=== PATIENT | female | born 1955 | race Caucasian/White ===

== ENCOUNTER → 2016-06-09 | Outpatient (CLI) | payer OTHER ==
[~2016-06-09] MED LIST: /ADVA50050 IN; /ADVA50050 INH; /ESCI10TA OR; /LOR25TA PO; ASACOL; ASPI1TAB PO; ASPI325T OR; ASPI325T PO; CALC600T10; CALCIUM WITH VIT D OR; CALCTAB22 PO; CEFD300C OR; CELE40TA OR; CIPR250T2 PO; CLAR5CHW PO; COMBVENT INH; DICL0.1S7 EXT; DIOV160T5 OR; DULC100C PO; DUONSOL INH; E-Z-GAS II EFFERVESCENT PACKET (SODIUM BICARB./CITRIC ACID/SIMETHICONE) As Ordered ONE; E-Z-HD 98% w/w 340GM SUSP BTL As Ordered ONE; E-Z-PAQUE 96% w/w SUSP 176GM BTL As Ordered ONE; ESTR1TAB OR; ESTRACE PV; GABA-279 PO; GABA300C3 PO; HYDR-3719 PO; HYDR25TA6 OR; KLOR10TA OR; KLS75TAB; LASI40TA OR; LIAL1.2T PO; MESAPOW OR; MULTIVIT PO; NAPR500T OR; NASONEX; NASONEX INH; NEXI20CA; NEXI20GR; OXYC1TAB15 PO; OXYC1TAB23 PO; PREG25CA OR; PREG50CA; PREV15CA PO; PREVACID OR; RANI75EL; TOLT2TA OR; VENTAER IN; VICO5TAB16 PO; VITA250C OR; VOLT1GEL EX; ZANAX; ZANT300T OR; [UNRECOGNIZED DRUG - OTHER]; astelin; estrace PV; klor con PO; mesalamine PO
--- NOTE | 2016-06-09 17:32 | REP ---
UPPER GI, AIR CONTRAST: The procedure was performed under the direct supervision of Dr. Rocha. The images were reviewed with Dr. Rocha. The extruder operator helper film shows no organomegaly or pathological masses. The intestinal gas pattern is nonspecific. There are surgical clips noted in the right upper quadrant. There is levoscoliosis. There is a lumbar spinous process stabilizer device at the L4 level. Liquid barium and gas-producing granules were given in the erect position as well as liquid barium in the prone oblique position in order to perform a double-contrast upper GI examination. The oral and pharyngeal stage of deglutition are unremarkable. Esophageal transport is prompt and efficient and there is no esophagitis, stricture, mucosal ring, or hiatal hernia. There is mild gastroesophageal reflux demonstrated to below the level of the william. The stomach schulz are normally outlined. The rugal folds are smooth and regular. There is no gastritis, neoplasm, or ulcer disease. The duodenal schulz are normally outlined. The mucosal folds are smooth and regular. There is no duodenitis, pancreatitis, peptic ulcer disease, or neoplasm. The visualized portion of the proximal small bowel appears normal in course and caliber. IMPRESSION: There is mild gastroesophageal reflux demonstrated to below the level of the william, otherwise unremarkable double contrast upper GI examination. 2 minutes and 7 seconds of fluoroscopic time was utilized for this procedure. Reviewed by GUZMAN Coleman 06/12/2016 05:08 PEdited and Signed by Edwin Rocha MD 06/12/2016 05:12 P
== END ==
LOC: M RAD 08:49
PROVIDERS: ATTEND Family Medicine
DX: K21.9 Gastro-esophageal reflux disease without esophagitis (principal)

== ENCOUNTER → 2016-07-14 | Outpatient (CLI) | payer OTHER ==
[~2016-07-14] MED LIST changes: +ASCO25TA PO; +CALC600T57 PO; +CELE40TA PO; +CETI10TA PO; +DETR1TAB4 PO; +DIOV160T6 PO; +DRIS50002 PO; -E-Z-GAS II EFFERVESCENT PACKET (SODIUM BICARB./CITRIC ACID/SIMETHICONE) As Ordered ONE; -E-Z-HD 98% w/w 340GM SUSP BTL As Ordered ONE; -E-Z-PAQUE 96% w/w SUSP 176GM BTL As Ordered ONE; +ESTR0.5T3 PO; +FLON1SPR; +MULT1TAB10 PO; +PREV30CA11 PO; +RANI15TA PO
--- NOTE | 2016-07-14 23:25 | ECWPNPC ---
PATIENT NAME: MARICARMEN WHEATLEY : 1955 GENDER: FEMALE VISIT DATE: 07/14/2016 DISCHARGE DATE: 07/14/16 1541 VISIT LOCKED DATE TIME: PHYSICIAN: MEGAN WU PHYSICIAN PAGER NO: [phone] RESOURCE: MEGAN WU REASON FOR APPOINTMENT 1. HIP HISTORY OF PRESENT ILLNESS HISTORY OF PRESENT ILLNESS: PAIN THE PATIENT DESCRIBES THE PAIN... FALL RISK SCREENING: SCREENING :NO FALLS IN THE PAST YEAR TODAY'S VISIT: NOTES: RATES PAIN LEVEL TODAY 8/10. HAD FALL ON ICE 3 WEEKS AGO. HAS BEEN HAVING NEW SHARP PAIN JUST DISTAL TO RIGHT KNEE. THIS CAN LOCK UP AND PREVENT HER FROM WALKING BRIEFLY. HIP MORE SORE AFTER FALL. NO BRUISES THERE. . CURRENT MEDICATIONS TAKING DIOVAN 160 MG TABLET TAKE 1 TABLET BY MOUTH ONCE DAILY ORALLY ONCE A DAY TAKING PREVACID 30 MG CAPSULE DELAYED RELEASE 1 CAPSULE ORALLY TWICE A DAY TAKING VENTOLIN HFA 108 (90 BASE) MCG/ACT AEROSOL SOLUTION 2 PUFFS INHALATION EVERY 4 HOURS NEEDED FOR WHEEZING TAKING CELEXA 40 MG TABLET 1 TABLET ORALLY ONCE A DAY TAKING DRISDOL 50,000 UNITS TABLET 1 TAB(S) ORAL ONCE A WEEK TAKING FLONASE 50 MCG/DOSE INHALER 2 SPRAYS IN EACH NOSTRIL NASALLY ONCE A DAY, NOTES: 04/18/16 TAKING ASTELIN 137 MCG/SPRAY SOLUTION INSTILL 1 SPRAY INTO EACH NOSTRIL 2 TIMES A DAY _ BID TAKING LIALDA 1.2 GM UNSPECIFIED 2 TABLETS WITH A MEAL ORALLY ONCE A DAY, NOTES: 04/18/16 TAKING CALCIUM 600 + D 600-400 MG-UNIT TABLET 1 TABLET ORALLY TWICE A DAY, NOTES: 04/18/16 TAKING VITAMIN C OTC TABLET 1 TABLET ORALLY ONCE A DAY, NOTES: 04/18/16@0800 TAKING MULTIVITAMINS OTC TABLET 1 TAB(S) ORALLY ONCE A DAY, NOTES: 04/18/16@0800 TAKING ESTRACE 0.1 MG/GM CREAM 0.5 GM VAGINAL TWICE A WEEK, NOTES: 1 WEEK AGO TAKING CETIRIZINE HCL 10 MG TABLET TAKE ONE TABLET BY MOUTH ONCE DAILY NEEDED , NOTES: 04/18/16 TAKING ZANTAC 150 MG TABLET 1 TABLET ORALLY TWICE A DAY TAKING GABAPENTIN 300 MG CAPSULE 1 CAPSULE ORALLY TWO TIMES A DAY TAKING DETROL 2 MG TABLET TAKE ONE TABLET BY MOUTH ONCE DAILY TAKING APRISO 0.375 GM CAPSULE EXTENDED RELEASE 24 HOUR 4 CAPSULES IN THE MORNING ORALLY ONCE A DAY MEDICATION LIST REVIEWED AND RECONCILED WITH THE PATIENT PAST MEDICAL HISTORY HYPERLIPIDEMIA 2B IMPAIRED FASTING GLUCOSE GERD/HIATAL HERNIA BY EGD DECEMBER 2006/SMALL HH BY 10/2014 UGISBFT COPD/ASTHMA, MILD PERSISTENT MULTIPLE BILATERAL COMPLEX THYROID CYSTS ULCERATIVE COLITIS BY COLONOSCOPY DECEMBER 2006 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 STOLL IMPAIRED FASTING GLUCOSE OBSTRUCTIVE SLEEP APNEA (ADULT) (PEDIATRIC) DIASTOLIC CHF-09/2014 TTE LVEF65%, DIASTOLIC DYSFUNCTION, ELEVATED CVP, MILD LAE 35 MM-ARRIETA B HIP OA, MILD R>L, PARTIAL L SUPERIOR LABRUM TEAR BY 10/2015 MRI ALLERGIES LYRICA: EDEMA, SWELLING, ITCHING: ALLERGY ULTRACET: RASH: ALLERGY OMEPRAZOLE: RASH: ALLERGY ENVIRONMENTAL GABAPENTIN: RASH: SIDE EFFECTS NORCO: CONFUSION: ALLERGY SOCIAL HISTORY GENERAL: TOBACCO USE ARE YOU A:NONSMOKER LEARNING BARRIERS / SPECIAL NEEDS ORIENTED TO PLAN OF CARE: PATIENT, PAIN MANAGEMENT PATIENT, ORIENTED TO PLAN OF CARE: PATIENT, PAIN MANAGEMENT PATIENT. NEW PATIENT PAIN DIARY TODAY'S VISITNOTES FROM 0-10, WHAT LEVEL IS YOUR PAIN TODAY?0 PAIN CLINIC PFS, CLERGY, PUBLIC HEALTH REFERRALS PFS REFERRAL NEEDED?NO CLERGY REFERRAL NEEDED?NO PUBLIC HEALTH REFERRAL NEEDED?NO WAS THE PROVIDER NOTIFIED OF ANY PERTINENT INFO?NO PFS REFERRAL NEEDED?NO CLERGY REFERRAL NEEDED?NO PUBLIC HEALTH REFERRAL NEEDED?NO WAS THE PROVIDER NOTIFIED OF ANY PERTINENT INFO?NO REVIEW OF SYSTEMS CONSTITUTIONAL: ANY CHANGE IN YOUR MEDICAL CONDITION? July ENDOSCOPY FOR INCREASED EPI GSTRIC PAIN . CHILLS NO . FEVER NO . INFECTION: DO YOU HAVE NEW INFECTIONS? NO . DO YOU HAVE HISTORY OF MRSA? NO . MUSCULOSKELETAL: ANY NEW PATTERNS OF PAIN OR NUMBNESS? NO . GASTROENTEROLOGY: ANY NEW CHANGE IN BOWEL CONTROL? NO . GENITOURINARY: ANY NEW CHANGE IN BLADDER CONTROL? NO . IS THERE A CHANCE YOU COULD BE ? NO . HEMATOLOGY/LYMPH: DO YOU TAKE ANY BLOOD THINNERS? (FOR EXAMPLE- COUMADIN, PLAVIX, AGGRENOX, PLATEL, PRADAXA, OR XARELTO) NO . WHEN WAS YOUR LAST DOSE? DATE: TIME: . NEUROLOGY: HAVE YOU FALLEN IN THE PAST 6 MONTHS? NO . ANY NEW EXTREMITY NUMBNESS OR WEAKNESS? NO . CARDIOLOGY: DO YOU HAVE A PACEMAKER OR DEFIBRILLATOR? NO . RESPIRATORY: HAVE YOU BEEN SICK IN THE PAST WEEK? NO . FEVER NO . FLU LIKE SYMPTOMS? NO . COUGH NO . INTEGUMENTARY: DO YOU HAVE ANY RASHES OR OPEN SORES? NO . ALLERGIC/IMMUNO: ARE YOU ALLERGIC TO SHELLFISH OR IV DYE? NO . ANY NEW ALLERGIES? NO . PSYCHIATRIC: DO YOU HAVE THOUGHTS OF HURTING YOURSELF OR SOMEONE ELSE? NO . ARE YOU ABUSED, NEGLECTED, OR IN AN UNSAFE ENVIRONMENT? NO . ENDOCRINOLOGY: ARE YOU DIABETIC? NO . OTHER: DO YOU NEED ANY PRESCRIPTIONS? NO . IF YES, PLEASE LIST: ____ . ANY NEW PROBLEMS WITH YOUR MEDICATIONS? NO . WHEN DID YOU LAST EAT? ____ . WHEN DID YOU LAST DRINK? ____ . WHAT DID YOU LAST DRINK? ____ . NAME OF PERSON DRIVING YOU HOME? ____ . DO YOU HAVE ANY OTHER QUESTIONS OR CONCERNS NO . REVIEWED BY: PROVIDER: MEGAN NEWMAN . VITAL SIGNS WT 240.4 LBS, HT 70 IN, BMI 34.49 INDEX, BP 133/81 MM HG, HR 82 /MIN, RR 16 /MIN, TEMP 98.7 F, OXYGEN SAT % 95%, NA INITIALS KG. EXAMINATION GENERAL EXAMINATION: PSYCHALERT , ORIENTED X 3 , APPROPRIATE MOOD AND AFFECT . LUNGS:CLEAR TO AUSCULTATION BILATERALLY. HEART:HEART RATE REGULAR. MUSCULOSKELETAL:POINT TENDERNESS OVER BILATERAL HIP /TROCANTERIC AREAS. SLOW TO RISE TO STANDING POSITION. POSTURE UPRIGHT, GAIT NON ANTALGIC. ASSESSMENTS HIP PAIN, BILATERAL - M25.551 (PRIMARY) CHRONIC PAIN SYNDROME - G89.4 SPONDYLOSIS OF LUMBAR REGION WITHOUT MYELOPATHY OR RADICULOPATHY - M47.816 CHRONIC PRESCRIPTION OPIATE USE - Z79.891 TREATMENT HIP PAIN, BILATERAL ARTHROCENTESIS INJECTION LARGE JOINT ([id number])MEGAN WU 07/14/2016 3:30:26 PM > LEFT HIP TROCANTER BURSA INJECTION NOTES: CONTINUE CURRENT MEDS. PREVENTIVE MEDICINE PAIN CLINIC TEACHING: PROCEDURE TEACHING WENT OVER HIP INJECTION EDUCATION INCLUDING PRE PROCEDURE EDUCATION. PROCEDURE CODES FA211 ESTABILISHED PATIENT [facility] CHARGE DISPOSITION & COMMUNICATION FOLLOW UP AFTER INJECTION (REASON: CHECK AUTH FOR BILATERAL HIP BURSA INJECTION) ELECTRONICALLY SIGNED BY HIREN PIERCE ON 07/14/2016 AT 05:32 PM EST DISCLAIMER : THIS IS A VISIT SUMMARY EXTRACTED FROM THE [employer] CHART. IT IS NOT A COPY OF THE [employer] PROGRESS NOTE. FRANK
== END ==
LOC: M PAIN 15:00
PROVIDERS: ATTEND Nurse Practitioner Family
DX: Z09 Encounter for follow-up examination after completed treatment for conditions other than malignant neoplasm (principal); G89.4 Chronic pain syndrome; M25.551 Pain in right hip; M47.816 Spondylosis without myelopathy or radiculopathy, lumbar region; E78.5 Hyperlipidemia, unspecified; R73.01 Impaired fasting glucose; K21.9 Gastro-esophageal reflux disease without esophagitis; J44.9 Chronic obstructive pulmonary disease, unspecified; K51.80 Other ulcerative colitis without complications; I10 Essential (primary) hypertension; M79.7 Fibromyalgia; F32.9 Major depressive disorder, single episode, unspecified; G47.33 Obstructive sleep apnea (adult) (pediatric); M50.30 Other cervical disc degeneration, unspecified cervical region; M16.0 Bilateral primary osteoarthritis of hip; I50.30 Unspecified diastolic (congestive) heart failure; E66.9 Obesity, unspecified; Z68.34 Body mass index [BMI] 34.0-34.9, adult; Z88.8 Allergy status to other drugs, medicaments and biological substances; J30.89 Other allergic rhinitis; Z88.5 Allergy status to narcotic agent; Z79.899 Other long term (current) drug therapy

== ENCOUNTER → 2016-07-27 | Outpatient (CLI) | payer OTHER ==
[~2016-07-27] VITALS: Ht 175.3 cm; Wt 108.9 kg
[~2016-07-27] MED LIST changes: +LIDOCAINE 2% INJ 100 MG/5 ML SDV (FOR ANES.) As Ordered ONE; +NS 1,000 ML IV SCH; +PROPOFOL 200 MG/20 ML VIAL As Ordered ONE
--- NOTE | 2016-07-27 12:11 | ROOR ---
Patient Name: Kandice Alejo Procedure Date: 07/27/2016 11:34 AM Date of : 1955 Age: 61 Room: [facility] Gender: Female Note Status: Finalized Procedure: Upper GI endoscopy Indications: Epigastric abdominal pain Providers: Ze Monique Jr, MD Referring MD: Gregg Salmeron MD Requesting Provider: Medicines: Propofol per Anesthesia Complications: No immediate complications. Procedure: Pre-Anesthesia Assessment: - Prior to the procedure, a History and Physical was performed, and patient medications and allergies were reviewed. The patient is competent. The risks and benefits of the procedure and the sedation options and risks were discussed with the patient. All questions were answered and informed consent was obtained. Patient identification and proposed procedure were verified by the physician and the nurse in the pre-procedure area and in the procedure room. Mental Status Examination: alert and oriented. Airway Examination: normal oropharyngeal airway and neck mobility. Respiratory Examination: clear to auscultation. CV Examination: normal. ASA Grade Assessment: II - A patient with mild systemic disease. After reviewing the risks and benefits, the patient was deemed in satisfactory condition to undergo the procedure. The anesthesia plan was to use moderate sedation / analgesia (conscious sedation). Immediately prior to administration of medications, the patient was re-assessed for adequacy to receive sedatives. The heart rate, respiratory rate, oxygen saturations, blood pressure, adequacy of pulmonary ventilation, and response to care were monitored throughout the procedure. The physical status of the patient was re-assessed after the procedure. The Endoscope was introduced through the mouth, and advanced to the second part of duodenum. The upper GI endoscopy was accomplished without difficulty. The patient tolerated the procedure well. Findings: The upper third of the esophagus, middle third of the esophagus and lower third of the esophagus were normal. A small hiatal hernia was present. Patchy moderate inflammation characterized by congestion (edema), erythema, friability, granularity and linear erosions was found in the gastric antrum. Biopsies were taken with a cold forceps for histology. The cardia and gastric fundus were normal. Patchy moderate inflammation characterized by congestion (edema), erythema and friability was found in the duodenal bulb. The first portion of the duodenum and second portion of the duodenum were normal. Impression: - Normal upper third of esophagus, middle third of esophagus and lower third of esophagus. - Small hiatal hernia. - Bile gastritis. Biopsied. - Normal cardia and gastric fundus. - Duodenitis. - Normal first portion of the duodenum and second portion of the duodenum. Recommendation: - Use sucralfate tablets 1 gram PO QID indefinitely. Ze Monique MD Ze Monique Jr, MD 07/27/2016 12:10:44 PM This report has been signed electronically. Number of Addenda: 0 Note Initiated On: 07/27/2016 11:34 AM Estimated Blood Loss: Estimated blood loss: none.
[2016-07-27 12:17] VITALS: BP 129/75
== END | disposition home or self-care (01) ==
LOC: M OPP 10:40
PROVIDERS: ATTEND Surgery
DX: K29.80 Duodenitis without bleeding (principal); K29.60 Other gastritis without bleeding; K44.9 Diaphragmatic hernia without obstruction or gangrene; R07.89 Other chest pain; K21.9 Gastro-esophageal reflux disease without esophagitis; I12.9 Hypertensive chronic kidney disease with stage 1 through stage 4 chronic kidney disease, or unspecified chronic kidney disease; E04.1 Nontoxic single thyroid nodule; K51.90 Ulcerative colitis, unspecified, without complications; R12 Heartburn; M19.90 Unspecified osteoarthritis, unspecified site; M79.7 Fibromyalgia; F41.9 Anxiety disorder, unspecified; F32.9 Major depressive disorder, single episode, unspecified; E66.9 Obesity, unspecified; N18.9 Chronic kidney disease, unspecified; Z78.0 Asymptomatic menopausal state; J45.909 Unspecified asthma, uncomplicated; G47.30 Sleep apnea, unspecified; Z88.5 Allergy status to narcotic agent; Z88.8 Allergy status to other drugs, medicaments and biological substances; Z79.899 Other long term (current) drug therapy; Z80.8 Family history of malignant neoplasm of other organs or systems

== ENCOUNTER → 2016-08-09 | Outpatient (CLI) | payer OTHER ==
[~2016-08-09] MED LIST changes: -LIDOCAINE 2% INJ 100 MG/5 ML SDV (FOR ANES.) As Ordered ONE; -NS 1,000 ML IV SCH; -PROPOFOL 200 MG/20 ML VIAL As Ordered ONE
[2016-08-09 12:59] LABS: BASO % 0.2 % (0.0-1.0); EOS # 0.1 K/mm3 (0.0-0.50); EOS % 1.8 % (0.0-3.0); LARGE UNSTAINED CELL # 0.1 K/mm3 (0.0-0.4); LARGE UNSTAINED CELL % 1.7 % (0.0-4.0); LYMPH # 2.8 K/mm3 (1.5-4.5); LYMPH % 40.1 % (24.0-44.0); MEAN CORPUSCULAR HEMOGLOBIN 30.6 pg (27.0-33.0); MEAN CORPUSCULAR HGB CONC 34.2 g/dl (32.0-36.5); MEAN CORPUSCULAR VOLUME 89.4 fl (80.0-96.0); MONO # 0.3 K/mm3 (0.0-0.8); MONO % 4.6 % (0.0-5.0); NEUTROPHILS # 3.5 K/mm3 (1.8-7.7); NEUTROPHILS % 51.5 % (36.0-66.0); PLATELET COUNT, AUTOMATED 221 k/mm3 (150-450); RED CELL DISTRIBUTION WIDTH 12.3 % (11.5-14.5); WHITE BLOOD COUNT 6.7 K/mm3 (4.0-10.0)
[2016-08-09 13:14] LABS: ALBUMIN/GLOBULIN RATIO 1.11 (1.00-1.93); ALKALINE PHOSPHATASE 83 U/L (45-117); ALT/SGPT 28 U/L (12-78); ANION GAP 6 MEQ/L (8-16); AST/SGOT 23 U/L (15-37); BILIRUBIN,TOTAL 0.4 MG/DL (0.2-1.0); BLOOD UREA NITROGEN 17 MG/DL (7-18); CALCIUM LEVEL 9.3 MG/DL (8.8-10.2); CARBON DIOXIDE LEVEL 27 MEQ/L (21-32); CHLORIDE LEVEL 107 MEQ/L (98-107); CREATININE FOR GFR 0.87 MG/DL (0.55-1.02); FERRITIN 46 NG/ML (8-252); GLOMERULAR FILTRATION RATE > 60.0 (>45); GLUCOSE, FASTING 88 MG/DL (80-110); MAGNESIUM LEVEL 2.4 MG/DL (1.8-2.4); POTASSIUM SERUM 4.1 MEQ/L (3.5-5.1); SODIUM LEVEL 140 MEQ/L (136-145); TOTAL IRON BINDING CAPACITY 387 UG/DL (250-450); TOTAL PROTEIN 7.6 GM/DL (6.4-8.2)
== END ==
LOC: M LAB 12:14
PROVIDERS: ATTEND Family Medicine
DX: I50.30 Unspecified diastolic (congestive) heart failure (principal); R73.01 Impaired fasting glucose

== ENCOUNTER → 2016-08-11 | Outpatient (CLI) | payer OTHER ==
[~2016-08-11] MED LIST changes: +BUPIVACAINE HCL 0.25% 30 ML VIAL As Ordered ONE; +ISOVUE-M 300 61% 15ML VIAL (Q9967) As Ordered ONE; +LIDOCAINE 1% SDV INJ 30 ML VIAL As Ordered ONE; +TRIAMCINOLONE ACETONIDE SUSP 40 MG/ML VIAL (J3301) As Ordered ONE; +diazePAM 5 MG TAB As Ordered ONE; +oxyCODONE 5MG TAB As Ordered ONE
--- NOTE | 2016-08-11 15:05 | REP ---
Partial femur series: Five views. History: Injection procedure for pain. 39 seconds of fluoroscopy time is reported. Findings: A sequence of five fluoroscopically obtained intraprocedural spot radiographs of the proximal femurs document various needle positions for injection procedure. Signed by Edwin Rocha MD 08/11/2016 03:51 P
--- NOTE | 2016-08-16 02:28 | ECWPNPC ---
PATIENT NAME: MARICARMEN WHEATLEY : 1955 GENDER: FEMALE VISIT DATE: 08/11/2016 DISCHARGE DATE: 08/11/16 1151 VISIT LOCKED DATE TIME: PHYSICIAN: ARCADIO GLASS PHYSICIAN PAGER NO: [phone] RESOURCE: ARCADIO GLASS REASON FOR APPOINTMENT 1. LEFT HIP TROCANTER BURSA INJECTION HISTORY OF PRESENT ILLNESS HISTORY OF PRESENT ILLNESS: PAIN THE PATIENT DESCRIBES THE PAIN... FALL RISK SCREENING: SCREENING :NO FALLS IN THE PAST YEAR CURRENT MEDICATIONS TAKING VENTOLIN HFA 108 (90 BASE) MCG/ACT AEROSOL SOLUTION 2 PUFFS INHALATION EVERY 4 HOURS NEEDED FOR WHEEZING, NOTES: NONE LATELY TAKING CELEXA 40 MG TABLET 1 TABLET ORALLY ONCE A DAY, NOTES: 08/10/16 0800 TAKING DRISDOL 50,000 UNITS TABLET 1 TAB(S) ORAL ONCE A WEEK, NOTES: 08/06/16 TAKING FLONASE 50 MCG/DOSE INHALER 2 SPRAYS IN EACH NOSTRIL NASALLY ONCE A DAY, NOTES: 08/10/161999 TAKING ASTELIN 137 MCG/SPRAY SOLUTION INSTILL 1 SPRAY INTO EACH NOSTRIL 2 TIMES A DAY _ BID, NOTES: 08/10/16 1300 TAKING LIALDA 1.2 GM UNSPECIFIED 4 TABLETS WITH A MEAL ORALLY ONCE A DAY, NOTES: 08/10/16 0800 TAKING CALCIUM 600 + D 600-400 MG-UNIT TABLET 1 TABLET ORALLY TWICE A DAY, NOTES: 08/10/161999 TAKING VITAMIN C OTC TABLET 1 TABLET ORALLY ONCE A DAY, NOTES: 08/10/16@0800 TAKING MULTIVITAMINS OTC TABLET 1 TAB(S) ORALLY ONCE A DAY, NOTES: 08/10/16 08 TAKING ESTRACE 0.1 MG/GM CREAM 0.5 GM VAGINAL WEEKLY, NOTES: 1 WEEK AGO TAKING ZANTAC 300 MG TABLET 1 TABLET ORALLY TWICE A DAY, NOTES: 08/10/161999 TAKING GABAPENTIN 300 MG CAPSULE 1 CAPSULE ORALLY TWO TIMES A DAY, NOTES: NONE LATELY TAKING LASIX 40 MG TABLET 1 TABLET ONCE A DAY BY MOUTH 90 DAY(S) , NOTES: 08/10/16 08 TAKING CETIRIZINE HCL 10 MG TABLET TAKE ONE TABLET BY MOUTH ONCE DAILY NEEDED , NOTES: 08/10/16 08 TAKING DETROL 2 MG TABLET TAKE ONE TABLET BY MOUTH ONCE DAILY , NOTES: 08/10/16 0800 TAKING DIOVAN 160 MG TABLET TAKE 1 TABLET BY MOUTH ONCE DAILY ONCE A DAY ORALLY 90 DAY(S) , NOTES: 08/10/16 0800 NOT-TAKING APRISO 0.375 GM CAPSULE EXTENDED RELEASE 24 HOUR 4 CAPSULES IN THE MORNING ORALLY ONCE A DAY DISCONTINUED PREVACID 30 MG CAPSULE DELAYED RELEASE 1 CAPSULE TWICE A DAY ORALLY 90 DAY(S) DISCONTINUED VITAMIN D (ERGOCALCIFEROL) 97937 UNIT CAPSULE TAKE ONE CAPSULE BY MOUTH ONCE A WEEK MEDICATION LIST REVIEWED AND RECONCILED WITH THE PATIENT PAST MEDICAL HISTORY HYPERLIPIDEMIA 2B IMPAIRED FASTING GLUCOSE GERD/HIATAL HERNIA BY EGD DECEMBER 2006/SMALL HH BY 10/2014 UGISBFT COPD/ASTHMA, MILD PERSISTENT MULTIPLE BILATERAL COMPLEX THYROID CYSTS ULCERATIVE COLITIS BY COLONOSCOPY DECEMBER 2006 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 STOLL IMPAIRED FASTING GLUCOSE OBSTRUCTIVE SLEEP APNEA (ADULT) (PEDIATRIC) DIASTOLIC CHF-09/2014 TTE LVEF65%, DIASTOLIC DYSFUNCTION, ELEVATED CVP, MILD LAE 35 MM-ARRIETA B HIP OA, MILD R>L, PARTIAL L SUPERIOR LABRUM TEAR BY 10/2015 MRI ALLERGIES LYRICA: EDEMA, SWELLING, ITCHING: ALLERGY ULTRACET: RASH: ALLERGY OMEPRAZOLE: RASH: ALLERGY ENVIRONMENTAL GABAPENTIN: RASH: SIDE EFFECTS NORCO: CONFUSION: ALLERGY SURGICAL HISTORY RIGHT KIDNEY SURGERY 1997 BREAST LEFT CYST 1999 HYSTERECTOMY 1979 TUBAL LIGATION 1977 GALL BLADDER B EYELID SURGERY-ROJAS 09/2012 BACK SURGERY 2014 RIGHT FOOT BUNIONECTOMY, REPAIR OF HAMMERTOES 04/04 EGD 07/18/16 HOSPITALIZATION/MAJOR DIAGNOSTIC PROCEDURE NONE REVIEW OF SYSTEMS CONSTITUTIONAL: ANY CHANGE IN YOUR MEDICAL CONDITION? NO . CHILLS NO . FEVER NO . INFECTION: DO YOU HAVE NEW INFECTIONS? NO . DO YOU HAVE HISTORY OF MRSA? NO . MUSCULOSKELETAL: ANY NEW PATTERNS OF PAIN OR NUMBNESS? NO . GASTROENTEROLOGY: ANY NEW CHANGE IN BOWEL CONTROL? NO . GENITOURINARY: ANY NEW CHANGE IN BLADDER CONTROL? NO . IS THERE A CHANCE YOU COULD BE ? NO . HEMATOLOGY/LYMPH: DO YOU TAKE ANY BLOOD THINNERS? (FOR EXAMPLE- COUMADIN, PLAVIX, AGGRENOX, PLATEL, PRADAXA, OR XARELTO) NO . WHEN WAS YOUR LAST DOSE? DATE: TIME: . NEUROLOGY: HAVE YOU FALLEN IN THE PAST 6 MONTHS? YES ON ICE-NO ED EVAL . ANY NEW EXTREMITY NUMBNESS OR WEAKNESS? NO . CARDIOLOGY: DO YOU HAVE A PACEMAKER OR DEFIBRILLATOR? NO . RESPIRATORY: HAVE YOU BEEN SICK IN THE PAST WEEK? NO . FEVER NO . FLU LIKE SYMPTOMS? NO . COUGH NO . INTEGUMENTARY: DO YOU HAVE ANY RASHES OR OPEN SORES? NO . ALLERGIC/IMMUNO: ARE YOU ALLERGIC TO SHELLFISH OR IV DYE? NO . ANY NEW ALLERGIES? NO . PSYCHIATRIC: DO YOU HAVE THOUGHTS OF HURTING YOURSELF OR SOMEONE ELSE? NO . ARE YOU ABUSED, NEGLECTED, OR IN AN UNSAFE ENVIRONMENT? NO . ENDOCRINOLOGY: ARE YOU DIABETIC? NO . OTHER: DO YOU NEED ANY PRESCRIPTIONS? NO . IF YES, PLEASE LIST: ____ . ANY NEW PROBLEMS WITH YOUR MEDICATIONS? NO . WHEN DID YOU LAST EAT? ____08/10/16 1800 . WHEN DID YOU LAST DRINK? ____08/10/16 2300 . WHAT DID YOU LAST DRINK? ____MILK . NAME OF PERSON DRIVING YOU HOME? ____MED RIDE . DO YOU HAVE ANY OTHER QUESTIONS OR CONCERNS NO . REVIEWED BY: PROVIDER: . VITAL SIGNS WT 240 LBS, HT 70 IN, BMI 34.43 INDEX, BP 141/63 MM HG, HR 80 /MIN, RR 16 /MIN, TEMP 98.4 F, OXYGEN SAT % 95%, NA INITIALS SC 10:43, REVIEWED BY: MLF. ASSESSMENTS TROCHANTERIC BURSITIS, LEFT HIP - M70.62 (PRIMARY) TREATMENT OTHERS NOTES: PREPROCEDURE DIAGNOSIS: BURSITIS AT THE LEFT GREATER TROCHANTER OF THE FEMUR. POSTPROCEDURE DIAGNOSIS: BURSITIS AT THE LEFT GREATER TROCHANTER OF THE FEMUR. PROCEDURE: INJECTION AT THE BURSA OF THE OF THE LEFT GREATER TROCHANTER OF THE FEMUR UNDER FLUOROSCOPIC GUIDANCE. SURGEON: DR. ARCADIO GLASS MANUFACTURING ENGINEERING DIRECTOR: NONEANESTHESIA: LOCAL. PREOPERATIVE NOTE: THE PATIENT HAS A HISTORY OF LEFT HIP PAIN. I EVALUATED THE PATIENT AND REVIEWED THE CHART. WE BOTH AGREE ON INJECTING OVER THE BURSA OF THE LEFT GREATER TROCHANTER OF THE FEMUR. I WENT THROUGH THE RISKS, ALTERNATIVES, AND BENEFITS ASSOCIATED WITH THIS PROCEDURE. THE PATIENT WOULD LIKE TO PROCEED AND GIVE CONSENT TO PERFORMED THE PROCEDURE. THE PATIENT DENIES UNEXPLAINABLE WEIGHT LOSS, FEVERS, CHILLS, OR CHANGES IN HIS URINARY OR BOWEL CONTROL. DESCRIPTION OF PROCEDURE: AFTER CONSENT WAS TAKEN, THE PATIENT WAS BROUGHT TO THE PROCEDURE ROOM AND PLACED IN THE RIGHT LATERAL DECUBITUS POSITION. THE LEFT HIP AREA WAS CLEANED WITH CHLORAPREP SOLUTION AND DRAPED ASEPTICALLY. THE PROCEDURE WAS DONE UNDER STERILE CONDITIONS. I CHECKED LATERALITY WITH THE PATIENT AND THE STAFF IN THE PROCEDURE ROOM AT THE MOMENT OF THE TIME OUT. UNDER FLUOROSCOPIC GUIDANCE, TARGET WAS SELECTED AT THE [DEFAULT VALUE] GREATER TROCHANTER OF THE FEMUR. LIDOCAINE WAS USED TO NUMB THE SKIN AND THE SUBCUTANEOUS TISSUE BELOW IT. SPINAL NEEDLE, 22-GAUGE WAS ADVANCED UNDER FLUOROSCOPIC GUIDANCE AND FOLLOWING PATIENT FEEDBACK UNTIL THE TARGET WAS TOUCHED. POSITION OF THE NEEDLE WAS VERIFIED WITH AP AND LATERAL VIEWS. AFTER PROPER POSITION OF THE NEEDLE WAS ACHIEVED, ISOVUE M DYE, 30%, 0.25 ML WAS INJECTED SHOWING ADEQUATE SPREAD OF THE DYE. THEN A SOLUTION OF 20 ML OF BUPIVACAINE 0.25% AND KENALOG 40 MG WAS INJECTED. THERE WAS NO EVIDENCE OF BLOOD, PARESTHESIA, OR CEREBROSPINAL FLUID. THE PATIENT WAS SENT TO THE RECOVERY ROOM. THE PATIENT WAS MOVING THE EXTREMITIES AND DOING WELL. THERE WERE NO COMPLICATIONS DURING THE PROCEDURE. POSTOPERATIVE NOTE: I DISCUSSED ALTERNATIVES WITH THE PATIENT. WE WILL SEE THE PATIENT BACK IN SEVERAL WEEKS FOR REEVALUATION OF THE CASE. I AM LOOKING FOR LONG-LASTING PAIN RELIEF WITH THIS INTERVENTION. FLUOROSCOPIC TIME WAS 39 SECONDS. FURTHER RECOMMENDATIONS WILL BE DONE DEPENDING ON HOW THE PATIENT DOES. THERE WERE NO COMPLICATIONS.I, KARYN SAUCEDO, DOCUMENTED THE ABOVE INFORMATION ACTING A SCRIBE FOR DR. GLASS. I, DR. GLASS, HAVE REVIEWED THE ABOVE DOCUMENT, SCRIBED BY KARYN SAUCEDO, AND I VERIFY THAT IT IS ACCURATE. DIAGNOSTIC IMAGING [facility] FLUORO GUIDANCE (PAIN)[id number] PROCEDURE CODES 88390 INJ TENDON SHEATH/LIGAMENT 6045F RADXPS IN END [id number] PXD 20625 NEEDLE LOCALIZATION BY XRAY DISPOSITION & COMMUNICATION FOLLOW UP 3 WEEKS ELECTRONICALLY SIGNED BY ARCADIO GLASS MD ON 08/15/2016 AT 01:21 PM EDT DISCLAIMER : THIS IS A VISIT SUMMARY EXTRACTED FROM THE [employer] CHART. IT IS NOT A COPY OF THE [employer] PROGRESS NOTE. FRANK
== END ==
LOC: M PAIN 10:20
PROVIDERS: ATTEND Anesthesiology
DX: M70.62 Trochanteric bursitis, left hip (principal); Z79.899 Other long term (current) drug therapy; I10 Essential (primary) hypertension; J45.30 Mild persistent asthma, uncomplicated; I50.30 Unspecified diastolic (congestive) heart failure; M16.0 Bilateral primary osteoarthritis of hip; K21.9 Gastro-esophageal reflux disease without esophagitis; E55.9 Vitamin D deficiency, unspecified; R73.01 Impaired fasting glucose; Z88.8 Allergy status to other drugs, medicaments and biological substances
CPT/HCPCS: 20610; 77002; J3301; Q9967

== ENCOUNTER → 2016-08-18 | Outpatient (CLI) | payer OTHER ==
[~2016-08-18] MED LIST changes: +GABA-282 PO; -GABA300C3 PO
--- NOTE | 2016-08-18 11:27 | REP ---
FLUOROSCOPIC GUIDANCE FOR OF THE RIGHT HIP INJECTION: 08/18/2016 CLINICAL HISTORY: Right hip pain for injection. Four views from C-arm fluoroscopic guidance provided to Dr. Dr. Higginbotham of the pain clinic. Images show a needle adjacent to the inferior aspect of the greater trochanter and then extending upward. No other finding. Fluoroscopy time: 7 seconds. Signed by Yordan López MD 08/18/2016 08:08 P
--- NOTE | 2016-08-29 01:13 | ECWPNPC ---
PATIENT NAME: MARICARMEN WHEATLEY : 1955 GENDER: FEMALE VISIT DATE: 08/18/2016 DISCHARGE DATE: 08/18/16 1051 VISIT LOCKED DATE TIME: PHYSICIAN: ARCADIO GLASS PHYSICIAN PAGER NO: [phone] RESOURCE: ARCADIO GLASS REASON FOR APPOINTMENT 1. RIGHT HIP INJ HISTORY OF PRESENT ILLNESS HISTORY OF PRESENT ILLNESS: PAIN THE PATIENT DESCRIBES THE PAIN... FALL RISK SCREENING: SCREENING :NO FALLS IN THE PAST YEAR CURRENT MEDICATIONS TAKING VENTOLIN HFA 108 (90 BASE) MCG/ACT AEROSOL SOLUTION 2 PUFFS INHALATION EVERY 4 HOURS NEEDED FOR WHEEZING, NOTES: NONE LATELY TAKING CELEXA 40 MG TABLET 1 TABLET ORALLY ONCE A DAY, NOTES: 08/17/16 0800 TAKING DRISDOL 50,000 UNITS TABLET 1 TAB(S) ORAL ONCE A WEEK, NOTES: 08/13/16 TAKING FLONASE 50 MCG/DOSE INHALER 2 SPRAYS IN EACH NOSTRIL NASALLY ONCE A DAY, NOTES: 3 MONTHS TAKING ASTELIN 137 MCG/SPRAY SOLUTION INSTILL 1 SPRAY INTO EACH NOSTRIL 2 TIMES A DAY _ BID, NOTES: 08/17/16 1300 TAKING CALCIUM 600 + D 600-400 MG-UNIT TABLET 1 TABLET ORALLY TWICE A DAY, NOTES: 08/17/161999 TAKING VITAMIN C OTC TABLET 1 TABLET ORALLY ONCE A DAY, NOTES: 08/17/16@0800 TAKING MULTIVITAMINS OTC TABLET 1 TAB(S) ORALLY ONCE A DAY, NOTES: 08/17/16 08 TAKING ZANTAC 300 MG TABLET 1 TABLET ORALLY TWICE A DAY, NOTES: 08/17/161999 TAKING GABAPENTIN 300 MG CAPSULE 1 CAPSULE ORALLY TWO TIMES A DAY, NOTES: NONE LATELY TAKING LASIX 40 MG TABLET 1 TABLET ONCE A DAY BY MOUTH 90 DAY(S) , NOTES: 08/17/16 08 TAKING CETIRIZINE HCL 10 MG TABLET TAKE ONE TABLET BY MOUTH ONCE DAILY NEEDED , NOTES: 08/17/16 08 TAKING DETROL 2 MG TABLET TAKE ONE TABLET BY MOUTH ONCE DAILY , NOTES: 08/17/16799 TAKING DIOVAN 160 MG TABLET TAKE 1 TABLET BY MOUTH ONCE DAILY ONCE A DAY ORALLY 90 DAY(S) , NOTES: 08/18/16 08 TAKING ESTRACE 0.1 MG/GM CREAM 0.5 GM VAGINAL TWICE WEEKLY, NOTES: 08/13/16 TAKING APRISO 0.375 GM CAPSULE EXTENDED RELEASE 24 HOUR 4 CAPSULES IN THE MORNING ORALLY ONCE A DAY NOT-TAKING LIALDA 1.2 GM UNSPECIFIED 4 TABLETS WITH A MEAL ORALLY ONCE A DAY, NOTES: 08/10/16 0800 MEDICATION LIST REVIEWED AND RECONCILED WITH THE PATIENT PAST MEDICAL HISTORY HYPERLIPIDEMIA 2B IMPAIRED FASTING GLUCOSE GERD/HIATAL HERNIA BY EGD DECEMBER 2006/SMALL HH BY 10/2014 UGISBFT COPD/ASTHMA, MILD PERSISTENT MULTIPLE BILATERAL COMPLEX THYROID CYSTS ULCERATIVE COLITIS BY COLONOSCOPY DECEMBER 2006 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 STOLL IMPAIRED FASTING GLUCOSE OBSTRUCTIVE SLEEP APNEA (ADULT) (PEDIATRIC) DIASTOLIC CHF-09/2014 TTE LVEF65%, DIASTOLIC DYSFUNCTION, ELEVATED CVP, MILD LAE 35 MM-ARRIETA B HIP OA, MILD R>L, PARTIAL L SUPERIOR LABRUM TEAR BY 10/2015 MRI ALLERGIES LYRICA: EDEMA, SWELLING, ITCHING: ALLERGY ULTRACET: RASH: ALLERGY OMEPRAZOLE: RASH: ALLERGY ENVIRONMENTAL GABAPENTIN: RASH: SIDE EFFECTS NORCO: CONFUSION: ALLERGY SOCIAL HISTORY GENERAL: PAIN CLINIC PFS, CLERGY, PUBLIC HEALTH REFERRALS CLERGY REFERRAL NEEDED?NO WAS THE PROVIDER NOTIFIED OF ANY PERTINENT INFO?NO PFS REFERRAL NEEDED?NO PUBLIC HEALTH REFERRAL NEEDED?NO PATIENT: ____. REVIEW OF SYSTEMS CONSTITUTIONAL: ANY CHANGE IN YOUR MEDICAL CONDITION? NO . CHILLS NO . FEVER NO . INFECTION: DO YOU HAVE NEW INFECTIONS? NO . DO YOU HAVE HISTORY OF MRSA? NO . MUSCULOSKELETAL: ANY NEW PATTERNS OF PAIN OR NUMBNESS? NO . GASTROENTEROLOGY: ANY NEW CHANGE IN BOWEL CONTROL? NO . GENITOURINARY: ANY NEW CHANGE IN BLADDER CONTROL? NO . IS THERE A CHANCE YOU COULD BE ? NO . HEMATOLOGY/LYMPH: DO YOU TAKE ANY BLOOD THINNERS? (FOR EXAMPLE- COUMADIN, PLAVIX, AGGRENOX, PLATEL, PRADAXA, OR XARELTO) NO . WHEN WAS YOUR LAST DOSE? DATE: TIME: . NEUROLOGY: HAVE YOU FALLEN IN THE PAST 6 MONTHS? NO . ANY NEW EXTREMITY NUMBNESS OR WEAKNESS? NO . CARDIOLOGY: DO YOU HAVE A PACEMAKER OR DEFIBRILLATOR? NO . RESPIRATORY: HAVE YOU BEEN SICK IN THE PAST WEEK? NO . FEVER NO . FLU LIKE SYMPTOMS? NO . COUGH NO . INTEGUMENTARY: DO YOU HAVE ANY RASHES OR OPEN SORES? NO . ALLERGIC/IMMUNO: ARE YOU ALLERGIC TO SHELLFISH OR IV DYE? NO . ANY NEW ALLERGIES? NO . PSYCHIATRIC: DO YOU HAVE THOUGHTS OF HURTING YOURSELF OR SOMEONE ELSE? NO . ARE YOU ABUSED, NEGLECTED, OR IN AN UNSAFE ENVIRONMENT? NO . ENDOCRINOLOGY: ARE YOU DIABETIC? NO . OTHER: DO YOU NEED ANY PRESCRIPTIONS? NO . IF YES, PLEASE LIST: ____ . ANY NEW PROBLEMS WITH YOUR MEDICATIONS? NO . WHEN DID YOU LAST EAT? ____ . WHEN DID YOU LAST DRINK? ____ . WHAT DID YOU LAST DRINK? ____ . NAME OF PERSON DRIVING YOU HOME? ____ . DO YOU HAVE ANY OTHER QUESTIONS OR CONCERNS NO . REVIEWED BY: PROVIDER: . VITAL SIGNS WT 242 LBS, HT 70 IN, BMI 34.72 INDEX, BP 106/65 MM HG, HR 68 /MIN, RR 16 /MIN, TEMP 98.4 F, OXYGEN SAT % 97%, SAFE IN ENV? (Y/N) YES, NA INITIALS MS 08:59, REVIEWED BY: ASSESSMENTS TROCHANTERIC BURSITIS, RIGHT HIP - M70.61 (PRIMARY) PROCEDURES PREPROCEDURE DIAGNOSIS: BURSITIS AT THE RIGHT GREATER TROCHANTER OF THE FEMUR. POSTPROCEDURE DIAGNOSIS: BURSITIS AT THE RIGHT GREATER TROCHANTER OF THE FEMUR. PROCEDURE: INJECTION AT THE BURSA OF THE OF THE RIGHT GREATER TROCHANTER OF THE FEMUR UNDER FLUOROSCOPIC GUIDANCE. SURGEON: DR. ARCADIO GLASS MEDICAL ORDERLY: NONEANESTHESIA: LOCAL. PREOPERATIVE NOTE: THE PATIENT HAS A HISTORY OF RIGHT HIP PAIN. I EVALUATED THE PATIENT AND REVIEWED THE CHART. WE BOTH AGREE ON INJECTING OVER THE BURSA OF THE RIGHT GREATER TROCHANTER OF THE FEMUR. I WENT THROUGH THE RISKS, ALTERNATIVES, AND BENEFITS ASSOCIATED WITH THIS PROCEDURE. THE PATIENT WOULD LIKE TO PROCEED AND GIVE CONSENT TO PERFORMED THE PROCEDURE. THE PATIENT DENIES UNEXPLAINABLE WEIGHT LOSS, FEVERS, CHILLS, OR CHANGES IN HIS URINARY OR BOWEL CONTROL. DESCRIPTION OF PROCEDURE: AFTER CONSENT WAS TAKEN, THE PATIENT WAS BROUGHT TO THE PROCEDURE ROOM AND PLACED IN THE LEFT LATERAL DECUBITUS POSITION. THE RIGHT HIP AREA WAS CLEANED WITH CHLORAPREP SOLUTION AND DRAPED ASEPTICALLY. THE PROCEDURE WAS DONE UNDER STERILE CONDITIONS. I CHECKED LATERALITY WITH THE PATIENT AND THE STAFF IN THE PROCEDURE ROOM AT THE MOMENT OF THE TIME OUT. UNDER FLUOROSCOPIC GUIDANCE, TARGET WAS SELECTED AT THE RIGHT GREATER TROCHANTER OF THE FEMUR. LIDOCAINE WAS USED TO NUMB THE SKIN AND THE SUBCUTANEOUS TISSUE BELOW IT. SPINAL NEEDLE, 22-GAUGE WAS ADVANCED UNDER FLUOROSCOPIC GUIDANCE AND FOLLOWING PATIENT FEEDBACK UNTIL THE TARGET WAS TOUCHED. POSITION OF THE NEEDLE WAS VERIFIED WITH AP AND LATERAL VIEWS. AFTER PROPER POSITION OF THE NEEDLE WAS ACHIEVED, ISOVUE M DYE, 30%, 0.25 ML WAS INJECTED SHOWING ADEQUATE SPREAD OF THE DYE. THEN A SOLUTION OF 20 ML OF BUPIVACAINE 0.25% AND KENALOG 40 MG WAS INJECTED. THERE WAS NO EVIDENCE OF BLOOD, PARESTHESIA, OR CEREBROSPINAL FLUID. THE PATIENT WAS SENT TO THE RECOVERY ROOM. THE PATIENT WAS MOVING THE EXTREMITIES AND DOING WELL. THERE WERE NO COMPLICATIONS DURING THE PROCEDURE. POSTOPERATIVE NOTE: I DISCUSSED ALTERNATIVES WITH THE PATIENT. WE WILL SEE THE PATIENT BACK IN SEVERAL WEEKS FOR REEVALUATION OF THE CASE. I AM LOOKING FOR LONG-LASTING PAIN RELIEF WITH THIS INTERVENTION. FLUOROSCOPIC TIME WAS 7 SECONDS. FURTHER RECOMMENDATIONS WILL BE DONE DEPENDING ON HOW THE PATIENT DOES. THERE WERE NO COMPLICATIONS. I, CATALINA BLANC, DOCUMENTED THE ABOVE INFORMATION ACTING A SCRIBE FOR DR. GLASS. I HAVE REVIEWED THE ABOVE DOCUMENT, WRITTEN BY CATALINA BLANC SCRIBE AND I VERIFY THAT IT IS ACCURATE. DIAGNOSTIC IM[facility] FLUORO GUIDANCE (PAIN)[id number] PROCEDURE CODES 93789 NEEDLE LOCALIZATION BY XRAY [id number] RADXPS IN END [id number] PXD [id number] DRAIN/INJ JOINT/BURSA W/O US DISPOSITION & COMMUNICATION FOLLOW UP 3 WEEKS ELECTRONICALLY SIGNED BY ARCADIO GLASS MD ON 08/28/2016 AT 12:19 PM EDT DISCLAIMER : THIS IS A VISIT SUMMARY EXTRACTED FROM THE [employer] CHART. IT IS NOT A COPY OF THE [employer] PROGRESS NOTE. MTDD
== END | disposition home or self-care (01) ==
LOC: M PAIN 08:40
PROVIDERS: ATTEND Anesthesiology
DX: G89.29 Other chronic pain (principal); M70.61 Trochanteric bursitis, right hip; I10 Essential (primary) hypertension; J44.9 Chronic obstructive pulmonary disease, unspecified; K21.9 Gastro-esophageal reflux disease without esophagitis; E78.5 Hyperlipidemia, unspecified; M79.7 Fibromyalgia; F33.9 Major depressive disorder, recurrent, unspecified; G47.33 Obstructive sleep apnea (adult) (pediatric); Z79.899 Other long term (current) drug therapy; Z88.5 Allergy status to narcotic agent; Z88.8 Allergy status to other drugs, medicaments and biological substances
CPT/HCPCS: 20610; 77002; J3301; Q9967

== ENCOUNTER → 2016-09-12 | Outpatient (CLI) | payer OTHER ==
[~2016-09-12] MED LIST changes: -BUPIVACAINE HCL 0.25% 30 ML VIAL As Ordered ONE; -ISOVUE-M 300 61% 15ML VIAL (Q9967) As Ordered ONE; -LIDOCAINE 1% SDV INJ 30 ML VIAL As Ordered ONE; -TRIAMCINOLONE ACETONIDE SUSP 40 MG/ML VIAL (J3301) As Ordered ONE; -diazePAM 5 MG TAB As Ordered ONE; -oxyCODONE 5MG TAB As Ordered ONE
--- NOTE | 2016-09-29 23:51 | ECWPNPC ---
PATIENT NAME: MARICARMEN WHEATLEY : 1955 GENDER: FEMALE VISIT DATE: 09/12/2016 DISCHARGE DATE: 09/12/16 1146 VISIT LOCKED DATE TIME: PHYSICIAN: MEGAN WU PHYSICIAN PAGER NO: [phone] RESOURCE: MEGAN WU REASON FOR APPOINTMENT 1. HIP HISTORY OF PRESENT ILLNESS HISTORY OF PRESENT ILLNESS: PAIN THE PATIENT DESCRIBES THE PAIN... FALL RISK SCREENING: SCREENING :NO FALLS IN THE PAST YEAR TODAY'S VISIT: NOTES: IS S/P LEFT TROCCANTERIC BURSA INJECTION ON 08/11/16 AND RIGHT TROCANTERIC BURSA INJECTION ON 08/18/16.NOTES IMPROVEMENT OF 50-60% AT EACH HIP HAD SOME STOMACH AREA PAIN AFTER INJECTION FROM THE PERCOCET TAKEN ON AN EMPTY STOMACH. IS STILL HAVING SOME DISCOMFORT OVER RIGHT SACRUM. SLEEP HAS IMPROVED. . CURRENT MEDICATIONS TAKING PREVACID 30 MG CAPSULE DELAYED RELEASE 1 CAPSULE ORALLY TWICE A DAY TAKING ZANTAC 300 MG TABLET 1 TABLET BY MOUTH DAILY AT BEDTIME TAKING VENTOLIN HFA 108 (90 BASE) MCG/ACT AEROSOL SOLUTION 2 PUFFS INHALATION EVERY 4 HOURS NEEDED FOR WHEEZING TAKING FLONASE 50 MCG/DOSE INHALER 2 SPRAYS IN EACH NOSTRIL NASALLY ONCE A DAY TAKING ASTELIN 137 MCG/SPRAY SOLUTION INSTILL 1 SPRAY INTO EACH NOSTRIL 2 TIMES A DAY _ BID TAKING CALCIUM 600 + D 600-400 MG-UNIT TABLET 1 TABLET ORALLY TWICE A DAY TAKING VITAMIN C OTC TABLET 1 TABLET ORALLY ONCE A DAY TAKING MULTIVITAMINS OTC TABLET 1 TAB(S) ORALLY ONCE A DAY TAKING CETIRIZINE HCL 10 MG TABLET TAKE ONE TABLET BY MOUTH ONCE DAILY NEEDED TAKING ESTRACE 0.1 MG/GM CREAM 0.5 GM VAGINAL TWICE WEEKLY TAKING LIALDA 1.2 GM TABLET DELAYED RELEASE 4 ORALLY DAILY TAKING CELEXA 40 MG TABLET 1 TABLET ONCE A DAY ORALLY 90 DAY(S) TAKING VITAMIN D (ERGOCALCIFEROL) 78933 UNIT CAPSULE TAKE ONE CAPSULE BY MOUTH ONCE A WEEK TAKING LASIX 40 MG TABLET 1 TABLET ONCE A DAY BY MOUTH 90 DAY(S) TAKING DIOVAN 160 MG TABLET TAKE 1 TABLET BY MOUTH ONCE DAILY ONCE A DAY ORALLY 90 DAY(S) TAKING DETROL 2 MG TABLET TAKE ONE TABLET BY MOUTH ONCE DAILY NOT-TAKING DRISDOL 50,000 UNITS TABLET 1 TAB(S) ORAL ONCE A WEEK MEDICATION LIST REVIEWED AND RECONCILED WITH THE PATIENT PAST MEDICAL HISTORY HYPERLIPIDEMIA 2B IMPAIRED FASTING GLUCOSE GERD/HIATAL HERNIA- 07/27/16 EGD SMALL HH, MILD BILE GASTRITIS BY BIOPSY, DUODENITIS-BRYNN ASTHMA, MILD PERSISTENT MULTIPLE BILATERAL COMPLEX THYROID CYSTS ULCERATIVE COLITIS BY COLONOSCOPY DECEMBER 2006 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 STOLL IMPAIRED FASTING GLUCOSE OBSTRUCTIVE SLEEP APNEA (ADULT) (PEDIATRIC) DIASTOLIC CHF-09/2014 TTE LVEF65%, DIASTOLIC DYSFUNCTION, ELEVATED CVP, MILD LAE 35 MM-ARRIETA B HIP OA, MILD R>L, PARTIAL L SUPERIOR LABRUM TEAR BY 10/2015 MRI ALLERGIES LYRICA: EDEMA, SWELLING, ITCHING: ALLERGY ULTRACET: RASH: ALLERGY OMEPRAZOLE: RASH: ALLERGY ENVIRONMENTAL GABAPENTIN: RASH: SIDE EFFECTS NORCO: CONFUSION: ALLERGY SOCIAL HISTORY GENERAL: PAIN CLINIC PFS, CLERGY, PUBLIC HEALTH REFERRALS CLERGY REFERRAL NEEDED?NO WAS THE PROVIDER NOTIFIED OF ANY PERTINENT INFO?NO PFS REFERRAL NEEDED?NO PUBLIC HEALTH REFERRAL NEEDED?NO PATIENT: ____. REVIEW OF SYSTEMS CONSTITUTIONAL: ANY CHANGE IN YOUR MEDICAL CONDITION? NO . CHILLS NO . FEVER NO . INFECTION: DO YOU HAVE NEW INFECTIONS? NO . DO YOU HAVE HISTORY OF MRSA? NO . MUSCULOSKELETAL: ANY NEW PATTERNS OF PAIN OR NUMBNESS? YES, IN BACK OF HIP AND SIDE . GASTROENTEROLOGY: ANY NEW CHANGE IN BOWEL CONTROL? NO . GENITOURINARY: ANY NEW CHANGE IN BLADDER CONTROL? NO . IS THERE A CHANCE YOU COULD BE ? NO . HEMATOLOGY/LYMPH: DO YOU TAKE ANY BLOOD THINNERS? (FOR EXAMPLE- COUMADIN, PLAVIX, AGGRENOX, PLATEL, PRADAXA, OR XARELTO) NO . WHEN WAS YOUR LAST DOSE? DATE: TIME: . NEUROLOGY: HAVE YOU FALLEN IN THE PAST 6 MONTHS? YES . ANY NEW EXTREMITY NUMBNESS OR WEAKNESS? NO . CARDIOLOGY: DO YOU HAVE A PACEMAKER OR DEFIBRILLATOR? NO . RESPIRATORY: HAVE YOU BEEN SICK IN THE PAST WEEK? NO . FEVER NO . FLU LIKE SYMPTOMS? NO . COUGH NO . INTEGUMENTARY: DO YOU HAVE ANY RASHES OR OPEN SORES? NO . ALLERGIC/IMMUNO: ARE YOU ALLERGIC TO SHELLFISH OR IV DYE? NO . ANY NEW ALLERGIES? NO . PSYCHIATRIC: DO YOU HAVE THOUGHTS OF HURTING YOURSELF OR SOMEONE ELSE? NO . ARE YOU ABUSED, NEGLECTED, OR IN AN UNSAFE ENVIRONMENT? NO . ENDOCRINOLOGY: ARE YOU DIABETIC? NO . OTHER: DO YOU NEED ANY PRESCRIPTIONS? YES . IF YES, PLEASE LIST: GABAPENTIN 300 MG . ANY NEW PROBLEMS WITH YOUR MEDICATIONS? NO . WHEN DID YOU LAST EAT? ____ . WHEN DID YOU LAST DRINK? ____ . WHAT DID YOU LAST DRINK? ____ . NAME OF PERSON DRIVING YOU HOME? ____ . DO YOU HAVE ANY OTHER QUESTIONS OR CONCERNS NO . REVIEWED BY: PROVIDER: MEGAN NEWMAN . VITAL SIGNS WT 240.8 LBS, HT 70 IN, BMI 34.55 INDEX, BP 126/94 MM HG, HR 83 /MIN, RR 16 /MIN, TEMP 98.5 F, OXYGEN SAT % 99%, NA INITIALS SC 11:19, REVIEWED BY: CS. EXAMINATION GENERAL EXAMINATION: PSYCHALERT , ORIENTED X 3 , APPROPRIATE MOOD AND AFFECT . LUNGS:CLEAR TO AUSCULTATION BILATERALLY. HEART:HEART RATE REGULAR. MUSCULOSKELETAL:MILD TENDERNESS OVER BILATERAL HIP /TROCANTERIC AREAS. RISES EASILY TO STANDING POSITION. POSTURE UPRIGHT, GAIT NON ANTALGIC. FEW TRIGGER POINTS IDENTIFIED OVER SACRUM AND LOW BACK.. ASSESSMENTS HIP PAIN, BILATERAL - M25.551 (PRIMARY) CHRONIC PAIN SYNDROME - G89.4 SPONDYLOSIS OF LUMBAR REGION WITHOUT MYELOPATHY OR RADICULOPATHY - M47.816 CHRONIC PRESCRIPTION OPIATE USE - Z79.891 TREATMENT HIP PAIN, BILATERAL START GABAPENTIN CAPSULE, 300 MG, 1 CAPSULE, ORALLY, THREE TIMES A DAY, 30 DAY(S), 90, REFILLS 2 NOTES: CONTINUE CURRENT MEDS, EXERCISES AND STRETCHES. PROCEDURE CODES FA211 ESTABILISHED PATIENT FORMERLY [facility] CHARGE DISPOSITION & COMMUNICATION FOLLOW UP 3 MONTHS (REASON: BACK/HIPS) ELECTRONICALLY SIGNED BY HIREN PIERCE ON 09/29/2016 AT 03:09 PM EDT DISCLAIMER : THIS IS A VISIT SUMMARY EXTRACTED FROM THE [employer] CHART. IT IS NOT A COPY OF THE [employer] PROGRESS NOTE. FRANK
== END ==
LOC: M PAIN 11:20
PROVIDERS: ATTEND Nurse Practitioner Family
DX: M25.551 Pain in right hip (principal); G89.29 Other chronic pain; M47.816 Spondylosis without myelopathy or radiculopathy, lumbar region; Z79.899 Other long term (current) drug therapy; Z88.5 Allergy status to narcotic agent; Z88.8 Allergy status to other drugs, medicaments and biological substances; Z91.09 Other allergy status, other than to drugs and biological substances

== ENCOUNTER → 2016-10-19 | Outpatient (CLI) | payer OTHER ==
--- NOTE | 2016-10-19 14:48 | REP ---
BILATERAL MAMMOGRAM: Family history breast cancer in maternal grandmother. COMPARISON: 10/20/2015 as well as other prior exams. Bilateral MLO and CC views demonstrate mild, fairly symmetrical fibroglandular tissue bilaterally. There is a possible new small nodular density medially in the right breast, mid third. This measures 4 mm in diameter. It is not definitely seen on the MLO view. Recommend additional views and ultrasound to further evaluate. No clustered microcalcifications are seen. IMPRESSION: ACR 0 incomplete. Possible new 4 mm nodular density medially in the right breast only seen on the CC view. Recommend spot compression view in the CC projection as well as right ML view. Other views and ultrasound may also be necessary. ACR 0 incomplete. BI-RADS/ACR category 0 mammogram, incomplete. Additional imaging and/or prior images are needed before a final assessment can be assigned. This mammogram was interpreted with the aid of an FDA-approved computer-aided detection system. The patient states she had a clinical breast exam in 10/2016. The patient letter being requested is M0.
== END ==
LOC: M WHC 13:02
PROVIDERS: ATTEND Nurse Practitioner Family
DX: R92.2 Inconclusive mammogram (principal)

== ENCOUNTER → 2016-10-25 | Outpatient (CLI) | payer OTHER ==
--- NOTE | 2016-10-25 16:37 | REP ---
Digital diagnostic unilateral right breast mammography with CAD: Right breast focused ultrasound: History: Screening mammography 10/19/2016 was BIRADS category zero due to a possible 4 mm nodular density medially in the right breast. Diagnostic imaging was recommended. Mammographic findings: Magnified focal spot compression CC, MLO, and true MLO views of the right breast are obtained. These confirm the presence of a low density well circumscribed 4.5 mm nodule in approximately 3 o'clock position in the right breast middle to posterior third. No other mammographic findings. Sonographic findings: The right breast is scanned medially from 12 o'clock to 6 o'clock. Heterogeneous fibroglandular background echotexture is seen. There are several small cystic areas including a 4.5 mm cyst at 3 o'clock. Some appear to be mildly dilated ducts. Impression: BIRADS category II benign right breast imaging. Repeat screening mammography recommended in 1 year. This mammogram was interpreted with the aid of an FDA-approved computer-aided detection system. The patient states she had a clinical breast exam in October 2016. The patient letter being requested is M1. Signed by Edwin Rocha MD 10/25/2016 05:01 P
== END ==
LOC: M RAD 14:56
PROVIDERS: ATTEND Nurse Practitioner Family
DX: R92.2 Inconclusive mammogram (principal)
CPT/HCPCS: 76642; G0206

== ENCOUNTER → 2016-12-18 | Outpatient (CLI) | payer OTHER ==
[~2016-12-18] MED LIST changes: +PREV1CAP PO; -PREV30CA11 PO
--- NOTE | 2017-01-07 01:11 | ECWPNPC ---
PATIENT NAME: MARICARMEN WHEATLEY : 1955 GENDER: FEMALE VISIT DATE: 12/18/2016 DISCHARGE DATE: 12/18/16 1537 VISIT LOCKED DATE TIME: PHYSICIAN: MEGAN WU PHYSICIAN PAGER NO: [phone] RESOURCE: MEGAN WU REASON FOR APPOINTMENT 1. BACK/HIPS HISTORY OF PRESENT ILLNESS HISTORY OF PRESENT ILLNESS: PAIN THE PATIENT DESCRIBES THE PAIN... FALL RISK SCREENING: SCREENING :NO FALLS IN THE PAST YEAR TODAY'S VISIT: NOTES: RATES PAIN TODAY 7/10. DESCRIBES PAIN INTERMITTANT, THROBBING, AND SHOOTING. NOTES PAIN IS IN PELVIS WHEN WALKING AND CLIMBING STAIRS. PAIN IS IN HEIP AND PELVIS AREA AND OVER THE HIP. RIGHT > LEFT. . CURRENT MEDICATIONS TAKING ZANTAC 300 MG TABLET 1 TABLET BY MOUTH DAILY AT BEDTIME TAKING VENTOLIN HFA 108 (90 BASE) MCG/ACT AEROSOL SOLUTION 2 PUFFS INHALATION EVERY 4 HOURS NEEDED FOR WHEEZING TAKING FLONASE 50 MCG/DOSE INHALER 2 SPRAYS IN EACH NOSTRIL NASALLY ONCE A DAY TAKING CALCIUM 600 + D 600-400 MG-UNIT TABLET 1 TABLET ORALLY TWICE A DAY TAKING VITAMIN C OTC TABLET 1 TABLET ORALLY ONCE A DAY TAKING MULTIVITAMINS OTC TABLET 1 TAB(S) ORALLY ONCE A DAY TAKING LIALDA 1.2 GM TABLET DELAYED RELEASE 4 ORALLY DAILY TAKING GABAPENTIN 300 MG CAPSULE 1 CAPSULE ORALLY THREE TIMES A DAY TAKING ASTELIN 137 MCG/SPRAY SOLUTION INSTILL 1 SPRAY INTO EACH NOSTRIL 2 TIMES A DAY _ BID TAKING SALINE 0.65 % SOLUTION DIRECTED NASALLY PRN TAKING NEBULIZER/TUBING/MOUTHPIECE - KIT PT ONLY NEEDS TUBING AND MASK INH FOUR TIMES A DAY NEEDED DX:J45.22 TAKING ESTRACE 0.1 MG/GM CREAM 0.5 GM VAGINAL TWICE A WEEK TAKING CELEXA 40 MG TABLET 1 TABLET ONCE A DAY ORALLY 90 DAY(S) TAKING DETROL 2 MG TABLET TAKE ONE TABLET BY MOUTH ONCE DAILY TAKING CETIRIZINE HCL 10 MG TABLET TAKE ONE TABLET BY MOUTH ONCE DAILY NEEDED TAKING DIPHENHYDRAMINE HCL 25 MG CAPSULE 2 CAPSULE NEEDED ORALLY EVERY 4 HOURS TAKING ALBUTEROL SULFATE (2.5 MG/3ML) 0.083% NEBULIZATION SOLUTION 3 ML INHALATION THREE TIMES A DAY TAKING VITAMIN D (ERGOCALCIFEROL) 13001 UNIT CAPSULE TAKE ONE CAPSULE BY MOUTH ONCE A WEEK TAKING LASIX 40 MG TABLET 1 TABLET ONCE A DAY BY MOUTH 90 DAY(S) TAKING DIOVAN 160 MG TABLET TAKE 1 TABLET BY MOUTH ONCE DAILY ONCE A DAY ORALLY 90 DAY(S) TAKING PREVACID 30 MG CAPSULE DELAYED RELEASE 1 CAPSULE TWICE A DAY ORALLY 90 DAY(S) NOT-TAKING DRISDOL 50,000 UNITS TABLET 1 TAB(S) ORAL ONCE A WEEK MEDICATION LIST REVIEWED AND RECONCILED WITH THE PATIENT PAST MEDICAL HISTORY HYPERLIPIDEMIA 2B IMPAIRED FASTING GLUCOSE GERD/HIATAL HERNIA- 07/27/16 EGD SMALL HH, MILD BILE GASTRITIS BY BIOPSY, DUODENITIS-BRYNN ASTHMA, MILD PERSISTENT MULTIPLE BILATERAL COMPLEX THYROID CYSTS ULCERATIVE COLITIS BY COLONOSCOPY DECEMBER 2006 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 STOLL IMPAIRED FASTING GLUCOSE OBSTRUCTIVE SLEEP APNEA (ADULT) (PEDIATRIC) DIASTOLIC CHF-09/2014 TTE LVEF65%, DIASTOLIC DYSFUNCTION, ELEVATED CVP, MILD LAE 35 MM-ARRIETA B HIP OA, MILD R>L, PARTIAL L SUPERIOR LABRUM TEAR BY 10/2015 MRI ALLERGIES LYRICA: EDEMA, SWELLING, ITCHING: ALLERGY ULTRACET: RASH: ALLERGY OMEPRAZOLE: RASH: ALLERGY ENVIRONMENTAL NORCO: CONFUSION: ALLERGY REVIEW OF SYSTEMS REVIEWED BY: PROVIDER: MEGAN NEWMAN . CONSTITUTIONAL: ANY CHANGE IN YOUR MEDICAL CONDITION? NO . CHILLS NO . FEVER NO . INFECTION: DO YOU HAVE NEW INFECTIONS? NO . DO YOU HAVE HISTORY OF MRSA? NO . MUSCULOSKELETAL: ANY NEW PATTERNS OF PAIN OR NUMBNESS? PELVIC AREA . GASTROENTEROLOGY: ANY NEW CHANGE IN BOWEL CONTROL? NO . GENITOURINARY: ANY NEW CHANGE IN BLADDER CONTROL? NO . IS THERE A CHANCE YOU COULD BE ? NO . HEMATOLOGY/LYMPH: DO YOU TAKE ANY BLOOD THINNERS? (FOR EXAMPLE- COUMADIN, PLAVIX, AGGRENOX, PLATEL, PRADAXA, OR XARELTO) NO . WHEN WAS YOUR LAST DOSE? DATE: TIME: . NEUROLOGY: HAVE YOU FALLEN IN THE PAST 6 MONTHS? NO . ANY NEW EXTREMITY NUMBNESS OR WEAKNESS? NO . CARDIOLOGY: DO YOU HAVE A PACEMAKER OR DEFIBRILLATOR? NO . RESPIRATORY: HAVE YOU BEEN SICK IN THE PAST WEEK? NO . FEVER NO . FLU LIKE SYMPTOMS? NO . COUGH NO . INTEGUMENTARY: DO YOU HAVE ANY RASHES OR OPEN SORES? NO . ALLERGIC/IMMUNO: ARE YOU ALLERGIC TO SHELLFISH OR IV DYE? NO . ANY NEW ALLERGIES? NO . PSYCHIATRIC: DO YOU HAVE THOUGHTS OF HURTING YOURSELF OR SOMEONE ELSE? NO . ARE YOU ABUSED, NEGLECTED, OR IN AN UNSAFE ENVIRONMENT? NO . ENDOCRINOLOGY: ARE YOU DIABETIC? NO . OTHER: DO YOU NEED ANY PRESCRIPTIONS? NO . IF YES, PLEASE LIST: ____ . ANY NEW PROBLEMS WITH YOUR MEDICATIONS? NO . WHEN DID YOU LAST EAT? ____ . WHEN DID YOU LAST DRINK? ____ . WHAT DID YOU LAST DRINK? ____ . NAME OF PERSON DRIVING YOU HOME? ____ . DO YOU HAVE ANY OTHER QUESTIONS OR CONCERNS NO . VITAL SIGNS WT 245.0 LBS, HT 70 IN, BMI 35.15 INDEX, BP 115/86 MM HG, HR 96 /MIN, RR 18 /MIN, TEMP 98.1 F, OXYGEN SAT % 95%, NA INITIALS TL 1519. EXAMINATION GENERAL EXAMINATION: PSYCHALERT , ORIENTED X 3 , APPROPRIATE MOOD AND AFFECT . LUNGS:CLEAR TO AUSCULTATION BILATERALLY. HEART:HEART RATE REGULAR. MUSCULOSKELETAL:MILD TENDERNESS OVER BILATERAL HIP /TROCANTERIC AREAS. PAIN WITH PLVIC COMPRESSION . POSITIVE SINDY SIGN RISES SLOWLY TO STANDING POSITION. POSTURE UPRIGHT, GAIT NON ANTALGIC. FEW TRIGGER POINTS IDENTIFIED OVER SACRUM AND LOW BACK.. ASSESSMENTS HIP PAIN, BILATERAL - M25.551 (PRIMARY) CHRONIC PAIN SYNDROME - G89.4 SPONDYLOSIS OF LUMBAR REGION WITHOUT MYELOPATHY OR RADICULOPATHY - M47.816 CHRONIC PRESCRIPTION OPIATE USE - Z79.891 TREATMENT HIP PAIN, BILATERAL REFILL GABAPENTIN CAPSULE, 300 MG, 1 CAPSULE, ORALLY, FOUR TIMES DAILY, 30 DAY(S), 120, REFILLS 2 ARTHROCENTESIS INJECTION LARGE JOINT ([id number])MEGAN WU 12/18/2016 3:25:14 PM > RIGHT TROCANTERIC BURSA INJECTION NOTES: INCREASE GABAPENTIN TO 2 CAPS AT NITE. CONTINUE USUAL MEDS. PREVENTIVE MEDICINE DISCUSSED PREPROCEDURE CARE AND PT VOICED UNDERSTANDING OF CARE AND PROCEDURE. PROCEDURE CODES FA211 ESTABILISHED PATIENT [facility] CHARGE DISPOSITION & COMMUNICATION FOLLOW UP AFTER INJECTION (REASON: CHECK AUTH RIGHT TROCANTERIC BURSA INJECTION) ELECTRONICALLY SIGNED BY HIREN PIERCE ON 01/05/2017 AT 06:17 PM EDT DISCLAIMER : THIS IS A VISIT SUMMARY EXTRACTED FROM THE [employer] CHART. IT IS NOT A COPY OF THE [employer] PROGRESS NOTE. FRANK
== END ==
LOC: M PAIN 14:40
PROVIDERS: ATTEND Nurse Practitioner Family
DX: M25.551 Pain in right hip (principal); G89.4 Chronic pain syndrome; M47.816 Spondylosis without myelopathy or radiculopathy, lumbar region; J45.30 Mild persistent asthma, uncomplicated; I50.30 Unspecified diastolic (congestive) heart failure; F32.9 Major depressive disorder, single episode, unspecified; E78.2 Mixed hyperlipidemia; K21.9 Gastro-esophageal reflux disease without esophagitis; E55.9 Vitamin D deficiency, unspecified; K51.90 Ulcerative colitis, unspecified, without complications; Z79.899 Other long term (current) drug therapy; Z88.8 Allergy status to other drugs, medicaments and biological substances; Z88.5 Allergy status to narcotic agent; J30.9 Allergic rhinitis, unspecified

== ENCOUNTER → 2017-01-04 | Outpatient (CLI) | payer OTHER ==
[2017-01-04 15:43] LABS: ALBUMIN 4.1 GM/DL (3.2-5.2); ALBUMIN/GLOBULIN RATIO 1.21 (1.00-1.93); BILIRUBIN,TOTAL 0.4 MG/DL (0.2-1.0); CALCIUM LEVEL 8.6 MG/DL (8.8-10.2); CREATININE FOR GFR 1.05 MG/DL (0.55-1.02); GLOMERULAR FILTRATION RATE 56.9 (>45); POTASSIUM SERUM 3.6 MEQ/L (3.5-5.1); TOTAL PROTEIN 7.5 GM/DL (6.4-8.2)
== END ==
LOC: M LAB 14:27
PROVIDERS: ATTEND Family Medicine
DX: E55.9 Vitamin D deficiency, unspecified (principal); K51.90 Ulcerative colitis, unspecified, without complications; R73.01 Impaired fasting glucose

== ENCOUNTER → 2017-01-05 | Outpatient (REF) | payer OTHER | LOC: M LAB REF 10:39 | PROVIDERS: ATTEND Family Medicine | DX: K51.90 Ulcerative colitis, unspecified, without complications (principal) ==

== ENCOUNTER → 2017-01-23 | Outpatient (CLI) | payer OTHER ==
[~2017-01-23] MED LIST changes: +FURO40TA2 PO; +GASTROGRAFIN SOLUTION 30ML (Q9963) As Ordered ONE; +ISOVUE-370 76% 100ML VIAL (Q9967) As Ordered ONE
--- NOTE | 2017-01-23 14:31 | REP ---
Clinical: History of ulcerative colitis. Technique: Axial contrast enhanced images from the lung bases to the pubic symphysis using oral and 100 ml Isovue 370 intravenous contrast material with precontrast and delayed images of the abdomen as well as coronal and sagittal re-formations. Comparison: 03/17/2008. Findings: Lung bases are clear. Visualized heart and pericardium are normal. Liver, spleen, pancreas, bilateral adrenal glands and left kidney are normal. Right kidney demonstrates cortical scarring and atrophic changes along with 2 cm cyst. The enteric system is without obstruction or acute inflammatory process. The colon is relatively normal in appearance. There is no evidence for bowel obstruction or acute inflammatory process involving the enteric system. Pelvis demonstrates normal bladder and evidence for prior partial hysterectomy. No free air. No free fluid. No adenopathy. Abdominal aorta and vasculature is within normal limits. Surrounding musculoskeletal structures demonstrate age-related changes without focal osseous abnormality; evidence for prior fixation at the L3-L4 spinous process level. Impression: 1. Relatively normal appearance to the enteric system without obstruction, acute inflammatory process, ascites or collection/abscess. 2. Chronic scarring and mild atrophic changes to the right kidney with 2 cm simple cyst. 3. No acute abdominopelvic pathology appreciated. Signed by Matthew Caceres MD 01/23/2017 02:23 P
== END ==
LOC: M RAD 12:19
PROVIDERS: ATTEND Family Medicine
DX: K51.90 Ulcerative colitis, unspecified, without complications (principal); N28.1 Cyst of kidney, acquired
CPT/HCPCS: 74178; Q9963; Q9967

== ENCOUNTER → 2017-01-24 | Outpatient (CLI) | payer OTHER ==
[~2017-01-24] MED LIST changes: +BUPIVACAINE HCL 0.25% 30 ML VIAL As Ordered ONE; -GASTROGRAFIN SOLUTION 30ML (Q9963) As Ordered ONE; -ISOVUE-370 76% 100ML VIAL (Q9967) As Ordered ONE; +ISOVUE-M 300 61% 15ML VIAL (Q9967) As Ordered ONE; +LIDOCAINE 1% SDV INJ 30 ML VIAL As Ordered ONE; +TRIAMCINOLONE ACETONIDE SUSP 40 MG/ML VIAL (J3301) As Ordered ONE
--- NOTE | 2017-01-24 12:17 | REP ---
Partial hip series: Three views. History: Right hip injection for pain. 10 seconds of fluoroscopy time is reported. Findings: A sequence of three lateral images of the hips obtained last image hold fluoroscopic spot technique document needle position for injection procedure. Signed by Edwin Rocha MD 01/24/2017 06:32 P
--- NOTE | 2017-01-25 00:32 | ECWPNPC ---
PATIENT NAME: MARICARMEN WHEATLEY : 1955 GENDER: FEMALE VISIT DATE: 01/24/2017 DISCHARGE DATE: 01/24/17 1125 VISIT LOCKED DATE TIME: PHYSICIAN: ARCADIO GLASS PHYSICIAN PAGER NO: [phone] RESOURCE: ARCADIO GLASS REASON FOR APPOINTMENT 1. TROCHAN BURSA, HIP HISTORY OF PRESENT ILLNESS HISTORY OF PRESENT ILLNESS: PAIN THE PATIENT DESCRIBES THE PAIN... FALL RISK SCREENING: SCREENING :NO FALLS IN THE PAST YEAR CURRENT MEDICATIONS TAKING DIOVAN 160 MG TABLET TAKE 1 TABLET BY MOUTH ONCE DAILY ORALLY ONCE A DAY, NOTES: 0700 TAKING PREVACID 30 MG CAPSULE DELAYED RELEASE 1 CAPSULE ORALLY TWICE A DAY, NOTES: 01/23/17@1900 TAKING ZANTAC 300 MG TABLET 1 TABLET BY MOUTH DAILY AT BEDTIME, NOTES: 01/22/17@2100 TAKING VENTOLIN HFA 108 (90 BASE) MCG/ACT AEROSOL SOLUTION 2 PUFFS INHALATION EVERY 4 HOURS NEEDED FOR WHEEZING, NOTES: 1 MONTH AGO TAKING CELEXA 40 MG TABLET 1 TABLET ORALLY ONCE A DAY, NOTES: 07 TAKING DRISDOL 50,000 UNITS TABLET 1 TAB(S) ORAL ONCE A WEEK, NOTES: 01/21/17 TAKING FLONASE 50 MCG/DOSE INHALER 2 SPRAYS IN EACH NOSTRIL NASALLY ONCE A DAY, NOTES: 01/23/17@0700 TAKING ASTELIN 137 MCG/SPRAY SOLUTION INSTILL 1 SPRAY INTO EACH NOSTRIL 2 TIMES A DAY _ BID, NOTES: 01/23/17 1900 TAKING CALCIUM 600 + D 600-400 MG-UNIT TABLET 1 TABLET ORALLY TWICE A DAY, NOTES: 01/23/17@0700 TAKING VITAMIN C OTC TABLET 1 TABLET ORALLY ONCE A DAY, NOTES: 01/23/17@0700 TAKING MULTIVITAMINS OTC TABLET 1 TAB(S) ORALLY ONCE A DAY, NOTES: 01/23/17@0700 TAKING SALINE 0.65 % SOLUTION DIRECTED NASALLY PRN, NOTES: 1 WEEK AGO TAKING NEBULIZER/TUBING/MOUTHPIECE - KIT PT ONLY NEEDS TUBING AND MASK INH FOUR TIMES A DAY NEEDED DX:J45.22 TAKING ESTRACE 0.1 MG/GM CREAM 0.5 GM VAGINAL TWICE A WEEK, NOTES: 01/21/17 TAKING DETROL 2 MG TABLET TAKE ONE TABLET BY MOUTH ONCE DAILY , NOTES: 01/23/17@0700 TAKING CETIRIZINE HCL 10 MG TABLET TAKE ONE TABLET BY MOUTH ONCE DAILY NEEDED , NOTES: 01/23/17@07 TAKING LASIX 40 MG TABLET 1 TABLET ONCE A DAY BY MOUTH 90 DAY(S) , NOTES: 01/23/17@07 TAKING GABAPENTIN 300 MG CAPSULE 1 CAPSULE ORALLY FOUR TIMES DAILY, NOTES: 07 TAKING ALBUTEROL SULFATE (2.5 MG/3ML) 0.083% NEBULIZATION SOLUTION 3 ML INHALATION THREE TIMES A DAY, NOTES: 1 WEEK AGO TAKING DIPHENHYDRAMINE HCL 25 MG CAPSULE 2 CAPSULE NEEDED ORALLY EVERY 4 HOURS, NOTES: 07 TAKING APRISO 0.375 GM CAPSULE EXTENDED RELEASE 24 HOUR 4 CAPSULES IN THE MORNING ORALLY ONCE A DAY, NOTES: 0700 DISCONTINUED VITAMIN D (ERGOCALCIFEROL) 83031 UNIT CAPSULE TAKE ONE CAPSULE BY MOUTH ONCE A WEEK DISCONTINUED LIALDA 1.2 GM TABLET DELAYED RELEASE 4 ORALLY DAILY DISCONTINUED ENTOCORT EC 3 MG CAPSULE DELAYED RELEASE PARTICLES 3 TABS ORALLY DAILY MEDICATION LIST REVIEWED AND RECONCILED WITH THE PATIENT PAST MEDICAL HISTORY HYPERLIPIDEMIA 2B IMPAIRED FASTING GLUCOSE GERD/HIATAL HERNIA- 07/27/16 EGD SMALL HH, MILD BILE GASTRITIS BY BIOPSY, DUODENITIS-BRYNN ASTHMA, MILD PERSISTENT MULTIPLE BILATERAL COMPLEX THYROID CYSTS ACUTE CRYPTITIS OF ALL RANDOM BIOPSIES, SUGGESTIVE OF IDIOPATHIC IBD BY COLONOSCOPY DECEMBER 2006-SELAM 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 STOLL IMPAIRED FASTING GLUCOSE OBSTRUCTIVE SLEEP APNEA (ADULT) (PEDIATRIC) DIASTOLIC CHF-09/2014 TTE LVEF65%, DIASTOLIC DYSFUNCTION, ELEVATED CVP, MILD LAE 35 MM-ARRIETA B HIP OA, MILD R>L, PARTIAL L SUPERIOR LABRUM TEAR BY 10/2015 MRI ALLERGIES LYRICA: EDEMA, SWELLING, ITCHING: ALLERGY ULTRACET: RASH: ALLERGY OMEPRAZOLE: RASH: ALLERGY ENVIRONMENTAL NORCO: CONFUSION: ALLERGY REVIEW OF SYSTEMS REVIEWED BY: PROVIDER: . CONSTITUTIONAL: ANY CHANGE IN YOUR MEDICAL CONDITION? NO . CHILLS NO . FEVER NO . INFECTION: DO YOU HAVE NEW INFECTIONS? NO . DO YOU HAVE HISTORY OF MRSA? NO . MUSCULOSKELETAL: ANY NEW PATTERNS OF PAIN OR NUMBNESS? YES, DOWN THE RIGHT LEG . GASTROENTEROLOGY: ANY NEW CHANGE IN BOWEL CONTROL? YES . GENITOURINARY: ANY NEW CHANGE IN BLADDER CONTROL? NO . IS THERE A CHANCE YOU COULD BE ? NO . HEMATOLOGY/LYMPH: DO YOU TAKE ANY BLOOD THINNERS? (FOR EXAMPLE- COUMADIN, PLAVIX, AGGRENOX, PLATEL, PRADAXA, OR XARELTO) NO . WHEN WAS YOUR LAST DOSE? DATE: TIME: . NEUROLOGY: HAVE YOU FALLEN IN THE PAST 6 MONTHS? NO . ANY NEW EXTREMITY NUMBNESS OR WEAKNESS? NO . CARDIOLOGY: DO YOU HAVE A PACEMAKER OR DEFIBRILLATOR? NO . RESPIRATORY: HAVE YOU BEEN SICK IN THE PAST WEEK? NO . FEVER NO . FLU LIKE SYMPTOMS? NO . COUGH NO . INTEGUMENTARY: DO YOU HAVE ANY RASHES OR OPEN SORES? NO . ALLERGIC/IMMUNO: ARE YOU ALLERGIC TO SHELLFISH OR IV DYE? NO . ANY NEW ALLERGIES? NO . PSYCHIATRIC: DO YOU HAVE THOUGHTS OF HURTING YOURSELF OR SOMEONE ELSE? NO . ARE YOU ABUSED, NEGLECTED, OR IN AN UNSAFE ENVIRONMENT? NO . ENDOCRINOLOGY: ARE YOU DIABETIC? NO . OTHER: DO YOU NEED ANY PRESCRIPTIONS? NO . IF YES, PLEASE LIST: ____ . ANY NEW PROBLEMS WITH YOUR MEDICATIONS? NO . WHEN DID YOU LAST EAT? ____01/23/17 . WHEN DID YOU LAST DRINK? ____08 . WHAT DID YOU LAST DRINK? ____WATER . NAME OF PERSON DRIVING YOU HOME? 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 DO YOU HAVE ANY OTHER QUESTIONS OR CONCERNS NO . VITAL SIGNS WT 255 LBS, HT 70 IN, BMI 36.58 INDEX, BP 132/64 MM HG, HR 72 /MIN, RR 18 /MIN, TEMP 98.3 F, OXYGEN SAT % 94, REVIEWED BY: VD. ASSESSMENTS TROCHANTERIC BURSITIS OF RIGHT HIP - M70.61 (PRIMARY) TREATMENT TROCHANTERIC BURSITIS OF RIGHT HIP NOTES: PREPROCEDURE DIAGNOSIS: BURSITIS AT THE RIGHT GREATER TROCHANTER OF THE FEMUR. POSTPROCEDURE DIAGNOSIS: BURSITIS AT THE RIGHT GREATER TROCHANTER OF THE FEMUR. PROCEDURE: INJECTION AT THE BURSA OF THE OF THE RIGHT GREATER TROCHANTER OF THE FEMUR UNDER FLUOROSCOPIC GUIDANCE. SURGEON: DR. ARCADIO GLASS CHARGE MASTER SPECIALIST: NONEANESTHESIA: LOCAL. PREOPERATIVE NOTE: THE PATIENT HAS A HISTORY OF RIGHT HIP PAIN. I EVALUATED THE PATIENT AND REVIEWED THE CHART. WE BOTH AGREE ON INJECTING OVER THE BURSA OF THE RIGHT GREATER TROCHANTER OF THE FEMUR. I WENT THROUGH THE RISKS, ALTERNATIVES, AND BENEFITS ASSOCIATED WITH THIS PROCEDURE. THE PATIENT WOULD LIKE TO PROCEED AND GIVE CONSENT TO PERFORMED THE PROCEDURE. THE PATIENT DENIES UNEXPLAINABLE WEIGHT LOSS, FEVERS, CHILLS, OR CHANGES IN HIS URINARY OR BOWEL CONTROL. DESCRIPTION OF PROCEDURE: AFTER CONSENT WAS TAKEN, THE PATIENT WAS BROUGHT TO THE PROCEDURE ROOM AND PLACED IN THE LEFT LATERAL DECUBITUS POSITION. THE RIGHT HIP AREA WAS CLEANED WITH CHLORAPREP SOLUTION AND DRAPED ASEPTICALLY. THE PROCEDURE WAS DONE UNDER STERILE CONDITIONS. I CHECKED LATERALITY WITH THE PATIENT AND THE STAFF IN THE PROCEDURE ROOM AT THE MOMENT OF THE TIME OUT. UNDER FLUOROSCOPIC GUIDANCE, TARGET WAS SELECTED AT THE RIGHT GREATER TROCHANTER OF THE FEMUR. LIDOCAINE WAS USED TO NUMB THE SKIN AND THE SUBCUTANEOUS TISSUE BELOW IT. SPINAL NEEDLE, 22-GAUGE WAS ADVANCED UNDER FLUOROSCOPIC GUIDANCE AND FOLLOWING PATIENT FEEDBACK UNTIL THE TARGET WAS TOUCHED. POSITION OF THE NEEDLE WAS VERIFIED WITH AP AND LATERAL VIEWS. AFTER PROPER POSITION OF THE NEEDLE WAS ACHIEVED, ISOVUE M DYE, 30%, 0.25 ML WAS INJECTED SHOWING ADEQUATE SPREAD OF THE DYE. THEN A SOLUTION OF 20 ML OF BUPIVACAINE 0.25% AND KENALOG 40 MG WAS INJECTED. THERE WAS NO EVIDENCE OF BLOOD, PARESTHESIA, OR CEREBROSPINAL FLUID. THE PATIENT WAS SENT TO THE RECOVERY ROOM. THE PATIENT WAS MOVING THE EXTREMITIES AND DOING WELL. THERE WERE NO COMPLICATIONS DURING THE PROCEDURE. POSTOPERATIVE NOTE: I DISCUSSED ALTERNATIVES WITH THE PATIENT. WE WILL SEE THE PATIENT BACK IN SEVERAL WEEKS FOR REEVALUATION OF THE CASE. I AM LOOKING FOR LONG-LASTING PAIN RELIEF WITH THIS INTERVENTION. FLUOROSCOPIC TIME WAS 10 SECONDS. FURTHER RECOMMENDATIONS WILL BE DONE DEPENDING ON HOW THE PATIENT DOES. THERE WERE NO COMPLICATIONS.I, KARYN SAUCEDO, DOCUMENTED THE ABOVE INFORMATION ACTING A SCRIBE FOR DR. GLASS. I HAVE REVIEWED THE ABOVE DOCUMENT, WRITTEN BY KARYN SIMON AND I VERIFY THAT IT IS ACCURATE. DIAGNOSTIC IMAGING [facility] FLUORO GUIDANCE (PAIN)[id number] PROCEDURE CODES 40247 NEEDLE LOCALIZATION BY XRAY 6045F RADXPS IN END [id number] PXD 14396 DRAIN/INJ JOINT/BURSA W/O US DISPOSITION & COMMUNICATION FOLLOW UP 3 WEEKS ELECTRONICALLY SIGNED BY ARCADIO GLASS MD ON 01/24/2017 AT 05:33 PM EDT DISCLAIMER : THIS IS A VISIT SUMMARY EXTRACTED FROM THE [employer] CHART. IT IS NOT A COPY OF THE [employer] PROGRESS NOTE. MTDD
== END ==
LOC: M PAIN 08:45
PROVIDERS: ATTEND Anesthesiology
DX: M70.61 Trochanteric bursitis, right hip (principal); I11.0 Hypertensive heart disease with heart failure; I50.30 Unspecified diastolic (congestive) heart failure; J45.30 Mild persistent asthma, uncomplicated; F32.9 Major depressive disorder, single episode, unspecified; E78.2 Mixed hyperlipidemia; M16.0 Bilateral primary osteoarthritis of hip; I87.2 Venous insufficiency (chronic) (peripheral); E55.9 Vitamin D deficiency, unspecified; K21.9 Gastro-esophageal reflux disease without esophagitis; K51.90 Ulcerative colitis, unspecified, without complications; E04.2 Nontoxic multinodular goiter; Z79.899 Other long term (current) drug therapy; Z88.8 Allergy status to other drugs, medicaments and biological substances; Z88.5 Allergy status to narcotic agent; J30.9 Allergic rhinitis, unspecified
CPT/HCPCS: 20610; 77002; J3301; Q9967

== ENCOUNTER → 2017-03-12 | Outpatient (CLI) | payer OTHER ==
[~2017-03-12] MED LIST changes: -BUPIVACAINE HCL 0.25% 30 ML VIAL As Ordered ONE; -ISOVUE-M 300 61% 15ML VIAL (Q9967) As Ordered ONE; -LIDOCAINE 1% SDV INJ 30 ML VIAL As Ordered ONE; -TRIAMCINOLONE ACETONIDE SUSP 40 MG/ML VIAL (J3301) As Ordered ONE
--- NOTE | 2017-04-19 02:13 | ECWPNPC ---
PATIENT NAME: MARICARMEN WHEATLEY : 1955 GENDER: FEMALE VISIT DATE: 03/12/2017 DISCHARGE DATE: 03/12/17 1622 VISIT LOCKED DATE TIME: PHYSICIAN: MEGAN WU PHYSICIAN PAGER NO: [phone] RESOURCE: MEGAN WU REASON FOR APPOINTMENT 1. POST PROCEDURE HISTORY OF PRESENT ILLNESS HISTORY OF PRESENT ILLNESS: PAIN THE PATIENT DESCRIBES THE PAIN... FALL RISK SCREENING: SCREENING :NO FALLS IN THE PAST YEAR TODAY'S VISIT: NOTES: RATES PAIN TODAY 8/10. DESCRIBES PAIN CONSTANT, THROBBING SORE AND SHOOTING. THIS IS PARTICULARLY A PROBLEM WHEN TRYING TO LAY ON SIDES. . CURRENT MEDICATIONS TAKING DIOVAN 160 MG TABLET TAKE 1 TABLET BY MOUTH ONCE DAILY ORALLY ONCE A DAY TAKING PREVACID 30 MG CAPSULE DELAYED RELEASE 1 CAPSULE ORALLY TWICE A DAY TAKING VENTOLIN HFA 108 (90 BASE) MCG/ACT AEROSOL SOLUTION 2 PUFFS INHALATION EVERY 4 HOURS NEEDED FOR WHEEZING TAKING CELEXA 40 MG TABLET 1 TABLET ORALLY ONCE A DAY TAKING DRISDOL 50,000 UNITS TABLET 1 TAB(S) ORAL ONCE A WEEK TAKING FLONASE 50 MCG/DOSE INHALER 2 SPRAYS IN EACH NOSTRIL NASALLY ONCE A DAY TAKING ASTELIN 137 MCG/SPRAY SOLUTION INSTILL 1 SPRAY INTO EACH NOSTRIL 2 TIMES A DAY _ BID TAKING CALCIUM 600 + D 600-400 MG-UNIT TABLET 1 TABLET ORALLY TWICE A DAY TAKING VITAMIN C OTC TABLET 1 TABLET ORALLY ONCE A DAY TAKING MULTIVITAMINS OTC TABLET 1 TAB(S) ORALLY ONCE A DAY TAKING SALINE 0.65 % SOLUTION DIRECTED NASALLY PRN TAKING NEBULIZER/TUBING/MOUTHPIECE - KIT PT ONLY NEEDS TUBING AND MASK INH FOUR TIMES A DAY NEEDED DX:J45.22 TAKING ESTRACE 0.1 MG/GM CREAM 0.5 GM VAGINAL TWICE A WEEK TAKING DETROL 2 MG TABLET TAKE ONE TABLET BY MOUTH ONCE DAILY TAKING CETIRIZINE HCL 10 MG TABLET TAKE ONE TABLET BY MOUTH ONCE DAILY NEEDED TAKING LASIX 40 MG TABLET 1 TABLET ONCE A DAY BY MOUTH 90 DAY(S) TAKING GABAPENTIN 300 MG CAPSULE 1 CAPSULE ORALLY FOUR TIMES DAILY TAKING ALBUTEROL SULFATE (2.5 MG/3ML) 0.083% NEBULIZATION SOLUTION 3 ML INHALATION THREE TIMES A DAY TAKING DIPHENHYDRAMINE HCL 25 MG CAPSULE 2 CAPSULE NEEDED ORALLY EVERY 4 HOURS TAKING ZANTAC 150 MG TABLET 1 TABLET ORALLY TWICE A DAHY TAKING APRISO 0.375 GM CAPSULE EXTENDED RELEASE 24 HOUR 4 CAPSULES IN THE MORNING ORALLY ONCE A DAY TAKING FLEET ENEMA 7-19 GM/118ML ENEMA DIRECTED RECTAL MEDICATION LIST REVIEWED AND RECONCILED WITH THE PATIENT PAST MEDICAL HISTORY HYPERLIPIDEMIA 2B IMPAIRED FASTING GLUCOSE GERD/HIATAL HERNIA- 07/27/16 EGD SMALL HH, MILD BILE GASTRITIS BY BIOPSY, DUODENITIS-BRYNN ASTHMA, MILD PERSISTENT MULTIPLE BILATERAL COMPLEX THYROID CYSTS ACUTE CRYPTITIS OF ALL RANDOM BIOPSIES, SUGGESTIVE OF IDIOPATHIC IBD BY COLONOSCOPY DECEMBER 2006-SELAM 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 STOLL IMPAIRED FASTING GLUCOSE OBSTRUCTIVE SLEEP APNEA (ADULT) (PEDIATRIC) DIASTOLIC CHF-09/2014 TTE LVEF65%, DIASTOLIC DYSFUNCTION, ELEVATED CVP, MILD LAE 35 MM-ARRIETA B HIP OA, MILD R>L, PARTIAL L SUPERIOR LABRUM TEAR BY 10/2015 MRI ALLERGIES LYRICA: EDEMA, SWELLING, ITCHING: ALLERGY ULTRACET: RASH: ALLERGY OMEPRAZOLE: RASH: ALLERGY ENVIRONMENTAL NORCO: CONFUSION: ALLERGY SURGICAL HISTORY RIGHT KIDNEY SURGERY 1997 BREAST LEFT CYST 1998 HYSTERECTOMY 1979 TUBAL LIGATION 1977 GALL BLADDER B EYELID SURGERY-ROJAS 09/2012 BACK SURGERY 2013 RIGHT FOOT BUNIONECTOMY, REPAIR OF HAMMERTOES 04/04 EGD 07/18/16 SOCIAL HISTORY GENERAL: TOBACCO USE ARE YOU A:NONSMOKER BMI CARE GOAL FOLLOW-UP ABOVE NORMAL BMI FOLLOW-UPGIVING ENCOURAGEMENT TO EXERCISE ALCOHOL SCREENING DID YOU HAVE A DRINK CONTAINING ALCOHOL IN THE PAST YEAR?NO POINTS0 INTERPRETATIONNEGATIVE RECREATIONAL DRUG USE DRUG USE?NO CAFFEINE CAFFEINE USE?YES 1-2 BEVERAGES DAILY SEXUAL HX HAD SEX IN THE LAST 12 MONTHS (VAGINAL, ORAL, OR ANAL)?NO HAVE YOU EVER HAD AN STD?NO HIV / HEP-C SCREENING HIV TEST OFFERED TO PATIENT:YES DATE OFFERED:08/24/2016 TEST ACCEPTED:NO REASON:PATIENT DECLINED HEP-C TEST OFFERED TO PATIENT:YES DATE OFFERED:08/24/2016 TEST ACCEPTED:NO REASON:PATIENT DECLINED OCCUPATION: UNEMPLOYED. EXERCISE: PHYSICAL THERAPY AT HOME DAILY. MARITAL STATUS: .. OTHERS AT HOME: S/O. PETS: NONE. JEWISH [id number] SIKH LANGUAGE LANGUAGES SPOKEN:MONGOLIAN EDUCATION LEVEL OF EDUCATION:FINISHED COLLEGE LEARNING BARRIERS / SPECIAL NEEDS CHANGE FROM LAST VISIT?NO BARRIERS TO LEARNING?NO HEARING IMPAIRED?NO VISION IMPAIRED?YES :CORRECTIVE LENSES READING ONLY COGNITIVELY IMPAIRED?NO READINESS TO LEARN?YES LEARNING PREFERENCES?NO LEARNING CAPABILITIES PRESENT?YES EMOTIONAL BARRIERS?NO SPECIAL DEVICES?NO BUTCHER HELPER NEEDED?NO PAIN CLINIC PFS, CLERGY, PUBLIC HEALTH REFERRALS HAS THE PATIENT BEEN EDUCATED REGARDING HIS/HER PLAN OF CARE?YES HAS THE PATIENT BEEN EDUCATED REGARDING PAIN, THE RISK FOR PAIN, THE IMPORTANCE OF EFFECTIVE PAIN MANAGEMENT, AND THE PAIN ASSESSMENT PROCESS?YES PATIENT: ____. DOMESTIC VIOLENCE NONE. HOSPITALIZATION/MAJOR DIAGNOSTIC PROCEDURE NONE REVIEW OF SYSTEMS REVIEWED BY: PROVIDER: . CONSTITUTIONAL: ANY CHANGE IN YOUR MEDICAL CONDITION? NO . CHILLS NO . FEVER NO . INFECTION: DO YOU HAVE NEW INFECTIONS? NO . DO YOU HAVE HISTORY OF MRSA? NO . MUSCULOSKELETAL: ANY NEW PATTERNS OF PAIN OR NUMBNESS? YES, MORE FREQUENT PERIODS OF PAIN. PT REPORTS TAKING MORE GABAPENTIN WHICH HELPS . GASTROENTEROLOGY: ANY NEW CHANGE IN BOWEL CONTROL? NO . GENITOURINARY: ANY NEW CHANGE IN BLADDER CONTROL? NO . IS THERE A CHANCE YOU COULD BE ? NO . HEMATOLOGY/LYMPH: DO YOU TAKE ANY BLOOD THINNERS? (FOR EXAMPLE- COUMADIN, PLAVIX, AGGRENOX, PLATEL, PRADAXA, OR XARELTO) NO . WHEN WAS YOUR LAST DOSE? DATE: TIME: . NEUROLOGY: HAVE YOU FALLEN IN THE PAST 6 MONTHS? NO . ANY NEW EXTREMITY NUMBNESS OR WEAKNESS? NO . CARDIOLOGY: DO YOU HAVE A PACEMAKER OR DEFIBRILLATOR? NO . RESPIRATORY: HAVE YOU BEEN SICK IN THE PAST WEEK? NO . FEVER NO . FLU LIKE SYMPTOMS? NO . COUGH NO . INTEGUMENTARY: DO YOU HAVE ANY RASHES OR OPEN SORES? NO . ALLERGIC/IMMUNO: ARE YOU ALLERGIC TO SHELLFISH OR IV DYE? NO . ANY NEW ALLERGIES? NO . PSYCHIATRIC: DO YOU HAVE THOUGHTS OF HURTING YOURSELF OR SOMEONE ELSE? NO . ARE YOU ABUSED, NEGLECTED, OR IN AN UNSAFE ENVIRONMENT? NO . ENDOCRINOLOGY: ARE YOU DIABETIC? NO . OTHER: DO YOU NEED ANY PRESCRIPTIONS? YES, GABAPENTIN 300QID, NEED 5 PILLS/DAY NOT 4/DAY. 150 PILLS/MONTH SCRIPT PLEASE . IF YES, PLEASE LIST: ____ . ANY NEW PROBLEMS WITH YOUR MEDICATIONS? NO . WHEN DID YOU LAST EAT? ____ . WHEN DID YOU LAST DRINK? ____ . WHAT DID YOU LAST DRINK? ____ . NAME OF PERSON DRIVING YOU HOME? ____ . DO YOU HAVE ANY OTHER QUESTIONS OR CONCERNS NO . VITAL SIGNS WT 245 LBS, HT 70 IN, BMI 35.15 INDEX, BP 143/84 MM HG, HR 78 /MIN, RR 18 /MIN, TEMP 98.1 F, OXYGEN SAT % 97%, NA INITIALS AW 1536, REVIEWED BY: EM. ASSESSMENTS HIP PAIN, BILATERAL - M25.551 (PRIMARY) CHRONIC PAIN SYNDROME - G89.4 SPONDYLOSIS OF LUMBAR REGION WITHOUT MYELOPATHY OR RADICULOPATHY - M47.816 CHRONIC PRESCRIPTION OPIATE USE - Z79.891 TREATMENT HIP PAIN, BILATERAL REFILL GABAPENTIN CAPSULE, 300 MG, 1 CAPSULE, ORALLY, TAKE 1 TAB MORNING, NOON AND SUPPER AND 2 AT BEDTIME MDD=5, 30 DAY(S), 150, REFILLS 3 INJECTION FACET JOINT/NERVE SENG/SACRALMEGAN WU 03/12/2017 4:06:16 PM > BILATERAL DIAGNOSTIC LUMBAR FACET BLOCK L4-5, L5-S1 NOTES: CONTINUE GABAPENTIN. PREVENTIVE MEDICINE PAIN CLINIC TEACHING: PROCEDURE TEACHING PRE DIAGNOSTIC FACET BLOCK INSTRUCTIONS REVIEWED WITH PT. VERBALIZED UNDERSTANDING.. PROCEDURE CODES FA211 ESTABILISHED PATIENT [facility] FACILITY CHARGE DISPOSITION & COMMUNICATION FOLLOW UP AFTER INJECTION (REASON: CHECK AUTH FOR BILATERAL DIAGNOSTIC L4-5 AND L5-S1 LUMBAR FACET BLOCK) ELECTRONICALLY SIGNED BY HIREN PIERCE ON 04/17/2017 AT 08:18 AM EST DISCLAIMER : THIS IS A VISIT SUMMARY EXTRACTED FROM THE [employer] CHART. IT IS NOT A COPY OF THE [employer] PROGRESS NOTE. FRANK
== END ==
LOC: M PAIN 14:45
PROVIDERS: ATTEND Nurse Practitioner Family
DX: M25.551 Pain in right hip (principal); G89.4 Chronic pain syndrome; M47.816 Spondylosis without myelopathy or radiculopathy, lumbar region; Z79.891 Long term (current) use of opiate analgesic; Z79.899 Other long term (current) drug therapy; Z88.8 Allergy status to other drugs, medicaments and biological substances; J30.9 Allergic rhinitis, unspecified

== ENCOUNTER → 2017-04-03 | Outpatient (CLI) | payer OTHER ==
[2017-04-03 12:57] LABS: BASO % 0.3 % (0.0-1.0); EOS # 0.1 10^3/uL (0.0-0.50); EOS % 1.8 % (0.0-3.0); IMMATURE GRANULOCYTE % 0.3 % (0-0); LYMPH # 2.9 10^3/uL (1.5-4.5); LYMPH % 44.3 % (24.0-44.0); MEAN CORPUSCULAR HEMOGLOBIN 30.3 pg (27.0-33.0); MEAN CORPUSCULAR HGB CONC 32.8 g/dl (32.0-36.5); MEAN CORPUSCULAR VOLUME 92.2 fl (80.0-96.0); MONO # 0.4 10^3/uL (0.0-0.8); MONO % 6.6 % (0.0-5.0); NEUTROPHILS # 3.1 10^3/uL (1.8-7.7); NEUTROPHILS % 46.7 % (36.0-66.0); PLATELET COUNT, AUTOMATED 228 10^3/uL (150-450); RED CELL DISTRIBUTION WIDTH 12.9 % (11.5-14.5); WHITE BLOOD COUNT 6.6 10^3/uL (4.0-10.0)
[2017-04-03 13:43] LABS: ALBUMIN 4.2 GM/DL (3.2-5.2); ALBUMIN/GLOBULIN RATIO 1.24 (1.00-1.93); ALKALINE PHOSPHATASE 70 U/L (45-117); ALT/SGPT 23 U/L (12-78); ANION GAP 8 MEQ/L (8-16); AST/SGOT 15 U/L (7-37); BILIRUBIN,TOTAL 0.4 MG/DL (0.2-1.0); BLOOD UREA NITROGEN 14 MG/DL (7-18); CALCIUM LEVEL 9.4 MG/DL (8.8-10.2); CARBON DIOXIDE LEVEL 29 MEQ/L (21-32); CHLORIDE LEVEL 105 MEQ/L (98-107); CREATININE FOR GFR 0.89 MG/DL (0.55-1.02); FERRITIN 61 NG/ML (8-252); GLOMERULAR FILTRATION RATE > 60.0 (>45); GLUCOSE, FASTING 80 MG/DL (80-110); PERCENT SATURATION 23.2 % (13.2-45.0); POTASSIUM SERUM 4.1 MEQ/L (3.5-5.1); SODIUM LEVEL 142 MEQ/L (136-145); TOTAL IRON BINDING CAPACITY 371 UG/DL (250-450); TOTAL PROTEIN 7.6 GM/DL (6.4-8.2)
== END ==
LOC: M LAB 12:24
PROVIDERS: ATTEND Family Medicine
DX: K51.90 Ulcerative colitis, unspecified, without complications (principal); R73.01 Impaired fasting glucose; E55.9 Vitamin D deficiency, unspecified

== ENCOUNTER 2017-04-04 09:55 | Day surgery (SDC) | payer OTHER ==
[~2017-04-04] VITALS: Ht 177.8 cm; Wt 108.3 kg
[2017-04-04] MEDS ORDERED: NS 1,000 ML IV ONE (10:00)
--- NOTE | 2017-04-04 11:48 | ROOR ---
Patient Name: Kandice Alejo Procedure Date: 04/04/2017 11:23 AM Date of : 1955 Age: 61 Room: [facility] Gender: Female Note Status: Finalized Procedure: Total Colonoscopy to Cecum + Biopsies Indications: High risk colon cancer surveillance: Ulcerative colitis, Incidental - Abdominal pain in the left lower quadrant, Incidental - Change in bowel habits Providers: Justo Browning MD Referring MD: Gregg Salmeron MD Requesting Provider: Medicines: Monitored Anesthesia Care Complications: No immediate complications. Procedure: Pre-Anesthesia Assessment: - The heart rate, respiratory rate, oxygen saturations, blood pressure, adequacy of pulmonary ventilation, and response to care were monitored throughout the procedure. The Colonoscope was introduced through the anus and advanced to the cecum, identified by appendiceal orifice and ileocecal valve. The colonoscopy was performed without difficulty. The patient tolerated the procedure well. The quality of the bowel preparation was good. Findings: The perianal and digital rectal examinations were normal. Non-bleeding internal hemorrhoids were found during retroflexion. The hemorrhoids were small and Grade I (internal hemorrhoids that do not prolapse). Multiple small and large-mouthed diverticula were found in the recto-sigmoid colon, sigmoid colon and descending colon. Background biopsies were taken for histology with a cold forceps from the rectum and rectosigmoid colon. These biopsy specimens were sent to Pathology. The exam was otherwise without abnormality on direct and retroflexion views. Impression: - Non-bleeding internal hemorrhoids. - Diverticulosis in the recto-sigmoid colon, in the sigmoid colon and in the descending colon. - The examination was otherwise normal on direct and retroflexion views. - Background biopsies were taken from the rectum and rectosigmoid colon. - The exam was otherwise normal to the cecum. Recommendation: - Discharge patient to home. - High fiber diet. - Continue present medications. - Await pathology results. - Telephone GI clinic for pathology results in 1 week. - Repeat colonoscopy in 5 years for surveillance based on pathology results. - Return to referring physician. - The findings and recommendations were discussed with the patient's family. Justo Browning MD Justo Browning MD 04/04/2017 11:48:30 AM This report has been signed electronically. Number of Addenda: 0 Note Initiated On: 04/04/2017 11:23 AM Estimated Blood Loss: Estimated blood loss: none.
[2017-04-04 12:06] VITALS: BP 125/67
[2017-04-04] MEDS ORDERED: PROPOFOL 200 MG/20 ML VIAL As Ordered ONE (12:23)
[2017-04-04] MEDS ORDERED: LIDOCAINE 2% INJ 100 MG/5 ML SDV (FOR ANES.) As Ordered ONE (12:23)
== END 2017-04-04 12:16 | disposition home or self-care (01) ==
LOC: M OPP 09:55
PROVIDERS: ATTEND Internal Medicine Gastroenterology
DX: R10.32 Left lower quadrant pain (principal); R19.4 Change in bowel habit; K51.90 Ulcerative colitis, unspecified, without complications; K57.30 Diverticulosis of large intestine without perforation or abscess without bleeding; K64.0 First degree hemorrhoids; I10 Essential (primary) hypertension; R12 Heartburn; K21.9 Gastro-esophageal reflux disease without esophagitis; M19.90 Unspecified osteoarthritis, unspecified site; M79.7 Fibromyalgia; F41.9 Anxiety disorder, unspecified; J45.909 Unspecified asthma, uncomplicated; R06.83 Snoring; G47.30 Sleep apnea, unspecified; E66.9 Obesity, unspecified; Z98.1 Arthrodesis status; Z88.8 Allergy status to other drugs, medicaments and biological substances; Z79.899 Other long term (current) drug therapy; Z80.3 Family history of malignant neoplasm of breast

== ENCOUNTER → 2017-04-10 | Outpatient (CLI) | payer OTHER ==
--- NOTE | 2017-04-10 14:07 | REP ---
Clinical: Multinodular goiter. Comparison: 02/28/2016. Technique: Real time mackenzie scale and color evaluation using linear high frequency transducer. Findings: Thyroid gland is moderately enlarged and diffusely heterogeneous. The isthmus measures 6.5 mm in width. Right lobe measures 4.7 x 2.4 x 2.4 cm and includes 34 x 17 x 24 mm heterogeneous mid pole nodule (previously measuring 28 x 21 x 19 mm) and smaller posterior mid pole nodule measuring 9.7 x 6.2 x 7.6 mm (previously measuring 7.0 x 6.0 x 5.4 mm). Left lobe measures 4.6 x 1.3 x 1.1 cm and includes 9.5 x 6.6 x 10.3 mm complex hypoechoic nodule/cyst (previously measuring 11.3 x 10.2 x 10.3 mm) and 8.1 x 13.3 x 8.0 mm complex hypoechoic nodule (previously measuring 7.6 x 7.6 x 7.3 mm). Impression: Heterogeneous multinodular goiter. Nodules may be slightly increased in size when compared to prior examination but overall similar in appearance. Signed by Matthew Caceres MD 04/10/2017 01:58 P
--- NOTE | 2017-04-10 14:35 | REP ---
BILATERAL LOWER EXTREMITY DUPLEX DOPPLER VENOUS ULTRASOUND WITH EVALUATION FOR VENOUS REFLUX: Bilateral real-time ultrasound evaluation, compression and duplex Doppler evaluation of deep vein systems is performed of the lower extremities. Bilaterally, superficial femoral, and popliteal veins are fully compressible with transducer pressure and demonstrate normal spontaneous and phasic flow without evidence of deep venous thrombosis. Evaluation for venous reflux on the right shows no reflux in any of the deep veins. There is an anterior accessory greater saphenous vein present without reflux. There is no reflux in any portion of the greater saphenous vein, which measures 7 mm at the saphenofemoral junction, 6 mm in the mid thigh and 4 mm at the knee. There is no reflux in the lesser saphenous vein, which measures 5 mm. Evaluation for venous reflux in the left lower extremity shows no evidence of reflux in any of the deep veins. There is an anterior accessory greater saphenous vein present without reflux. There is no reflux in the greater saphenous vein at the saphenofemoral junction which measures 7 mm. There is reflux in the greater saphenous vein in the mid thigh with a duration of 3.9 cm, AP diameter of that vessel is 6 mm. There is reflux in the greater saphenous vein at the knee 6 seconds in duration with AP diameter of 4 mm. There is no reflux of the lesser saphenous vein which measures 5 mm. Please note the reflux in the left greater saphenous vein is worse when standing. Signed by Ramírez Espino MD 04/10/2017 05:07 P
== END ==
LOC: M RAD 11:41
PROVIDERS: ATTEND Family Medicine
DX: E04.2 Nontoxic multinodular goiter (principal)

== ENCOUNTER → 2017-04-20 | Outpatient (CLI) | payer OTHER ==
--- NOTE | 2017-04-21 00:17 | ECWPNPC ---
PATIENT NAME: MARICARMEN WHEATLEY : 1955 GENDER: FEMALE VISIT DATE: 04/20/2017 DISCHARGE DATE: 04/20/17 1205 VISIT LOCKED DATE TIME: PHYSICIAN: MEGAN WU PHYSICIAN PAGER NO: [phone] RESOURCE: MEGAN WU REASON FOR APPOINTMENT 1. BACK HISTORY OF PRESENT ILLNESS HISTORY OF PRESENT ILLNESS: PAIN THE PATIENT DESCRIBES THE PAIN... FALL RISK SCREENING: SCREENING :NO FALLS IN THE PAST YEAR TODAY'S VISIT: NOTES: IS S/P BILATERAL DIAGNOSTIC L4-5 AND L5-S1PAIN LEVEL 7/10. PAIN LEVEL AT LEAST 50 % IMPROVED. PAIN LEVEL STAYED AT 50 % IMPROVED X ALMOST 3 DAYS AND THEN RETURNED AT A 6/10. NOTES MARKED INCREASE IN LEFT HIP PAIN AT THE 3 DAY AYO. RIGHT SIDE IS STLL WITH AT LEAST 50% IMPROVEMENT. HAS BEEN VERY HARD TO STAND UP. . CURRENT MEDICATIONS TAKING DIOVAN 160 MG TABLET TAKE 1 TABLET BY MOUTH ONCE DAILY ORALLY ONCE A DAY TAKING PREVACID 30 MG CAPSULE DELAYED RELEASE 1 CAPSULE ORALLY TWICE A DAY TAKING VENTOLIN HFA 108 (90 BASE) MCG/ACT AEROSOL SOLUTION 2 PUFFS INHALATION EVERY 4 HOURS NEEDED FOR WHEEZING TAKING CELEXA 40 MG TABLET 1 TABLET ORALLY ONCE A DAY TAKING FLONASE 50 MCG/DOSE INHALER 2 SPRAYS IN EACH NOSTRIL NASALLY ONCE A DAY TAKING APRISO 0.375 GM CAPSULE EXTENDED RELEASE 24 HOUR 4 CAPSULES IN THE MORNING ORALLY ONCE A DAY TAKING CALCIUM 600 + D 600-400 MG-UNIT TABLET 1 TABLET ORALLY TWICE A DAY TAKING VITAMIN C OTC TABLET 1 TABLET ORALLY ONCE A DAY TAKING MULTIVITAMINS OTC TABLET 1 TAB(S) ORALLY ONCE A DAY TAKING SALINE 0.65 % SOLUTION DIRECTED NASALLY PRN, NOTES: NONE TAKING NEBULIZER/TUBING/MOUTHPIECE - KIT PT ONLY NEEDS TUBING AND MASK INH FOUR TIMES A DAY NEEDED DX:J45.22, NOTES: NONE TAKING ESTRACE 0.1 MG/GM CREAM 0.5 GM VAGINAL TWICE A WEEK TAKING CETIRIZINE HCL 10 MG TABLET TAKE ONE TABLET BY MOUTH ONCE DAILY NEEDED TAKING ALBUTEROL SULFATE (2.5 MG/3ML) 0.083% NEBULIZATION SOLUTION 3 ML INHALATION THREE TIMES A DAY, NOTES: NONE TAKING DIPHENHYDRAMINE HCL 25 MG CAPSULE 2 CAPSULE NEEDED ORALLY EVERY 4 HOURS TAKING GABAPENTIN 300 MG CAPSULE 1 CAPSULE ORALLY TAKE 1 TAB MORNING, NOON AND SUPPER AND 2 AT BEDTIME MDD=5 TAKING LASIX 40 MG TABLET 1 TAB ORALLY EVERY MORNING TAKING ZANTAC 150 MG TABLET 2 TABLETS ORALLY DAILY AT BEDTIME TAKING ASTELIN 137 MCG/SPRAY SOLUTION INSTILL 1 SPRAY INTO EACH NOSTRIL 2 TIMES A DAY NASALLY BID TAKING DRISDOL 50,000 UNITS TABLET 1 TAB(S) ORAL ONCE A WEEK TAKING DETROL 2 MG TABLET TAKE ONE TABLET BY MOUTH ONCE DAILY ORALLY DAILY MEDICATION LIST REVIEWED AND RECONCILED WITH THE PATIENT PAST MEDICAL HISTORY HYPERLIPIDEMIA 2B IMPAIRED FASTING GLUCOSE GERD/HIATAL HERNIA- 07/27/16 EGD SMALL HH, MILD BILE GASTRITIS BY BIOPSY, DUODENITIS-BRYNN ASTHMA, MILD PERSISTENT MULTIPLE BILATERAL COMPLEX THYROID CYSTS ACUTE CRYPTITIS OF ALL RANDOM BIOPSIES, SUGGESTIVE OF IDIOPATHIC IBD BY COLONOSCOPY 01/2007-SELAM 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 STOLL IMPAIRED FASTING GLUCOSE OBSTRUCTIVE SLEEP APNEA (ADULT) (PEDIATRIC) DIASTOLIC CHF-09/2014 TTE LVEF65%, DIASTOLIC DYSFUNCTION, ELEVATED CVP, MILD LAE 35 MM-ARRIETA B HIP OA, MILD R>L, PARTIAL L SUPERIOR LABRUM TEAR BY 10/2015 MRI ALLERGIES LYRICA: EDEMA, SWELLING, ITCHING: ALLERGY ULTRACET: RASH: ALLERGY OMEPRAZOLE: RASH: ALLERGY ENVIRONMENTAL NORCO: CONFUSION: ALLERGY SOCIAL HISTORY GENERAL: TOBACCO USE ARE YOU A:NONSMOKER BMI CARE GOAL FOLLOW-UP ABOVE NORMAL BMI FOLLOW-UPGIVING ENCOURAGEMENT TO EXERCISE ALCOHOL SCREENING DID YOU HAVE A DRINK CONTAINING ALCOHOL IN THE PAST YEAR?NO POINTS0 INTERPRETATIONNEGATIVE RECREATIONAL DRUG USE DRUG USE?NO CAFFEINE CAFFEINE USE?YES 1-2 BEVERAGES DAILY SEXUAL HX HAD SEX IN THE LAST 12 MONTHS (VAGINAL, ORAL, OR ANAL)?NO HAVE YOU EVER HAD AN STD?NO HIV / HEP-C SCREENING HIV TEST OFFERED TO PATIENT:YES DATE OFFERED:08/24/2016 TEST ACCEPTED:NO REASON:PATIENT DECLINED HEP-C TEST OFFERED TO PATIENT:YES DATE OFFERED:08/24/2016 TEST ACCEPTED:NO REASON:PATIENT DECLINED OCCUPATION: UNEMPLOYED. EXERCISE: PHYSICAL THERAPY AT HOME DAILY. MARITAL STATUS: .. OTHERS AT HOME: S/O. PETS: NONE. 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 ADVANCE DIRECTIVES HEALTH CARE PROXY?YES NAME OF HCP NASIM ALLEN AND TRUONG SHAW DO YOU HAVE A COPY WITH YOU?NO DOMESTIC VIOLENCE NONE. REVIEW OF SYSTEMS REVIEWED BY: PROVIDER: . CONSTITUTIONAL: ANY CHANGE IN YOUR MEDICAL CONDITION? NO . CHILLS NO . FEVER NO . INFECTION: DO YOU HAVE NEW INFECTIONS? NO . DO YOU HAVE HISTORY OF MRSA? NO . MUSCULOSKELETAL: ANY NEW PATTERNS OF PAIN OR NUMBNESS? YES. LEFT HIP AND LEG PAIN WORSEWENT TO VEIN SPECIALIST / HAS LESS CIRCULATION TO LEFT SIDE THAN RIGHT . GASTROENTEROLOGY: ANY NEW CHANGE IN BOWEL CONTROL? NO . GENITOURINARY: ANY NEW CHANGE IN BLADDER CONTROL? NO . IS THERE A CHANCE YOU COULD BE ? NO . HEMATOLOGY/LYMPH: DO YOU TAKE ANY BLOOD THINNERS? (FOR EXAMPLE- COUMADIN, PLAVIX, AGGRENOX, PLATEL, PRADAXA, OR XARELTO) NO . WHEN WAS YOUR LAST DOSE? DATE: TIME: . NEUROLOGY: HAVE YOU FALLEN IN THE PAST 6 MONTHS? NO . ANY NEW EXTREMITY NUMBNESS OR WEAKNESS? NO . CARDIOLOGY: DO YOU HAVE A PACEMAKER OR DEFIBRILLATOR? NO . RESPIRATORY: HAVE YOU BEEN SICK IN THE PAST WEEK? NO . FEVER NO . FLU LIKE SYMPTOMS? NO . COUGH NO . INTEGUMENTARY: DO YOU HAVE ANY RASHES OR OPEN SORES? NO . ALLERGIC/IMMUNO: ARE YOU ALLERGIC TO SHELLFISH OR IV DYE? NO . ANY NEW ALLERGIES? NO . PSYCHIATRIC: DO YOU HAVE THOUGHTS OF HURTING YOURSELF OR SOMEONE ELSE? NO . ARE YOU ABUSED, NEGLECTED, OR IN AN UNSAFE ENVIRONMENT? NO . ENDOCRINOLOGY: ARE YOU DIABETIC? NO . OTHER: DO YOU NEED ANY PRESCRIPTIONS? YES . IF YES, PLEASE LIST: GABAPENTIN . ANY NEW PROBLEMS WITH YOUR MEDICATIONS? NO . WHEN DID YOU LAST EAT? ____ . WHEN DID YOU LAST DRINK? ____ . WHAT DID YOU LAST DRINK? ____ . NAME OF PERSON DRIVING YOU HOME? ____ . DO YOU HAVE ANY OTHER QUESTIONS OR CONCERNS PAIN IN LEFT HIP SOMETIMES SHARP THAT CANNOT GET UP FROM SITTING OR BENDING . VITAL SIGNS WT 245 LBS, HT 70 IN, BMI 35.15 INDEX, BP 140/78 MM HG, HR 84 /MIN, RR 18 /MIN, TEMP 97.8 F, OXYGEN SAT % 95, REVIEWED BY: NL. EXAMINATION GENERAL EXAMINATION: PSYCHALERT , ORIENTED X 3 , APPROPRIATE MOOD AND AFFECT . LUNGS:CLEAR TO AUSCULTATION BILATERALLY. HEART:HEART RATE REGULAR. MUSCULOSKELETAL:POINT TENDERNESS OVER LEFT LUMBAR FACETS AND LEFT LUMBAR PARAVERTEBRAL MUSCLES. RISES SLOWLY TO STANDING POSITION. POSTURE UPRIGHT, GAIT NON ANTALGIC. FEW TRIGGER POINTS IDENTIFIED OVER SACRUM AND LOW BACK. MILD TENDERNESS WITH PALPATION OVER LEFT TROCANTER. . ASSESSMENTS HIP PAIN, BILATERAL - M25.551 (PRIMARY) CHRONIC PAIN SYNDROME - G89.4 SPONDYLOSIS OF LUMBAR REGION WITHOUT MYELOPATHY OR RADICULOPATHY - M47.816 CHRONIC PRESCRIPTION OPIATE USE - Z79.891 TREATMENT HIP PAIN, BILATERAL REFILL GABAPENTIN CAPSULE, 300 MG, 1 CAPSULE, ORALLY, TAKE 1 TAB MORNING, NOON AND SUPPER AND 2 AT BEDTIME MDD=5, 30 DAY(S), 150, REFILLS 3 SPONDYLOSIS OF LUMBAR REGION WITHOUT MYELOPATHY OR RADICULOPATHY INJECTION FACET JOINT/NERVE LUMBAR/SACRALWALMEGAN KEARNS 04/20/2017 11:54:09 AM > DIAGNOSTIC #2 L$-5 AND L5-S1 LUMBAR FACET BLOCK MEGAN WU 04/20/2017 11:54:09 AM > DIAGNOSTIC #2 L$-5 AND L5-S1 LUMBAR FACET BLOCK MEGAN WU 04/20/2017 2:08:48 PM > LOCATION LEFT L4-5 AND L5-S1 NOTES: WALK TOLERATED. CONTINUE GABAPENTIN. PREVENTIVE MEDICINE REVIEWED PRE PROCEDURE KRISTI WITH UNDERSTANDING EXPRESSED. DISPOSITION & COMMUNICATION FOLLOW UP AFTER INJECTION (REASON: CHECK AUTH FOR LEFT DIAG #2 L4-5 AND L5-S1EBJQS BLOCK ) ELECTRONICALLY SIGNED BY HIREN PIERCE ON 04/20/2017 AT 02:10 PM EST DISCLAIMER : THIS IS A VISIT SUMMARY EXTRACTED FROM THE [employer] CHART. IT IS NOT A COPY OF THE [employer] PROGRESS NOTE. FRANK
== END ==
LOC: M PAIN 11:30
PROVIDERS: ATTEND Nurse Practitioner Family
DX: G89.4 Chronic pain syndrome (principal); M25.551 Pain in right hip; M47.816 Spondylosis without myelopathy or radiculopathy, lumbar region; I87.2 Venous insufficiency (chronic) (peripheral); R73.01 Impaired fasting glucose; K21.9 Gastro-esophageal reflux disease without esophagitis; E55.9 Vitamin D deficiency, unspecified; J45.30 Mild persistent asthma, uncomplicated; E66.9 Obesity, unspecified; E04.2 Nontoxic multinodular goiter; I11.0 Hypertensive heart disease with heart failure; I50.30 Unspecified diastolic (congestive) heart failure; F32.9 Major depressive disorder, single episode, unspecified; J30.2 Other seasonal allergic rhinitis; J30.89 Other allergic rhinitis; Z68.35 Body mass index [BMI] 35.0-35.9, adult; Z88.8 Allergy status to other drugs, medicaments and biological substances; Z88.5 Allergy status to narcotic agent; Z79.899 Other long term (current) drug therapy

== ENCOUNTER → 2017-06-11 | Outpatient (CLI) | payer OTHER ==
[~2017-06-11] MED LIST changes: -/ADVA50050 IN; -/ADVA50050 INH; -/ESCI10TA OR; -/LOR25TA PO; -ASACOL; -ASCO25TA PO; -ASPI1TAB PO; -ASPI325T OR; -ASPI325T PO; +BUPIVACAINE HCL 0.25% 30 ML VIAL As Ordered; -CALC600T10; -CALC600T57 PO; -CALCIUM WITH VIT D OR; -CALCTAB22 PO; -CEFD300C OR; -CELE40TA OR; -CELE40TA PO; -CETI10TA PO; -CIPR250T2 PO; -CLAR5CHW PO; -COMBVENT INH; -DETR1TAB4 PO; -DICL0.1S7 EXT; -DIOV160T5 OR; -DIOV160T6 PO; -DRIS50002 PO; -DULC100C PO; -DUONSOL INH; -ESTR0.5T3 PO; -ESTR1TAB OR; -ESTRACE PV; -FLON1SPR; -FURO40TA2 PO; -GABA-279 PO; -GABA-282 PO; -HYDR-3719 PO; -HYDR25TA6 OR; +ISOVUE-M 300 61% 15ML VIAL (Q9967) As Ordered; -KLOR10TA OR; -KLS75TAB; -LASI40TA OR; -LIAL1.2T PO; +LIDOCAINE 1% SDV INJ 30 ML VIAL As Ordered; -MESAPOW OR; -MULT1TAB10 PO; -MULTIVIT PO; -NAPR500T OR; -NASONEX; -NASONEX INH; -NEXI20CA; -NEXI20GR; -OXYC1TAB15 PO; -OXYC1TAB23 PO; -PREG25CA OR; -PREG50CA; -PREV15CA PO; -PREV1CAP PO; -PREVACID OR; -RANI15TA PO; -RANI75EL; -TOLT2TA OR; -VENTAER IN; -VICO5TAB16 PO; -VITA250C OR; -VOLT1GEL EX; -ZANAX; -ZANT300T OR; -[UNRECOGNIZED DRUG - OTHER]; -astelin; -estrace PV; -klor con PO; -mesalamine PO
== END ==
LOC: M PAIN 10:30
DX: G89.29 Other chronic pain (principal); M47.816 Spondylosis without myelopathy or radiculopathy, lumbar region; M47.817 Spondylosis without myelopathy or radiculopathy, lumbosacral region; E78.5 Hyperlipidemia, unspecified; R73.01 Impaired fasting glucose; J45.909 Unspecified asthma, uncomplicated; I10 Essential (primary) hypertension; M79.7 Fibromyalgia; F32.9 Major depressive disorder, single episode, unspecified; G47.33 Obstructive sleep apnea (adult) (pediatric); M16.0 Bilateral primary osteoarthritis of hip; Z79.899 Other long term (current) drug therapy; Z88.5 Allergy status to narcotic agent; Z88.8 Allergy status to other drugs, medicaments and biological substances
CPT/HCPCS: Q9967

== ENCOUNTER → 2017-06-25 | Outpatient (CLI) | payer OTHER | LOC: M PAIN 09:30 | DX: M47.816 Spondylosis without myelopathy or radiculopathy, lumbar region (principal); M47.817 Spondylosis without myelopathy or radiculopathy, lumbosacral region; I10 Essential (primary) hypertension; E78.5 Hyperlipidemia, unspecified; R73.01 Impaired fasting glucose; K21.9 Gastro-esophageal reflux disease without esophagitis; J45.20 Mild intermittent asthma, uncomplicated; M79.7 Fibromyalgia; G47.33 Obstructive sleep apnea (adult) (pediatric); F32.9 Major depressive disorder, single episode, unspecified; Z79.82 Long term (current) use of aspirin; Z79.899 Other long term (current) drug therapy; Z88.5 Allergy status to narcotic agent; Z88.8 Allergy status to other drugs, medicaments and biological substances; Z79.891 Long term (current) use of opiate analgesic | CPT/HCPCS: G0463 ==

== ENCOUNTER → 2017-08-09 | Outpatient (CLI) | payer OTHER ==
[2017-08-09 14:01] LABS: HEMATOCRIT 37.3 % (36.0-47.0)
[2017-08-09 14:21] LABS: ERYTHROCYTE SEDIMENTATION RATE 31 mm/hr (0-30)
[2017-08-09 14:30] LABS: ALBUMIN 3.9 GM/DL (3.2-5.2); ALBUMIN/GLOBULIN RATIO 1.05 (1.00-1.93); ALKALINE PHOSPHATASE 73 U/L (45-117); ALT/SGPT 25 U/L (12-78); ANION GAP 8 MEQ/L (8-16); AST/SGOT 15 U/L (7-37); BILIRUBIN,TOTAL 0.3 MG/DL (0.2-1.0); BLOOD UREA NITROGEN 21 MG/DL (7-18); CALCIUM LEVEL 8.7 MG/DL (8.8-10.2); CARBON DIOXIDE LEVEL 24 MEQ/L (21-32); CHLORIDE LEVEL 109 MEQ/L (98-107); CREATININE FOR GFR 0.87 MG/DL (0.55-1.30); GLOMERULAR FILTRATION RATE > 60.0 (>45); GLUCOSE, FASTING 88 MG/DL (70-100); MAGNESIUM LEVEL 2.1 MG/DL (1.8-2.4); NT-PRO BNP 348 PG/ML (<125); POTASSIUM SERUM 4.1 MEQ/L (3.5-5.1); SODIUM LEVEL 141 MEQ/L (136-145); TOTAL PROTEIN 7.6 GM/DL (6.4-8.2)
[2017-08-09 14:32] LABS: VITAMIN B12 LEVEL 1058 PG/ML (247-911)
[2017-08-09 14:43] LABS: ESTIMATED AVERAGE GLUCOSE 117 MG/DL (60-110); HEMOGLOBIN A1c 5.7 %
[2017-08-10 11:22] LABS: PRETREATED FOLATE FOR RBCFOL 14.8 NG/ML; RBC FOLATE 833.2 NG/ML (280-791)
[2017-08-10 14:15] LABS: INSULIN LEVEL 38.7 uIU/mL (2.6-24.9)
== END ==
LOC: M LAB 12:53
DX: I50.30 Unspecified diastolic (congestive) heart failure (principal); K51.90 Ulcerative colitis, unspecified, without complications; R73.01 Impaired fasting glucose
CPT/HCPCS: 83525

== ENCOUNTER → 2017-08-10 | Outpatient (REF) | payer OTHER ==
[2017-08-10 16:17] LABS: ALBUMIN/GLOBULIN RATIO 1.08 (1.00-1.93); ALKALINE PHOSPHATASE 78 U/L (45-117); ALT/SGPT 22 U/L (12-78); ANION GAP 7 MEQ/L (8-16); AST/SGOT 17 U/L (7-37); BILIRUBIN,TOTAL 0.4 MG/DL (0.2-1.0); BLOOD UREA NITROGEN 18 MG/DL (7-18); CALCIUM LEVEL 8.7 MG/DL (8.8-10.2); CARBON DIOXIDE LEVEL 27 MEQ/L (21-32); CHLORIDE LEVEL 109 MEQ/L (98-107); CREATININE FOR GFR 0.77 MG/DL (0.55-1.30); FREE T4 0.82 NG/DL (0.76-1.46); GLOMERULAR FILTRATION RATE > 60.0 (>45); GLUCOSE, FASTING 86 MG/DL (70-100); POTASSIUM SERUM 4.3 MEQ/L (3.5-5.1); SODIUM LEVEL 143 MEQ/L (136-145); THYROID STIMULATING HORMONE 0.806 uIU/ML (0.358-3.740); TOTAL 25(OH) VITAMIN D 33.5 NG/ML (30.0-100.0); TOTAL PROTEIN 7.7 GM/DL (6.4-8.2)
[2017-08-10 16:43] LABS: APPEARANCE, URINE CLEAR (CLEAR); BACTERIA, URINE AUTO NEGATIVE (NEGATIVE); BILIRUBIN, URINE AUTO NEGATIVE (NEGATIVE); BLOOD, URINE BLOOD NEGATIVE (NEGATIVE); COLOR, URINE YELLOW (YELLOW); GLUCOSE, URINE (UA) AUTO NEGATIVE (NEGATIVE); KETONE, URINE AUTO NEGATIVE (NEGATIVE); LEUKOCYTE ESTERASE, URINE AUTO NEGATIVE (NEGATIVE); MUCUS, URINE SMALL (NEGATIVE); NITRITE, URINE AUTO NEGATIVE (NEGATIVE); PROTEIN, URINE AUTO NEGATIVE (NEGATIVE); RBC, URINE AUTO 0 /HPF (0-3); SPECIFIC GRAVITY URINE AUTO 1.021 (1.002-1.035); SQUAMOUS EPITHELIAL CELL UR AU 1 /HPF (0-6); UROBILINOGEN, URINE AUTO 0.2 mg/dL (0.0-2.0); WBC, URINE AUTO 1 /HPF (0-3)
== END ==
LOC: M SFHCPLAZ 11:54
DX: E04.2 Nontoxic multinodular goiter (principal); E55.9 Vitamin D deficiency, unspecified

== ENCOUNTER → 2017-08-16 | Outpatient (CLI) | payer OTHER ==
[~2017-08-16] MED LIST changes: +TRIAMCINOLONE ACETONIDE SUSP 40 MG/ML VIAL (J3301) As Ordered
== END ==
LOC: M PAIN 14:00
DX: G89.29 Other chronic pain (principal); M47.816 Spondylosis without myelopathy or radiculopathy, lumbar region; M47.817 Spondylosis without myelopathy or radiculopathy, lumbosacral region; E78.5 Hyperlipidemia, unspecified; I10 Essential (primary) hypertension; R73.01 Impaired fasting glucose; K21.9 Gastro-esophageal reflux disease without esophagitis; J45.909 Unspecified asthma, uncomplicated; M79.7 Fibromyalgia; F32.9 Major depressive disorder, single episode, unspecified; G47.33 Obstructive sleep apnea (adult) (pediatric); M16.0 Bilateral primary osteoarthritis of hip; Z79.899 Other long term (current) drug therapy; Z88.8 Allergy status to other drugs, medicaments and biological substances
CPT/HCPCS: J3301

== ENCOUNTER → 2017-08-24 | Outpatient (CLI) | payer OTHER | LOC: M RAD 07:45 | DX: N18.2 Chronic kidney disease, stage 2 (mild) (principal) ==

== ENCOUNTER → 2017-09-06 | Outpatient (CLI) | payer OTHER | LOC: M PAIN 14:30 | DX: M47.816 Spondylosis without myelopathy or radiculopathy, lumbar region (principal); M47.817 Spondylosis without myelopathy or radiculopathy, lumbosacral region; E78.5 Hyperlipidemia, unspecified; R73.01 Impaired fasting glucose; K21.9 Gastro-esophageal reflux disease without esophagitis; J45.30 Mild persistent asthma, uncomplicated; I10 Essential (primary) hypertension; M79.7 Fibromyalgia; F32.9 Major depressive disorder, single episode, unspecified; G47.33 Obstructive sleep apnea (adult) (pediatric); M16.0 Bilateral primary osteoarthritis of hip; Z79.899 Other long term (current) drug therapy; Z88.8 Allergy status to other drugs, medicaments and biological substances | CPT/HCPCS: G0463 ==

== ENCOUNTER 2017-10-26 06:10 | Day surgery (SDC) | payer OTHER ==
[2017-10-26] MEDS: LIDOCAINE 1% SDV INJ 30 ML VIAL As Ordered ×2 (06:19)
[2017-10-26] MEDS ORDERED: LR 1,000 ML IV ×4 (06:30→09:00)
[2017-10-26] MEDS ORDERED: LIDOCAINE 1% MDV 20ML VIAL SQ ×2 (06:30)
[2017-10-26] MEDS ORDERED: PROPOFOL 200 MG/20 ML VIAL As Ordered ×6 (07:31→07:55)
[2017-10-26] MEDS ORDERED: MIDAZOLAM INJ 2 MG/2 ML VIAL (J2250) As Ordered ×2 (07:31)
[2017-10-26] MEDS ORDERED: fentaNYL 100 MCG/2 ML INJECTION (J3010) As Ordered ×4 (07:31→08:12)
[2017-10-26] MEDS: LIDOCAINE W/EPINEPHRINE 1% 20ML VIAL As Ordered ×2 (08:02)
[2017-10-26] MEDS ORDERED: MORPHINE 10 MG/ML 1ML VIAL (J2270) IV ×2 (09:00)
[2017-10-26] MEDS ORDERED: ONDANSETRON 4MG/2ML VIAL (J2405) IV ×2 (09:00)
[2017-10-26] MEDS ORDERED: KETOROLAC 30 MG/ML VIAL (J1885) IV ×2 (09:00)
[2017-10-26] MEDS ORDERED: PERCOCET 5MG/325MG TAB PO ×2 (09:00)
== END 2017-10-26 09:20 | disposition home or self-care (01) ==
LOC: M SDC 06:10
DX: I83.812 Varicose veins of left lower extremity with pain (principal); R60.0 Localized edema; I87.2 Venous insufficiency (chronic) (peripheral); I73.9 Peripheral vascular disease, unspecified; I10 Essential (primary) hypertension; N28.9 Disorder of kidney and ureter, unspecified; K21.9 Gastro-esophageal reflux disease without esophagitis; E04.1 Nontoxic single thyroid nodule; R13.10 Dysphagia, unspecified; R29.898 Other symptoms and signs involving the musculoskeletal system; J45.909 Unspecified asthma, uncomplicated; R06.83 Snoring; G47.30 Sleep apnea, unspecified; R32 Unspecified urinary incontinence; M12.9 Arthropathy, unspecified; M54.2 Cervicalgia; M79.7 Fibromyalgia; F41.9 Anxiety disorder, unspecified; Z88.5 Allergy status to narcotic agent; Z88.8 Allergy status to other drugs, medicaments and biological substances; Z79.899 Other long term (current) drug therapy; Z90.710 Acquired absence of both cervix and uterus; Z78.0 Asymptomatic menopausal state
CPT/HCPCS: 36475

== ENCOUNTER → 2017-11-02 | Outpatient (CLI) | payer OTHER | LOC: M RAD 09:16 | DX: I83.812 Varicose veins of left lower extremity with pain (principal) | CPT/HCPCS: 93971 ==

== ENCOUNTER → 2017-11-15 | Outpatient (CLI) | payer OTHER | LOC: M WHC 13:34 | DX: Z12.39 Encounter for other screening for malignant neoplasm of breast (principal) | CPT/HCPCS: 77067 ==

== ENCOUNTER 2017-11-19 13:56 | Outpatient (CLI) | payer OTHER ==
[2017-11-20 10:33] LABS: RETIC HEMOGLOBIN EQUIVALENT 35.4 pg (24-36); RETICULOCYTE # 63.3 10^9/L (17-77); RETICULOCYTE % 1.6 % (0.5-1.5)
[2017-11-20 11:08] LABS: ALBUMIN 3.8 GM/DL (3.2-5.2); ALBUMIN/GLOBULIN RATIO 1.12 (1.00-1.93); ALKALINE PHOSPHATASE 78 U/L (45-117); ALT/SGPT 22 U/L (12-78); ANION GAP 10 MEQ/L (8-16); AST/SGOT 13 U/L (7-37); BILIRUBIN,TOTAL 0.3 MG/DL (0.2-1.0); BLOOD UREA NITROGEN 19 MG/DL (7-18); C REACTIVE PROTEIN QUANTITATIV 0.72 MG/DL (0.00-0.30); CALCIUM LEVEL 8.2 MG/DL (8.8-10.2); CARBON DIOXIDE LEVEL 25 MEQ/L (21-32); CHLORIDE LEVEL 109 MEQ/L (98-107); CHOLESTEROL LEVEL 161 MG/DL (<200); CHOLESTEROL RISK RATIO 3.096 (<5); CPK CREATINE PHOSPHOKINASE 77 U/L (26-192); CREATININE FOR GFR 0.83 MG/DL (0.55-1.30); FERRITIN 56 NG/ML (8-252); GLOMERULAR FILTRATION RATE > 60.0 (>45); GLUCOSE, FASTING 94 MG/DL (70-100); HDL CHOLESTEROL 52 MG/DL (>40); NON-HDL-C 109 MG/DL; NT-PRO BNP 474 PG/ML (<125); PTH INTACT 61.1 PG/ML (18.5-88.0); SODIUM LEVEL 144 MEQ/L (136-145); TOTAL PROTEIN 7.2 GM/DL (6.4-8.2); TRIGLYCERIDES LEVEL 110 MG/DL (<150)
[2017-11-20 11:31] LABS: ESTIMATED AVERAGE GLUCOSE 114 MG/DL (60-110); HEMOGLOBIN A1c 5.6 %
[2017-11-22 14:19] LABS: INSULIN LEVEL 21.4 uIU/mL (2.6-24.9)
== END 2017-11-20 ==
LOC: M LAB 13:56
DX: I50.30 Unspecified diastolic (congestive) heart failure (principal)
CPT/HCPCS: 82550

== ENCOUNTER → 2017-12-05 | Outpatient (CLI) | payer OTHER | LOC: M PAIN 13:15 | DX: M47.816 Spondylosis without myelopathy or radiculopathy, lumbar region (principal); M25.551 Pain in right hip; M47.817 Spondylosis without myelopathy or radiculopathy, lumbosacral region; E78.5 Hyperlipidemia, unspecified; R73.03 Prediabetes; K21.9 Gastro-esophageal reflux disease without esophagitis; K44.9 Diaphragmatic hernia without obstruction or gangrene; J45.30 Mild persistent asthma, uncomplicated; E04.2 Nontoxic multinodular goiter; M51.36 Other intervertebral disc degeneration, lumbar region; I13.0 Hypertensive heart and chronic kidney disease with heart failure and stage 1 through stage 4 chronic kidney disease, or unspecified chronic kidney disease; M79.7 Fibromyalgia; F32.9 Major depressive disorder, single episode, unspecified; G47.33 Obstructive sleep apnea (adult) (pediatric); I50.32 Chronic diastolic (congestive) heart failure; M50.20 Other cervical disc displacement, unspecified cervical region; M17.0 Bilateral primary osteoarthritis of knee; N18.4 Chronic kidney disease, stage 4 (severe); Z79.891 Long term (current) use of opiate analgesic; Z79.899 Other long term (current) drug therapy; Z88.8 Allergy status to other drugs, medicaments and biological substances | CPT/HCPCS: G0463 ==

== ENCOUNTER → 2018-01-16 | Outpatient (CLI) | payer OTHER | LOC: M PAIN 10:00 | DX: M47.816 Spondylosis without myelopathy or radiculopathy, lumbar region (principal); M25.551 Pain in right hip; M47.817 Spondylosis without myelopathy or radiculopathy, lumbosacral region; E78.5 Hyperlipidemia, unspecified; R73.01 Impaired fasting glucose; J45.909 Unspecified asthma, uncomplicated; I12.9 Hypertensive chronic kidney disease with stage 1 through stage 4 chronic kidney disease, or unspecified chronic kidney disease; I13.0 Hypertensive heart and chronic kidney disease with heart failure and stage 1 through stage 4 chronic kidney disease, or unspecified chronic kidney disease; N18.3 Chronic kidney disease, stage 3 (moderate); M79.7 Fibromyalgia; F32.9 Major depressive disorder, single episode, unspecified; G47.33 Obstructive sleep apnea (adult) (pediatric); I50.30 Unspecified diastolic (congestive) heart failure; M16.0 Bilateral primary osteoarthritis of hip; Z79.891 Long term (current) use of opiate analgesic; Z79.899 Other long term (current) drug therapy; Z88.8 Allergy status to other drugs, medicaments and biological substances; Z86.69 Personal history of other diseases of the nervous system and sense organs | CPT/HCPCS: G0463 ==

== ENCOUNTER → 2018-02-07 | Outpatient (CLI) | payer OTHER ==
[~2018-02-07] MED LIST changes: -TRIAMCINOLONE ACETONIDE SUSP 40 MG/ML VIAL (J3301) As Ordered
== END ==
LOC: M PAIN 13:45
DX: M47.816 Spondylosis without myelopathy or radiculopathy, lumbar region (principal); M47.817 Spondylosis without myelopathy or radiculopathy, lumbosacral region; E78.5 Hyperlipidemia, unspecified; R73.01 Impaired fasting glucose; K21.9 Gastro-esophageal reflux disease without esophagitis; K44.9 Diaphragmatic hernia without obstruction or gangrene; J45.30 Mild persistent asthma, uncomplicated; M51.36 Other intervertebral disc degeneration, lumbar region; E04.2 Nontoxic multinodular goiter; I13.0 Hypertensive heart and chronic kidney disease with heart failure and stage 1 through stage 4 chronic kidney disease, or unspecified chronic kidney disease; M79.7 Fibromyalgia; F32.9 Major depressive disorder, single episode, unspecified; G47.33 Obstructive sleep apnea (adult) (pediatric); M50.20 Other cervical disc displacement, unspecified cervical region; I50.32 Chronic diastolic (congestive) heart failure; M16.0 Bilateral primary osteoarthritis of hip; N18.3 Chronic kidney disease, stage 3 (moderate); Z79.891 Long term (current) use of opiate analgesic; Z79.899 Other long term (current) drug therapy; Z88.8 Allergy status to other drugs, medicaments and biological substances; N39.41 Urge incontinence
CPT/HCPCS: Q9967

== ENCOUNTER → 2018-02-27 | Outpatient (CLI) | payer OTHER | LOC: M PAIN 10:00 | DX: M47.816 Spondylosis without myelopathy or radiculopathy, lumbar region (principal); M47.817 Spondylosis without myelopathy or radiculopathy, lumbosacral region; E78.5 Hyperlipidemia, unspecified; R73.01 Impaired fasting glucose; K21.9 Gastro-esophageal reflux disease without esophagitis; J45.20 Mild intermittent asthma, uncomplicated; I12.9 Hypertensive chronic kidney disease with stage 1 through stage 4 chronic kidney disease, or unspecified chronic kidney disease; N18.3 Chronic kidney disease, stage 3 (moderate); M79.7 Fibromyalgia; F32.9 Major depressive disorder, single episode, unspecified; G47.33 Obstructive sleep apnea (adult) (pediatric); M16.4 Bilateral post-traumatic osteoarthritis of hip; Z79.82 Long term (current) use of aspirin; Z79.899 Other long term (current) drug therapy; Z88.8 Allergy status to other drugs, medicaments and biological substances; Z86.69 Personal history of other diseases of the nervous system and sense organs | CPT/HCPCS: G0463 ==

== ENCOUNTER → 2018-04-03 | Outpatient (CLI) | payer OTHER | LOC: M LAB 12:17 | DX: M17.0 Bilateral primary osteoarthritis of knee (principal) | CPT/HCPCS: 73564 ==

== ENCOUNTER → 2018-05-02 | Outpatient (CLI) | payer OTHER ==
[~2018-05-02] MED LIST changes: +/ADVA50050 IN; +/ADVA50050 INH; +/ESCI10TA OR; +/LOR25TA PO; +ASACOL; +ASCO25TA PO; +ASPI1TAB PO; +ASPI325T OR; +ASPI325T PO; +AZEL1SPR3; -BUPIVACAINE HCL 0.25% 30 ML VIAL As Ordered; +BUPIVACAINE HCL 0.25% 30 ML VIAL As Ordered ONE; +CALC600T10; +CALC600T57 PO; +CALCIUM WITH VIT D OR; +CALCTAB22 PO; +CEFD300C OR; +CELE40TA OR; +CELE40TA PO; +CETI10TA PO; +CIPR250T2 PO; +CLAR5CHW PO; +COMBVENT INH; +DETR1TAB5 PO; +DICL0.1S7 EXT; +DIOV160T5 OR; +DIOV160T6 PO; +DIPH50CA29; +DRIS50003 PO; +DULC100C PO; +DUONSOL INH; +ESTR0.5T3 PO; +ESTR1TAB OR; +ESTRACE PV; +FLON1SPR; +FURO40TA2 PO; +GABA-1171 PO; +GABA-843 PO; +HYDR-3713; +HYDR-3719 PO; +HYDR25TA6 OR; -ISOVUE-M 300 61% 15ML VIAL (Q9967) As Ordered; +ISOVUE-M 300 61% 15ML VIAL (Q9967) As Ordered ONE; +KLOR10TA OR; +KLS75TAB; +LASI40TA OR; +LIAL1.2T PO; -LIDOCAINE 1% SDV INJ 30 ML VIAL As Ordered; +LIDOCAINE 1% SDV INJ 30 ML VIAL As Ordered ONE; +LORA-243; +MESAPOW OR; +MONT10TA2; +MULT1TAB10 PO; +MULTIVIT PO; +NAPR500T OR; +NASONEX; +NASONEX INH; +NEXI20CA; +NEXI20GR; +OXYC1TAB15 PO; +OXYC1TAB23 PO; +PREG25CA OR; +PREG50CA; +PREV15CA PO; +PREV1CAP PO; +PREVACID OR; +RANI15TA PO; +RANI75EL; +TOLT2TA OR; +TRIAMCINOLONE ACETONIDE SUSP 40 MG/ML VIAL (J3301) As Ordered ONE; +VENTAER; +VENTAER IN; +VICO5TAB16 PO; +VITA250C OR; +VOLT1GEL EX; +ZANAX; +ZANT300T OR; +[UNRECOGNIZED DRUG - OTHER]; +astelin; +estrace PV; +klor con PO; +mesalamine PO
--- NOTE | 2018-05-02 14:23 | REP ---
Partial lumbar spine series: Eight views . History: Injection procedure for pain. 49 seconds of fluoroscopy time is reported. Findings: A sequence of eight fluoroscopically obtained last image hold procedural spot radiographs of the lumbar spine document needle position and contrast injection associated with injection procedure. Electronically Signed by Edwin Rocha MD 05/02/2018 02:14 P
--- NOTE | 2018-05-21 23:57 | ECWPNPC ---
PATIENT NAME: MARICARMEN WHEATLEY : 1955 GENDER: FEMALE VISIT DATE: 05/02/2018 DISCHARGE DATE: 05/02/18 1330 VISIT LOCKED DATE TIME: PHYSICIAN: ARCADIO GLASS MD PHYSICIAN PAGER NO: [phone] RESOURCE: ARCADIO GLASS MD REASON FOR APPOINTMENT 1. LEFT L4-5 AND L5-S1 RADIOFREQUENCY HISTORY OF PRESENT ILLNESS DEPRESSION SCREENING: PHQ-2 IN LAST TWO WEEKS HAVE YOU BEEN BOTHERED BY LITTLE INTEREST OR PLEASURE IN DOING THINGSNO FEELING DOWN, DEPRESSED, OR HOPELESSNO HISTORY OF PRESENT ILLNESS: PAIN THE PATIENT DESCRIBES THE PAIN... FALL RISK SCREENING: SCREENING :NO FALLS IN THE PAST YEAR CURRENT MEDICATIONS TAKING PREVACID 30 MG CAPSULE DELAYED RELEASE 1 CAPSULE ORALLY TWICE A DAY, NOTES: 05/01/18 1700 TAKING ZANTAC 300 MG TABLET 1 TABLET BY MOUTH DAILY AT BEDTIME, NOTES: 05/01/182099 TAKING VENTOLIN HFA 108 (90 BASE) MCG/ACT AEROSOL SOLUTION 2 PUFFS INHALATION EVERY 4 HOURS NEEDED FOR WHEEZING, NOTES: DAYS AGO TAKING LASIX 40 MG TABLET 1 TAB ORALLY EVERY MORNING, NOTES: 05/01/18899 TAKING FLONASE 50 MCG/DOSE INHALER 2 SPRAYS IN EACH NOSTRIL NASALLY ONCE A DAY, NOTES: NOT TAKING TAKING ASTELIN 137 MCG/SPRAY SOLUTION INSTILL 1 SPRAY INTO EACH NOSTRIL 2 TIMES A DAY _ BID, NOTES: 05/02/18899 TAKING DIPHENHYDRAMINE HCL 50 MG TABLET 1 TABLET ORALLY AT BEDTIME, NOTES: 05/01/182099 TAKING LORATADINE 10 MG TABLET 1 TABLET ORALLY ONCE A DAY, NOTES: 05/01/18899 TAKING ERGOCALCIFEROL 43182 UNIT CAPSULE 1 CAPSULE ORALLY EVERY 7 DAYS, NOTES: 04/28/18 TAKING VITAMIN C OTC TABLET 1 TABLET ORALLY ONCE A DAY, NOTES: 05/01/18899 TAKING MULTIVITAMINS OTC TABLET 1 TAB(S) ORALLY ONCE A DAY, NOTES: 05/01/18899 TAKING DETROL 2 MG TABLET TAKE ONE TABLET BY MOUTH ONCE DAILY ORALLY DAILY, NOTES: 3 DAYS AGO TAKING LOSARTAN POTASSIUM 50 MG TABLET 1 TABLET ORALLY TWICE DAILY, NOTES: 05/02/18899 TAKING CALCIUM 600 + D 600-400 MG-UNIT TABLET 1 TABLET ORALLY DAILY, NOTES: 12/12/18 2100 TAKING NEBULIZER/TUBING/MOUTHPIECE - KIT PT ONLY NEEDS TUBING AND MASK INH FOUR TIMES A DAY NEEDED DX:J45.22 TAKING ALBUTEROL SULFATE (2.5 MG/3ML) 0.083% NEBULIZATION SOLUTION 3 ML INHALATION THREE TIMES A DAY, NOTES: NONE LATELY TAKING ACETAMINOPHEN EXTRA STRENGTH 500 MG TABLET 2 TABLETS NEEDED ORALLY EVERY 6 HRS, NOTES: WEEKS AGO TAKING SINGULAIR 10 MG TABLET 1 TABLET IN THE EVENING ORALLY BEFORE BEDTIME, NOTES: 05/01/18899 TAKING ESTRACE 0.1 MG/GM CREAM 0.5 GM VAGINAL TWICE A WEEK, NOTES: 04/28/18 TAKING ERGOCALCIFEROL 60634 UNIT CAPSULE 1 CAPSULE ORALLY EVERY 7 DAYS, NOTES: DUPLICATE TAKING PREVACID 30 MG CAPSULE DELAYED RELEASE TAKE ONE CAPSULE BY MOUTH TWICE A DAY , NOTES: DUPLICATE TAKING GABAPENTIN 300 MG CAPSULE 1 CAPSULE ORALLY 3 DURING DAY/ 2 AT NIGHT, NOTES: 05/01/182099 TAKING CITALOPRAM HYDROBROMIDE 40 MG TABLET 1 TABLET ORALLY DAILY, NOTES: 05/01/182099 TAKING VOLTAREN 1 % GEL 4 GM TRANSDERMAL QID B KNEES, NOTES: 05/01/182099 TAKING APRISO 0.375 GM CAPSULE EXTENDED RELEASE 24 HOUR TAKE FOUR CAPSULES BY MOUTH IN THE MORNING , NOTES: 05/01/18899 TAKING NORCO 5-325 MG TABLET 1 TABLET NEEDED ORALLY EVERY 6 -8 HRS PRN PAIN MDD=3, NOTES: 05/02/18899 NOT-TAKING LASIX 40 MG TABLET 1 TAB ORALLY EVERY MORNING, NOTES: DUPLICATE NOT-TAKING AZELASTINE HCL 0.1 % SOLUTION INSTILL 1 SPRAY INTO EACH NOSTRIL TWO TIMES A DAY , NOTES: DUPLICATE MEDICATION LIST REVIEWED AND RECONCILED WITH THE PATIENT PAST MEDICAL HISTORY HYPERLIPIDEMIA 2B IMPAIRED FASTING GLUCOSE GERD/HIATAL HERNIA- 07/27/16 EGD SMALL HH, MILD BILE GASTRITIS BY BIOPSY, DUODENITIS-BRYNN ASTHMA, MILD PERSISTENT MULTIPLE BILATERAL COMPLEX THYROID CYSTS ACUTE CRYPTITIS OF ALL RANDOM BIOPSIES, SUGGESTIVE OF IDIOPATHIC IBD BY COLONOSCOPY 01/2007-SELAM//RECTAL BIOPSY C MILD DIASSRAY C LP FIBROSIS BY 03/2017 COLON-W 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 STOLL IMPAIRED FASTING GLUCOSE GALA DIASTOLIC CHF-09/2014 TTE LVEF65%, DIASTOLIC DYSFUNCTION, ELEVATED CVP, MILD LAE 35 MM-ARRIETA B HIP OA, MILD R>L, PARTIAL L SUPERIOR LABRUM TEAR BY 10/2015 MRI CKD 3-08/2017 RENAL US: R KIDNEY ATROPHY (PREVIOUS PARTIAL NEPHRECTOMY 2 HYDRONEPHROSIS) S SIGNS OF UNIQUE ALLERGIES LYRICA: EDEMA, SWELLING, ITCHING: ALLERGY ULTRACET: RASH: ALLERGY OMEPRAZOLE: RASH: ALLERGY ENVIRONMENTAL: SNEEZING, RUNNY NOSE, ITCHY EYES: ALLERGY SURGICAL HISTORY R HYPDRONEHOSIS SURGERY-[place] 1997 BREAST LEFT CYST 1998 HYSTERECTOMY 1979 TUBAL LIGATION 1977 GALL BLADDER B EYELID SURGERY-[place] 09/2012 BACK SURGERY 2013 RIGHT FOOT BUNIONECTOMY, REPAIR OF HAMMERTOES 04/04 EGD 07/18/16 L GSV RFA C STAB PHLEBECTOMY-[place] 11/05 FAMILY HISTORY FATHER: DDD,ARTHRITIS , EMPHYSEMA MOTHER: TN,CHF,BLOOD CLOT IN THE LEG,HTN,BASAL CELL CARCINOMA AND VULVAR CARCINOMA PATERNAL GRAND FATHER: TN MATERNAL GRAND FATHER: STROKE MATERNAL GRAND MOTHER: BREAST CANCER AT AGE 70, OF CHF SOCIAL HISTORY GENERAL: TOBACCO USE ARE YOU A:NONSMOKER BMI CARE GOAL FOLLOW-UP ABOVE NORMAL BMI FOLLOW-UPGIVING ENCOURAGEMENT TO EXERCISE ALCOHOL SCREENING DID YOU HAVE A DRINK CONTAINING ALCOHOL IN THE PAST YEAR?NO POINTS0 INTERPRETATIONNEGATIVE RECREATIONAL DRUG USE DRUG USE?NO CAFFEINE CAFFEINE USE?YES 1-2 BEVERAGES DAILY SEXUAL HX HAD SEX IN THE LAST 12 MONTHS (VAGINAL, ORAL, OR ANAL)?NO HAVE YOU EVER HAD AN STD?NO HIV / HEP-C SCREENING HIV TEST OFFERED TO PATIENT:YES DATE OFFERED:08/24/2016 TEST ACCEPTED:NO REASON:PATIENT DECLINED HEP-C TEST OFFERED TO PATIENT:YES DATE OFFERED:08/24/2016 TEST ACCEPTED:NO REASON:PATIENT DECLINED B[employer] [id number] MANDAEN LANGUAGE LANGUAGES SPOKEN:ESTONIAN EDUCATION LEVEL OF EDUCATION:FINISHED COLLEGE LEARNING BARRIERS / SPECIAL NEEDS CHANGE FROM LAST VISIT?YES CONGESTION BARRIERS TO LEARNING?NO HEARING IMPAIRED?NO VISION IMPAIRED?YES :CORRECTIVE LENSES READING ONLY COGNITIVELY IMPAIRED?NO READINESS TO LEARN?YES LEARNING PREFERENCES?NO LEARNING CAPABILITIES PRESENT?YES EMOTIONAL BARRIERS?NO SPECIAL DEVICES?NO OR NURSE MANAGER NEEDED?NO DOMESTIC VIOLENCE NONE. OCCUPATION: UNEMPLOYED. EXERCISE: PHYSICAL THERAPY AT HOME DAILY. MARITAL STATUS: .. OTHERS AT HOME: S/O. PAIN CLINIC PFS, CLERGY, PUBLIC HEALTH REFERRALS PFS REFERRAL NEEDED?NO CLERGY REFERRAL NEEDED?NO PUBLIC HEALTH REFERRAL NEEDED?NO WAS THE PROVIDER NOTIFIED OF ANY PERTINENT INFO?YES HAS THE PATIENT BEEN EDUCATED REGARDING HIS/HER PLAN OF CARE?YES HAS THE PATIENT BEEN EDUCATED REGARDING PAIN, THE RISK FOR PAIN, THE IMPORTANCE OF EFFECTIVE PAIN MANAGEMENT, AND THE PAIN ASSESSMENT PROCESS?YES ADVANCE DIRECTIVE ADVANCE DIRECTIVE DISCUSSED WITH PATIENT:YES HCP: NEPTALI ALLEN [phone] REVIEWED WITH PATIENT 05/02/18 1038 JS. HOSPITALIZATION/MAJOR DIAGNOSTIC PROCEDURE NONE REVIEW OF SYSTEMS REVIEWED BY: PROVIDER: . CONSTITUTIONAL: ANY CHANGE IN YOUR MEDICAL CONDITION? NO . CHILLS NO . FEVER NO . INFECTION: DO YOU HAVE NEW INFECTIONS? NO . DO YOU HAVE HISTORY OF MRSA? NO . MUSCULOSKELETAL: ANY NEW PATTERNS OF PAIN OR NUMBNESS? NO . GASTROENTEROLOGY: ANY NEW CHANGE IN BOWEL CONTROL? NO . GENITOURINARY: ANY NEW CHANGE IN BLADDER CONTROL? NO . IS THERE A CHANCE YOU COULD BE ? NO . HEMATOLOGY/LYMPH: DO YOU TAKE ANY BLOOD THINNERS? (FOR EXAMPLE- COUMADIN, PLAVIX, AGGRENOX, PLATEL, PRADAXA, OR XARELTO) NO . WHEN WAS YOUR LAST DOSE? DATE: TIME: . NEUROLOGY: HAVE YOU FALLEN IN THE PAST 6 MONTHS? NO . ANY NEW EXTREMITY NUMBNESS OR WEAKNESS? NO . CARDIOLOGY: DO YOU HAVE A PACEMAKER OR DEFIBRILLATOR? NO . RESPIRATORY: HAVE YOU BEEN SICK IN THE PAST WEEK? NO . FEVER NO . FLU LIKE SYMPTOMS? NO . COUGH NO . INTEGUMENTARY: DO YOU HAVE ANY RASHES OR OPEN SORES? NO . ALLERGIC/IMMUNO: ARE YOU ALLERGIC TO SHELLFISH OR IV DYE? NO . ANY NEW ALLERGIES? NO . PSYCHIATRIC: DO YOU HAVE THOUGHTS OF HURTING YOURSELF OR SOMEONE ELSE? NO . ARE YOU ABUSED, NEGLECTED, OR IN AN UNSAFE ENVIRONMENT? NO . ENDOCRINOLOGY: ARE YOU DIABETIC? NO . OTHER: DO YOU NEED ANY PRESCRIPTIONS? NO . IF YES, PLEASE LIST: ____ . ANY NEW PROBLEMS WITH YOUR MEDICATIONS? NO . WHEN DID YOU LAST EAT? ____05/01/18 1800 . WHEN DID YOU LAST DRINK? ____05/02/18 0900 . WHAT DID YOU LAST DRINK? ____WATER . NAME OF PERSON DRIVING YOU HOME? ____[facility] . DO YOU HAVE ANY OTHER QUESTIONS OR CONCERNS NO . VITAL SIGNS WT 240.0 LBS, HT 70 IN, BMI 34.43 INDEX, BP 140/70 MM HG, HR 71 /MIN, RR 18 /MIN, TEMP 96.9 F, OXYGEN SAT % 95%, SAFE IN ENV? (Y/N) YES, NA INITIALS AW 1012, REVIEWED BY: JS. ASSESSMENTS SPONDYLOSIS OF LUMBAR REGION WITHOUT MYELOPATHY OR RADICULOPATHY - M47.816 (PRIMARY) SPONDYLOSIS OF LUMBOSACRAL REGION WITHOUT MYELOPATHY OR RADICULOPATHY - M47.817 PROCEDURES PN RADIOFREQUENCY PRE PROCEDURE DIAGNOSES 1. LUMBAR SPONDYLOSIS. 2. LUMBOSACRAL SPONDYLOSIS POST PROCEDURE DIAGNOSES 1. LUMBAR SPONDYLOSIS. 2. LUMBOSACRAL SPONDYLOSIS PROCEDURE LEFT L4-5 AND LEFT L5-S1 LUMBAR FACET RADIOFREQUENCY SURGEON DR. ARCADIO GLASS CONCRETE BUILDING ASSEMBLER NONE ANESTHESIA LOCAL PRE PROCEDURE REPORT THE PATIENT HAS A HISTORY OF CHRONIC LOW BACK PAIN. I EVALUATE THE PATIENT AND REVIEWED THE CHART. I WENT OVER THE RISKS, ALTERNATIVES, AND BENEFITS ASSOCIATED WITH THIS PROCEDURE. THE PATIENT WOULD LIKE TO PROCEED AND GIVE CONSENT TO PERFORMED THE PROCEDURE. THE PATIENT DENIES UNEXPLAINABLE WEIGHT LOSS, FEVER, CHILLS, OR NEW CHANGES IN URINARY OR BOWEL CONTROL DESCRIPTION OF PROCEDURE THE PATIENT WAS BROUGHT TO THE PROCEDURE ROOM AND PLACED IN THE PRONE POSITION. THE LUMBOSACRAL AREA WAS CLEANED WITH CHLORAPREP SOLUTION AND DRAPED ASEPTICALLY. THE PROCEDURE WAS DONE UNDER STERILE CONDITIONS. I CHECKED LATERALITY AND THE LEVEL WHERE THE PROCEDURE WAS GOING TO BE PERFORMED WITH THE PATIENT AND THE SUPPORTING STAFF AT THE MOMENT OF THE TIME OUT IN THE PROCEDURE ROOM. UNDER FLUOROSCOPIC GUIDANCE, TARGETS WERE SELECTED AT THE INTERSECTION OF THE LEFT TRANSVERSE PROCESS OF L4, L5 AND ALA OF S1 WITH ITS RESPECTIVE SUPERIOR ARTICULAR PROCESS. LIDOCAINE WAS USED TO NUMB THE SKIN AND THE SUBCUTANEOUS TISSUE BELOW IT. RADIOFREQUENCY NEEDLES 22-GAUGE 15 CM LONG WITH 10 MM ACTIVE CURVE TIP WERE ADVANCED UNDER FLUOROSCOPIC GUIDANCE AND FOLLOWING PATIENT FEEDBACK UNTIL THE TARGET AREA WAS REACHED. POSITION OF THE NEEDLES WAS VERIFIED WITH AP AND LATERAL VIEWS. AFTER PROPER POSITION OF THE NEEDLE WAS ACHIEVED, WE WORKED WITH THE LEFT SELECTED MEDIAN BRANCHES OF L3, L4 AND THE DORSAL RAMI OF L5. WE MEASURED THE CORRESPONDING IMPEDANCES, SENSORY STIMULATION AND MOTOR RESPONSES INDICATED IN THE RADIOFREQUENCY WORKSHEET. POSITION OF THE NEEDLES WAS VERIFIED AGAIN WITH AP AND LATERAL VIEWS. LIDOCAINE 1%, 2 ML, WAS INJECTED AT EACH LEVEL. RADIOFREQUENCY WAS DONE AT EACH LEVEL AT 80 DEGREES FOR 90 SECONDS. AFTER RADIOFREQUENCY WAS DONE, THE PATIENT RECEIVED BUPIVACAINE 0.125% 1 CC WITH KENALOG 5 MG AT EACH SITE. THERE WAS NO EVIDENCE OF BLOOD, PARESTHESIA OR CEREBROSPINAL FLUID DURING THE PROCEDURE. THE PATIENT WAS SENT TO THE RECOVERY ROOM. THE PATIENT WAS MOVING THE EXTREMITIES AND DOING WELL. THERE WAS NO COMPLICATION DURING THE PROCEDURE. FLUOROSCOPY TIME WAS 49 SECONDS POST PROCEDURE NOTE THE PATIENT WILL BE SEEN IN A FOLLOW UP IN THE NEXT FEW WEEKS. INSTRUCTIONS WERE GIVEN, QUESTIONS WERE ANSWERED, AND THE PATIENT EXPRESSED UNDERSTANDING AND AGREES WITH THE PLAN. I, TRAY HOWARD, DOCUMENTED THE ABOVE INFORMATION ACTING A SCRIBE FOR DR. GLASS. I HAVE REVIEWED THE ABOVE DOCUMENT, WRITTEN BY TRAY HOWARD SCRIBE AND I VERIFY THAT IT IS ACCURATE DIAGNOSTIC IMAGING [facility] FACET BLOCK (PAIN)[id number] PROCEDURE CODES 6045F RADXPS IN END [id number] PXD 19817 DESTROY LUMB/SAC F[place] J[place], [place]: [place] [address] DESTROY L/S FACET JNT ADDL, MODIFIERS: LT DISPOSITION & COMMUNICATION FOLLOW UP 3 WEEKS ELECTRONICALLY SIGNED BY ARCADIO GLASS MD, MD ON 05/21/2018 AT 05:15 PM EST DISCLAIMER : THIS IS A VISIT SUMMARY EXTRACTED FROM THE [employer] CHART. IT IS NOT A COPY OF THE [employer] PROGRESS NOTE. MTDD
== END ==
LOC: M PAIN 10:15
PROVIDERS: ATTEND Anesthesiology
DX: M47.816 Spondylosis without myelopathy or radiculopathy, lumbar region (principal); M47.817 Spondylosis without myelopathy or radiculopathy, lumbosacral region; E78.5 Hyperlipidemia, unspecified; R73.01 Impaired fasting glucose; K21.9 Gastro-esophageal reflux disease without esophagitis; K44.9 Diaphragmatic hernia without obstruction or gangrene; J45.30 Mild persistent asthma, uncomplicated; M51.36 Other intervertebral disc degeneration, lumbar region; I13.0 Hypertensive heart and chronic kidney disease with heart failure and stage 1 through stage 4 chronic kidney disease, or unspecified chronic kidney disease; M79.7 Fibromyalgia; F32.9 Major depressive disorder, single episode, unspecified; G47.33 Obstructive sleep apnea (adult) (pediatric); N18.4 Chronic kidney disease, stage 4 (severe); N39.41 Urge incontinence; M50.30 Other cervical disc degeneration, unspecified cervical region; I50.32 Chronic diastolic (congestive) heart failure; M16.0 Bilateral primary osteoarthritis of hip; Z90.49 Acquired absence of other specified parts of digestive tract; Z79.899 Other long term (current) drug therapy; Z88.8 Allergy status to other drugs, medicaments and biological substances
CPT/HCPCS: 64635; 64636; J3301; Q9967

== ENCOUNTER → 2018-06-24 | Outpatient (CLI) | payer OTHER ==
[~2018-06-24] MED LIST changes: -BUPIVACAINE HCL 0.25% 30 ML VIAL As Ordered ONE; -ISOVUE-M 300 61% 15ML VIAL (Q9967) As Ordered ONE; -LIDOCAINE 1% SDV INJ 30 ML VIAL As Ordered ONE; -TRIAMCINOLONE ACETONIDE SUSP 40 MG/ML VIAL (J3301) As Ordered ONE
--- NOTE | 2018-07-10 23:59 | ECWPNPC ---
PATIENT NAME: MARICARMEN WHEATLEY : 1955 GENDER: FEMALE VISIT DATE: 06/24/2018 DISCHARGE DATE: 06/24/18 1202 VISIT LOCKED DATE TIME: PHYSICIAN: YVONNE HARKINS PHYSICIAN PAGER NO: [phone] RESOURCE: YVONNE HARKINS REASON FOR APPOINTMENT 1. POST RF HISTORY OF PRESENT ILLNESS HISTORY OF PRESENT ILLNESS: HERE FOR POST PROCEDURE F/U.HAD LEFT RF ON L4/5-L5/S1 ON 05/02/18.REPORTS HAS HAD RETURN TO LOW BACK AND LEFT LEG PAIN.HAD VEIN SURGERY 4 MONTHS AGO AND SHE CONTINUES WITH BURNING PAIN.FOLLOWING WITH [facility] FOR LEFT KNEE PAIN.RATING PAIN VAS 4/10. PAIN THE PATIENT DESCRIBES THE PAIN... FALL RISK SCREENING: SCREENING :NO FALLS IN THE PAST YEAR CURRENT MEDICATIONS TAKING PREVACID 30 MG CAPSULE DELAYED RELEASE TAKE ONE CAPSULE BY MOUTH TWICE A DAY TAKING ZANTAC 300 MG TABLET 1 TABLET BY MOUTH DAILY AT BEDTIME TAKING VENTOLIN HFA 108 (90 BASE) MCG/ACT AEROSOL SOLUTION 2 PUFFS INHALATION EVERY 4 HOURS NEEDED FOR WHEEZING TAKING LASIX 40 MG TABLET 1 TAB ORALLY EVERY MORNING TAKING FLONASE 50 MCG/DOSE INHALER 2 SPRAYS IN EACH NOSTRIL NASALLY ONCE A DAY TAKING ASTELIN 137 MCG/SPRAY SOLUTION INSTILL 1 SPRAY INTO EACH NOSTRIL 2 TIMES A DAY _ BID TAKING DIPHENHYDRAMINE HCL 50 MG TABLET 1 TABLET ORALLY AT BEDTIME TAKING LORATADINE 10 MG TABLET 1 TABLET ORALLY ONCE A DAY TAKING ERGOCALCIFEROL 09437 UNIT CAPSULE 1 CAPSULE ORALLY EVERY 7 DAYS TAKING VITAMIN C OTC TABLET 1 TABLET ORALLY ONCE A DAY TAKING MULTIVITAMINS OTC TABLET 1 TAB(S) ORALLY ONCE A DAY TAKING DETROL 2 MG TABLET TAKE ONE TABLET BY MOUTH ONCE DAILY ORALLY DAILY TAKING CALCIUM 600 + D 600-400 MG-UNIT TABLET 1 TABLET ORALLY DAILY TAKING NEBULIZER/TUBING/MOUTHPIECE - KIT PT ONLY NEEDS TUBING AND MASK INH FOUR TIMES A DAY NEEDED DX:J45.22 TAKING ALBUTEROL SULFATE (2.5 MG/3ML) 0.083% NEBULIZATION SOLUTION 3 ML INHALATION THREE TIMES A DAY TAKING ACETAMINOPHEN EXTRA STRENGTH 500 MG TABLET 2 TABLETS NEEDED ORALLY EVERY 6 HRS TAKING SINGULAIR 10 MG TABLET 1 TABLET IN THE EVENING ORALLY BEFORE BEDTIME TAKING ESTRACE 0.1 MG/GM CREAM 0.5 GM VAGINAL WEEKLY, NOTES: 04/28/18 TAKING CITALOPRAM HYDROBROMIDE 40 MG TABLET 1 TABLET ORALLY DAILY TAKING VOLTAREN 1 % GEL 4 GM TRANSDERMAL QID B KNEES TAKING APRISO 0.375 GM CAPSULE EXTENDED RELEASE 24 HOUR TAKE FOUR CAPSULES BY MOUTH IN THE MORNING TAKING CELEXA 40 MG TABLET TAKE ONE TABLET BY MOUTH EVERY DAY TAKING NORCO 5-325 MG TABLET 1 TABLET NEEDED ORALLY EVERY 6 -8 HRS PRN PAIN MDD=3 TAKING GABAPENTIN 300 MG CAPSULE 1 CAPSULE ORALLY THREE TIMES DAY/ 2 AT NIGHT TAKING LOSARTAN POTASSIUM 50 MG TABLET 1 TABLET ORALLY TWICE DAILY DISCONTINUED ERGOCALCIFEROL 44323 UNIT CAPSULE 1 CAPSULE ORALLY EVERY 7 DAYS, NOTES: DUPLICATE DISCONTINUED PREVACID 30 MG CAPSULE DELAYED RELEASE TAKE ONE CAPSULE BY MOUTH TWICE A DAY , NOTES: DUPLICATE DISCONTINUED LASIX 40 MG TABLET 1 TAB ORALLY EVERY MORNING, NOTES: DUPLICATE DISCONTINUED AZELASTINE HCL 0.1 % SOLUTION INSTILL 1 SPRAY INTO EACH NOSTRIL TWO TIMES A DAY , NOTES: DUPLICATE MEDICATION LIST REVIEWED AND RECONCILED WITH THE PATIENT PAST MEDICAL HISTORY HYPERLIPIDEMIA 2B IMPAIRED FASTING GLUCOSE GERD/HIATAL HERNIA- 07/27/16 EGD SMALL HH, MILD BILE GASTRITIS BY BIOPSY, DUODENITIS-BRYNN ASTHMA, MILD PERSISTENT MULTIPLE BILATERAL COMPLEX THYROID CYSTS ACUTE CRYPTITIS OF ALL RANDOM BIOPSIES, SUGGESTIVE OF IDIOPATHIC IBD BY COLONOSCOPY 01/2007-SELAM//RECTAL BIOPSY C MILD DIASSRAY C LP FIBROSIS BY 03/2017 COLON-W 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 STOLL IMPAIRED FASTING GLUCOSE GALA DIASTOLIC CHF-09/2014 TTE LVEF65%, DIASTOLIC DYSFUNCTION, ELEVATED CVP, MILD LAE 35 MM-ARRIETA B HIP OA, MILD R>L, PARTIAL L SUPERIOR LABRUM TEAR BY 10/2015 MRI CKD -08/2017 RENAL US: R KIDNEY ATROPHY (PREVIOUS PARTIAL NEPHRECTOMY 2 HYDRONEPHROSIS) S SIGNS OF UNIQUE ALLERGIES LYRICA: EDEMA, SWELLING, ITCHING: ALLERGY ULTRACET: RASH: ALLERGY OMEPRAZOLE: RASH: ALLERGY ENVIRONMENTAL: SNEEZING, RUNNY NOSE, ITCHY EYES: ALLERGY SURGICAL HISTORY R HYPDRONEHOSIS SURGERY-[place] 1997 BREAST LEFT CYST 1998 HYSTERECTOMY 1979 TUBAL LIGATION 1977 GALL BLADDER B EYELID SURGERY-ROJAS 09/2012 BACK SURGERY 2013 RIGHT FOOT BUNIONECTOMY, REPAIR OF HAMMERTOES 04/04 EGD 07/18/16 L GSV RFA C STAB PHLEBECTOMY-MILLIE 11/05 FAMILY HISTORY FATHER: ALIVE, DDD,ARTHRITIS , EMPHYSEMA MOTHER: , [place],CHF,BLOOD CLOT IN THE LEG,HTN,BASAL CELL CARCINOMA AND VULVAR CARCINOMA, [place] DAUGHTER(S): SCOLIOSIS--HUMP UPPER BACK SEIZURES CHEST PAIN IRREGULAR HEART BEAT PATERNAL GRAND FATHER: [place] MATERNAL GRAND FATHER: STROKE MATERNAL GRAND MOTHER: BREAST CANCER AT AGE 70, OF CHF 3 SON(S) , 1 DAUGHTER(S) . SOCIAL HISTORY GENERAL: TOBACCO USE ARE YOU A:NONSMOKER BMI CARE GOAL FOLLOW-UP ABOVE NORMAL BMI FOLLOW-UPGIVING ENCOURAGEMENT TO EXERCISE ALCOHOL SCREENING DID YOU HAVE A DRINK CONTAINING ALCOHOL IN THE PAST YEAR?NO POINTS0 INTERPRETATIONNEGATIVE RECREATIONAL DRUG USE DRUG USE?NO CAFFEINE CAFFEINE USE?YES 1-2 BEVERAGES DAILY SEXUAL HX HAD SEX IN THE LAST 12 MONTHS (VAGINAL, ORAL, OR ANAL)?NO HAVE YOU EVER HAD AN STD?NO HIV / HEP-C SCREENING HIV TEST OFFERED TO PATIENT:YES DATE OFFERED:08/24/2016 TEST ACCEPTED:NO REASON:PATIENT DECLINED HEP-C TEST OFFERED TO PATIENT:YES DATE OFFERED:08/24/2016 TEST ACCEPTED:NO REASON:PATIENT DECLINED MORMON [id number] RESTORATIONIST LANGUAGE LANGUAGES SPOKEN:MONGOLIAN EDUCATION LEVEL OF EDUCATION:FINISHED COLLEGE LEARNING BARRIERS / SPECIAL NEEDS CHANGE FROM LAST VISIT?YES CONGESTION BARRIERS TO LEARNING?NO HEARING IMPAIRED?NO VISION IMPAIRED?YES :CORRECTIVE LENSES READING ONLY COGNITIVELY IMPAIRED?NO READINESS TO LEARN?YES LEARNING PREFERENCES?NO LEARNING CAPABILITIES PRESENT?YES EMOTIONAL BARRIERS?NO SPECIAL DEVICES?NO MARKER ASSEMBLER NEEDED?NO DOMESTIC VIOLENCE DO YOU FEEL SAFE IN YOUR ENVIRONMENT?YES OCCUPATION: UNEMPLOYED. EXERCISE: PHYSICAL THERAPY AT HOME DAILY. MARITAL STATUS: .. OTHERS AT HOME: S/O. PAIN CLINIC PFS, CLERGY, PUBLIC HEALTH REFERRALS PFS REFERRAL NEEDED?NO CLERGY REFERRAL NEEDED?NO PUBLIC HEALTH REFERRAL NEEDED?NO WAS THE PROVIDER NOTIFIED OF ANY PERTINENT INFO? N/A HAS THE PATIENT BEEN EDUCATED REGARDING HIS/HER PLAN OF CARE?YES HAS THE PATIENT BEEN EDUCATED REGARDING PAIN, THE RISK FOR PAIN, THE IMPORTANCE OF EFFECTIVE PAIN MANAGEMENT, AND THE PAIN ASSESSMENT PROCESS?YES ADVANCE DIRECTIVE ADVANCE DIRECTIVE DISCUSSED WITH PATIENT:YES HCP: BOYFRIEND - NASIM ALLEN [phone] REVIEWED WITH PATIENT 05/02/18 1038 JS06/24/18 REVIEWED WITH PT. AD. HOSPITALIZATION/MAJOR DIAGNOSTIC PROCEDURE SURGERIES REVIEW OF SYSTEMS REVIEWED BY: PROVIDER: YVONNE NEWMAN . CONSTITUTIONAL: ANY CHANGE IN YOUR MEDICAL CONDITION? NO . CHILLS NO . FEVER NO . INFECTION: DO YOU HAVE NEW INFECTIONS? NO . DO YOU HAVE HISTORY OF MRSA? NO . MUSCULOSKELETAL: ANY NEW PATTERNS OF PAIN OR NUMBNESS? YES, PAIN IN MORE INTENSE AND GOES DOWN BACK OF LEFT LEG TO FOOT . GASTROENTEROLOGY: ANY NEW CHANGE IN BOWEL CONTROL? NO . GENITOURINARY: ANY NEW CHANGE IN BLADDER CONTROL? YES, HAS INCONTINENCE ALL THE TIME--IT SEEMS TO BE GETTING WORSE. DETROL HASN'T REALLY HELPED . IS THERE A CHANCE YOU COULD BE ? NO . HEMATOLOGY/LYMPH: DO YOU TAKE ANY BLOOD THINNERS? (FOR EXAMPLE- COUMADIN, PLAVIX, AGGRENOX, PLATEL, PRADAXA, OR XARELTO) NO . WHEN WAS YOUR LAST DOSE? DATE: TIME: . NEUROLOGY: HAVE YOU FALLEN IN THE PAST 12 MONTHS? NO . ANY NEW EXTREMITY NUMBNESS OR WEAKNESS? NO . CARDIOLOGY: DO YOU HAVE A PACEMAKER OR DEFIBRILLATOR? NO . RESPIRATORY: HAVE YOU BEEN SICK IN THE PAST WEEK? NO . FEVER NO . FLU LIKE SYMPTOMS? NO . COUGH NO . INTEGUMENTARY: DO YOU HAVE ANY RASHES OR OPEN SORES? NO . ALLERGIC/IMMUNO: ARE YOU ALLERGIC TO IV DYE? NO . ANY NEW ALLERGIES? NO . PSYCHIATRIC: DO YOU HAVE THOUGHTS OF HURTING YOURSELF OR SOMEONE ELSE? NO . ARE YOU ABUSED, NEGLECTED, OR IN AN UNSAFE ENVIRONMENT? NO . ENDOCRINOLOGY: ARE YOU DIABETIC? BORDERLINE . OTHER: DO YOU NEED ANY PRESCRIPTIONS? YES . IF YES, PLEASE LIST: HYDROCODONE AND GABAPENTIN . ANY NEW PROBLEMS WITH YOUR MEDICATIONS? NO . WHEN DID YOU LAST EAT? ____ . WHEN DID YOU LAST DRINK? ____ . WHAT DID YOU LAST DRINK? ____ . NAME OF PERSON DRIVING YOU HOME? ____ . DO YOU HAVE ANY OTHER QUESTIONS OR CONCERNS NO . VITAL SIGNS WT 237.4 LBS, HT 70 IN, BMI 34.06 INDEX, BP 141/87 MM HG, HR 71 /MIN, RR 18 /MIN, TEMP 96.8 F, OXYGEN SAT % 96%, SAFE IN ENV? (Y/N) Y, NA INITIALS ND 11:28, REVIEWED BY: KRYSTLE. EXAMINATION GENERAL EXAMINATION: GENERAL APPEARANCE:AWAKE,ALERT ,PLEAASANT . PSYCHAFFECT NORMAL . LUNGS:LUNG HAIRSTON ARE CLEAR TO AUSCULTATION BILATERALLY. GOOD MOVEMENT OF AIR . HEART:S1, S2 IN A REGULAR RATE AND RHYTHM. NO SIGNIFICANT MURMURS, RUBS OR GALLOPS NOTED . ASSESSMENTS SPONDYLOSIS OF LUMBAR REGION WITHOUT MYELOPATHY OR RADICULOPATHY - M47.816 (PRIMARY) TREATMENT SPONDYLOSIS OF LUMBAR REGION WITHOUT MYELOPATHY OR RADICULOPATHY REFILL NORCO TABLET, 5-325 MG, 1 TABLET NEEDED, ORALLY, EVERY 6 -8 HRS PRN PAIN MDD=3, 30 DAY(S), 90, REFILLS 0 INCREASE GABAPENTIN TABLET, 600 MG, 1 CAPSULE, ORALLY, TID, 30 DAY(S), 90 CAPSULE, REFILLS 2 NOTES: ISTOP REGISTRY REVIEWED AND DEMONSTRATES COMPLLIANCE. (REF #[id number] ) BRINGS IN MEDICATIONS WHICH IS APPROPRIATE FOR WHAT WAS DISPENSED. RECENT URINE TOXICOLOGY REVIEWED. NO UNAUTHORIZED MEDICATIONS. NO ILLICIT SUBSTANCES AND PRESCRIBED MEDICATIONS WERE PRESENT. URINE TOX TODAY, RISKS AND BENEFITS OF NARCOTIC/OPIOD MEDICATIONS WERE REVIEWED WITH PATIENT - THIS INCLUDES BUT IS NOT LIMITED TO RISK OF DEPENDANCE/DEVELOPMENT OF ADDICTION, MOOD DISTURBANCE AND DEPRESSION, OSTEOPOROSIS, HORMONAL AND LABIDAL CHANGES, RESPIRATORY DEPRESSION AND . PATIENT IS ADVISED NOT TO DRIVE OR DRINK ALCOHOL WHILE ON THESE MEDICATIONS. PROCEDURE CODES FA211 ESTABILISHED PATIENT [facility] CHARGE DISPOSITION & COMMUNICATION FOLLOW UP 10 WKS ELECTRONICALLY SIGNED BY TRENT LANDON ON 07/10/2018 AT 08:48 AM EST DISCLAIMER : THIS IS A VISIT SUMMARY EXTRACTED FROM THE [employer] CHART. IT IS NOT A COPY OF THE [employer] PROGRESS NOTE. FRANK
== END ==
LOC: M PAIN 11:15
PROVIDERS: ATTEND Nurse Practitioner Family
DX: M47.816 Spondylosis without myelopathy or radiculopathy, lumbar region (principal); E78.5 Hyperlipidemia, unspecified; R73.01 Impaired fasting glucose; K21.9 Gastro-esophageal reflux disease without esophagitis; K44.9 Diaphragmatic hernia without obstruction or gangrene; J45.30 Mild persistent asthma, uncomplicated; E04.2 Nontoxic multinodular goiter; M51.26 Other intervertebral disc displacement, lumbar region; I13.0 Hypertensive heart and chronic kidney disease with heart failure and stage 1 through stage 4 chronic kidney disease, or unspecified chronic kidney disease; M79.7 Fibromyalgia; F32.9 Major depressive disorder, single episode, unspecified; G47.33 Obstructive sleep apnea (adult) (pediatric); M50.20 Other cervical disc displacement, unspecified cervical region; R73.03 Prediabetes; I50.30 Unspecified diastolic (congestive) heart failure; N18.4 Chronic kidney disease, stage 4 (severe); Z98.1 Arthrodesis status; Z88.8 Allergy status to other drugs, medicaments and biological substances; Z79.891 Long term (current) use of opiate analgesic; Z79.899 Other long term (current) drug therapy

== ENCOUNTER → 2018-06-24 | Outpatient (CLI) | payer OTHER ==
--- NOTE | 2018-06-24 21:05 | REP ---
MRI LEFT KNEE: TECHNIQUE: Axial proton density fat saturation, sagittal proton density T2 STIR, water excitation, coronal proton density, proton density fat saturation. There appear to be complex tears of the anterior and posterior horns of the lateral meniscus. There appears to be a peripheral tear of the posterior horn of the medial meniscus. The cruciate and collateral ligaments are intact. The extensor mechanism is intact. Medial and lateral patellar retinacula are intact. There is mild to moderate chondromalacia of the patella more so along the medial patellar facet. There is also mild to moderate diffuse chondromalacia medial and lateral joint compartments. There is no significant bone marrow edema. There is no occult fracture. There is a fairly large joint effusion with fluid extending into the medial popliteal fossa. Suprapatellar plica is noted. IMPRESSION: Complex tears of the anterior and posterior horns of the lateral meniscus. There appears to be a peripheral tear of the posterior horn of the medical meniscus. Cruciate and collateral ligaments are intact. 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 Large joint effusion. Suprapatellar plica. Electronically Signed by Ramírez Espino MD 06/26/2018 01:30 P
== END ==
LOC: M RAD 17:04
PROVIDERS: ATTEND Physician Assistant Surgical
DX: M17.12 Unilateral primary osteoarthritis, left knee (principal)

== ENCOUNTER → 2018-06-25 | Outpatient (REF) | payer OTHER ==
[2018-06-25 19:22] LABS: HEMOGLOBIN A1c 5.5 %
[2018-06-25 19:26] LABS: ALBUMIN 4.4 GM/DL (3.2-5.2); ALT/SGPT 27 U/L (12-78); BILIRUBIN,TOTAL 0.5 MG/DL (0.2-1.0); BLOOD UREA NITROGEN 17 MG/DL (7-18); CALCIUM LEVEL 9.1 MG/DL (8.8-10.2); CARBON DIOXIDE LEVEL 26 MEQ/L (21-32); CHLORIDE LEVEL 106 MEQ/L (98-107); CREATININE FOR GFR 0.95 MG/DL (0.55-1.30); FREE T4 1.06 NG/DL (0.76-1.46); GLOMERULAR FILTRATION RATE > 60.0 (>45); GLUCOSE, FASTING 82 MG/DL (70-100); NT-PRO BNP 159 PG/ML (<125); POTASSIUM SERUM 3.8 MEQ/L (3.5-5.1); SODIUM LEVEL 139 MEQ/L (136-145); TOTAL 25(OH) VITAMIN D 58.3 NG/ML (30.0-100.0); TOTAL PROTEIN 8.1 GM/DL (6.4-8.2)
== END ==
LOC: M SFHCPLAZ 13:59
PROVIDERS: ATTEND Physician Assistant Medical
DX: R73.01 Impaired fasting glucose (principal); I50.30 Unspecified diastolic (congestive) heart failure; E04.2 Nontoxic multinodular goiter; E55.9 Vitamin D deficiency, unspecified

== ENCOUNTER → 2018-08-12 | Outpatient (CLI) | payer OTHER ==
--- NOTE | 2018-08-14 13:30 | SLEEPCENT ---
DATE OF PROCEDURE: 08/12/2018 ORDERED BY: Faustina Woods Nocturnal polysomnography was performed for the titration of pressure therapy in this patient with obstructive sleep apnea syndrome and apnea-hypopnea index of 7.8. For testing, the patient was fit with a ResMed Quattro full face mask of small size and 6 cm of water pressure were applied to the circuit and the lights were extinguished. 6 hours and 29 minutes of data were reviewed. There were 312 minutes of sleep identified. Sleep latency was mildly prolonged at 18 minutes. Rapid eye movement (REM) latency was quite prolonged at 330 minutes. Sleep architecture showed poor progression, but there was 1 REM cycle late in the study. Overall sleep efficiency was 81%. The patient's electrocardiogram showed a sinus rhythm with an average heart rate of 56 beats per minute. Electroencephalogram (EEG) showed normal waveforms for awake and sleep. Respiratory events were fully palliated with C-PAP at a pressure of +6 and remaining measures of sleep physiology were normal. IMPRESSION: Obstructive sleep apnea syndrome (G47.33). RECOMMENDATION: Nightly use of pressure therapy at 6 cm of water.
== END ==
LOC: M SLEEP 19:32
PROVIDERS: ATTEND Nurse Practitioner Family
DX: G47.33 Obstructive sleep apnea (adult) (pediatric) (principal)

== ENCOUNTER → 2018-08-22 | Outpatient (CLI) | payer OTHER ==
[~2018-08-22] MED LIST changes: -/ADVA50050 IN; -/ADVA50050 INH; -/ESCI10TA OR; +ADVA1AER2 IN; +ADVA1AER2 INH; -ASCO25TA PO; +ASPI-1 PO; -ASPI1TAB PO; -ASPI325T PO; +ASPI81TA26 PO; +LEXA1TAB OR; +VITA1TAB23 PO
--- NOTE | 2018-08-24 01:00 | ECWPNPC ---
PATIENT NAME: MARICARMEN WHEATLEY : 1955 GENDER: FEMALE VISIT DATE: 08/22/2018 DISCHARGE DATE: 08/22/18 1222 VISIT LOCKED DATE TIME: PHYSICIAN: LIAM ORTIZ PHYSICIAN PAGER NO: [phone] RESOURCE: LIAM ORTIZ REASON FOR APPOINTMENT 1. 10 WEEKS HISTORY OF PRESENT ILLNESS HISTORY OF PRESENT ILLNESS: PAIN THE PATIENT DESCRIBES THE PAINDURING THE LAST MONTH SEVERITY - PAIN SCORE OF4/10 63 YR OLD FEMALE IS HERE FOR F/U FOLLOWING RF TREATMENT IN 06/08.SHE SAYS HER PAIN WAS DECREASED. SHE SAYS HER PAIN HAS NOW GONE BACK TO 7/10. SHE IS HAVING RIGHT KNEE SURGERY NEXT WEEK. FALL RISK SCREENING: SCREENING :NO FALLS REPORTED IN THE LAST YEAR CURRENT MEDICATIONS TAKING VITAMIN C OTC TABLET 1 TABLET ORALLY ONCE A DAY TAKING MULTIVITAMINS OTC TABLET 1 TAB(S) ORALLY ONCE A DAY TAKING DETROL 2 MG TABLET TAKE ONE TABLET BY MOUTH ONCE DAILY ORALLY DAILY TAKING LOSARTAN POTASSIUM 50 MG TABLET 1 TABLET ORALLY TWICE DAILY TAKING PREVACID 30 MG CAPSULE DELAYED RELEASE 1 CAPSULE ORALLY TWICE A DAY TAKING ZANTAC 300 MG TABLET 1 TABLET BY MOUTH DAILY AT BEDTIME TAKING VENTOLIN HFA 108 (90 BASE) MCG/ACT AEROSOL SOLUTION 2 PUFFS INHALATION EVERY 4 HOURS NEEDED FOR WHEEZING TAKING CITALOPRAM HYDROBROMIDE 40 MG TABLET 1 TABLET ORALLY DAILY TAKING PREVACID 30 MG CAPSULE DELAYED RELEASE TAKE ONE CAPSULE BY MOUTH TWICE A DAY TAKING CALCIUM 600 + D 600-400 MG-UNIT TABLET 1 TABLET ORALLY DAILY TAKING NEBULIZER/TUBING/MOUTHPIECE - KIT PT ONLY NEEDS TUBING AND MASK INH FOUR TIMES A DAY NEEDED DX:J45.22 TAKING ALBUTEROL SULFATE (2.5 MG/3ML) 0.083% NEBULIZATION SOLUTION 3 ML INHALATION THREE TIMES A DAY TAKING ACETAMINOPHEN EXTRA STRENGTH 500 MG TABLET 2 TABLETS NEEDED ORALLY EVERY 6 HRS TAKING ESTRACE 0.1 MG/GM CREAM 0.5 GM VAGINAL WEEKLY, NOTES: 04/28/18 TAKING CELEXA 40 MG TABLET TAKE ONE TABLET BY MOUTH EVERY DAY TAKING LOSARTAN POTASSIUM 50 MG TABLET 1 TABLET ORALLY TWICE DAILY TAKING FLONASE 50 MCG/DOSE INHALER 2 SPRAYS IN EACH NOSTRIL NASALLY ONCE A DAY TAKING ASTELIN 137 MCG/SPRAY SOLUTION INSTILL 1 SPRAY INTO EACH NOSTRIL 2 TIMES A DAY _ BID TAKING DIPHENHYDRAMINE HCL 50 MG TABLET 1 TABLET ORALLY AT BEDTIME TAKING LORATADINE 10 MG TABLET 1 TABLET ORALLY ONCE A DAY TAKING ONETOUCH VERIO - STRIP 1 STRIP IN VITRO DAILY TAKING VOLTAREN 1 % GEL 4 GM TRANSDERMAL QID B KNEES TAKING ERGOCALCIFEROL 86112 UNIT CAPSULE 1 CAPSULE ORALLY EVERY 7 DAYS TAKING DIPHENHYDRAMINE HCL 50 MG CAPSULE TAKE ONE CAPSULE BY MOUTH EVERY DAY TAKING APRISO 0.375 GM CAPSULE EXTENDED RELEASE 24 HOUR TAKE FOUR CAPSULES BY MOUTH IN THE MORNING TAKING GABAPENTIN 600 MG TABLET 1 CAPSULE ORALLY TID TAKING NORCO 5-325 MG TABLET 1 TABLET NEEDED ORALLY EVERY 6 HRS PRN PAIN MDD=4 TAKING LASIX 40 MG TABLET 1 TAB ORALLY EVERY MORNING TAKING SINGULAIR 10 MG TABLET 1 TABLET IN THE EVENING ORALLY BEFORE BEDTIME MEDICATION LIST REVIEWED AND RECONCILED WITH THE PATIENT PAST MEDICAL HISTORY HYPERLIPIDEMIA 2B IMPAIRED FASTING GLUCOSE GERD/HIATAL HERNIA- 07/27/16 EGD SMALL HH, MILD BILE GASTRITIS BY BIOPSY, DUODENITIS-BRYNN ASTHMA, MILD PERSISTENT MULTIPLE BILATERAL COMPLEX THYROID CYSTS ACUTE CRYPTITIS OF ALL RANDOM BIOPSIES, SUGGESTIVE OF IDIOPATHIC IBD BY COLONOSCOPY 01/2007-SELAM//RECTAL BIOPSY C MILD DIASSRAY C LP FIBROSIS BY 03/2017 COLON-W 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 STOLL IMPAIRED FASTING GLUCOSE GALA DIASTOLIC CHF-09/2014 TTE LVEF65%, DIASTOLIC DYSFUNCTION, ELEVATED CVP, MILD LAE 35 MM-ARRIETA B HIP OA, MILD R>L, PARTIAL L SUPERIOR LABRUM TEAR BY 10/2015 MRI CKD -08/2017 RENAL US: R KIDNEY ATROPHY (PREVIOUS PARTIAL NEPHRECTOMY 2 HYDRONEPHROSIS) S SIGNS OF UNIQUE ALLERGIES LYRICA: EDEMA, SWELLING, ITCHING - ALLERGY ULTRACET: RASH - ALLERGY OMEPRAZOLE: RASH - ALLERGY ENVIRONMENTAL: SNEEZING, RUNNY NOSE, ITCHY EYES - ALLERGY SURGICAL HISTORY R HYPDRONEHOSIS SURGERY-[place] 1998 BREAST LEFT CYST 1999 HYSTERECTOMY 1979 TUBAL LIGATION 1977 GALL BLADDER B EYELID SURGERY-ROJAS 09/2012 BACK SURGERY 2013 RIGHT FOOT BUNIONECTOMY, REPAIR OF HAMMERTOES 04/04 EGD 07/18/16 L GSV RFA C STAB PHLEBECTOMY-MILLIE 11/05 FAMILY HISTORY FATHER: ALIVE, DDD,ARTHRITIS , EMPHYSEMA MOTHER: , [place],CHF,BLOOD CLOT IN THE LEG,HTN,BASAL CELL CARCINOMA AND VULVAR CARCINOMA, [place], DIAGNOSED WITH DIABETES, OTHER DAUGHTER(S): SCOLIOSIS--HUMP UPPER BACK SEIZURES CHEST PAIN IRREGULAR HEART BEAT PATERNAL GRAND FATHER: [place] MATERNAL GRAND FATHER: STROKE MATERNAL GRAND MOTHER: BREAST CANCER AT AGE 70, OF CHF 3 BROTHER(S) - HEALTHY. 3 SON(S) , 1 DAUGHTER(S) . BROTHER FROM METASTATIC CANCERBROTHER OA,FIBROMYAGIADAUGHTER HAS SEIZURE DISORDER, HEAD ACHES. SOCIAL HISTORY GENERAL: TOBACCO USE ARE YOU A:NONSMOKER BMI CARE GOAL FOLLOW-UP ABOVE NORMAL BMI FOLLOW-UPGIVING ENCOURAGEMENT TO EXERCISE ALCOHOL SCREENING DID YOU HAVE A DRINK CONTAINING ALCOHOL IN THE PAST YEAR?NO POINTS0 INTERPRETATIONNEGATIVE RECREATIONAL DRUG USE DRUG USE?NO CAFFEINE CAFFEINE USE?YES 1-2 BEVERAGES DAILY SEXUAL HX HAD SEX IN THE LAST 12 MONTHS (VAGINAL, ORAL, OR ANAL)?NO HAVE YOU EVER HAD AN STD?NO HIV / HEP-C SCREENING HIV TEST OFFERED TO PATIENT:YES DATE OFFERED:08/24/2016 TEST ACCEPTED:NO REASON:PATIENT DECLINED HEP-C TEST OFFERED TO PATIENT:YES DATE OFFERED:08/24/2016 TEST ACCEPTED:NO REASON:PATIENT DECLINED [employer]IST [id number] RESTORATIONISM LANGUAGE LANGUAGES SPOKEN:[place]OTHO EDUCATION LEVEL OF EDUCATION:FINISHED COLLEGE LEARNING BARRIERS / SPECIAL NEEDS CHANGE FROM LAST VISIT?YES CONGESTION BARRIERS TO LEARNING?NO HEARING IMPAIRED?NO VISION IMPAIRED?YES :CORRECTIVE LENSES READING ONLY COGNITIVELY IMPAIRED?NO READINESS TO LEARN?YES LEARNING PREFERENCES?NO LEARNING CAPABILITIES PRESENT?YES EMOTIONAL BARRIERS?NO SPECIAL DEVICES?NO ORACLE DBA NEEDED?NO DOMESTIC VIOLENCE DO YOU FEEL SAFE IN YOUR ENVIRONMENT?YES OCCUPATION: UNEMPLOYED. DIET: REGULAR. EXERCISE: PHYSICAL THERAPY AT HOME DAILY. MARITAL STATUS: .. OTHERS AT HOME: S/O. PAIN CLINIC PFS, CLERGY, PUBLIC HEALTH REFERRALS PFS REFERRAL NEEDED?NO CLERGY REFERRAL NEEDED?NO PUBLIC HEALTH REFERRAL NEEDED?NO WAS THE PROVIDER NOTIFIED OF ANY PERTINENT INFO? N/A HAS THE PATIENT BEEN EDUCATED REGARDING HIS/HER PLAN OF CARE?YES HAS THE PATIENT BEEN EDUCATED REGARDING PAIN, THE RISK FOR PAIN, THE IMPORTANCE OF EFFECTIVE PAIN MANAGEMENT, AND THE PAIN ASSESSMENT PROCESS?YES ADVANCE DIRECTIVE ADVANCE DIRECTIVE DISCUSSED WITH PATIENT:YES HCP: BOYFRIEND - NASIM ALLEN [phone] REVIEWED WITH PATIENT 05/02/18 1038 JS06/24/18 REVIEWED WITH PT. AD. HOSPITALIZATION/MAJOR DIAGNOSTIC PROCEDURE SURGERIES REVIEW OF SYSTEMS REVIEWED BY: PROVIDER: REMBERTO Penaloza CONSTITUTIONAL: ANY CHANGE IN YOUR MEDICAL CONDITION? NO . CHILLS NO . FEVER NO . INFECTION: DO YOU HAVE NEW INFECTIONS? NO . DO YOU HAVE HISTORY OF MRSA? NO . MUSCULOSKELETAL: ANY NEW PATTERNS OF PAIN OR NUMBNESS? NO . GASTROENTEROLOGY: ANY NEW CHANGE IN BOWEL CONTROL? NO . GENITOURINARY: ANY NEW CHANGE IN BLADDER CONTROL? YES, PCP AWARE . IS THERE A CHANCE YOU COULD BE ? NO . HEMATOLOGY/LYMPH: DO YOU TAKE ANY BLOOD THINNERS? (FOR EXAMPLE- COUMADIN, PLAVIX, AGGRENOX, PLATEL, PRADAXA, OR XARELTO) NO . WHEN WAS YOUR LAST DOSE? DATE: TIME: . NEUROLOGY: HAVE YOU FALLEN IN THE PAST 12 MONTHS? NO . ANY NEW EXTREMITY NUMBNESS OR WEAKNESS? NO . CARDIOLOGY: DO YOU HAVE A PACEMAKER OR DEFIBRILLATOR? NO . RESPIRATORY: HAVE YOU BEEN SICK IN THE PAST WEEK? NO . FEVER NO . FLU LIKE SYMPTOMS? NO . COUGH NO . INTEGUMENTARY: DO YOU HAVE ANY RASHES OR OPEN SORES? NO . ALLERGIC/IMMUNO: ARE YOU ALLERGIC TO IV DYE? NO . ANY NEW ALLERGIES? NO . PSYCHIATRIC: DO YOU HAVE THOUGHTS OF HURTING YOURSELF OR SOMEONE ELSE? NO . ARE YOU ABUSED, NEGLECTED, OR IN AN UNSAFE ENVIRONMENT? NO . ENDOCRINOLOGY: ARE YOU DIABETIC? NO . OTHER: DO YOU NEED ANY PRESCRIPTIONS? YES . IF YES, PLEASE LIST: ____HYDROCODONE . ANY NEW PROBLEMS WITH YOUR MEDICATIONS? NO . WHEN DID YOU LAST EAT? ____ . WHEN DID YOU LAST DRINK? ____ . WHAT DID YOU LAST DRINK? ____ . NAME OF PERSON DRIVING YOU HOME? ____ . DO YOU HAVE ANY OTHER QUESTIONS OR CONCERNS YES, MCIHAELE HURTS TO SIT ON . VITAL SIGNS WT 237 LBS, HT 70 IN, BMI 34.00 INDEX, BP 120/73 MM HG, HR 77 /MIN, RR 18 /MIN, TEMP 97.0 F, OXYGEN SAT % 95%, SAFE IN ENV? (Y/N) YES, NA INITIALS ID 11:15, REVIEWED BY: JOSÉ LUIS. EXAMINATION GENERAL EXAMINATION: GENERAL APPEARANCE:NO ACUTE DISTRESS, WELL NOURISHED AND HYDRATED. PSYCHAPPROPRIATE MOOD AND AFFECT . LUNGS:CLEAR TO AUSCULTATION BILATERALLY, NO WHEEZES, RHONCHI, RALES. HEART:NO MURMURS, REGULAR RATE AND RHYTHM. BACK: BILATERAL SI JOINT TENDERNESS. FROM. 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 (REF #[id number] ) BRINGS IN MEDICATIONS WHICH IS APPROPRIATE FOR WHAT WAS DISPENSED. RECENT URINE TOXICOLOGY REVIEWED. NO UNAUTHORIZED MEDICATIONS. NO ILLICIT SUBSTANCES AND PRESCRIBED MEDICATIONS WERE PRESENT. PROCEDURE CODES FA211 ESTABILISHED PATIENT [facility] CHARGE DISPOSITION & COMMUNICATION FOLLOW UP 3 MONTHS ELECTRONICALLY SIGNED BY TRENT LOPEZ ON 08/23/2018 AT 11:54 AM EDT DISCLAIMER : THIS IS A VISIT SUMMARY EXTRACTED FROM THE [employer] CHART. IT IS NOT A COPY OF THE [employer] PROGRESS NOTE. FRANK
== END ==
LOC: M PAIN 11:00
PROVIDERS: ATTEND Nurse Practitioner Family
DX: M96.1 Postlaminectomy syndrome, not elsewhere classified (principal); E78.5 Hyperlipidemia, unspecified; R73.01 Impaired fasting glucose; K21.9 Gastro-esophageal reflux disease without esophagitis; J45.30 Mild persistent asthma, uncomplicated; I11.0 Hypertensive heart disease with heart failure; M79.7 Fibromyalgia; Z86.59 Personal history of other mental and behavioral disorders; G47.33 Obstructive sleep apnea (adult) (pediatric); I50.30 Unspecified diastolic (congestive) heart failure; M16.0 Bilateral primary osteoarthritis of hip; Z88.8 Allergy status to other drugs, medicaments and biological substances; Z79.899 Other long term (current) drug therapy

== ENCOUNTER → 2018-08-30 | Outpatient (REF) | payer OTHER ==
[2018-08-30 12:33] LABS: BASO % 0.5 % (0.0-1.0); EOS # 0.3 10^3/uL (0.0-0.50); EOS % 3.7 % (0.0-3.0); HEMATOCRIT 40.7 % (36.0-47.0); HEMOGLOBIN 13.5 g/dl (12.0-15.5); LYMPH # 3.3 10^3/uL (1.5-4.5); LYMPH % 45.1 % (24.0-44.0); MEAN CORPUSCULAR HEMOGLOBIN 30.4 pg (27.0-33.0); MEAN CORPUSCULAR HGB CONC 33.2 g/dl (32.0-36.5); MEAN CORPUSCULAR VOLUME 91.7 fl (80.0-96.0); MONO # 0.5 10^3/uL (0.0-0.8); MONO % 7.2 % (0.0-5.0); NEUTROPHILS # 3.2 10^3/uL (1.8-7.7); NEUTROPHILS % 43.4 % (36.0-66.0); PLATELET COUNT, AUTOMATED 213 10^3/uL (150-450); RED BLOOD COUNT 4.44 10^6/uL (4.00-5.40); WHITE BLOOD COUNT 7.4 10^3/uL (4.0-10.0)
[2018-08-30 13:10] LABS: ERYTHROCYTE SEDIMENTATION RATE 26 mm/hr (0-30)
== END ==
LOC: M SFHCPLAZ 10:43
PROVIDERS: ATTEND Nurse Practitioner Family
DX: K51.90 Ulcerative colitis, unspecified, without complications (principal)

== ENCOUNTER → 2018-09-20 | Outpatient (REF) | payer OTHER ==
[2018-09-20 18:18] LABS: BASO % 0.4 % (0.0-1.0); EOS # 0.1 10^3/uL (0.0-0.50); EOS % 1.7 % (0.0-3.0); HEMATOCRIT 37.5 % (36.0-47.0); HEMOGLOBIN 11.9 g/dl (12.0-15.5); LYMPH # 2.7 10^3/uL (1.5-4.5); LYMPH % 35.4 % (24.0-44.0); MEAN CORPUSCULAR HEMOGLOBIN 29.6 pg (27.0-33.0); MEAN CORPUSCULAR HGB CONC 31.7 g/dl (32.0-36.5); MEAN CORPUSCULAR VOLUME 93.3 fl (80.0-96.0); MONO # 0.5 10^3/uL (0.0-0.8); MONO % 6.6 % (0.0-5.0); NEUTROPHILS # 4.2 10^3/uL (1.8-7.7); NEUTROPHILS % 55.5 % (36.0-66.0); PLATELET COUNT, AUTOMATED 229 10^3/uL (150-450); RED BLOOD COUNT 4.02 10^6/uL (4.00-5.40); WHITE BLOOD COUNT 7.6 10^3/uL (4.0-10.0)
[2018-09-20 18:26] LABS: PROTHROMBIN TIME 13.3 SECONDS (12.1-14.4)
[2018-09-20 18:28] LABS: ALBUMIN 4.2 GM/DL (3.2-5.2); ALT/SGPT 30 U/L (12-78); BILIRUBIN,TOTAL 0.4 MG/DL (0.2-1.0); BLOOD UREA NITROGEN 17 MG/DL (7-18); CALCIUM LEVEL 8.8 MG/DL (8.8-10.2); CARBON DIOXIDE LEVEL 28 MEQ/L (21-32); CHLORIDE LEVEL 110 MEQ/L (98-107); CREATININE FOR GFR 0.84 MG/DL (0.55-1.30); GLOMERULAR FILTRATION RATE > 60.0 (>45); GLUCOSE, FASTING 82 MG/DL (70-100); MAGNESIUM LEVEL 2.4 MG/DL (1.8-2.4); POTASSIUM SERUM 3.8 MEQ/L (3.5-5.1); SODIUM LEVEL 142 MEQ/L (136-145); TOTAL PROTEIN 7.6 GM/DL (6.4-8.2)
== END ==
LOC: M SFHCPLAZ 15:22
PROVIDERS: ATTEND Family Medicine
DX: I10 Essential (primary) hypertension (principal)

== ENCOUNTER → 2018-09-25 | Outpatient (CLI) | payer OTHER ==
--- NOTE | 2018-09-25 20:12 | REP ---
Clinical: Multinodular goiter. Technique: Real time mackenzie scale and color evaluation using linear high frequency transducer. Comparison: 04/10/2017 Findings: The thyroid gland is heterogeneous and nodular. Right lobe measures 4.9 x 2.2 x 2.7 cm and includes 3.2 x 1.8 x 2.7 cm solid mid pole nodule and 7 x 4 x 6 mm solid mid/lower pole nodule. Left lobe measures 4.9 x 1.2 x 1.2 cm and includes 5 x 4 x 5 mm solid mid pole nodule, 10 x 5 x 9 mm mid/lower pole nodule, 9 x 9 x 8 mm complex lower pole cyst and 9 x 6 x 8 mm solid nodule at the isthmus. Impression: Bilateral nodular goiter. The largest solid mid pole nodule in the right lobe is essentially unchanged while the remainder of the small nodules represent subtle changes compared to prior examination. Electronically Signed by Matthew Caceres MD 09/25/2018 08:03 P
== END ==
LOC: M RAD 08:52
PROVIDERS: ATTEND Family Medicine
DX: E04.2 Nontoxic multinodular goiter (principal)

== ENCOUNTER → 2018-09-25 | Outpatient (CLI) | payer OTHER ==
[~2018-09-25] MED LIST changes: +E-Z-GAS II EFFERVESCENT PACKET (SODIUM BICARB./CITRIC ACID/SIMETHICONE) As Ordered ONE; +E-Z-HD 98% w/w 340GM SUSP BTL As Ordered ONE; +E-Z-PAQUE 96% w/w SUSP 176GM BTL As Ordered ONE
--- NOTE | 2018-09-25 14:44 | REP ---
Examination Requested: Upper G.I. Series With KUB Reason For Exam: Ulcerative colitis Upper GI Air Contrast The procedure was performed by GUZMAN Diaz, under the direct supervision of Dr. Espino. The images were reviewed with Dr. Espino. The dictaphone operator film shows L4 surgical hardware, degenerative changes of the spine, and surgical clips in the right upper quadrant consistent with the patient's history of cholecystectomy. Liquid barium and gas producing crystals were given in the erect position as well as liquid barium in the prone oblique position in order to perform a double contrast upper GI examination. The oral and pharyngeal stages of deglutition were unremarkable. Esophageal transport is efficient and there is no esophagitis, stricture, or mucosal ring noted. There there is no evidence of a hiatal hernia. No gastroesophageal reflux was appreciated throughout the course of this exam. The stomach schulz are normally outlined. The rugal folds are smooth and regular. There is no gastritis, neoplasm, ulcer disease noted. The duodenal schulz are normally outlined. The mucosal folds are smooth and regular. There is no duodenitis, peptic ulcer disease, or neoplasm noted. The visualized portion of the proximal small bowel appears normal in course and caliber. Impression; 1. Unremarkable upper GI exam 0.9 minutes of fluoroscopy time was utilized for this procedure. Reviewed by GUZMAN Rizvi 09/25/2018 12:18 P Electronically Signed by Ramírez Espino MD 09/25/2018 02:36 P
== END ==
LOC: M RAD 08:55
PROVIDERS: ATTEND Nurse Practitioner Family
DX: K51.90 Ulcerative colitis, unspecified, without complications (principal)

== ENCOUNTER → 2018-11-15 | Outpatient (CLI) | payer OTHER ==
[~2018-11-15] MED LIST changes: -E-Z-GAS II EFFERVESCENT PACKET (SODIUM BICARB./CITRIC ACID/SIMETHICONE) As Ordered ONE; -E-Z-HD 98% w/w 340GM SUSP BTL As Ordered ONE; -E-Z-PAQUE 96% w/w SUSP 176GM BTL As Ordered ONE
--- NOTE | 2018-11-15 15:47 | REP ---
BILATERAL SCREENING DIGITAL MAMMOGRAM WITH 3D TOMOSYNTHESIS: There are no palpable abnormalities or other breast complaints. The the patient states she had a clinical breast examination ? In October 2018. The the patient states she performs self-breast examinations 12 times per year. The Tyrer-Cuzick Score is: 7.6% . Comparison is 10/14/2013. There are scattered areas of fibroglandular density. There is no dominant mass, micro calcific cluster or architectural distortion that would indicate malignancy. There are no additional findings on 3D tomosynthesiss. There is no change from the prior study. Impression: BIRADS/ACR category 1 mammogram. Negative. Recommendation: Routine annual screening mammography. This mammogram was interpreted with the aid of a FDA approved computer-aided detection system. A. Negative mammogram reports should not delay biopsy if a dominant or clinically suspicious mass is present. B. Not all breast cancers are identified by mammography or tomosynthesis. C. Adenosis and dense breasts may obscure an underlying neoplasm. Patient letter M1. Electronically Signed by Ramírez Sharma MD 11/15/2018 03:38 P
== END ==
LOC: M WHC 14:03
PROVIDERS: ATTEND Family Medicine
DX: Z12.31 Encounter for screening mammogram for malignant neoplasm of breast (principal)

== ENCOUNTER → 2018-11-27 | Outpatient (CLI) | payer OTHER ==
--- NOTE | 2018-12-11 02:27 | ECWPNPC ---
PATIENT NAME: MARICARMEN WHEATLEY : 1955 GENDER: FEMALE VISIT DATE: 11/27/2018 DISCHARGE DATE: 11/27/18 1116 VISIT LOCKED DATE TIME: PHYSICIAN: YVONNE HARKINS PHYSICIAN PAGER NO: [phone] RESOURCE: YVONNE HARKINS REASON FOR APPOINTMENT 1. F/U HISTORY OF PRESENT ILLNESS HISTORY OF PRESENT ILLNESS: HERE FOR F/U OF CHRONIC LBP WITH RADIATION INTO LEFT LEG.PAIN HAS ESCALATED OVER THE PAST 2 MONTHS.RATING PAIN VAS 7/10. PAIN THE PATIENT DESCRIBES THE PAIN... FALL RISK SCREENING: SCREENING :NO FALLS REPORTED IN THE LAST YEAR CURRENT MEDICATIONS TAKING ZANTAC 300 MG TABLET 1 TABLET BY MOUTH DAILY AT BEDTIME TAKING VENTOLIN HFA 108 (90 BASE) MCG/ACT AEROSOL SOLUTION 2 PUFFS INHALATION EVERY 4 HOURS NEEDED FOR WHEEZING TAKING APRISO 0.375 GM CAPSULE EXTENDED RELEASE 24 HOUR 4 CAPSULES IN THE MORNING ORALLY ONCE A DAY TAKING LASIX 40 MG TABLET 1 TAB ORALLY EVERY MORNING TAKING ERGOCALCIFEROL 36673 UNIT CAPSULE 1 CAPSULE ORALLY EVERY 7 DAYS TAKING VITAMIN C OTC TABLET 1 TABLET ORALLY ONCE A DAY TAKING MULTIVITAMINS OTC TABLET 1 TAB(S) ORALLY ONCE A DAY TAKING DETROL 2 MG TABLET TAKE ONE TABLET BY MOUTH ONCE DAILY ORALLY DAILY TAKING NORCO 5-325 MG TABLET 1 TABLET NEEDED ORALLY EVERY 6 HRS PRN PAIN MDD=4 TAKING CITALOPRAM HYDROBROMIDE 40 MG TABLET 1 TABLET ORALLY DAILY TAKING ASTELIN 137 MCG/SPRAY SOLUTION INSTILL 1 SPRAY INTO EACH NOSTRIL 2 TIMES A DAY _ BID TAKING DIPHENHYDRAMINE HCL 50 MG TABLET 1 TABLET ORALLY AT BEDTIME TAKING LORATADINE 10 MG TABLET 1 TABLET ORALLY ONCE A DAY TAKING MONTELUKAST SODIUM 10 MG TABLET 1 TABLET ORALLY AT BEDTIME TAKING VOLTAREN 1 % GEL 4 GM TRANSDERMAL QID B KNEES TAKING CALCIUM 600 + D 600-400 MG-UNIT TABLET 1 TABLET ORALLY DAILY TAKING NEBULIZER/TUBING/MOUTHPIECE - KIT PT ONLY NEEDS TUBING AND MASK INH FOUR TIMES A DAY NEEDED DX:J45.22 TAKING ALBUTEROL SULFATE (2.5 MG/3ML) 0.083% NEBULIZATION SOLUTION 3 ML INHALATION THREE TIMES A DAY TAKING ACETAMINOPHEN EXTRA STRENGTH 500 MG TABLET 2 TABLETS NEEDED ORALLY EVERY 6 HRS TAKING FLONASE 50 MCG/DOSE INHALER 2 SPRAYS IN EACH NOSTRIL NASALLY ONCE A DAY TAKING ELECTRODES 2"X2"/REUSABLE - MISCELLANEOUS DIRECTED NEEDED WITH TENS MACHINE TAKING PREVACID 30 MG CAPSULE DELAYED RELEASE TAKE ONE CAPSULE BY MOUTH TWICE A DAY TAKING GABAPENTIN 300 MG CAPSULE 1 CAPSULE ORALLY 2 CAPSULES THREE TIMES ADAY TAKING ESTRACE 0.1 MG/GM CREAM 0.5 GM VAGINAL WEEKLY TAKING ONETOUCH VERIO - STRIP DIRECTED SUBCUTANEOUSLY DAILY TAKING [place] POTASSIUM 50 MG TABLET 1 TABLET ORALLY TWICE DAILY TAKING ONETOUCH DELICA LANCETS 33G - MISCELLANEOUS DIRECTED SUBCUTANEOUSLY DAILY DISCONTINUED ESTRACE 0.1 MG/GM CREAM 0.5 GM VAGINAL TWICE A WEEK MEDICATION LIST REVIEWED AND RECONCILED WITH THE PATIENT PAST MEDICAL HISTORY HYPERLIPIDEMIA 2B IMPAIRED FASTING GLUCOSE GERD/HIATAL HERNIA- 07/27/16 EGD SMALL HH, MILD BILE GASTRITIS BY BIOPSY, DUODENITIS-BRYNN ASTHMA, MILD PERSISTENT MULTIPLE BILATERAL COMPLEX THYROID CYSTS ACUTE CRYPTITIS OF ALL RANDOM BIOPSIES, SUGGESTIVE OF IDIOPATHIC IBD BY COLONOSCOPY 01/2007-SELAM//RECTAL BIOPSY C MILD DIASSRAY C LP FIBROSIS BY 03/2017 COLON-W 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 STOLL IMPAIRED FASTING GLUCOSE GALA, MODERATE ON CHRONIC CPAP DIASTOLIC CHF-09/2014 TTE LVEF65%, DIASTOLIC DYSFUNCTION, ELEVATED CVP, MILD LAE 35 MM-ARRIETA B HIP OA, MILD R>L, PARTIAL L SUPERIOR LABRUM TEAR BY 10/2015 MRI CKD -08/2017 RENAL US: R KIDNEY ATROPHY (PREVIOUS PARTIAL NEPHRECTOMY 2 HYDRONEPHROSIS) S SIGNS OF UNIQUE ALLERGIES LYRICA: EDEMA, SWELLING, ITCHING - ALLERGY ULTRACET: RASH - ALLERGY OMEPRAZOLE: RASH - ALLERGY ENVIRONMENTAL: SNEEZING, RUNNY NOSE, ITCHY EYES - ALLERGY SURGICAL HISTORY R HYPDRONEHOSIS SURGERY-[place] 1997 BREAST LEFT CYST 1998 HYSTERECTOMY 1979 TUBAL LIGATION 1977 GALL BLADDER B EYELID SURGERY-ROJAS 09/2012 BACK SURGERY 2013 RIGHT FOOT BUNIONECTOMY, REPAIR OF HAMMERTOES 04/04 EGD 07/18/16 L GSV RFA C STAB PHLEBECTOMY-MILLIE 11/05 L KNEE ARTHROSCOPIC-FISH 09/2018 FAMILY HISTORY FATHER: ALIVE, DDD,ARTHRITIS , EMPHYSEMA MOTHER: , NE,CHF,BLOOD CLOT IN THE LEG,HTN,BASAL CELL CARCINOMA AND VULVAR CARCINOMA, [place], DIAGNOSED WITH DIABETES, OTHER DAUGHTER(S): SCOLIOSIS--HUMP UPPER BACK SEIZURES CHEST PAIN IRREGULAR HEART BEAT PATERNAL GRAND FATHER: NE MATERNAL GRAND FATHER: STROKE MATERNAL GRAND MOTHER: BREAST CANCER AT AGE 70, OF CHF 3 BROTHER(S) - HEALTHY. 3 SON(S) , 1 DAUGHTER(S) . BROTHER FROM METASTATIC CANCER\\\\NBROTHER OA,FIBROMYAGIA\\\\NDAUGHTER HAS SEIZURE DISORDER, HEAD ACHES\\\\N\\\\N. SOCIAL HISTORY GENERAL: TOBACCO USE ARE YOU A:NONSMOKER HIV / HEP-C SCREENING HIV TEST OFFERED TO PATIENT:YES DATE OFFERED:08/24/2016 TEST ACCEPTED:NO REASON:PATIENT DECLINED HEP-C TEST OFFERED TO PATIENT:YES DATE OFFERED:08/24/2016 TEST ACCEPTED:NO REASON:PATIENT DECLINED OTHERS AT HOME: S/O. EDUCATION LEVEL OF EDUCATION:FINISHED COLLEGE DIET: REGULAR. LANGUAGE LANGUAGES SPOKEN:BURUNDIAN DOMESTIC VIOLENCE DO YOU FEEL SAFE IN YOUR ENVIRONMENT?YES BMI CARE GOAL FOLLOW-UP ABOVE NORMAL BMI FOLLOW-UPGIVING ENCOURAGEMENT TO EXERCISE RECREATIONAL DRUG USE DRUG USE?NO EXERCISE: PHYSICAL THERAPY AT HOME DAILY. LEARNING BARRIERS / SPECIAL NEEDS CHANGE FROM LAST VISIT?YES CONGESTION BARRIERS TO LEARNING?NO HEARING IMPAIRED?NO VISION IMPAIRED?YES :CORRECTIVE LENSES READING ONLY COGNITIVELY IMPAIRED?NO READINESS TO LEARN?YES LEARNING PREFERENCES?NO LEARNING CAPABILITIES PRESENT?YES EMOTIONAL BARRIERS?NO SPECIAL DEVICES?NO CRANE ASSEMBLER NEEDED?NO PAIN CLINIC PFS, CLERGY, PUBLIC HEALTH REFERRALS PFS REFERRAL NEEDED?NO CLERGY REFERRAL NEEDED?NO PUBLIC HEALTH REFERRAL NEEDED?NO WAS THE PROVIDER NOTIFIED OF ANY PERTINENT INFO? N/A HAS THE PATIENT BEEN EDUCATED REGARDING HIS/HER PLAN OF CARE?YES HAS THE PATIENT BEEN EDUCATED REGARDING PAIN, THE RISK FOR PAIN, THE IMPORTANCE OF EFFECTIVE PAIN MANAGEMENT, AND THE PAIN ASSESSMENT PROCESS?YES LATEX QUESTIONNAIRE LATEX ALLERGY : HAVE YOU EVER DEVELOPED ANY TYPE OF REACTION AFTER HANDLING LATEX PRODUCTS SUCH RUBBER GLOVES, CONDOMS, DIAPHRAGMS, BALLOONS, SOCKS, OR UNDERWEAR?NO LATEX ALLERGY : HAVE YOU EVER DEVELOPED ANY TYPE OF REACTION DURING OR AFTER DENTAL APPOINTMENT, VAGINAL/RECTAL EXAMINATION, SURGICAL PROCEDURE, OR ANY OTHER EXPOSURE?NO LATEX RISK : HAVE YOU EVER HAD ANY DIFFICULTY BREATHING OR HIVES AFTER EATING OR HANDLING ANY FRUITS, OR VEGETABLES; SUCH KIWI, BANANAS, STONE FRUITS, OR CHESTNUTSNO LATEX RISK : DO YOU HAVE A PREVIOUS PERSONAL HISTORY OF MORE THAN NINE SURGERIES, SPINA BIFIDA, OR REPEATED CATHERIZATIONS? YES - PLEASE INDICATE : > 9 SURGERIES LATEX RISK : ARE YOU FREQUENTLY EXPOSED TO LATEX PRODUCTS IN YOUR OCCUPATION?NO DATE ASKED : 08/30/2018 CAFFEINE CAFFEINE USE?YES 1-2 BEVERAGES DAILY ADVANCE DIRECTIVE ADVANCE DIRECTIVE DISCUSSED WITH PATIENT:YES HCP: BOYFRIEND - NASIM ALLEN [phone] [employer] [id number] [employer] [facility] STATUS: .. ALCOHOL SCREENING DID YOU HAVE A DRINK CONTAINING ALCOHOL IN THE PAST YEAR?NO POINTS0 INTERPRETATIONNEGATIVE OCCUPATION: UNEMPLOYED. SEXUAL HX HAD SEX IN THE LAST 12 MONTHS (VAGINAL, ORAL, OR ANAL)?NO HAVE YOU EVER HAD AN STD?NO REVIEWED WITH PATIENT 05/02/18 1038 JS06/24/18 REVIEWED WITH PT. AD. HOSPITALIZATION/MAJOR DIAGNOSTIC PROCEDURE SURGERIES REVIEW OF SYSTEMS REVIEWED BY: PROVIDER: YVONNE NEWMAN . CONSTITUTIONAL: ANY CHANGE IN YOUR MEDICAL CONDITION? NO . CHILLS NO . FEVER NO . INFECTION: DO YOU HAVE NEW INFECTIONS? NO . DO YOU HAVE HISTORY OF MRSA? NO . MUSCULOSKELETAL: ANY NEW PATTERNS OF PAIN OR NUMBNESS? YES, LEFT LEG PAIN WORSENING . GASTROENTEROLOGY: ANY NEW CHANGE IN BOWEL CONTROL? NO . GENITOURINARY: ANY NEW CHANGE IN BLADDER CONTROL? YES, INCONTINENCE WORSENING . IS THERE A CHANCE YOU COULD BE ? NO . HEMATOLOGY/LYMPH: DO YOU TAKE ANY BLOOD THINNERS? (FOR EXAMPLE- COUMADIN, PLAVIX, AGGRENOX, PLATEL, PRADAXA, OR XARELTO) NO . WHEN WAS YOUR LAST DOSE? DATE: TIME: . NEUROLOGY: HAVE YOU FALLEN IN THE PAST 12 MONTHS? NO . ANY NEW EXTREMITY NUMBNESS OR WEAKNESS? NO . CARDIOLOGY: DO YOU HAVE A PACEMAKER OR DEFIBRILLATOR? NO . RESPIRATORY: HAVE YOU BEEN SICK IN THE PAST WEEK? NO . FEVER NO . FLU LIKE SYMPTOMS? NO . COUGH NO . INTEGUMENTARY: DO YOU HAVE ANY RASHES OR OPEN SORES? NO . ALLERGIC/IMMUNO: ARE YOU ALLERGIC TO IV DYE? NO . ANY NEW ALLERGIES? NO . PSYCHIATRIC: DO YOU HAVE THOUGHTS OF HURTING YOURSELF OR SOMEONE ELSE? NO . ARE YOU ABUSED, NEGLECTED, OR IN AN UNSAFE ENVIRONMENT? NO . ENDOCRINOLOGY: ARE YOU DIABETIC? NO . OTHER: DO YOU NEED ANY PRESCRIPTIONS? YES, HYDROCODONE . IF YES, PLEASE LIST: ____ . ANY NEW PROBLEMS WITH YOUR MEDICATIONS? NO . WHEN DID YOU LAST EAT? ____ . WHEN DID YOU LAST DRINK? ____ . WHAT DID YOU LAST DRINK? ____ . NAME OF PERSON DRIVING YOU HOME? ____ . DO YOU HAVE ANY OTHER QUESTIONS OR CONCERNS NO . VITAL SIGNS WT 238.0 LBS, HT 70 IN, BMI 34.15 INDEX, BP 123/59 MM HG, HR 89 /MIN, RR 18 /MIN, TEMP 98.0 F, OXYGEN SAT % 96%, NA INITIALS AW 1000, REVIEWED BY: EM. EXAMINATION GENERAL EXAMINATION: GENERAL AWAKE,ALERT ,PLEAASANT . PSYCH AFFECT NORMAL . LUNGS: LUNG HAIRSTON ARE CLEAR TO AUSCULTATION BILATERALLY. GOOD MOVEMENT OF AIR . HEART: S1, S2 IN A REGULAR RATE AND RHYTHM. NO SIGNIFICANT MURMURS, RUBS OR GALLOPS NOTED . MUSCULOSKELETAL: WEAK OVER LEFT LEG. LUMBAR SACRAL SPINE PALPATION: + FOR PAIN OVER L/S SPINE. + FOR PAIN OVER L/S PARASPINALS WELL HEALED SURGICAL SCAR ON L/S AXIS SPECIFIC POINT TENDERNESS OVER LEFT SIJ. NEUROLOGIC EXAM: NORMAL SENSATION LIGHT TOUCH BILAT. LOWER EXTREMITIES. DIAGNOSTIC TESTS REVIEWED MRI L/S SPINE 2012. ASSESSMENTS POST LAMINECTOMY SYNDROME - M96.1 (PRIMARY) LUMBOSACRAL RADICULOPATHY - M54.17 TREATMENT POST LAMINECTOMY SYNDROME REFILL NORCO TABLET, 5-325 MG, 1 TABLET NEEDED, ORALLY, EVERY 6 HRS PRN PAIN MDD=4, 30 DAYS, 120, REFILLS 0 ROD SPINE LS [id number] NOTES: ISTOP REGISTRY REVIEWED AND DEMONSTRATES COMPLLIANCE. (REF # ) BRINGS IN MEDICATIONS WHICH IS APPROPRIATE FOR WHAT WAS DISPENSED. RECENT URINE TOXICOLOGY REVIEWED. NO UNAUTHORIZED MEDICATIONS. NO ILLICIT SUBSTANCES AND PRESCRIBED MEDICATIONS WERE PRESENT. URINE TOX TODAY, RISKS AND BENEFITS OF NARCOTIC/OPIOD MEDICATIONS WERE REVIEWED WITH PATIENT - THIS INCLUDES BUT IS NOT LIMITED TO RISK OF DEPENDANCE/DEVELOPMENT OF ADDICTION, MOOD DISTURBANCE AND DEPRESSION, OSTEOPOROSIS, HORMONAL AND LABIDAL CHANGES, RESPIRATORY DEPRESSION AND . PATIENT IS ADVISED NOT TO DRIVE OR DRINK ALCOHOL WHILE ON THESE MEDICATIONS. PROCEDURE CODES FA211 ESTABILISHED PATIENT [facility] CHARGE DISPOSITION & COMMUNICATION FOLLOW UP 6 WEEKS ELECTRONICALLY SIGNED BY TRENT LANDON ON 12/09/2018 AT 10:54 AM EDT DISCLAIMER : THIS IS A VISIT SUMMARY EXTRACTED FROM THE [employer] CHART. IT IS NOT A COPY OF THE [employer] PROGRESS NOTE. FRANK
== END ==
LOC: M PAIN 10:00
PROVIDERS: ATTEND Nurse Practitioner Family
DX: M96.1 Postlaminectomy syndrome, not elsewhere classified (principal); M54.17 Radiculopathy, lumbosacral region; R73.01 Impaired fasting glucose; K21.9 Gastro-esophageal reflux disease without esophagitis; K44.9 Diaphragmatic hernia without obstruction or gangrene; J45.20 Mild intermittent asthma, uncomplicated; E04.2 Nontoxic multinodular goiter; M51.26 Other intervertebral disc displacement, lumbar region; I12.9 Hypertensive chronic kidney disease with stage 1 through stage 4 chronic kidney disease, or unspecified chronic kidney disease; M79.7 Fibromyalgia; F32.9 Major depressive disorder, single episode, unspecified; G47.33 Obstructive sleep apnea (adult) (pediatric); N39.41 Urge incontinence; M50.223 Other cervical disc displacement at C6-C7 level; I50.32 Chronic diastolic (congestive) heart failure; M16.0 Bilateral primary osteoarthritis of hip; N18.4 Chronic kidney disease, stage 4 (severe); Z79.891 Long term (current) use of opiate analgesic; Z79.899 Other long term (current) drug therapy; Z88.8 Allergy status to other drugs, medicaments and biological substances

== ENCOUNTER → 2018-11-27 | Outpatient (CLI) | payer OTHER ==
--- NOTE | 2018-11-27 21:53 | REP ---
Clinical: post laminectomy syndrome Technique: AP, lateral, bilateral oblique and coned-down views of the lumbosacral spine. Findings: Frontal view demonstrates mild chronic levoconvex scoliosis centered at L1-2. Evidence for prior posterior fixation with X-fix device spanning the L3-4 spinous processes. Mild multilevel degenerative changes include endplate sclerosis with mild spurring and mild hypertrophic facet changes. No acute fracture / compression injury or subluxation. Alignment and lordosis maintained. No spondylolysis appreciated. Impression: Mild multilevel degenerative changes. Electronically Signed by Matthew Caceres MD 11/27/2018 09:45 P
== END ==
LOC: M RAD 12:52 → M LAB 12:52
PROVIDERS: ATTEND Nurse Practitioner Family
DX: M96.1 Postlaminectomy syndrome, not elsewhere classified (principal); M51.36 Other intervertebral disc degeneration, lumbar region

== ENCOUNTER → 2019-01-02 | Outpatient (CLI) | payer OTHER ==
--- NOTE | 2019-01-06 23:57 | ECWPNPC ---
PATIENT NAME: MARICARMEN WHEATLEY : 1955 GENDER: FEMALE VISIT DATE: 01/02/2019 DISCHARGE DATE: 01/02/19 1142 VISIT LOCKED DATE TIME: PHYSICIAN: MALAIKA LARES PHYSICIAN PAGER NO: [phone] RESOURCE: MALAIKA LARES REASON FOR APPOINTMENT 1. 6 WEEKS HISTORY OF PRESENT ILLNESS HISTORY OF PRESENT ILLNESS: PAIN THE PATIENT DESCRIBES THE PAIN... 63 YEAR OLD FEMALE IN FOR CHRONIC PAIN FOLLOW UP. ATTEMPTED TO ORDER MRI AT LAST VISIT AND PATIENT HAD TO COMPLETE PT PRIOR TO GETTING MRI. SHE STATES PT HAS HELPED SOME SYMPTOMS BUT EXACERBATED OTHERS. SHE RATES HER PAIN AT A 7/10 AND DESCRIBES IT SHOOTING. SHE FINDS THE MEDICATIONS ARE HELPFUL AND SHE DENIES MED SIDE EFFECTS. FALL RISK SCREENING: SCREENING :NO FALLS REPORTED IN THE LAST YEAR CURRENT MEDICATIONS TAKING ZANTAC 300 MG TABLET 1 TABLET BY MOUTH DAILY AT BEDTIME TAKING VENTOLIN HFA 108 (90 BASE) MCG/ACT AEROSOL SOLUTION 2 PUFFS INHALATION EVERY 4 HOURS NEEDED FOR WHEEZING TAKING ERGOCALCIFEROL 81331 UNIT CAPSULE 1 CAPSULE ORALLY EVERY 7 DAYS TAKING VITAMIN C OTC TABLET 1 TABLET ORALLY ONCE A DAY TAKING MULTIVITAMINS OTC TABLET 1 TAB(S) ORALLY ONCE A DAY TAKING DETROL 2 MG TABLET TAKE ONE TABLET BY MOUTH ONCE DAILY ORALLY DAILY TAKING CITALOPRAM HYDROBROMIDE 40 MG TABLET 1 TABLET ORALLY DAILY TAKING DIPHENHYDRAMINE HCL 50 MG TABLET 1 TABLET ORALLY AT BEDTIME TAKING LORATADINE 10 MG TABLET 1 TABLET ORALLY ONCE A DAY TAKING MONTELUKAST SODIUM 10 MG TABLET 1 TABLET ORALLY AT BEDTIME TAKING CALCIUM 600 + D 600-400 MG-UNIT TABLET 1 TABLET ORALLY DAILY TAKING NEBULIZER/TUBING/MOUTHPIECE - KIT PT ONLY NEEDS TUBING AND MASK INH FOUR TIMES A DAY NEEDED DX:J45.22 TAKING ACETAMINOPHEN EXTRA STRENGTH 500 MG TABLET 2 TABLETS NEEDED ORALLY EVERY 6 HRS TAKING ELECTRODES 2"X2"/REUSABLE - MISCELLANEOUS DIRECTED NEEDED WITH TENS MACHINE TAKING ONETOUCH VERIO - STRIP DIRECTED SUBCUTANEOUSLY DAILY TAKING [place] POTASSIUM 50 MG TABLET 1 TABLET ORALLY TWICE DAILY TAKING ONETOUCH DELICA LANCETS 33G - MISCELLANEOUS DIRECTED SUBCUTANEOUSLY DAILY TAKING PREVACID 30 MG CAPSULE DELAYED RELEASE 1 CAPSULE ORALLY BID TAKING LASIX 40 MG TABLET 1 TAB ORALLY EVERY MORNING TAKING APRISO 0.375 GM CAPSULE EXTENDED RELEASE 24 HOUR 4 CAPSULES IN THE MORNING ORALLY ONCE A DAY TAKING GABAPENTIN 300 MG CAPSULE 1 CAPSULE ORALLY 2 CAPSULES THREE TIMES ADAY TAKING ESTRACE 0.1 MG/GM CREAM 0.5 GM VAGINAL WEEKLY TAKING VOLTAREN 1 % GEL 4 GM TRANSDERMAL QID B KNEES TAKING ASTELIN 137 MCG/SPRAY SOLUTION INSTILL 1 SPRAY INTO EACH NOSTRIL 2 TIMES A DAY _ BID TAKING NORCO 5-325 MG TABLET 1 TABLET NEEDED ORALLY EVERY 6 HRS PRN PAIN MDD=4 NOT-TAKING ALBUTEROL SULFATE (2.5 MG/3ML) 0.083% NEBULIZATION SOLUTION 3 ML INHALATION THREE TIMES A DAY NOT-TAKING FLONASE 50 MCG/DOSE INHALER 2 SPRAYS IN EACH NOSTRIL NASALLY ONCE A DAY NOT-TAKING SINGULAIR 10 MG TABLET 1 TABLET IN THE EVENING ORALLY BEFORE BEDTIME MEDICATION LIST REVIEWED AND RECONCILED WITH THE PATIENT PAST MEDICAL HISTORY HYPERLIPIDEMIA 2B IMPAIRED FASTING GLUCOSE GERD/HIATAL HERNIA- 07/27/16 EGD SMALL HH, MILD BILE GASTRITIS BY BIOPSY, DUODENITIS-BRYNN ASTHMA, MILD PERSISTENT MULTIPLE BILATERAL COMPLEX THYROID CYSTS ACUTE CRYPTITIS OF ALL RANDOM BIOPSIES, SUGGESTIVE OF IDIOPATHIC IBD BY COLONOSCOPY 01/2007-SELAM//RECTAL BIOPSY C MILD DIASSRAY C LP FIBROSIS BY 03/2017 COLON-W 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 STOLL IMPAIRED FASTING GLUCOSE GALA, MODERATE ON CHRONIC CPAP DIASTOLIC CHF-09/2014 TTE LVEF65%, DIASTOLIC DYSFUNCTION, ELEVATED CVP, MILD LAE 35 MM-ARRIETA B HIP OA, MILD R>L, PARTIAL L SUPERIOR LABRUM TEAR BY 10/2015 MRI CKD -08/2017 RENAL US: R KIDNEY ATROPHY (PREVIOUS PARTIAL NEPHRECTOMY 2 HYDRONEPHROSIS) S SIGNS OF UNIQUE ALLERGIES LYRICA: EDEMA, SWELLING, ITCHING - ALLERGY ULTRACET: RASH - ALLERGY OMEPRAZOLE: RASH - ALLERGY ENVIRONMENTAL: SNEEZING, RUNNY NOSE, ITCHY EYES - ALLERGY SURGICAL HISTORY R HYPDRONEHOSIS SURGERY-[place] 1998 BREAST LEFT CYST 1999 HYSTERECTOMY 1979 TUBAL LIGATION 1977 GALL BLADDER B EYELID SURGERY-ROJAS 09/2012 BACK SURGERY 2013 RIGHT FOOT BUNIONECTOMY, REPAIR OF HAMMERTOES 04/04 EGD 07/18/16 L GSV RFA C STAB PHLEBECTOMY-MILLIE 11/05 L KNEE ARTHROSCOPIC-FISH 09/2018 FAMILY HISTORY FATHER: ALIVE, DDD,ARTHRITIS , EMPHYSEMA MOTHER: , [place],CHF,BLOOD CLOT IN THE LEG,HTN,BASAL CELL CARCINOMA AND VULVAR CARCINOMA, [place], DIAGNOSED WITH DIABETES, OTHER DAUGHTER(S): SCOLIOSIS--HUMP UPPER BACK SEIZURES CHEST PAIN IRREGULAR HEART BEAT PATERNAL GRAND FATHER: [place] MATERNAL GRAND FATHER: STROKE MATERNAL GRAND MOTHER: BREAST CANCER AT AGE 70, OF CHF 3 BROTHER(S) - HEALTHY. 3 SON(S) , 1 DAUGHTER(S) . BROTHER FROM METASTATIC CANCER\\\\NBROTHER OA,FIBROMYAGIA\\\\NDAUGHTER HAS SEIZURE DISORDER, HEAD ACHES\\\\N\\\\N. SOCIAL HISTORY GENERAL: TOBACCO USE ARE YOU A:NONSMOKER HIV / HEP-C SCREENING HIV TEST OFFERED TO PATIENT:YES DATE OFFERED:08/24/2016 TEST ACCEPTED:NO REASON:PATIENT DECLINED HEP-C TEST OFFERED TO PATIENT:YES DATE OFFERED:08/24/2016 TEST ACCEPTED:NO REASON:PATIENT DECLINED OTHERS AT HOME: S/O. EDUCATION LEVEL OF EDUCATION:FINISHED COLLEGE DIET: REGULAR. LANGUAGE LANGUAGES SPOKEN:TURKISH DOMESTIC VIOLENCE DO YOU FEEL SAFE IN YOUR ENVIRONMENT?YES BMI CARE GOAL FOLLOW-UP ABOVE NORMAL BMI FOLLOW-UPGIVING ENCOURAGEMENT TO EXERCISE RECREATIONAL DRUG USE DRUG USE?NO EXERCISE: PHYSICAL THERAPY AT HOME DAILY. LEARNING BARRIERS / SPECIAL NEEDS CHANGE FROM LAST VISIT?YES CONGESTION BARRIERS TO LEARNING?NO HEARING IMPAIRED?NO VISION IMPAIRED?YES :CORRECTIVE LENSES READING ONLY COGNITIVELY IMPAIRED?NO READINESS TO LEARN?YES LEARNING PREFERENCES?NO LEARNING CAPABILITIES PRESENT?YES EMOTIONAL BARRIERS?NO SPECIAL DEVICES?NO MUSEUM GUIDE NEEDED?NO PAIN CLINIC PFS, CLERGY, PUBLIC HEALTH REFERRALS PFS REFERRAL NEEDED?NO CLERGY REFERRAL NEEDED?NO PUBLIC HEALTH REFERRAL NEEDED?NO WAS THE PROVIDER NOTIFIED OF ANY PERTINENT INFO? N/A HAS THE PATIENT BEEN EDUCATED REGARDING HIS/HER PLAN OF CARE?YES HAS THE PATIENT BEEN EDUCATED REGARDING PAIN, THE RISK FOR PAIN, THE IMPORTANCE OF EFFECTIVE PAIN MANAGEMENT, AND THE PAIN ASSESSMENT PROCESS?YES LATEX QUESTIONNAIRE LATEX ALLERGY : HAVE YOU EVER DEVELOPED ANY TYPE OF REACTION AFTER HANDLING LATEX PRODUCTS SUCH RUBBER GLOVES, CONDOMS, DIAPHRAGMS, BALLOONS, SOCKS, OR UNDERWEAR?NO LATEX ALLERGY : HAVE YOU EVER DEVELOPED ANY TYPE OF REACTION DURING OR AFTER DENTAL APPOINTMENT, VAGINAL/RECTAL EXAMINATION, SURGICAL PROCEDURE, OR ANY OTHER EXPOSURE?NO LATEX RISK : HAVE YOU EVER HAD ANY DIFFICULTY BREATHING OR HIVES AFTER EATING OR HANDLING ANY FRUITS, OR VEGETABLES; SUCH KIWI, BANANAS, STONE FRUITS, OR CHESTNUTSNO LATEX RISK : DO YOU HAVE A PREVIOUS PERSONAL HISTORY OF MORE THAN NINE SURGERIES, SPINA BIFIDA, OR REPEATED CATHERIZATIONS? YES - PLEASE INDICATE : > 9 SURGERIES LATEX RISK : ARE YOU FREQUENTLY EXPOSED TO LATEX PRODUCTS IN YOUR OCCUPATION?NO DATE ASKED : 08/30/2018 CAFFEINE CAFFEINE USE?YES 1-2 BEVERAGES DAILY ADVANCE DIRECTIVE ADVANCE DIRECTIVE DISCUSSED WITH PATIENT:YES HCP: BOYFRIEND - NASIM ALLEN [phone] FAITH [id number] CHRISTIAN MARITAL STATUS: .. ALCOHOL SCREENING DID YOU HAVE A DRINK CONTAINING ALCOHOL IN THE PAST YEAR?NO POINTS0 INTERPRETATIONNEGATIVE OCCUPATION: UNEMPLOYED. SEXUAL HX HAD SEX IN THE LAST 12 MONTHS (VAGINAL, ORAL, OR ANAL)?NO HAVE YOU EVER HAD AN STD?NO REVIEWED WITH PATIENT 05/02/18 1038 JS06/24/18 REVIEWED WITH PTTremaine WATERS WITH PATIENT 01/02/19 1114 NLJ. HOSPITALIZATION/MAJOR DIAGNOSTIC PROCEDURE SURGERIES REVIEW OF SYSTEMS REVIEWED BY: PROVIDER: SEBASTIAN MARADIAGA . CONSTITUTIONAL: ANY CHANGE IN YOUR MEDICAL CONDITION? NO . CHILLS NO . FEVER NO . INFECTION: DO YOU HAVE NEW INFECTIONS? NO . DO YOU HAVE HISTORY OF MRSA? NO . MUSCULOSKELETAL: ANY NEW PATTERNS OF PAIN OR NUMBNESS? NO- NO INCREASE IN PAIN, PAIN IS JUST THERE ANDRADIATES DOWN THE LEFT LEG, SOME PAIN DOWN RIGHT LEG BUT IT IS NOT BAD . GASTROENTEROLOGY: ANY NEW CHANGE IN BOWEL CONTROL? NO . GENITOURINARY: ANY NEW CHANGE IN BLADDER CONTROL? NO . IS THERE A CHANCE YOU COULD BE ? NO . HEMATOLOGY/LYMPH: DO YOU TAKE ANY BLOOD THINNERS? (FOR EXAMPLE- COUMADIN, PLAVIX, AGGRENOX, PLATEL, PRADAXA, OR XARELTO) NO . WHEN WAS YOUR LAST DOSE? DATE: TIME: . NEUROLOGY: HAVE YOU FALLEN IN THE PAST 12 MONTHS? NO . ANY NEW EXTREMITY NUMBNESS OR WEAKNESS? NO . CARDIOLOGY: DO YOU HAVE A PACEMAKER OR DEFIBRILLATOR? NO . RESPIRATORY: HAVE YOU BEEN SICK IN THE PAST WEEK? NO . FEVER NO . FLU LIKE SYMPTOMS? NO . COUGH NO . INTEGUMENTARY: DO YOU HAVE ANY RASHES OR OPEN SORES? NO . ALLERGIC/IMMUNO: ARE YOU ALLERGIC TO IV DYE? NO . ANY NEW ALLERGIES? NO . PSYCHIATRIC: DO YOU HAVE THOUGHTS OF HURTING YOURSELF OR SOMEONE ELSE? NO . ARE YOU ABUSED, NEGLECTED, OR IN AN UNSAFE ENVIRONMENT? NO . ENDOCRINOLOGY: ARE YOU DIABETIC? NO . OTHER: DO YOU NEED ANY PRESCRIPTIONS? NO . IF YES, PLEASE LIST: ____ . ANY NEW PROBLEMS WITH YOUR MEDICATIONS? NO . WHEN DID YOU LAST EAT? ____ . WHEN DID YOU LAST DRINK? ____ . WHAT DID YOU LAST DRINK? ____ . NAME OF PERSON DRIVING YOU HOME? ____ . DO YOU HAVE ANY OTHER QUESTIONS OR CONCERNS NO . VITAL SIGNS WT 239.6 LBS, HT 70 IN, BMI 34.38 INDEX, BP 119/63 MM HG, HR 74 /MIN, RR 18 /MIN, TEMP 97.9 F, OXYGEN SAT % 94%, SAFE IN ENV? (Y/N) YES, NA INITIALS AW 1105, REVIEWED BY: JUSTINA. EXAMINATION GENERAL EXAMINATION: GENERALNO ACUTE DISTRESS, WELL NOURISHED AND HYDRATED. PSYCHAPPROPRIATE MOOD AND AFFECT . LUNGS:CLEAR TO AUSCULTATION BILATERALLY, NO WHEEZES, RHONCHI, RALES. HEART:NO MURMURS, REGULAR RATE AND RHYTHM. ASSESSMENTS SPONDYLOSIS OF LUMBOSACRAL REGION WITHOUT MYELOPATHY OR RADICULOPATHY - M47.817 (PRIMARY) POST LAMINECTOMY SYNDROME - M96.1 TREATMENT SPONDYLOSIS OF LUMBOSACRAL REGION [facility] AND WITH [id number] CLINICAL NOTES: 63 YEAR OLD FEMALE IN FOR CHRONIC PAIN FOLLOW UP. GIVEN PRESENTING SYMPTOMS AND RESULTS OF PHYSICAL EXAMINATION RECOMMENDED MRI FOR FURTHER EVALUATION WITH FOLLOW UP. , ISTOP REGISTRY REVIEWED AND DEMONSTRATES COMPLLIANCE. (REF # [id number] ) BRINGS IN MEDICATIONS WHICH IS APPROPRIATE FOR WHAT WAS DISPENSED. RECENT URINE TOXICOLOGY REVIEWED. NO UNAUTHORIZED MEDICATIONS. NO ILLICIT SUBSTANCES AND PRESCRIBED MEDICATIONS WERE PRESENT. PROCEDURE CODES [id number] ESTABILISHED PATIENT [facility] CHARGE DISPOSITION & COMMUNICATION FOLLOW UP POST MRI (REASON: MRI FOLLOW UP) ELECTRONICALLY SIGNED BY TRENT GALO ON 01/06/2019 AT 08:49 AM EDT DISCLAIMER : THIS IS A VISIT SUMMARY EXTRACTED FROM THE [employer] CHART. IT IS NOT A COPY OF THE [employer] PROGRESS NOTE. KALEYD
== END ==
LOC: M PAIN 11:00
PROVIDERS: ATTEND Family Medicine
DX: M47.817 Spondylosis without myelopathy or radiculopathy, lumbosacral region (principal); M96.1 Postlaminectomy syndrome, not elsewhere classified; B46.9 Zygomycosis, unspecified; I10 Essential (primary) hypertension; R73.01 Impaired fasting glucose; J45.30 Mild persistent asthma, uncomplicated; Z79.891 Long term (current) use of opiate analgesic; Z79.899 Other long term (current) drug therapy; Z88.8 Allergy status to other drugs, medicaments and biological substances

== ENCOUNTER → 2019-01-08 | Outpatient (REF) | payer OTHER ==
[2019-01-08 13:39] LABS: BASO % 0.4 % (0.0-1.0); EOS # 0.5 10^3/uL (0.0-0.50); EOS % 9.6 % (0.0-3.0); HEMATOCRIT 39.8 % (36.0-47.0); MEAN CORPUSCULAR HEMOGLOBIN 29.2 pg (27.0-33.0); MEAN CORPUSCULAR HGB CONC 32.7 g/dl (32.0-36.5); MEAN CORPUSCULAR VOLUME 89.4 fl (80.0-96.0); MONO # 0.3 10^3/uL (0.0-0.8); MONO % 6.2 % (0.0-5.0); NEUTROPHILS # 2.5 10^3/uL (1.8-7.7); NEUTROPHILS % 46.6 % (36.0-66.0); PLATELET COUNT, AUTOMATED 201 10^3/uL (150-450); RED BLOOD COUNT 4.45 10^6/uL (4.00-5.40); WHITE BLOOD COUNT 5.3 10^3/uL (4.0-10.0)
[2019-01-08 13:46] LABS: HEMATOCRIT 39.8 % (36.0-47.0)
[2019-01-08 13:49] LABS: ALBUMIN 3.9 GM/DL (3.2-5.2); ALT/SGPT 20 U/L (12-78); BILIRUBIN,TOTAL 0.4 MG/DL (0.2-1.0); BLOOD UREA NITROGEN 20 MG/DL (7-18); CALCIUM LEVEL 8.9 MG/DL (8.8-10.2); CARBON DIOXIDE LEVEL 27 MEQ/L (21-32); CHLORIDE LEVEL 108 MEQ/L (98-107); CHOLESTEROL LEVEL 172 MG/DL (<200); CREATININE FOR GFR 0.83 MG/DL (0.55-1.30); FREE T4 0.78 NG/DL (0.76-1.46); GLOMERULAR FILTRATION RATE > 60.0 (>45); GLUCOSE, FASTING 104 MG/DL (70-100); HDL CHOLESTEROL 50 MG/DL (>40); LDL CHOLESTEROL 102 MG/DL (<100); NON-HDL-C 122 MG/DL; POTASSIUM SERUM 4.1 MEQ/L (3.5-5.1); SODIUM LEVEL 142 MEQ/L (136-145); THYROID STIMULATING HORMONE 0.921 uIU/ML (0.358-3.740); TOTAL PROTEIN 7.4 GM/DL (6.4-8.2); TRIGLYCERIDES LEVEL 99 MG/DL (<150); VITAMIN B12 LEVEL 356 PG/ML (247-911)
[2019-01-08 13:53] LABS: HEMOGLOBIN A1c 6.2 %
[2019-01-09 11:30] LABS: ALBUMIN 4.36 GM/DL (3.29-5.55); ALBUMIN % 58.9 % (55.8-66.1); ALPHA-2-GLOBULINS 0.59 GM/DL (0.42-0.99); BETA-1-GLOBULINS 0.53 GM/DL (0.28-0.60); BETA-1-GLOBULINS % 7.1 % (4.7-7.2); BETA-2-GLOBULINS 0.53 GM/DL (0.19-0.55); BETA-2-GLOBULINS % 7.2 % (3.2-6.5); GAMMA GLOBULIN % 14.8 % (11.1-18.8)
== END ==
LOC: M SFHCPLAZ 09:22
PROVIDERS: ATTEND Family Medicine
DX: N18.2 Chronic kidney disease, stage 2 (mild) (principal); R73.01 Impaired fasting glucose; E78.2 Mixed hyperlipidemia; K51.90 Ulcerative colitis, unspecified, without complications

== ENCOUNTER → 2019-01-22 | Outpatient (CLI) | payer OTHER ==
[~2019-01-22] MED LIST changes: +PROHANCE 279.3MG/ML 15ML VIAL (A9576) As Ordered ONE; +PROHANCE 279.3MG/ML 5ML VIAL (A9576) As Ordered ONE
--- NOTE | 2019-01-22 23:37 | REPVR ---
EXAM: MR Lumbar Spine Without and With Contrast. EXAM DATE/TIME: 01/22/2019 6:10 PM CLINICAL HISTORY: 63 years old, female; Pain; Lumbago; Additional info: Spondylosis of L spine TECHNIQUE: Imaging protocol: Multiplanar magnetic resonance images of the lumbar spine without and with intravenous contrast. Contrast material: PROHANCE; Contrast volume: 20 ml; Contrast route: IV; COMPARISON: MRI-Spine, L.S. without con 04/22/2013 3:49 PM FINDINGS: The conus is normal in size and ending at the upper margin of L1. There is no evidence of abnormal bright signal intensity or abnormal enhancement in the region of the conus. There are several hemangiomas identified T12 L1, L4 and L5. The marrow space otherwise has a normal signal intensity. There is metallic artifact at the spinous process of L4 probably the result of previous surgery and internal metallic fixation devise. There is marked irregularity of the right kidney which may be secondary to scarring and similar to the examination of 2013. L5-S1: There is a small posterior disc protrusion causing mild impression on the thecal sac and increased since 2013. L4-L5: There is moderate broad-based disc protrusion causing moderate impression on the thecal sac and similar to 2013. This protrusion is noted at the caudal aspect of the L4 neural foramina bilaterally. There is severe narrowing of the left L4 neural foramina secondary to facet hypertrophy and disc protrusion. L3-L4: The patient has had a posterior laminectomy since 2012. There is no significant central canal narrowing at this time. There is prominent facet hypertrophy bilaterally. There is a prominent metallic artifact posteriorly secondary to a metallic fixation device posteriorly. There is mild forward positioning of L3 on L4 and mild broad-based posterior disc. L2 -L3: Mild broad-based posterior disc. L1-L2: Mild broad-based bulging disc. T12-L1: There is mild broad-based disc protrusion. IMPRESSION: 1. L5-S1 level demonstrates a small posterior disc protrusion which is new since 2013. 2. The L4-L5 level demonstrates a moderate broad-based disc protrusion causing moderate impression on the thecal sac similar to 2013. Severe left L4 neural foramina narrowing. 3. L3-L4 post laminectomy with internal fixation and no evidence of recurrent central canal stenosis. Electronically signed by: Ozzy Blanco On 01/22/2019 23:36:40 PM
== END ==
LOC: M RAD 16:31
PROVIDERS: ATTEND Family Medicine
DX: M47.817 Spondylosis without myelopathy or radiculopathy, lumbosacral region (principal); M51.26 Other intervertebral disc displacement, lumbar region
CPT/HCPCS: 72158; A9576

== ENCOUNTER → 2019-01-29 | Outpatient (CLI) | payer OTHER ==
[~2019-01-29] MED LIST changes: -PROHANCE 279.3MG/ML 15ML VIAL (A9576) As Ordered ONE; -PROHANCE 279.3MG/ML 5ML VIAL (A9576) As Ordered ONE
--- NOTE | 2019-01-30 23:44 | ECWPNPC ---
PATIENT NAME: MARICARMEN WHEATLEY : 1955 GENDER: FEMALE VISIT DATE: 01/29/2019 DISCHARGE DATE: 01/29/19 1338 VISIT LOCKED DATE TIME: PHYSICIAN: MALAIKA LARES PHYSICIAN PAGER NO: [phone] RESOURCE: MALAIKA LARES REASON FOR APPOINTMENT 1. REVIEW MRI HISTORY OF PRESENT ILLNESS HISTORY OF PRESENT ILLNESS: PAIN THE PATIENT DESCRIBES THE PAIN... 63-YEAR-OLD FEMALE IN TO REVIEW MRI RESULTS. SHE RATES HER PAIN AT A 7 OUT OF 10 CURRENTLY AND DESCRIBES IT SORE, AND SHOOTING. FALL RISK SCREENING: SCREENING :NO FALLS REPORTED IN THE LAST YEAR CURRENT MEDICATIONS TAKING ZANTAC 300 MG TABLET 1 TABLET BY MOUTH DAILY AT BEDTIME TAKING VENTOLIN HFA 108 (90 BASE) MCG/ACT AEROSOL SOLUTION 2 PUFFS INHALATION EVERY 4 HOURS NEEDED FOR WHEEZING TAKING VITAMIN C OTC TABLET 1 TABLET ORALLY ONCE A DAY TAKING MULTIVITAMINS OTC TABLET 1 TAB(S) ORALLY ONCE A DAY TAKING DETROL 2 MG TABLET TAKE ONE TABLET BY MOUTH ONCE DAILY ORALLY DAILY TAKING CITALOPRAM HYDROBROMIDE 40 MG TABLET 1 TABLET ORALLY DAILY TAKING DIPHENHYDRAMINE HCL 50 MG TABLET 1 TABLET ORALLY AT BEDTIME TAKING LORATADINE 10 MG TABLET 1 TABLET ORALLY ONCE A DAY TAKING MONTELUKAST SODIUM 10 MG TABLET 1 TABLET ORALLY AT BEDTIME TAKING CALCIUM 600 + D 600-400 MG-UNIT TABLET 1 TABLET ORALLY DAILY TAKING NEBULIZER/TUBING/MOUTHPIECE - KIT PT ONLY NEEDS TUBING AND MASK INH FOUR TIMES A DAY NEEDED DX:J45.22 TAKING ACETAMINOPHEN EXTRA STRENGTH 500 MG TABLET 2 TABLETS NEEDED ORALLY EVERY 6 HRS TAKING ELECTRODES 2"X2"/REUSABLE - MISCELLANEOUS DIRECTED NEEDED WITH TENS MACHINE TAKING ONETOUCH VERIO - STRIP DIRECTED SUBCUTANEOUSLY DAILY TAKING LOSARTAN POTASSIUM 50 MG TABLET 1 TABLET ORALLY TWICE DAILY TAKING ONETOUCH DELICA LANCETS 33G - MISCELLANEOUS DIRECTED SUBCUTANEOUSLY DAILY TAKING PREVACID 30 MG CAPSULE DELAYED RELEASE 1 CAPSULE ORALLY BID TAKING LASIX 40 MG TABLET 1 TAB ORALLY EVERY MORNING TAKING APRISO 0.375 GM CAPSULE EXTENDED RELEASE 24 HOUR 4 CAPSULES IN THE MORNING ORALLY ONCE A DAY TAKING GABAPENTIN 300 MG CAPSULE 1 CAPSULE ORALLY 2 CAPSULES THREE TIMES ADAY TAKING VOLTAREN 1 % GEL 4 GM TRANSDERMAL QID B KNEES TAKING ASTELIN 137 MCG/SPRAY SOLUTION INSTILL 1 SPRAY INTO EACH NOSTRIL 2 TIMES A DAY _ BID TAKING NORCO 5-325 MG TABLET 1 TABLET NEEDED ORALLY EVERY 6 HRS PRN PAIN MDD=4 TAKING ERGOCALCIFEROL 23884 UNIT CAPSULE 1 CAPSULE ORALLY EVERY 7 DAYS TAKING ESTRACE 0.1 MG/GM CREAM 0.5 GM VAGINAL WEEKLY NOT-TAKING ALBUTEROL SULFATE (2.5 MG/3ML) 0.083% NEBULIZATION SOLUTION 3 ML INHALATION THREE TIMES A DAY NOT-TAKING FLONASE 50 MCG/DOSE INHALER 2 SPRAYS IN EACH NOSTRIL NASALLY ONCE A DAY NOT-TAKING SINGULAIR 10 MG TABLET 1 TABLET IN THE EVENING ORALLY BEFORE BEDTIME MEDICATION LIST REVIEWED AND RECONCILED WITH THE PATIENT PAST MEDICAL HISTORY HYPERLIPIDEMIA 2B IMPAIRED FASTING GLUCOSE GERD/HIATAL HERNIA- 07/27/16 EGD SMALL HH, MILD BILE GASTRITIS BY BIOPSY, DUODENITIS-BRYNN ASTHMA, MILD PERSISTENT MULTIPLE BILATERAL COMPLEX THYROID CYSTS ACUTE CRYPTITIS OF ALL RANDOM BIOPSIES, SUGGESTIVE OF IDIOPATHIC IBD BY COLONOSCOPY 01/2007-SELAM//RECTAL BIOPSY C MILD DIASSRAY C LP FIBROSIS BY 03/2017 COLON-W 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 STOLL IMPAIRED FASTING GLUCOSE GALA, MODERATE ON CHRONIC CPAP DIASTOLIC CHF-09/2014 TTE LVEF65%, DIASTOLIC DYSFUNCTION, ELEVATED CVP, MILD LAE 35 MM-ARRIETA B HIP OA, MILD R>L, PARTIAL L SUPERIOR LABRUM TEAR BY 10/2015 MRI CKD -08/2017 RENAL US: R KIDNEY ATROPHY (PREVIOUS PARTIAL NEPHRECTOMY 2 HYDRONEPHROSIS) S SIGNS OF UNIQUE ALLERGIES LYRICA: EDEMA, SWELLING, ITCHING - ALLERGY ULTRACET: RASH - ALLERGY OMEPRAZOLE: RASH - ALLERGY ENVIRONMENTAL: SNEEZING, RUNNY NOSE, ITCHY EYES - ALLERGY SURGICAL HISTORY R HYPDRONEHOSIS SURGERY-[place] 1997 BREAST LEFT CYST 1998 HYSTERECTOMY 1979 TUBAL LIGATION 1977 GALL BLADDER B EYELID SURGERY-ROJAS 09/2012 BACK SURGERY 2013 RIGHT FOOT BUNIONECTOMY, REPAIR OF HAMMERTOES 04/04 EGD 07/18/16 L GSV RFA C STAB PHLEBECTOMY-MILLIE 11/05 L KNEE ARTHROSCOPIC-FISH 09/2018 FAMILY HISTORY FATHER: ALIVE, DDD,ARTHRITIS , EMPHYSEMA MOTHER: , [place],CHF,BLOOD CLOT IN THE LEG,HTN,BASAL CELL CARCINOMA AND VULVAR CARCINOMA, [place], DIAGNOSED WITH DIABETES, OTHER SPECIFIED CONDITIONS INFLUENCING HEALTH STATUS DAUGHTER(S): SCOLIOSIS--HUMP UPPER BACK SEIZURES CHEST PAIN IRREGULAR HEART BEAT PATERNAL GRAND FATHER: [place] MATERNAL GRAND FATHER: STROKE MATERNAL GRAND MOTHER: BREAST CANCER AT AGE 70, OF CHF 3 BROTHER(S) - HEALTHY. 3 SON(S) , 1 DAUGHTER(S) . BROTHER FROM METASTATIC CANCER\\\\NBROTHER OA,FIBROMYAGIA\\\\NDAUGHTER HAS SEIZURE DISORDER, HEAD ACHES\\\\N\\\\N. SOCIAL HISTORY GENERAL: TOBACCO USE ARE YOU A:NONSMOKER HIV / HEP-C SCREENING HIV TEST OFFERED TO PATIENT:YES DATE OFFERED:08/24/2016 TEST ACCEPTED:NO HEP-C TEST OFFERED TO PATIENT:YES DATE OFFERED:08/24/2016 REASON:PATIENT DECLINED TEST ACCEPTED:NO REASON:PATIENT DECLINED OTHERS AT HOME: S/O. EDUCATION LEVEL OF EDUCATION:FINISHED COLLEGE DIET: REGULAR. LANGUAGE LANGUAGES SPOKEN:CZECH DOMESTIC VIOLENCE DO YOU FEEL SAFE IN YOUR ENVIRONMENT?YES BMI CARE GOAL FOLLOW-UP ABOVE NORMAL BMI FOLLOW-UPGIVING ENCOURAGEMENT TO EXERCISE RECREATIONAL DRUG USE DRUG USE?NO EXERCISE: PHYSICAL THERAPY AT HOME DAILY. LEARNING BARRIERS / SPECIAL NEEDS CHANGE FROM LAST VISIT?YES CONGESTION BARRIERS TO LEARNING?NO HEARING IMPAIRED?NO VISION IMPAIRED?YES COGNITIVELY IMPAIRED?NO :CORRECTIVE LENSES READING ONLY READINESS TO LEARN?YES LEARNING PREFERENCES?NO LEARNING CAPABILITIES PRESENT?YES EMOTIONAL BARRIERS?NO SPECIAL DEVICES?NO FILTER OPERATOR NEEDED?NO PAIN CLINIC PFS, CLERGY, PUBLIC HEALTH REFERRALS PFS REFERRAL NEEDED?NO CLERGY REFERRAL NEEDED?NO PUBLIC HEALTH REFERRAL NEEDED?NO WAS THE PROVIDER NOTIFIED OF ANY PERTINENT INFO? N/A HAS THE PATIENT BEEN EDUCATED REGARDING HIS/HER PLAN OF CARE?YES HAS THE PATIENT BEEN EDUCATED REGARDING PAIN, THE RISK FOR PAIN, THE IMPORTANCE OF EFFECTIVE PAIN MANAGEMENT, AND THE PAIN ASSESSMENT PROCESS?YES LATEX QUESTIONNAIRE LATEX ALLERGY : HAVE YOU EVER DEVELOPED ANY TYPE OF REACTION AFTER HANDLING LATEX PRODUCTS SUCH RUBBER GLOVES, CONDOMS, DIAPHRAGMS, BALLOONS, SOCKS, OR UNDERWEAR?NO LATEX ALLERGY : HAVE YOU EVER DEVELOPED ANY TYPE OF REACTION DURING OR AFTER DENTAL APPOINTMENT, VAGINAL/RECTAL EXAMINATION, SURGICAL PROCEDURE, OR ANY OTHER EXPOSURE?NO DATE ASKED : 08/30/2018 LATEX RISK : HAVE YOU EVER HAD ANY DIFFICULTY BREATHING OR HIVES AFTER EATING OR HANDLING ANY FRUITS, OR VEGETABLES; SUCH KIWI, BANANAS, STONE FRUITS, OR CHESTNUTSNO LATEX RISK : DO YOU HAVE A PREVIOUS PERSONAL HISTORY OF MORE THAN NINE SURGERIES, SPINA BIFIDA, OR REPEATED CATHERIZATIONS? YES - PLEASE INDICATE : > 9 SURGERIES LATEX RISK : ARE YOU FREQUENTLY EXPOSED TO LATEX PRODUCTS IN YOUR OCCUPATION?NO CAFFEINE CAFFEINE USE?YES 1-2 BEVERAGES DAILY ADVANCE DIRECTIVE ADVANCE DIRECTIVE DISCUSSED WITH PATIENT:YES HCP: BOYFRIEND - NASIM ALLEN [phone] CAODAISM [id number] LATTER-DAY MARITAL STATUS: .. ALCOHOL SCREENING DID YOU HAVE A DRINK CONTAINING ALCOHOL IN THE PAST YEAR?NO POINTS0 INTERPRETATIONNEGATIVE OCCUPATION: UNEMPLOYED. SEXUAL HX HAD SEX IN THE LAST 12 MONTHS (VAGINAL, ORAL, OR ANAL)?NO HAVE YOU EVER HAD AN STD?NO REVIEWED WITH PATIENT 05/02/18 1038 JS06/24/18 REVIEWED WITH PT. ADREVIEWED WITH PATIENT 01/02/19 1114 NLJREVIEWED WITH PATIENT 01/29/19 1308 NLJ. HOSPITALIZATION/MAJOR DIAGNOSTIC PROCEDURE SURGERIES REVIEW OF SYSTEMS REVIEWED BY: PROVIDER: SEBASTIAN MARADIAGA . CONSTITUTIONAL: ANY CHANGE IN YOUR MEDICAL CONDITION? NO . CHILLS NO . FEVER NO . INFECTION: DO YOU HAVE NEW INFECTIONS? NO . DO YOU HAVE HISTORY OF MRSA? NO . MUSCULOSKELETAL: ANY NEW PATTERNS OF PAIN OR NUMBNESS? NO . GASTROENTEROLOGY: ANY NEW CHANGE IN BOWEL CONTROL? NO . GENITOURINARY: ANY NEW CHANGE IN BLADDER CONTROL? NO . IS THERE A CHANCE YOU COULD BE ? NO . HEMATOLOGY/LYMPH: DO YOU TAKE ANY BLOOD THINNERS? (FOR EXAMPLE- COUMADIN, PLAVIX, AGGRENOX, PLATEL, PRADAXA, OR XARELTO) NO . WHEN WAS YOUR LAST DOSE? DATE: TIME: . NEUROLOGY: HAVE YOU FALLEN IN THE PAST 12 MONTHS? NO . ANY NEW EXTREMITY NUMBNESS OR WEAKNESS? NO . CARDIOLOGY: DO YOU HAVE A PACEMAKER OR DEFIBRILLATOR? NO . RESPIRATORY: HAVE YOU BEEN SICK IN THE PAST WEEK? NO . FEVER NO . FLU LIKE SYMPTOMS? NO . COUGH NO . INTEGUMENTARY: DO YOU HAVE ANY RASHES OR OPEN SORES? NO . ALLERGIC/IMMUNO: ARE YOU ALLERGIC TO IV DYE? NO . ANY NEW ALLERGIES? NO . PSYCHIATRIC: DO YOU HAVE THOUGHTS OF HURTING YOURSELF OR SOMEONE ELSE? NO . ARE YOU ABUSED, NEGLECTED, OR IN AN UNSAFE ENVIRONMENT? NO . ENDOCRINOLOGY: ARE YOU DIABETIC? NO . OTHER: DO YOU NEED ANY PRESCRIPTIONS? YES . IF YES, PLEASE LIST: ____NORCO . ANY NEW PROBLEMS WITH YOUR MEDICATIONS? NO . WHEN DID YOU LAST EAT? ____ . WHEN DID YOU LAST DRINK? ____ . WHAT DID YOU LAST DRINK? ____ . NAME OF PERSON DRIVING YOU HOME? ____ . DO YOU HAVE ANY OTHER QUESTIONS OR CONCERNS YES- DISCUSS MRI AND NEXT STEP . VITAL SIGNS WT 234.6 LBS, HT 70 IN, BMI 33.66 INDEX, BP 144/63 MM HG, HR 69 /MIN, RR 18 /MIN, TEMP 97.0 F, OXYGEN SAT % 98%, SAFE IN ENV? (Y/N) YES, NA INITIALS AW 1304, REVIEWED BY: JUSTINA. EXAMINATION GENERAL EXAMINATION: GENERALNO ACUTE DISTRESS, WELL NOURISHED AND HYDRATED. PSYCHAPPROPRIATE MOOD AND AFFECT . LUNGS:CLEAR TO AUSCULTATION BILATERALLY, NO WHEEZES, RHONCHI, RALES. HEART:NO MURMURS, REGULAR RATE AND RHYTHM. BACK:POINT TENDER OVER L4-L5 AND L5-S1 BILATERALLY, SURROUNDING SKIN SHOWS NO ERYTHEMA, ECCHYMOSIS, INCREASED WARMTH, AND/OR SKIN ERUPTIONS NOTED. . MUSCULOSKELETAL:EQUAL STRENGTH OF THE LOWER EXTREMITY BILATERALLY . 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 CLINICAL NOTES: 63-YEAR-OLD FEMALE IN FOR REVIEW OF MRI RESULTS. GIVEN PRESENTING SYMPTOMS AND RESULTED PHYSICAL EXAMINATION RECOMMENDED LESI WITH POSTPROCEDURE FOLLOW-UP. PATIENT HAS EXPRESSED UNDERSTANDING OF AND WAS IN AGREEMENT WITH TREATMENT PLAN. GIVEN TIME TO ASK QUESTIONS AND EXPRESS CONCERNS., ISTOP REGISTRY REVIEWED AND DEMONSTRATES COMPLLIANCE. (REF # [id number] ) BRINGS IN MEDICATIONS WHICH IS APPROPRIATE FOR WHAT WAS DISPENSED. RECENT URINE TOXICOLOGY REVIEWED. NO UNAUTHORIZED MEDICATIONS. NO ILLICIT SUBSTANCES AND PRESCRIBED MEDICATIONS WERE PRESENT. , RISKS AND BENEFITS OF NARCOTIC/OPIOD MEDICATIONS WERE REVIEWED WITH PATIENT - THIS INCLUDES BUT IS NOT LIMITED TO RISK OF DEPENDANCE/DEVELOPMENT OF ADDICTION, MOOD DISTURBANCE AND DEPRESSION, OSTEOPOROSIS, HORMONAL AND LABIDAL CHANGES, RESPIRATORY DEPRESSION AND . PATIENT IS ADVISED NOT TO DRIVE OR DRINK ALCOHOL WHILE ON THESE MEDICATIONS. POST LAMINECTOMY SYNDROME REFILL NORCO TABLET, 5-325 MG, 1 TABLET NEEDED, ORALLY, EVERY 6 HRS PRN PAIN MDD=4, 30 DAYS, 120, REFILLS 0 PREVENTIVE MEDICINE PAIN CLINIC TEACHING: PROCEDURE TEACHING LUMBAR EPIDURAL STERIOD INJECTION PROCEDURE TEACHING PRINTED AND REVIEWED WITH PATIENT 01/29/19 1338 [facility]. PROCEDURE CODES [id number] ESTABILISHED PATIENT [facility] FACILITY CHARGE DISPOSITION & COMMUNICATION FOLLOW UP POSTPROCEDURE (REASON: LESI L4-L5 L5-S1) ELECTRONICALLY SIGNED BY TRENT GALO ON 01/30/2019 AT 03:23 PM EDT DISCLAIMER : THIS IS A VISIT SUMMARY EXTRACTED FROM THE [facility] CHART. IT IS NOT A COPY OF THE [facility] PROGRESS NOTE. KALEYD
== END ==
LOC: M PAIN 13:45
PROVIDERS: ATTEND Family Medicine
DX: M51.16 Intervertebral disc disorders with radiculopathy, lumbar region (principal); M96.1 Postlaminectomy syndrome, not elsewhere classified; E78.5 Hyperlipidemia, unspecified; R73.01 Impaired fasting glucose; K21.9 Gastro-esophageal reflux disease without esophagitis; J45.30 Mild persistent asthma, uncomplicated; I11.0 Hypertensive heart disease with heart failure; M79.7 Fibromyalgia; Z86.59 Personal history of other mental and behavioral disorders; G47.33 Obstructive sleep apnea (adult) (pediatric); I50.30 Unspecified diastolic (congestive) heart failure; Z88.8 Allergy status to other drugs, medicaments and biological substances; Z79.899 Other long term (current) drug therapy

== ENCOUNTER → 2019-03-26 | Outpatient (CLI) | payer OTHER ==
[~2019-03-26] MED LIST changes: +ISOVUE-M 300 61% 15ML VIAL (Q9967) As Ordered ONE; +LIDOCAINE 1% SDV INJ 30 ML VIAL As Ordered ONE; +diazePAM 5 MG TAB As Ordered ONE; +methylPREDNISolone SUSP 40 MG/ML (DEPO-medrol) VIAL (J1030) As Ordered ONE; +oxyCODONE 5MG TAB As Ordered ONE
--- NOTE | 2019-03-26 16:33 | REP ---
Partial lumbar spine series: Two views . History: Injection procedure for pain. 20 seconds of fluoroscopy time is reported. Findings: A sequence of two fluoroscopically obtained last image hold procedural spot radiographs of the lumbar spine document needle position and contrast injection associated with injection procedure. Electronically Signed by Edwin Rocha MD 03/26/2019 04:24 P
--- NOTE | 2019-04-09 03:08 | ECWPNPC ---
PATIENT NAME: MARICARMEN WHEATLEY : 1955 GENDER: FEMALE VISIT DATE: 03/26/2019 DISCHARGE DATE: 03/26/19 1354 VISIT LOCKED DATE TIME: PHYSICIAN: ARCADIO GLASS MD PHYSICIAN PAGER NO: [phone] RESOURCE: ARCADIO GLASS MD REASON FOR APPOINTMENT 1. LESI L4-L5 HISTORY OF PRESENT ILLNESS HISTORY OF PRESENT ILLNESS: PAIN THE PATIENT DESCRIBES THE PAIN... FALL RISK SCREENING: SCREENING :NO FALLS REPORTED IN THE LAST YEAR CURRENT MEDICATIONS TAKING VENTOLIN HFA 108 (90 BASE) MCG/ACT AEROSOL SOLUTION 2 PUFFS INHALATION EVERY 4 HOURS NEEDED FOR WHEEZING, NOTES: NONE LATELY TAKING VITAMIN C OTC TABLET 1 TABLET ORALLY ONCE A DAY, NOTES: 03/26/19799 TAKING MULTIVITAMINS OTC TABLET 1 TAB(S) ORALLY ONCE A DAY, NOTES: 03/26/19799 TAKING DETROL 2 MG TABLET TAKE ONE TABLET BY MOUTH ONCE DAILY ORALLY DAILY, NOTES: 03/26/19799 TAKING CITALOPRAM HYDROBROMIDE 40 MG TABLET 1 TABLET ORALLY DAILY, NOTES: 03/26/19799 TAKING DIPHENHYDRAMINE HCL 50 MG TABLET 1 TABLET ORALLY AT BEDTIME, NOTES: 03/25/191999 TAKING MONTELUKAST SODIUM 10 MG TABLET 1 TABLET ORALLY AT BEDTIME, NOTES: 03/25/191999 TAKING CALCIUM 600 + D 600-400 MG-UNIT TABLET 1 TABLET ORALLY DAILY, NOTES: 03/26/19799 TAKING NEBULIZER/TUBING/MOUTHPIECE - KIT PT ONLY NEEDS TUBING AND MASK INH FOUR TIMES A DAY NEEDED DX:J45.22, NOTES: NONE LATELY TAKING ACETAMINOPHEN EXTRA STRENGTH 500 MG TABLET 2 TABLETS NEEDED ORALLY EVERY 6 HRS, NOTES: 03/25/191999 TAKING ELECTRODES 2"X2"/REUSABLE - MISCELLANEOUS DIRECTED NEEDED WITH TENS MACHINE TAKING ONETOUCH VERIO - STRIP DIRECTED SUBCUTANEOUSLY DAILY TAKING ONETOUCH DELICA LANCETS 33G - MISCELLANEOUS DIRECTED SUBCUTANEOUSLY DAILY TAKING PREVACID 30 MG CAPSULE DELAYED RELEASE 1 CAPSULE ORALLY BID, NOTES: 03/26/19799 TAKING LASIX 40 MG TABLET 1 TAB ORALLY EVERY MORNING, NOTES: 03/25/19799 TAKING APRISO 0.375 GM CAPSULE EXTENDED RELEASE 24 HOUR 4 CAPSULES IN THE MORNING ORALLY ONCE A DAY, NOTES: 03/26/19799 TAKING GABAPENTIN 300 MG CAPSULE 1 CAPSULE ORALLY 2 CAPSULES THREE TIMES ADAY, NOTES: 03/25/191999 TAKING VOLTAREN 1 % GEL 4 GM TRANSDERMAL QID B KNEES, NOTES: 03/25/191999 TAKING ASTELIN 137 MCG/SPRAY SOLUTION INSTILL 1 SPRAY INTO EACH NOSTRIL 2 TIMES A DAY _ BID, NOTES: 03/26/19799 TAKING ERGOCALCIFEROL 60326 UNIT CAPSULE 1 CAPSULE ORALLY EVERY 7 DAYS, NOTES: 03/23/19 TAKING ESTRACE 0.1 MG/GM CREAM 0.5 GM VAGINAL WEEKLY, NOTES: 03/23/19 TAKING LOSARTAN POTASSIUM 50 MG TABLET TAKE ONE TABLET BY MOUTH TWICE A DAY , NOTES: 03/26/19799 TAKING LORATADINE 10 MG TABLET 1 TABLET ORALLY ONCE A DAY, NOTES: 03/26/19799 TAKING NORCO 5-325 MG TABLET 1 TABLET NEEDED ORALLY EVERY 6 HRS PRN PAIN MDD=4, NOTES: 03/25/191999 TAKING CELEXA 40 MG TABLET TAKE ONE TABLET BY MOUTH EVERY DAY , NOTES: 03/26/19799 TAKING ALBUTEROL SULFATE (2.5 MG/3ML) 0.083% NEBULIZATION SOLUTION 3 ML INHALATION THREE TIMES A DAY, NOTES: NONE RECENT TAKING FLONASE 50 MCG/DOSE INHALER 2 SPRAYS IN EACH NOSTRIL NASALLY ONCE A DAY, NOTES: NONE RECENT TAKING SINGULAIR 10 MG TABLET 1 TABLET IN THE EVENING ORALLY BEFORE BEDTIME, NOTES: NONE RECENT DISCONTINUED ZANTAC 300 MG TABLET 1 TABLET BY MOUTH DAILY AT BEDTIME MEDICATION LIST REVIEWED AND RECONCILED WITH THE PATIENT PAST MEDICAL HISTORY HYPERLIPIDEMIA 2B IMPAIRED FASTING GLUCOSE GERD/HIATAL HERNIA- 07/27/16 EGD SMALL HH, MILD BILE GASTRITIS BY BIOPSY, DUODENITIS-BRYNN ASTHMA, MILD PERSISTENT MULTIPLE BILATERAL COMPLEX THYROID CYSTS ACUTE CRYPTITIS OF ALL RANDOM BIOPSIES, SUGGESTIVE OF IDIOPATHIC IBD BY COLONOSCOPY 01/2007-SELAM//RECTAL BIOPSY C MILD DIASSRAY C LP FIBROSIS BY 03/2017 COLON-W LUMBAR DJD-MULTILEVEL WITH DIFFUSE BULGES L1-L3 AND L5/S1 AND SEVERE CENTRAL CANAL STENOSIS L3-L4-BY MRI NOVEMBER 2010 HYPERTENSION FIBROMYALGIA ANXIETY OBSTRUCTIVE SLEEP APNEA URGE INCONTINENCE ALLERGIC RHINITIS-12/2011 NEGATIVE ZONE 1 ALLERGY PANEL VASOMOTOR SYMPTOMS CERVICAL DJD-02/2011 MRI, UNCHANGED BY 06/2012 MRI MULTILEVEL DJD, C6-C7 BULGE S COMPRESSION, C3-7 SPONDYLOSIS LUMBAR DJD, SEVERE L3/4 STENOSIS BY 04/2013 MRI, S/P L3-5 DISCECTOMY/FUSION-07/18/2013-DR. STOLL IMPAIRED FASTING GLUCOSE GALA, MODERATE ON CHRONIC CPAP DIASTOLIC CHF-09/2014 TTE LVEF65%, DIASTOLIC DYSFUNCTION, ELEVATED CVP, MILD LAE 35 MM-ARRIETA B HIP OA, MILD R>L, PARTIAL L SUPERIOR LABRUM TEAR BY 10/2015 MRI CKD -08/2017 RENAL US: R KIDNEY ATROPHY (PREVIOUS PARTIAL NEPHRECTOMY 2 HYDRONEPHROSIS) S SIGNS OF UNIQUE ARTHRITIS BOTH KNEE ALLERGIES LYRICA: EDEMA, SWELLING, ITCHING - ALLERGY ULTRACET: RASH - ALLERGY OMEPRAZOLE: RASH - ALLERGY ENVIRONMENTAL: SNEEZING, RUNNY NOSE, ITCHY EYES - ALLERGY SURGICAL HISTORY R HYPDRONEHOSIS SURGERY-[place] 1997 BREAST LEFT CYST 1998 HYSTERECTOMY 1979 TUBAL LIGATION 1977 GALL BLADDER B EYELID SURGERY-ROJAS 09/2012 BACK SURGERY 2013 RIGHT FOOT BUNIONECTOMY, REPAIR OF HAMMERTOES 04/04 EGD 07/18/16 L GSV RFA C STAB PHLEBECTOMY-MILLIE 11/05 L KNEE ARTHROSCOPIC-FISH 09/2018 FAMILY HISTORY FATHER: ALIVE, DDD,ARTHRITIS , EMPHYSEMA MOTHER: , [place],CHF,BLOOD CLOT IN THE LEG,HTN,BASAL CELL CARCINOMA AND VULVAR CARCINOMA, [place], DIAGNOSED WITH DIABETES, OTHER SPECIFIED CONDITIONS INFLUENCING HEALTH STATUS DAUGHTER(S): SCOLIOSIS--HUMP UPPER BACK SEIZURES CHEST PAIN IRREGULAR HEART BEAT PATERNAL GRAND FATHER: [place] MATERNAL GRAND FATHER: STROKE MATERNAL GRAND MOTHER: BREAST CANCER AT AGE 70, OF CHF 3 BROTHER(S) - HEALTHY. 3 SON(S) , 1 DAUGHTER(S) . BROTHER FROM METASTATIC CANCER\\\\NBROTHER OA,FIBROMYAGIA\\\\NDAUGHTER HAS SEIZURE DISORDER, HEAD ACHES\\\\N\\\\N. SOCIAL HISTORY GENERAL: TOBACCO USE ARE YOU A:NONSMOKER HIV / HEP-C SCREENING HIV TEST OFFERED TO PATIENT:YES DATE OFFERED:08/24/2016 TEST ACCEPTED:NO HEP-C TEST OFFERED TO PATIENT:YES DATE OFFERED:08/24/2016 REASON:PATIENT DECLINED TEST ACCEPTED:NO REASON:PATIENT DECLINED OTHERS AT HOME: S/O. EDUCATION LEVEL OF EDUCATION:FINISHED COLLEGE DIET: REGULAR. LANGUAGE LANGUAGES SPOKEN:TAJIK DOMESTIC VIOLENCE DO YOU FEEL SAFE IN YOUR ENVIRONMENT?YES BMI CARE GOAL FOLLOW-UP ABOVE NORMAL BMI FOLLOW-UPGIVING ENCOURAGEMENT TO EXERCISE RECREATIONAL DRUG USE DRUG USE?NO EXERCISE: PHYSICAL THERAPY AT HOME DAILY. LEARNING BARRIERS / SPECIAL NEEDS CHANGE FROM LAST VISIT?NO BARRIERS TO LEARNING?NO HEARING IMPAIRED?NO VISION IMPAIRED?YES :CORRECTIVE LENSES READING ONLY COGNITIVELY IMPAIRED?NO READINESS TO LEARN?YES LEARNING PREFERENCES?NO LEARNING CAPABILITIES PRESENT?YES EMOTIONAL BARRIERS?NO SPECIAL DEVICES?NO PENSION MANAGER NEEDED?NO PAIN CLINIC PFS, CLERGY, PUBLIC HEALTH REFERRALS PFS REFERRAL NEEDED?NO CLERGY REFERRAL NEEDED?NO PUBLIC HEALTH REFERRAL NEEDED?NO WAS THE PROVIDER NOTIFIED OF ANY PERTINENT INFO? N/A HAS THE PATIENT BEEN EDUCATED REGARDING HIS/HER PLAN OF CARE?YES HAS THE PATIENT BEEN EDUCATED REGARDING PAIN, THE RISK FOR PAIN, THE IMPORTANCE OF EFFECTIVE PAIN MANAGEMENT, AND THE PAIN ASSESSMENT PROCESS?YES LATEX QUESTIONNAIRE LATEX ALLERGY : HAVE YOU EVER DEVELOPED ANY TYPE OF REACTION AFTER HANDLING LATEX PRODUCTS SUCH RUBBER GLOVES, CONDOMS, DIAPHRAGMS, BALLOONS, SOCKS, OR UNDERWEAR?NO LATEX ALLERGY : HAVE YOU EVER DEVELOPED ANY TYPE OF REACTION DURING OR AFTER DENTAL APPOINTMENT, VAGINAL/RECTAL EXAMINATION, SURGICAL PROCEDURE, OR ANY OTHER EXPOSURE?NO LATEX RISK : HAVE YOU EVER HAD ANY DIFFICULTY BREATHING OR HIVES AFTER EATING OR HANDLING ANY FRUITS, OR VEGETABLES; SUCH KIWI, BANANAS, STONE FRUITS, OR CHESTNUTSNO LATEX RISK : DO YOU HAVE A PREVIOUS PERSONAL HISTORY OF MORE THAN NINE SURGERIES, SPINA BIFIDA, OR REPEATED CATHERIZATIONS? YES - PLEASE INDICATE : > 9 SURGERIES LATEX RISK : ARE YOU FREQUENTLY EXPOSED TO LATEX PRODUCTS IN YOUR OCCUPATION?NO DATE ASKED : 03/26/2019 CAFFEINE CAFFEINE USE?YES 1-2 BEVERAGES DAILY ADVANCE DIRECTIVE ADVANCE DIRECTIVE DISCUSSED WITH PATIENT:YES HCP: BOYFRIEND - NASIM ALLEN [phone] DRUZE [id number] PENTECOSTAL MARITAL STATUS: .. ALCOHOL SCREENING DID YOU HAVE A DRINK CONTAINING ALCOHOL IN THE PAST YEAR?NO POINTS0 INTERPRETATIONNEGATIVE OCCUPATION: UNEMPLOYED. SEXUAL HX HAD SEX IN THE LAST 12 MONTHS (VAGINAL, ORAL, OR ANAL)?NO HAVE YOU EVER HAD AN STD?NO REVIEWED WITH PATIENT 05/02/18 1038 JS06/24/18 REVIEWED WITH PT. CHILANGOWED WITH PATIENT 01/02/19 1114 NLJREVIEWED WITH PATIENT 01/29/19 1308 NLJ 03/26/19 1214 REVIEWED WITH PT. AD. HOSPITALIZATION/MAJOR DIAGNOSTIC PROCEDURE SURGERIES REVIEW OF SYSTEMS REVIEWED BY: PROVIDER: . CONSTITUTIONAL: ANY CHANGE IN YOUR MEDICAL CONDITION? NO . CHILLS NO . FEVER NO . INFECTION: DO YOU HAVE NEW INFECTIONS? NO . DO YOU HAVE HISTORY OF MRSA? NO . MUSCULOSKELETAL: ANY NEW PATTERNS OF PAIN OR NUMBNESS? LBP WORSE . GASTROENTEROLOGY: ANY NEW CHANGE IN BOWEL CONTROL? YES, CONSTIPATION/DIARRHEA ON MEDS FOR THIS . GENITOURINARY: ANY NEW CHANGE IN BLADDER CONTROL? YES, URGENCY X YEARS, PCP AWARE . IS THERE A CHANCE YOU COULD BE ? NO . HEMATOLOGY/LYMPH: DO YOU TAKE ANY BLOOD THINNERS? (FOR EXAMPLE- COUMADIN, PLAVIX, AGGRENOX, PLATEL, PRADAXA, OR XARELTO) NO . WHEN WAS YOUR LAST DOSE? DATE: TIME: . NEUROLOGY: HAVE YOU FALLEN IN THE PAST 12 MONTHS? NO . ANY NEW EXTREMITY NUMBNESS OR WEAKNESS? NO . CARDIOLOGY: DO YOU HAVE A PACEMAKER OR DEFIBRILLATOR? NO . RESPIRATORY: HAVE YOU BEEN SICK IN THE PAST WEEK? NO . FEVER NO . FLU LIKE SYMPTOMS? NO . COUGH NO . INTEGUMENTARY: DO YOU HAVE ANY RASHES OR OPEN SORES? NO . ALLERGIC/IMMUNO: ARE YOU ALLERGIC TO IV DYE? NO . ANY NEW ALLERGIES? NO . PSYCHIATRIC: DO YOU HAVE THOUGHTS OF HURTING YOURSELF OR SOMEONE ELSE? NO . ARE YOU ABUSED, NEGLECTED, OR IN AN UNSAFE ENVIRONMENT? NO . ENDOCRINOLOGY: ARE YOU DIABETIC? NO . OTHER: DO YOU NEED ANY PRESCRIPTIONS? NO . IF YES, PLEASE LIST: ____ . ANY NEW PROBLEMS WITH YOUR MEDICATIONS? NO . WHEN DID YOU LAST EAT? 03/25/19 1900 . WHEN DID YOU LAST DRINK? 03/25/190 . WHAT DID YOU LAST DRINK? WATER . NAME OF PERSON DRIVING YOU HOME? [facility] . DO YOU HAVE ANY OTHER QUESTIONS OR CONCERNS NO PT HAS NOT HAD ANY VACCINES IN THE PAST 30 DAYS. . VITAL SIGNS WT 240.6 LBS, HT 70 IN, BMI 34.52 INDEX, BP 130/77 MM HG, HR 77 /MIN, RR 18 /MIN, TEMP 97.1 F, OXYGEN SAT % 95%, NA INITIALS AW 1126, REVIEWED BY: EM. ASSESSMENTS INTERVERTEBRAL DISC DISORDER WITH RADICULOPATHY OF LUMBAR REGION - M51.16 (PRIMARY) TREATMENT INTERVERTEBRAL DISC DISORDER WITH RADICULOPATHY OF LUMBAR REGION [facility] FLUORO GUIDE SPINE INJECTION (PAIN)[id number] PROCEDURES PRE PROCEDURE DIAGNOSIS LUMBAR DISC DISORDER WITH RADICULOPATHY POST PROCEDURE DIAGNOSIS LUMBAR DISC DISORDER WITH RADICULOPATHY PROCEDURE LUMBAR EPIDURAL STEROID INJECTION UNDER FLUOROSCOPIC GUIDANCE SURGEON DR. ARCADIO GLASS FINISHING DEPARTMENT SUPERVISOR NONE ANESTHESIA LOCAL PRE PROCEDURE NOTE THE PATIENT HAS A HISTORY OF CHRONIC LOW BACK PAIN. I EVALUATED THE PATIENT AND REVIEWED THE CHART. I WENT OVER THE RISKS, ALTERNATIVES, AND BENEFITS ASSOCIATED WITH THIS PROCEDURE. THE PATIENT WOULD LIKE TO PROCEED AND GIVES CONSENT TO PERFORM THE PROCEDURE. THE PATIENT DENIES UNEXPLAINABLE WEIGHT LOSS, FEVER, CHILLS, OR NEW CHANGES IN URINARY OR BOWEL CONTROL. DESCRIPTION OF PROCEDURE THE PATIENT WAS BROUGHT TO THE PROCEDURE ROOM AND PLACED IN THE PRONE POSITION. THE LUMBOSACRAL AREA WAS CLEANED WITH BETADINE SOLUTION AND DRAPED ASEPTICALLY. THE PROCEDURE WAS DONE UNDER STERILE CONDITIONS. I CHECKED LATERALITY AND THE LEVEL WHERE THE PROCEDURE WAS GOING TO BE PERFORMED WITH THE PATIENT AND THE SUPPORTING STAFF AT THE MOMENT OF THE TIME OUT IN THE PROCEDURE ROOM. UNDER FLUOROSCOPIC GUIDANCE, THE TARGET POINT WAS SELECTED AT THE INTERLAMINAR LEVEL OF L4-L5. LIDOCAINE WAS USED TO NUMB THE SKIN AND THE SUBCUTANEOUS TISSUE BELOW IT. EPIDURAL TUOHY NEEDLE, 17-GAUGE, WAS ADVANCED UNDER FLUOROSCOPIC GUIDANCE AND FOLLOWING PATIENT FEEDBACK UNTIL THE EPIDURAL SPACE WAS REACHED, 7 CM DEEP INTO THE SKIN BY THE LOSS OF RESISTANCE TECHNIQUE. ISOVUE M DYE 30%, 0.25 ML, WAS INJECTED SHOWING ADEQUATE SPREAD OF THE DYE. THEN, A SOLUTION OF 3 ML OF NORMAL SALINE WITH DEPO-MEDROL 60 MG WAS INJECTED SLOWLY FOLLOWING PATIENT FEEDBACK. THERE WAS NO EVIDENCE OF BLOOD, PARESTHESIA OR CEREBROSPINAL FLUID DURING THE PROCEDURE. THE PATIENT WAS SENT TO THE RECOVERY ROOM. THE PATIENT WAS MOVING THE EXTREMITIES AND DOING WELL. THERE WAS NO COMPLICATION DURING THE PROCEDURE. FLUOROSCOPY TIME WAS 20 SECONDS. POST PROCEDURE NOTE THE PATIENT WILL BE SEEN IN A FOLLOW UP IN THE NEXT FEW WEEKS. INSTRUCTIONS WERE GIVEN, QUESTIONS WERE ANSWERED, AND THE PATIENT EXPRESSED UNDERSTANDING AND AGREES WITH THE PLAN. I, RAFFY FALK, DOCUMENTED THE ABOVE INFORMATION ACTING A SCRIBE FOR DR. GLASS. I HAVE REVIEWED THE ABOVE DOCUMENT, WRITTEN BY RAFFY SIMON AND I VERIFY THAT IT IS ACCURATE. PROCEDURE CODES 00187 LUMBAR/SACRAL W/ IMAGING 6045F RADXPS IN END FEYR7OTQUE PXD DISPOSITION & COMMUNICATION FOLLOW UP 2 WEEKS ELECTRONICALLY SIGNED BY ARCADIO GLASS MD, MD ON 04/08/2019 AT 01:25 PM EST DISCLAIMER : THIS IS A VISIT SUMMARY EXTRACTED FROM THE [employer] CHART. IT IS NOT A COPY OF THE [employer] PROGRESS NOTE. FRANK
== END ==
LOC: M PAIN 11:15
PROVIDERS: ATTEND Anesthesiology
DX: M51.16 Intervertebral disc disorders with radiculopathy, lumbar region (principal); E78.5 Hyperlipidemia, unspecified; R73.01 Impaired fasting glucose; K21.9 Gastro-esophageal reflux disease without esophagitis; J45.30 Mild persistent asthma, uncomplicated; E04.2 Nontoxic multinodular goiter; I12.9 Hypertensive chronic kidney disease with stage 1 through stage 4 chronic kidney disease, or unspecified chronic kidney disease; M79.7 Fibromyalgia; F41.9 Anxiety disorder, unspecified; G47.33 Obstructive sleep apnea (adult) (pediatric); N18.4 Chronic kidney disease, stage 4 (severe); Z79.891 Long term (current) use of opiate analgesic; Z79.899 Other long term (current) drug therapy; Z88.8 Allergy status to other drugs, medicaments and biological substances
CPT/HCPCS: 62323; J1030; Q9967

== ENCOUNTER → 2019-04-16 | Outpatient (CLI) | payer OTHER ==
[~2019-04-16] MED LIST changes: -ISOVUE-M 300 61% 15ML VIAL (Q9967) As Ordered ONE; -LIDOCAINE 1% SDV INJ 30 ML VIAL As Ordered ONE; -diazePAM 5 MG TAB As Ordered ONE; -methylPREDNISolone SUSP 40 MG/ML (DEPO-medrol) VIAL (J1030) As Ordered ONE; -oxyCODONE 5MG TAB As Ordered ONE
--- NOTE | 2019-04-22 07:41 | ECWPNPC ---
PATIENT NAME: MARICARMEN WHEATLEY : 1955 GENDER: FEMALE VISIT DATE: 04/16/2019 DISCHARGE DATE: 04/16/19 1513 VISIT LOCKED DATE TIME: PHYSICIAN: MALAIKA LARES PHYSICIAN PAGER NO: [phone] RESOURCE: MALAIKA LARES REASON FOR APPOINTMENT 1. POST LESI L4-L5 L5-S1 HISTORY OF PRESENT ILLNESS HISTORY OF PRESENT ILLNESS: PAIN THE PATIENT DESCRIBES THE PAIN... 63-YEAR-OLD FEMALE IN FOR POST LESI FOLLOW-UP. SHE FEELS THE PROCEDURE HELPED HER LEG PAIN BUT DOES ADMIT TO CONTINUED LOW BACK PAIN. SHE RATES HER PAIN CURRENTLY AT A 5 OUT OF 10 AND DESCRIBES IT SORE. SHE RATES HER PAIN PREPROCEDURE AT A 7 OUT OF 10 AND POST PROCEDURE AT A 5 OUT OF 10. FALL RISK SCREENING: SCREENING :NO FALLS REPORTED IN THE LAST YEAR CURRENT MEDICATIONS TAKING VENTOLIN HFA 108 (90 BASE) MCG/ACT AEROSOL SOLUTION 2 PUFFS INHALATION EVERY 4 HOURS NEEDED FOR WHEEZING TAKING VITAMIN C OTC TABLET 1 TABLET ORALLY ONCE A DAY TAKING MULTIVITAMINS OTC TABLET 1 TAB(S) ORALLY ONCE A DAY TAKING DETROL 2 MG TABLET TAKE ONE TABLET BY MOUTH ONCE DAILY ORALLY DAILY TAKING CITALOPRAM HYDROBROMIDE 40 MG TABLET 1 TABLET ORALLY DAILY TAKING DIPHENHYDRAMINE HCL 50 MG TABLET 1 TABLET ORALLY AT BEDTIME TAKING MONTELUKAST SODIUM 10 MG TABLET 1 TABLET ORALLY AT BEDTIME TAKING CALCIUM 600 + D 600-400 MG-UNIT TABLET 1 TABLET ORALLY DAILY TAKING NEBULIZER/TUBING/MOUTHPIECE - KIT PT ONLY NEEDS TUBING AND MASK INH FOUR TIMES A DAY NEEDED DX:J45.22 TAKING ACETAMINOPHEN EXTRA STRENGTH 500 MG TABLET 2 TABLETS NEEDED ORALLY EVERY 6 HRS TAKING ELECTRODES 2"X2"/REUSABLE - MISCELLANEOUS DIRECTED NEEDED WITH TENS MACHINE TAKING ONETOUCH VERIO - STRIP DIRECTED SUBCUTANEOUSLY DAILY TAKING ONETOUCH DELICA LANCETS 33G - MISCELLANEOUS DIRECTED SUBCUTANEOUSLY DAILY TAKING PREVACID 30 MG CAPSULE DELAYED RELEASE 1 CAPSULE ORALLY BID TAKING LASIX 40 MG TABLET 1 TAB ORALLY EVERY MORNING TAKING APRISO 0.375 GM CAPSULE EXTENDED RELEASE 24 HOUR 4 CAPSULES IN THE MORNING ORALLY ONCE A DAY TAKING GABAPENTIN 300 MG CAPSULE 1 CAPSULE ORALLY 2 CAPSULES THREE TIMES ADAY TAKING VOLTAREN 1 % GEL 4 GM TRANSDERMAL QID B KNEES TAKING ASTELIN 137 MCG/SPRAY SOLUTION INSTILL 1 SPRAY INTO EACH NOSTRIL 2 TIMES A DAY _ BID TAKING ERGOCALCIFEROL 27818 UNIT CAPSULE 1 CAPSULE ORALLY EVERY 7 DAYS TAKING ESTRACE 0.1 MG/GM CREAM 0.5 GM VAGINAL WEEKLY TAKING LOSARTAN POTASSIUM 50 MG TABLET TAKE ONE TABLET BY MOUTH TWICE A DAY TAKING LORATADINE 10 MG TABLET 1 TABLET ORALLY ONCE A DAY TAKING CELEXA 40 MG TABLET TAKE ONE TABLET BY MOUTH EVERY DAY TAKING ALBUTEROL SULFATE (2.5 MG/3ML) 0.083% NEBULIZATION SOLUTION 3 ML INHALATION THREE TIMES A DAY TAKING FLONASE 50 MCG/DOSE INHALER 2 SPRAYS IN EACH NOSTRIL NASALLY ONCE A DAY TAKING NORCO 5-325 MG TABLET 1 TABLET NEEDED ORALLY EVERY 6 HRS PRN PAIN MDD=4 NOT-TAKING SINGULAIR 10 MG TABLET 1 TABLET IN THE EVENING ORALLY BEFORE BEDTIME, NOTES: DUPLICATE MEDICATION LIST REVIEWED AND RECONCILED WITH THE PATIENT PAST MEDICAL HISTORY HYPERLIPIDEMIA 2B IMPAIRED FASTING GLUCOSE GERD/HIATAL HERNIA- 07/27/16 EGD SMALL HH, MILD BILE GASTRITIS BY BIOPSY, DUODENITIS-BRYNN ASTHMA, MILD PERSISTENT MULTIPLE BILATERAL COMPLEX THYROID CYSTS ACUTE CRYPTITIS OF ALL RANDOM BIOPSIES, SUGGESTIVE OF IDIOPATHIC IBD BY COLONOSCOPY 01/2007-SELAM//RECTAL BIOPSY C MILD DIASSRAY C LP FIBROSIS BY 03/2017 COLON-W LUMBAR DJD-MULTILEVEL WITH DIFFUSE BULGES L1-L3 AND L5/S1 AND SEVERE CENTRAL CANAL STENOSIS L3-L4-BY MRI NOVEMBER 2010 HYPERTENSION FIBROMYALGIA ANXIETY OBSTRUCTIVE SLEEP APNEA URGE INCONTINENCE ALLERGIC RHINITIS-12/2011 NEGATIVE ZONE 1 ALLERGY PANEL VASOMOTOR SYMPTOMS CERVICAL DJD-02/2011 MRI, UNCHANGED BY 06/2012 MRI MULTILEVEL DJD, C6-C7 BULGE S COMPRESSION, C3-7 SPONDYLOSIS LUMBAR DJD, SEVERE L3/4 STENOSIS BY 04/2013 MRI, S/P L3-5 DISCECTOMY/FUSION-07/18/2013-DR. STOLL IMPAIRED FASTING GLUCOSE GALA, MODERATE ON CHRONIC CPAP DIASTOLIC CHF-09/2014 TTE LVEF65%, DIASTOLIC DYSFUNCTION, ELEVATED CVP, MILD LAE 35 MM-ARRIETA B HIP OA, MILD R>L, PARTIAL L SUPERIOR LABRUM TEAR BY 10/2015 MRI CKD -08/2017 RENAL US: R KIDNEY ATROPHY (PREVIOUS PARTIAL NEPHRECTOMY 2 HYDRONEPHROSIS) S SIGNS OF UNIQUE ARTHRITIS BOTH KNEE ALLERGIES LYRICA: EDEMA, SWELLING, ITCHING - ALLERGY ULTRACET: RASH - ALLERGY OMEPRAZOLE: RASH - ALLERGY ENVIRONMENTAL: SNEEZING, RUNNY NOSE, ITCHY EYES - ALLERGY SURGICAL HISTORY R HYPDRONEHOSIS SURGERY-[place] 1997 BREAST LEFT CYST 1998 HYSTERECTOMY 1979 TUBAL LIGATION 1977 GALL BLADDER B EYELID SURGERY-ROJAS 09/2012 BACK SURGERY 2013 RIGHT FOOT BUNIONECTOMY, REPAIR OF HAMMERTOES 04/04 EGD 07/18/16 L GSV RFA C STAB PHLEBECTOMY-MILLIE 11/05 L KNEE ARTHROSCOPIC-FISH 09/2018 FAMILY HISTORY FATHER: ALIVE, DDD,ARTHRITIS , EMPHYSEMA MOTHER: , [place],CHF,BLOOD CLOT IN THE LEG,HTN,BASAL CELL CARCINOMA AND VULVAR CARCINOMA, PARKINSON, DIAGNOSED WITH DIABETES, OTHER SPECIFIED CONDITIONS INFLUENCING HEALTH STATUS DAUGHTER(S): SCOLIOSIS--HUMP UPPER BACK SEIZURES CHEST PAIN IRREGULAR HEART BEAT PATERNAL GRAND FATHER: [place] MATERNAL GRAND FATHER: STROKE MATERNAL GRAND MOTHER: BREAST CANCER AT AGE 70, OF CHF 3 BROTHER(S) - HEALTHY. 3 SON(S) , 1 DAUGHTER(S) . BROTHER FROM METASTATIC CANCER\\\\NBROTHER OA,FIBROMYAGIA\\\\NDAUGHTER HAS SEIZURE DISORDER, HEAD ACHES\\\\N\\\\N. SOCIAL HISTORY GENERAL: TOBACCO USE ARE YOU A:NONSMOKER HIV / HEP-C SCREENING HIV TEST OFFERED TO PATIENT:YES DATE OFFERED:08/24/2016 TEST ACCEPTED:NO HEP-C TEST OFFERED TO PATIENT:YES DATE OFFERED:08/24/2016 REASON:PATIENT DECLINED TEST ACCEPTED:NO REASON:PATIENT DECLINED OTHERS AT HOME: S/O. EDUCATION LEVEL OF EDUCATION:FINISHED COLLEGE DIET: REGULAR. LANGUAGE LANGUAGES SPOKEN:CHILEAN DOMESTIC VIOLENCE DO YOU FEEL SAFE IN YOUR ENVIRONMENT?YES BMI CARE GOAL FOLLOW-UP ABOVE NORMAL BMI FOLLOW-UPGIVING ENCOURAGEMENT TO EXERCISE RECREATIONAL DRUG USE DRUG USE?NO EXERCISE: PHYSICAL THERAPY AT HOME DAILY. LEARNING BARRIERS / SPECIAL NEEDS CHANGE FROM LAST VISIT?NO BARRIERS TO LEARNING?NO HEARING IMPAIRED?NO VISION IMPAIRED?YES COGNITIVELY IMPAIRED?NO :CORRECTIVE LENSES READING ONLY READINESS TO LEARN?YES LEARNING PREFERENCES?NO LEARNING CAPABILITIES PRESENT?YES EMOTIONAL BARRIERS?NO SPECIAL DEVICES?NO RESULTS TECHNICIAN NEEDED?NO PAIN CLINIC PFS, CLERGY, PUBLIC HEALTH REFERRALS PFS REFERRAL NEEDED?NO CLERGY REFERRAL NEEDED?NO PUBLIC HEALTH REFERRAL NEEDED?NO WAS THE PROVIDER NOTIFIED OF ANY PERTINENT INFO? N/A HAS THE PATIENT BEEN EDUCATED REGARDING HIS/HER PLAN OF CARE?YES HAS THE PATIENT BEEN EDUCATED REGARDING PAIN, THE RISK FOR PAIN, THE IMPORTANCE OF EFFECTIVE PAIN MANAGEMENT, AND THE PAIN ASSESSMENT PROCESS?YES LATEX QUESTIONNAIRE LATEX ALLERGY : HAVE YOU EVER DEVELOPED ANY TYPE OF REACTION AFTER HANDLING LATEX PRODUCTS SUCH RUBBER GLOVES, CONDOMS, DIAPHRAGMS, BALLOONS, SOCKS, OR UNDERWEAR?NO LATEX ALLERGY : HAVE YOU EVER DEVELOPED ANY TYPE OF REACTION DURING OR AFTER DENTAL APPOINTMENT, VAGINAL/RECTAL EXAMINATION, SURGICAL PROCEDURE, OR ANY OTHER EXPOSURE?NO LATEX RISK : HAVE YOU EVER HAD ANY DIFFICULTY BREATHING OR HIVES AFTER EATING OR HANDLING ANY FRUITS, OR VEGETABLES; SUCH KIWI, BANANAS, STONE FRUITS, OR CHESTNUTSNO LATEX RISK : DO YOU HAVE A PREVIOUS PERSONAL HISTORY OF MORE THAN NINE SURGERIES, SPINA BIFIDA, OR REPEATED CATHERIZATIONS? YES - PLEASE INDICATE : > 9 SURGERIES LATEX RISK : ARE YOU FREQUENTLY EXPOSED TO LATEX PRODUCTS IN YOUR OCCUPATION?NO DATE ASKED : 03/26/2019 CAFFEINE CAFFEINE USE?YES 1-2 BEVERAGES DAILY ADVANCE DIRECTIVE ADVANCE DIRECTIVE DISCUSSED WITH PATIENT:YES HCP: BOYFRIEND - OSWALDOANKUR ALLEN [phone] LUTHERAN [id number] YARSANISM MARITAL STATUS: .. ALCOHOL SCREENING DID YOU HAVE A DRINK CONTAINING ALCOHOL IN THE PAST YEAR?NO POINTS0 INTERPRETATIONNEGATIVE OCCUPATION: UNEMPLOYED. SEXUAL HX HAD SEX IN THE LAST 12 MONTHS (VAGINAL, ORAL, OR ANAL)?NO HAVE YOU EVER HAD AN STD?NO REVIEWED WITH PATIENT 05/02/18 1038 JS06/24/18 REVIEWED WITH PT. ADREVIEWED WITH PATIENT 01/02/19 1114 NLJREVIEWED WITH PATIENT 01/29/19 1308 NLJ 03/26/19 1214 REVIEWED WITH PT. AD REVIEWED WITH PATIENT 04/16/19 1439 JS. HOSPITALIZATION/MAJOR DIAGNOSTIC PROCEDURE SURGERIES REVIEW OF SYSTEMS REVIEWED BY: PROVIDER: SEBASTIAN MARADIAGA . CONSTITUTIONAL: ANY CHANGE IN YOUR MEDICAL CONDITION? NO . CHILLS NO . FEVER NO . INFECTION: DO YOU HAVE NEW INFECTIONS? NO . DO YOU HAVE HISTORY OF MRSA? NO . MUSCULOSKELETAL: ANY NEW PATTERNS OF PAIN OR NUMBNESS? YES, STATES PAIN IN LEG ALMOST GONE SINCE PROCEDURE BUT BACK PAIN STILL PREVALENT . GASTROENTEROLOGY: ANY NEW CHANGE IN BOWEL CONTROL? NO . GENITOURINARY: ANY NEW CHANGE IN BLADDER CONTROL? NO . IS THERE A CHANCE YOU COULD BE ? NO . HEMATOLOGY/LYMPH: DO YOU TAKE ANY BLOOD THINNERS? (FOR EXAMPLE- COUMADIN, PLAVIX, AGGRENOX, PLATEL, PRADAXA, OR XARELTO) NO . WHEN WAS YOUR LAST DOSE? DATE: TIME: . NEUROLOGY: HAVE YOU FALLEN IN THE PAST 12 MONTHS? NO . ANY NEW EXTREMITY NUMBNESS OR WEAKNESS? NO . CARDIOLOGY: DO YOU HAVE A PACEMAKER OR DEFIBRILLATOR? NO . RESPIRATORY: HAVE YOU BEEN SICK IN THE PAST WEEK? NO . FEVER NO . FLU LIKE SYMPTOMS? NO . COUGH NO . INTEGUMENTARY: DO YOU HAVE ANY RASHES OR OPEN SORES? NO . ALLERGIC/IMMUNO: ARE YOU ALLERGIC TO IV DYE? NO . ANY NEW ALLERGIES? NO . PSYCHIATRIC: DO YOU HAVE THOUGHTS OF HURTING YOURSELF OR SOMEONE ELSE? NO . ARE YOU ABUSED, NEGLECTED, OR IN AN UNSAFE ENVIRONMENT? NO . ENDOCRINOLOGY: ARE YOU DIABETIC? NO . OTHER: DO YOU NEED ANY PRESCRIPTIONS? YES . IF YES, PLEASE LIST: ____GABAPENTIN . ANY NEW PROBLEMS WITH YOUR MEDICATIONS? NO . WHEN DID YOU LAST EAT? ____ . WHEN DID YOU LAST DRINK? ____ . WHAT DID YOU LAST DRINK? ____ . NAME OF PERSON DRIVING YOU HOME? ____ . DO YOU HAVE ANY OTHER QUESTIONS OR CONCERNS NO . VITAL SIGNS WT 242.4 LBS, HT 70 IN, BMI 34.78 INDEX, BP 127/69 MM HG, HR 74 /MIN, RR 18 /MIN, TEMP 97.6 F, OXYGEN SAT % 95%, SAFE IN ENV? (Y/N) YES, NA INITIALS AW 1438, REVIEWED BY: DAWIT. EXAMINATION GENERAL EXAMINATION: GENERALNO ACUTE DISTRESS, WELL NOURISHED AND HYDRATED. PSYCHAPPROPRIATE MOOD AND AFFECT . LUNGS:CLEAR TO AUSCULTATION BILATERALLY, NO WHEEZES, RHONCHI, RALES. HEART:NO MURMURS, REGULAR RATE AND RHYTHM. MUSCULOSKELETAL:POINT TENDER OVER COCCYX, STARTING SKIN SHOWS NO ERYTHEMA, ECCHYMOSIS, INCREASED WARMTH, AND/OR SKIN ERUPTIONS NOTED. . 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 CLINICAL NOTES: 63-YEAR-OLD FEMALE IN FOR POST LESI FOLLOW-UP. GIVEN PRESENTING SYMPTOMS AND RESULTS OF PHYSICAL EXAMINATION RECOMMENDED SACROCOCCYGEAL BLOCK WITH POSTPROCEDURAL FOLLOW-UP. PATIENT HAS EXPRESSED UNDERSTANDING OF AND WAS IN AGREEMENT WITH TREATMENT PLAN. GIVEN TIME TO ASK QUESTIONS AND EXPRESS CONCERNS., ISTOP REGISTRY REVIEWED AND DEMONSTRATES COMPLLIANCE. (REF # [id number] ) BRINGS IN MEDICATIONS WHICH IS APPROPRIATE FOR WHAT WAS DISPENSED. RECENT URINE TOXICOLOGY REVIEWED. NO UNAUTHORIZED MEDICATIONS. NO ILLICIT SUBSTANCES AND PRESCRIBED MEDICATIONS WERE PRESENT. PREVENTIVE MEDICINE PAIN CLINIC TEACHING: PROCEDURE TEACHING PRE PROCEDURE INSTRUCTIONS REVIEWED, PROCEDURE REVIEWED, PT VERBALIZES UNDERSTANDING. PROCEDURE CODES FA211 ESTABILISHED PATIENT [facility] CHARGE DISPOSITION & COMMUNICATION FOLLOW UP POSTPROCEDURE (REASON: SACROCOCCYGEAL BLOCK) ELECTRONICALLY SIGNED BY TRENT GALO ON 04/21/2019 AT 11:37 AM EST DISCLAIMER : THIS IS A VISIT SUMMARY EXTRACTED FROM THE [employer] CHART. IT IS NOT A COPY OF THE [employer] PROGRESS NOTE. FRANK
== END ==
LOC: M PAIN 14:15
PROVIDERS: ATTEND Family Medicine
DX: M51.16 Intervertebral disc disorders with radiculopathy, lumbar region (principal); M53.3 Sacrococcygeal disorders, not elsewhere classified

== ENCOUNTER → 2019-06-05 | Outpatient (CLI) | payer OTHER ==
[~2019-06-05] MED LIST changes: +BUPIVACAINE HCL 0.25% 30 ML VIAL As Ordered ONE; +ISOVUE-M 300 61% 15ML VIAL (Q9967) As Ordered ONE; +LIDOCAINE 1% SDV INJ 30 ML VIAL As Ordered ONE; +TRIAMCINOLONE ACETONIDE SUSP 40 MG/ML VIAL (J3301) As Ordered ONE; +diazePAM 5 MG TAB As Ordered ONE; +oxyCODONE 5MG TAB As Ordered ONE
--- NOTE | 2019-06-05 12:02 | REP ---
Sacrum and coccyx: Limited study, four views. History: Sacral coccygeal ligament injection for pain. 10 seconds of fluoroscopy time is reported. Findings: A sequence of four last image hold fluoroscopically obtained spot radiographs of the sacrum and coccyx document needle position and contrast injection associated with injection procedure. Electronically Signed by Edwin Rocha MD 06/05/2019 11:53 A
--- NOTE | 2019-06-17 05:50 | ECWPNPC ---
PATIENT NAME: MARICARMEN WHEATLEY : 1955 GENDER: FEMALE VISIT DATE: 06/05/2019 DISCHARGE DATE: 06/05/19 1159 VISIT LOCKED DATE TIME: PHYSICIAN: ARCADIO GLASS MD PHYSICIAN PAGER NO: [phone] RESOURCE: ARCADIO GLASS MD REASON FOR APPOINTMENT 1. SACROCOCCYGEAL BLOCK CURRENT MEDICATIONS TAKING VENTOLIN HFA 108 (90 BASE) MCG/ACT AEROSOL SOLUTION 2 PUFFS INHALATION EVERY 4 HOURS NEEDED FOR WHEEZING TAKING LASIX 40 MG TABLET 1 TAB ORALLY EVERY MORNING, NOTES: 06/04/2019 AM TAKING VITAMIN C OTC TABLET 1 TABLET ORALLY ONCE A DAY, NOTES: 06/04/2019 AM TAKING MULTIVITAMINS OTC TABLET 1 TAB(S) ORALLY ONCE A DAY, NOTES: 06/04/2019 AM TAKING LOSARTAN POTASSIUM 50 MG TABLET 1 TABLET ORALLY TWICE DAILY, NOTES: 06/05/2019 0900 TAKING ASTELIN 137 MCG/SPRAY SOLUTION INSTILL 1 SPRAY INTO EACH NOSTRIL 2 TIMES A DAY _ BID, NOTES: 06/05/2019 0600 TAKING DIPHENHYDRAMINE HCL 50 MG TABLET 1 TABLET ORALLY AT BEDTIME, NOTES: HAS NOT BEEN TAKING TAKING LORATADINE 10 MG TABLET 1 TABLET ORALLY ONCE A DAY, NOTES: 06/04/2019 AM TAKING MONTELUKAST SODIUM 10 MG TABLET 1 TABLET ORALLY AT BEDTIME, NOTES: 06/04/2019 HS TAKING VOLTAREN 1 % GEL 4 GM TRANSDERMAL QID B KNEES, NOTES: 06/05/2019 0600 TAKING CALCIUM 600 + D 600-400 MG-UNIT TABLET 1 TABLET ORALLY DAILY, NOTES: 06/04/2019 AM TAKING NEBULIZER/TUBING/MOUTHPIECE - KIT PT ONLY NEEDS TUBING AND MASK INH FOUR TIMES A DAY NEEDED DX:J45.22 TAKING ACETAMINOPHEN EXTRA STRENGTH 500 MG TABLET 2 TABLETS NEEDED ORALLY EVERY 6 HRS, NOTES: 06/04/2019 2100 TAKING ELECTRODES 2"X2"/REUSABLE - MISCELLANEOUS DIRECTED NEEDED WITH TENS MACHINE TAKING FLONASE 50 MCG/DOSE INHALER 2 SPRAYS IN EACH NOSTRIL NASALLY ONCE A DAY, NOTES: 06/04/2019 AM TAKING CYANOCOBALAMIN 250 MCG TABLET 1 TABLET ORALLY ONCE A DAY, NOTES: 06/04/2019 AM TAKING ONETOUCH DELICA LANCETS 33G - MISCELLANEOUS DIRECTED SUBCUTANEOUSLY DAILY TAKING METFORMIN HCL ER 500 MG TABLET EXTENDED RELEASE 24 HOUR 1 TAB ORALLY BEFORE DINNER, NOTES: 06/04/2019 1800 TAKING GABAPENTIN 300 MG CAPSULE 1 CAPSULE ORALLY 2 CAPSULES THREE TIMES ADAY, NOTES: 06/04/2019 1700 TAKING PREVACID 30 MG CAPSULE DELAYED RELEASE 1 CAPSULE ORALLY BID, NOTES: 06/04/2019 1800 TAKING ALBUTEROL SULFATE (2.5 MG/3ML) 0.083% NEBULIZATION SOLUTION 3 ML INHALATION THREE TIMES A DAY, NOTES: PRN TAKING NORCO 5-325 MG TABLET 1 TABLET NEEDED ORALLY EVERY 6 HRS PRN PAIN MDD=4, NOTES: 06/05/2019 0900 TAKING APRISO 0.375 GM CAPSULE EXTENDED RELEASE 24 HOUR 4 CAPSULES IN THE MORNING ORALLY ONCE A DAY, NOTES: 06/04/2019 AM TAKING CELEXA 40 MG TABLET TAKE ONE TABLET BY MOUTH EVERY DAY , NOTES: 06/04/2019 AM TAKING ERGOCALCIFEROL 03801 UNIT CAPSULE 1 CAPSULE ORALLY EVERY 7 DAYS, NOTES: SUNDAY TAKING ONETOUCH VERIO - STRIP DIRECTED SUBCUTANEOUSLY DAILY TAKING HYDROXYZINE PAMOATE 25 MG CAPSULE 1 CAPSULE NEEDED ORALLY EVERY 8 HRS, NOTES: 06/05/2019 0900 TAKING ESTRACE 0.1 MG/GM CREAM 0.5 GM VAGINAL WEEKLY, NOTES: SUNDAY NOT-TAKING ZANTAC 300 MG TABLET 1 TABLET BY MOUTH DAILY AT BEDTIME NOT-TAKING DETROL 2 MG TABLET TAKE ONE TABLET BY MOUTH ONCE DAILY ORALLY DAILY NOT-TAKING LOSARTAN POTASSIUM 50 MG TABLET TAKE ONE TABLET BY MOUTH TWICE A DAY , NOTES: DUPLICATE NOT-TAKING CITALOPRAM HYDROBROMIDE 40 MG TABLET 1 TABLET ORALLY DAILY, NOTES: DUPLICATE NOT-TAKING SINGULAIR 10 MG TABLET 1 TABLET IN THE EVENING ORALLY BEFORE BEDTIME, NOTES: DUPLICATE MEDICATION LIST REVIEWED AND RECONCILED WITH THE PATIENT PAST MEDICAL HISTORY HYPERLIPIDEMIA 2B IMPAIRED FASTING GLUCOSE GERD/HIATAL HERNIA- 07/27/16 EGD SMALL HH, MILD BILE GASTRITIS BY BIOPSY, DUODENITIS-BRYNN ASTHMA, MILD PERSISTENT MULTIPLE BILATERAL COMPLEX THYROID CYSTS ACUTE CRYPTITIS OF ALL RANDOM BIOPSIES, SUGGESTIVE OF IDIOPATHIC IBD BY COLONOSCOPY 01/2007-SELAM//RECTAL BIOPSY C MILD DIASSRAY C LP FIBROSIS BY 03/2017 COLON-W LUMBAR DJD-MULTILEVEL WITH DIFFUSE BULGES L1-L3 AND L5/S1 AND SEVERE CENTRAL CANAL STENOSIS L3-L4-BY MRI NOVEMBER 2010 HYPERTENSION FIBROMYALGIA ANXIETY OBSTRUCTIVE SLEEP APNEA URGE INCONTINENCE ALLERGIC RHINITIS-12/2011 NEGATIVE ZONE 1 ALLERGY PANEL VASOMOTOR SYMPTOMS 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 STOLL/L45 MOD BOROAD HNP C SEVERE L L4 NFN BY 01/2019 MRI IMPAIRED FASTING GLUCOSE GALA, MODERATE ON CHRONIC CPAP DIASTOLIC CHF-09/2014 TTE LVEF65%, DIASTOLIC DYSFUNCTION, ELEVATED CVP, MILD LAE 35 MM-ARRIETA B HIP OA, MILD R>L, PARTIAL L SUPERIOR LABRUM TEAR BY 10/2015 MRI CKD 3-08/2017 RENAL US: R KIDNEY ATROPHY (PREVIOUS PARTIAL NEPHRECTOMY 2 HYDRONEPHROSIS) S SIGNS OF UNIQUE ARTHRITIS BOTH KNEE ALLERGIES LYRICA: EDEMA, SWELLING, ITCHING - ALLERGY ULTRACET: RASH - ALLERGY OMEPRAZOLE: RASH - ALLERGY ENVIRONMENTAL: SNEEZING, RUNNY NOSE, ITCHY EYES - ALLERGY SURGICAL HISTORY R HYPDRONEHOSIS SURGERY-[place] 1997 BREAST LEFT CYST 1998 HYSTERECTOMY 1979 TUBAL LIGATION 1977 GALL BLADDER B EYELID SURGERY-ROJAS 09/2012 BACK SURGERY 2013 RIGHT FOOT BUNIONECTOMY, REPAIR OF HAMMERTOES 04/04 EGD 07/18/16 L GSV RFA C STAB PHLEBECTOMY-MILLIE 11/05 L KNEE ARTHROSCOPIC-FISH 09/2018 FAMILY HISTORY FATHER: ALIVE, DDD,ARTHRITIS , EMPHYSEMA MOTHER: , [place],CHF,BLOOD CLOT IN THE LEG,HTN,BASAL CELL CARCINOMA AND VULVAR CARCINOMA, [place]ARKINSON, DIAGNOSED WITH DIABETES, OTHER SPECIFIED CONDITIONS INFLUENCING HEALTH STATUS DAUGHTER(S): SCOLIOSIS--HUMP UPPER BACK SEIZURES CHEST PAIN IRREGULAR HEART BEAT PATERNAL GRAND FATHER: [place] MATERNAL GRAND FATHER: STROKE MATERNAL GRAND MOTHER: BREAST CANCER AT AGE 70, OF CHF 3 BROTHER(S) - HEALTHY. 3 SON(S) , 1 DAUGHTER(S) . BROTHER FROM METASTATIC CANCER\\\\NBROTHER OA,FIBROMYAGIA\\\\NDAUGHTER HAS SEIZURE DISORDER, HEAD ACHES\\\\N\\\\N. SOCIAL HISTORY GENERAL: TOBACCO USE ARE YOU A:NONSMOKER HIV / HEP-C SCREENING HIV TEST OFFERED TO PATIENT:YES DATE OFFERED:08/24/2016 TEST ACCEPTED:NO HEP-C TEST OFFERED TO PATIENT:YES DATE OFFERED:08/24/2016 REASON:PATIENT DECLINED TEST ACCEPTED:NO REASON:PATIENT DECLINED OTHERS AT HOME: S/O. EDUCATION LEVEL OF EDUCATION:FINISHED COLLEGE DIET: REGULAR. LANGUAGE LANGUAGES SPOKEN:IRISH DOMESTIC VIOLENCE DO YOU FEEL SAFE IN YOUR ENVIRONMENT?YES BMI CARE GOAL FOLLOW-UP ABOVE NORMAL BMI FOLLOW-UPGIVING ENCOURAGEMENT TO EXERCISE RECREATIONAL DRUG USE DRUG USE?NO EXERCISE: PHYSICAL THERAPY AT HOME DAILY. LEARNING BARRIERS / SPECIAL NEEDS CHANGE FROM LAST VISIT?NO BARRIERS TO LEARNING?NO HEARING IMPAIRED?NO VISION IMPAIRED?YES COGNITIVELY IMPAIRED?NO :CORRECTIVE LENSES READING ONLY READINESS TO LEARN?YES LEARNING PREFERENCES?NO LEARNING CAPABILITIES PRESENT?YES EMOTIONAL BARRIERS?NO SPECIAL DEVICES?NO ICE SCRAPER NEEDED?NO PAIN CLINIC PFS, CLERGY, PUBLIC HEALTH REFERRALS PFS REFERRAL NEEDED?NO CLERGY REFERRAL NEEDED?NO PUBLIC HEALTH REFERRAL NEEDED?NO WAS THE PROVIDER NOTIFIED OF ANY PERTINENT INFO? N/A HAS THE PATIENT BEEN EDUCATED REGARDING HIS/HER PLAN OF CARE?YES HAS THE PATIENT BEEN EDUCATED REGARDING PAIN, THE RISK FOR PAIN, THE IMPORTANCE OF EFFECTIVE PAIN MANAGEMENT, AND THE PAIN ASSESSMENT PROCESS?YES LATEX QUESTIONNAIRE LATEX ALLERGY : HAVE YOU EVER DEVELOPED ANY TYPE OF REACTION AFTER HANDLING LATEX PRODUCTS SUCH RUBBER GLOVES, CONDOMS, DIAPHRAGMS, BALLOONS, SOCKS, OR UNDERWEAR?NO LATEX ALLERGY : HAVE YOU EVER DEVELOPED ANY TYPE OF REACTION DURING OR AFTER DENTAL APPOINTMENT, VAGINAL/RECTAL EXAMINATION, SURGICAL PROCEDURE, OR ANY OTHER EXPOSURE?NO DATE ASKED : 03/26/2019 LATEX RISK : HAVE YOU EVER HAD ANY DIFFICULTY BREATHING OR HIVES AFTER EATING OR HANDLING ANY FRUITS, OR VEGETABLES; SUCH KIWI, BANANAS, STONE FRUITS, OR CHESTNUTSNO LATEX RISK : DO YOU HAVE A PREVIOUS PERSONAL HISTORY OF MORE THAN NINE SURGERIES, SPINA BIFIDA, OR REPEATED CATHERIZATIONS? YES - PLEASE INDICATE : > 9 SURGERIES LATEX RISK : ARE YOU FREQUENTLY EXPOSED TO LATEX PRODUCTS IN YOUR OCCUPATION?NO CAFFEINE CAFFEINE USE?YES 1-2 BEVERAGES DAILY ADVANCE DIRECTIVE ADVANCE DIRECTIVE DISCUSSED WITH PATIENT:YES HCP: BOYFRIEND - NASIM ALLEN [phone] SPIRITISM [id number] MORMONISM MARITAL STATUS: .. ALCOHOL SCREENING DID YOU HAVE A DRINK CONTAINING ALCOHOL IN THE PAST YEAR?NO POINTS0 INTERPRETATIONNEGATIVE OCCUPATION: UNEMPLOYED. SEXUAL HX HAD SEX IN THE LAST 12 MONTHS (VAGINAL, ORAL, OR ANAL)?NO HAVE YOU EVER HAD AN STD?NO REVIEWED WITH PATIENT 05/02/18 1038 JS06/24/18 REVIEWED WITH PT. ADREVIEWED WITH PATIENT 01/02/19 1114 NLJREVIEWED WITH PATIENT 01/29/19 1308 NLJ 03/26/19 1214 REVIEWED WITH PT. AD REVIEWED WITH PATIENT 04/16/19 1439 JSREVIEWED WITH PT 06/05/2019 1010 NLJ. HOSPITALIZATION/MAJOR DIAGNOSTIC PROCEDURE SURGERIES VITAL SIGNS WT 239.8 LBS, HT 70 IN, BMI 34.40 INDEX, BP 129/65 MM HG, HR 83 /MIN, RR 18 /MIN, TEMP 98.1 F, OXYGEN SAT % 95%, BLOOD GLUCOSE LEVEL 110, SAFE IN ENV? (Y/N) YES, REVIEWED BY: DILCIA SENIOR 06/05/2019 9:55. ASSESSMENTS COCCYDYNIA - M53.3 (PRIMARY) PROCEDURES PREPROCEDURE DIAGNOSIS: INFLAMMATION OF THE SACROCOCCYGEAL LIGAMENT. COCCYDYNIA.POSTPROCEDURE DIAGNOSIS: INFLAMMATION OF THE SACROCOCCYGEAL LIGAMENT. COCCYDYNIA.PROCEDURE: INJECTION OF THE RIGHT AND LEFT SACROCOCCYGEAL LIGAMENT. SURGEON: DR. ARCADIO GLASSPHELPS HEALTHANESTHESIA: LOCAL.PREOPERATIVE NOTE: THE PATIENT HAS HISTORY OF LOW BACK PAIN. I EVALUATED THE PATIENT AND REVIEWED THE CHART. WE BOTH AGREE ON INJECTING OVER THE SACROCOCCYGEAL LIGAMENT. THE PATIENT IS AWARE OF THE POTENTIAL COMPLICATIONS WHICH INCLUDE INFECTIONS, VISCERAL PUNCTURE, INCLUDING RECTAL PUNCTURE AMONG OTHERS. I DISCUSSED ALTERNATIVES AND THE PATIENT EXPRESSED THAT SHE WOULD LIKE TO MOVE FORWARD. THE PATIENT DENIES UNEXPLAINABLE, WEIGHT LOSS, FEVER, CHILLS, OR CHANGES IN URINARY OR BOWEL CONTROL. DESCRIPTION OF PROCEDURE: AFTER CONSENT WAS TAKEN, THE PATIENT WAS BROUGHT TO THE PROCEDURE ROOM AND PLACED IN THE PRONE POSITION. THE LUMBOSACRAL AREA WAS CLEANED WITH CHLORAPREP SOLUTION AND DRAPED ASEPTICALLY. THE PROCEDURE WAS DONE UNDER STERILE CONDITIONS. UNDER FLUOROSCOPIC GUIDANCE, THE TARGET WAS SELECTED AT THE RIGHT AND LEFT SACROCOCCYGEAL LIGAMENT. LIDOCAINE WAS USED TO NUMB THE SKIN AND THE SUBCUTANEOUS TISSUE BELOW IT. A 25 NEEDLE WAS ADVANCED UNTIL WE REACHED THE RIGHT AND LEFT SACROCOCCYGEAL LIGAMENT. I DID AP AND LATERAL VIEWS. ISOVUE M DYE 30%, 1/4 ML, WAS INJECTED SHOWING ADEQUATE SPREAD OF THE DYE. THEN A SOLUTION OF 30 ML OF BUPIVACAINE 0.125% WITH KENALOG 30 MG WAS INJECTED OVER THE AFFECTED STRUCTURE. THERE WAS NO EVIDENCE OF BLOOD, PARESTHESIA OR CEREBROSPINAL FLUID. NO EVIDENCE OF VACUUM PHENOMENON OR VISCERAL PUNCTURE. FLUOROSCOPY TIME WAS 10 SECONDS. THE PATIENT WAS SENT TO THE RECOVERY ROOM WHERE SHE WAS MOVING HER EXTREMITIES AND DOING WELL. THERE WERE NO COMPLICATIONS DURING THE PROCEDURE. POSTOPERATIVE NOTE: I DISCUSSED ALTERNATIVES WITH THE PATIENT. I AM LOOKING FOR LONG-LASTING PAIN RELIEF WITH THIS INTERVENTION. INSTRUCTIONS WERE GIVEN. QUESTIONS WERE ANSWERED. THE PATIENT REPORTS UNDERSTANDING AND AGREES WITH THE PLAN. THERE WERE NO COMPLICATIONS DURING THE PROCEDURE. I, CATE EVANS, DOCUMENTED THE ABOVE INFORMATION ACTING A SCRIBE FOR DR. GLASS. I HAVE REVIEWED THE ABOVE DOCUMENT, WRITTEN BY AURORA JONES, AND I VERIFY THAT IT IS ACCURATE. DIAGNOSTIC IMAGING [facility] FLUORO GUIDANCE (PAIN)[id number] PROCEDURE CODES 6045F RADXPS IN END [id number] PXD [id number] INJ TENDON SHEATH/LIGAMENT, MODIFIERS: 50 [id number] NEEDLE LOCALIZATION BY XRAY, MODIFIERS: 26 DISPOSITION & COMMUNICATION ELECTRONICALLY SIGNED BY ARCADIO GLASS MD, MD ON 06/16/2019 AT 02:26 PM EST DISCLAIMER : THIS IS A VISIT SUMMARY EXTRACTED FROM THE [employer] CHART. IT IS NOT A COPY OF THE [employer] PROGRESS NOTE. MTDD
== END ==
LOC: M PAIN 10:00
PROVIDERS: ATTEND Anesthesiology
DX: M53.3 Sacrococcygeal disorders, not elsewhere classified (principal)
CPT/HCPCS: 20550; 77002; J3301; Q9967

== ENCOUNTER → 2019-06-20 | Outpatient (CLI) | payer OTHER ==
[~2019-06-20] MED LIST changes: -BUPIVACAINE HCL 0.25% 30 ML VIAL As Ordered ONE; -ISOVUE-M 300 61% 15ML VIAL (Q9967) As Ordered ONE; -LIDOCAINE 1% SDV INJ 30 ML VIAL As Ordered ONE; -TRIAMCINOLONE ACETONIDE SUSP 40 MG/ML VIAL (J3301) As Ordered ONE; -diazePAM 5 MG TAB As Ordered ONE; -oxyCODONE 5MG TAB As Ordered ONE
--- NOTE | 2019-06-24 04:37 | ECWPNPC ---
PATIENT NAME: MARICARMEN WHEATLEY : 1955 GENDER: FEMALE VISIT DATE: 06/20/2019 DISCHARGE DATE: 06/20/19 1054 VISIT LOCKED DATE TIME: PHYSICIAN: MALAIKA LARES PHYSICIAN PAGER NO: [phone] RESOURCE: MALAIKA LARES REASON FOR APPOINTMENT 1. POST SACROCOCCYGEAL HISTORY OF PRESENT ILLNESS HISTORY OF PRESENT ILLNESS: PAIN THE PATIENT DESCRIBES THE PAIN... 63-YEAR-OLD FEMALE IN FOR POST TPI FOLLOW-UP. SHE RATES HER PAIN CURRENTLY AT A 5 OUT OF 10 AND DESCRIBES IT SORE AND TENDER. SHE FEELS THE PROCEDURE WORKED WELL OVERALL RATING HER PAIN PREPROCEDURE AT A 7 OUT OF 10 AND POSTPROCEDURE AT A 4 OUT OF 10. SHE FEELS THE PROCEDURE CONTINUES TO HELP HER TODAY. FALL RISK SCREENING: SCREENING :NO FALLS REPORTED IN THE LAST YEAR CURRENT MEDICATIONS TAKING VENTOLIN HFA 108 (90 BASE) MCG/ACT AEROSOL SOLUTION 2 PUFFS INHALATION EVERY 4 HOURS NEEDED FOR WHEEZING TAKING LASIX 40 MG TABLET 1 TAB ORALLY EVERY MORNING, NOTES: 06/04/2019 AM TAKING VITAMIN C OTC TABLET 1 TABLET ORALLY ONCE A DAY, NOTES: 06/04/2019 AM TAKING MULTIVITAMINS OTC TABLET 1 TAB(S) ORALLY ONCE A DAY, NOTES: 06/04/2019 AM TAKING LOSARTAN POTASSIUM 50 MG TABLET 1 TABLET ORALLY TWICE DAILY, NOTES: 06/05/2019 0900 TAKING ASTELIN 137 MCG/SPRAY SOLUTION INSTILL 1 SPRAY INTO EACH NOSTRIL 2 TIMES A DAY _ BID, NOTES: 06/05/2019 0600 TAKING DIPHENHYDRAMINE HCL 50 MG TABLET 1 TABLET ORALLY AT BEDTIME, NOTES: HAS NOT BEEN TAKING TAKING LORATADINE 10 MG TABLET 1 TABLET ORALLY ONCE A DAY, NOTES: 06/04/2019 AM TAKING MONTELUKAST SODIUM 10 MG TABLET 1 TABLET ORALLY AT BEDTIME, NOTES: 06/04/2019 HS TAKING VOLTAREN 1 % GEL 4 GM TRANSDERMAL QID B KNEES, NOTES: 06/05/2019 0600 TAKING CALCIUM 600 + D 600-400 MG-UNIT TABLET 1 TABLET ORALLY DAILY, NOTES: 06/04/2019 AM TAKING NEBULIZER/TUBING/MOUTHPIECE - KIT PT ONLY NEEDS TUBING AND MASK INH FOUR TIMES A DAY NEEDED DX:J45.22 TAKING ACETAMINOPHEN EXTRA STRENGTH 500 MG TABLET 2 TABLETS NEEDED ORALLY EVERY 6 HRS, NOTES: 06/04/2019 2100 TAKING ELECTRODES 2"X2"/REUSABLE - MISCELLANEOUS DIRECTED NEEDED WITH TENS MACHINE TAKING FLONASE 50 MCG/DOSE INHALER 2 SPRAYS IN EACH NOSTRIL NASALLY ONCE A DAY, NOTES: 06/04/2019 AM TAKING CYANOCOBALAMIN 250 MCG TABLET 1 TABLET ORALLY ONCE A DAY, NOTES: 06/04/2019 AM TAKING ONETOUCH DELICA LANCETS 33G - MISCELLANEOUS DIRECTED SUBCUTANEOUSLY DAILY TAKING METFORMIN HCL ER 500 MG TABLET EXTENDED RELEASE 24 HOUR 1 TAB ORALLY BEFORE DINNER, NOTES: 06/04/2019 1800 TAKING GABAPENTIN 300 MG CAPSULE 1 CAPSULE ORALLY TAKES 1 IN AM, 1 IN AFTERNOON, 2 @ NIGHT, NOTES: 06/04/2019 1700 TAKING PREVACID 30 MG CAPSULE DELAYED RELEASE 1 CAPSULE ORALLY BID, NOTES: 06/04/2019 1800 TAKING ALBUTEROL SULFATE (2.5 MG/3ML) 0.083% NEBULIZATION SOLUTION 3 ML INHALATION THREE TIMES A DAY, NOTES: PRN TAKING APRISO 0.375 GM CAPSULE EXTENDED RELEASE 24 HOUR 4 CAPSULES IN THE MORNING ORALLY ONCE A DAY, NOTES: 06/04/2019 AM TAKING CELEXA 40 MG TABLET TAKE ONE TABLET BY MOUTH EVERY DAY , NOTES: 06/04/2019 AM TAKING ERGOCALCIFEROL [id number] UNIT CAPSULE 1 CAPSULE ORALLY EVERY 7 DAYS, NOTES: SUNDAY TAKING ONETOUCH VERIO - STRIP DIRECTED SUBCUTANEOUSLY DAILY TAKING HYDROXYZINE PAMOATE 25 MG CAPSULE 1 CAPSULE NEEDED ORALLY EVERY 8 HRS, NOTES: 06/05/2019 09 TAKING ESTRACE 0.1 MG/GM CREAM 0.5 GM VAGINAL WEEKLY, NOTES: SUNDAY TAKING NORCO 5-325 MG TABLET 1 TABLET NEEDED ORALLY EVERY 6 HRS PRN PAIN MDD=4, NOTES: 06/05/2019 0900 NOT-TAKING ZANTAC 300 MG TABLET 1 TABLET BY MOUTH DAILY AT BEDTIME NOT-TAKING DETROL 2 MG TABLET TAKE ONE TABLET BY MOUTH ONCE DAILY ORALLY DAILY NOT-TAKING LOSARTAN POTASSIUM 50 MG TABLET TAKE ONE TABLET BY MOUTH TWICE A DAY , NOTES: DUPLICATE NOT-TAKING CITALOPRAM HYDROBROMIDE 40 MG TABLET 1 TABLET ORALLY DAILY, NOTES: DUPLICATE NOT-TAKING SINGULAIR 10 MG TABLET 1 TABLET IN THE EVENING ORALLY BEFORE BEDTIME, NOTES: DUPLICATE MEDICATION LIST REVIEWED AND RECONCILED WITH THE PATIENT PAST MEDICAL HISTORY HYPERLIPIDEMIA 2B IMPAIRED FASTING GLUCOSE GERD/HIATAL HERNIA- 07/27/16 EGD SMALL HH, MILD BILE GASTRITIS BY BIOPSY, DUODENITIS-BRYNN ASTHMA, MILD PERSISTENT MULTIPLE BILATERAL COMPLEX THYROID CYSTS ACUTE CRYPTITIS OF ALL RANDOM BIOPSIES, SUGGESTIVE OF IDIOPATHIC IBD BY COLONOSCOPY 01/2007-SELAM//RECTAL BIOPSY C MILD DIASSRAY C LP FIBROSIS BY 03/2017 COLON-W LUMBAR DJD-MULTILEVEL WITH DIFFUSE BULGES L1-L3 AND L5/S1 AND SEVERE CENTRAL CANAL STENOSIS L3-L4-BY MRI NOVEMBER 2010 HYPERTENSION FIBROMYALGIA ANXIETY OBSTRUCTIVE SLEEP APNEA URGE INCONTINENCE ALLERGIC RHINITIS-12/2011 NEGATIVE ZONE 1 ALLERGY PANEL VASOMOTOR SYMPTOMS 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 STOLL/L45 MOD BOROAD HNP C SEVERE L L4 NFN BY 01/2019 MRI IMPAIRED FASTING GLUCOSE GALA, MODERATE ON CHRONIC CPAP DIASTOLIC CHF-09/2014 TTE LVEF65%, DIASTOLIC DYSFUNCTION, ELEVATED CVP, MILD LAE 35 MM-ARRIETA B HIP OA, MILD R>L, PARTIAL L SUPERIOR LABRUM TEAR BY 10/2015 MRI CKD -08/2017 RENAL US: R KIDNEY ATROPHY (PREVIOUS PARTIAL NEPHRECTOMY 2 HYDRONEPHROSIS) S SIGNS OF UNIQUE ARTHRITIS BOTH KNEE ALLERGIES LYRICA: EDEMA, SWELLING, ITCHING - ALLERGY ULTRACET: RASH - ALLERGY OMEPRAZOLE: RASH - ALLERGY ENVIRONMENTAL: SNEEZING, RUNNY NOSE, ITCHY EYES - ALLERGY SURGICAL HISTORY R HYPDRONEHOSIS SURGERY-[place] 1997 BREAST LEFT CYST 1998 HYSTERECTOMY 1979 TUBAL LIGATION 1977 GALL BLADDER B EYELID SURGERY-ROJAS 09/2012 BACK SURGERY 2013 RIGHT FOOT BUNIONECTOMY, REPAIR OF HAMMERTOES 04/04 EGD 07/18/16 L GSV RFA C STAB PHLEBECTOMY-MILLIE 11/05 L KNEE ARTHROSCOPIC-FISH 09/2018 FAMILY HISTORY FATHER: ALIVE, DDD,ARTHRITIS , EMPHYSEMA MOTHER: , [place],CHF,BLOOD CLOT IN THE LEG,HTN,BASAL CELL CARCINOMA AND VULVAR CARCINOMA, [place]ARKINSON, DIAGNOSED WITH DIABETES, OTHER SPECIFIED CONDITIONS INFLUENCING HEALTH STATUS DAUGHTER(S): SCOLIOSIS--HUMP UPPER BACK SEIZURES CHEST PAIN IRREGULAR HEART BEAT PATERNAL GRAND FATHER: [place] MATERNAL GRAND FATHER: STROKE MATERNAL GRAND MOTHER: BREAST CANCER AT AGE 70, OF CHF 3 BROTHER(S) - HEALTHY. 3 SON(S) , 1 DAUGHTER(S) . BROTHER FROM METASTATIC CANCER\\\\NBROTHER OA,FIBROMYAGIA\\\\NDAUGHTER HAS SEIZURE DISORDER, HEAD ACHES\\\\N\\\\N. SOCIAL HISTORY GENERAL: TOBACCO USE ARE YOU A:NONSMOKER HIV / HEP-C SCREENING HIV TEST OFFERED TO PATIENT:YES DATE OFFERED:08/24/2016 TEST ACCEPTED:NO HEP-C TEST OFFERED TO PATIENT:YES DATE OFFERED:08/24/2016 REASON:PATIENT DECLINED TEST ACCEPTED:NO REASON:PATIENT DECLINED OTHERS AT HOME: S/O. EDUCATION LEVEL OF EDUCATION:FINISHED COLLEGE DIET: REGULAR. LANGUAGE LANGUAGES SPOKEN:PERSIAN DOMESTIC VIOLENCE DO YOU FEEL SAFE IN YOUR ENVIRONMENT?YES BMI CARE GOAL FOLLOW-UP ABOVE NORMAL BMI FOLLOW-UPGIVING ENCOURAGEMENT TO EXERCISE RECREATIONAL DRUG USE DRUG USE?NO EXERCISE: PHYSICAL THERAPY AT HOME DAILY. LEARNING BARRIERS / SPECIAL NEEDS CHANGE FROM LAST VISIT?NO BARRIERS TO LEARNING?NO HEARING IMPAIRED?NO VISION IMPAIRED?YES COGNITIVELY IMPAIRED?NO :CORRECTIVE LENSES READING ONLY READINESS TO LEARN?YES LEARNING PREFERENCES?NO LEARNING CAPABILITIES PRESENT?YES EMOTIONAL BARRIERS?NO SPECIAL DEVICES?NO EXPLOSIVES TRUCK DRIVER NEEDED?NO PAIN CLINIC PFS, CLERGY, PUBLIC HEALTH REFERRALS PFS REFERRAL NEEDED?NO CLERGY REFERRAL NEEDED?NO PUBLIC HEALTH REFERRAL NEEDED?NO WAS THE PROVIDER NOTIFIED OF ANY PERTINENT INFO? N/A HAS THE PATIENT BEEN EDUCATED REGARDING HIS/HER PLAN OF CARE?YES HAS THE PATIENT BEEN EDUCATED REGARDING PAIN, THE RISK FOR PAIN, THE IMPORTANCE OF EFFECTIVE PAIN MANAGEMENT, AND THE PAIN ASSESSMENT PROCESS?YES LATEX QUESTIONNAIRE LATEX ALLERGY : HAVE YOU EVER DEVELOPED ANY TYPE OF REACTION AFTER HANDLING LATEX PRODUCTS SUCH RUBBER GLOVES, CONDOMS, DIAPHRAGMS, BALLOONS, SOCKS, OR UNDERWEAR?NO LATEX ALLERGY : HAVE YOU EVER DEVELOPED ANY TYPE OF REACTION DURING OR AFTER DENTAL APPOINTMENT, VAGINAL/RECTAL EXAMINATION, SURGICAL PROCEDURE, OR ANY OTHER EXPOSURE?NO DATE ASKED : 03/26/2019 LATEX RISK : HAVE YOU EVER HAD ANY DIFFICULTY BREATHING OR HIVES AFTER EATING OR HANDLING ANY FRUITS, OR VEGETABLES; SUCH KIWI, BANANAS, STONE FRUITS, OR CHESTNUTSNO LATEX RISK : DO YOU HAVE A PREVIOUS PERSONAL HISTORY OF MORE THAN NINE SURGERIES, SPINA BIFIDA, OR REPEATED CATHERIZATIONS? YES - PLEASE INDICATE : > 9 SURGERIES LATEX RISK : ARE YOU FREQUENTLY EXPOSED TO LATEX PRODUCTS IN YOUR OCCUPATION?NO CAFFEINE CAFFEINE USE?YES 1-2 BEVERAGES DAILY ADVANCE DIRECTIVE ADVANCE DIRECTIVE DISCUSSED WITH PATIENT:YES HCP: BOYFRIEND - NASIM ALLEN [phone] PENTECOSTAL [id number] SPIRITISM MARITAL STATUS: .. ALCOHOL SCREENING DID YOU HAVE A DRINK CONTAINING ALCOHOL IN THE PAST YEAR?NO POINTS0 INTERPRETATIONNEGATIVE OCCUPATION: UNEMPLOYED. SEXUAL HX HAD SEX IN THE LAST 12 MONTHS (VAGINAL, ORAL, OR ANAL)?NO HAVE YOU EVER HAD AN STD?NO REVIEWED WITH PATIENT 05/02/18 1038 JS06/24/18 REVIEWED WITH PT. ADREVIEWED WITH PATIENT 01/02/19 1114 NLJREVIEWED WITH PATIENT 01/29/19 1308 NLJ 03/26/19 1214 REVIEWED WITH PT. AD REVIEWED WITH PATIENT 04/16/19 1439 JSREVIEWED WITH PT 06/05/2019 1010 NLJREVIEWED WITH PATIENT 06/20/2019 LAS. HOSPITALIZATION/MAJOR DIAGNOSTIC PROCEDURE SURGERIES REVIEW OF SYSTEMS REVIEWED BY: PROVIDER: SEBASTIAN NEWMAN-Sirena . CONSTITUTIONAL: ANY CHANGE IN YOUR MEDICAL CONDITION? NO . CHILLS NO . FEVER NO . INFECTION: DO YOU HAVE NEW INFECTIONS? NO . DO YOU HAVE HISTORY OF MRSA? NO . MUSCULOSKELETAL: ANY NEW PATTERNS OF PAIN OR NUMBNESS? IMPROVED SINCE INJECTIONS . GASTROENTEROLOGY: ANY NEW CHANGE IN BOWEL CONTROL? NO . GENITOURINARY: ANY NEW CHANGE IN BLADDER CONTROL? NO . IS THERE A CHANCE YOU COULD BE ? NO . HEMATOLOGY/LYMPH: DO YOU TAKE ANY BLOOD THINNERS? (FOR EXAMPLE- COUMADIN, PLAVIX, AGGRENOX, PLATEL, PRADAXA, OR XARELTO) NO . WHEN WAS YOUR LAST DOSE? DATE: TIME: . NEUROLOGY: HAVE YOU FALLEN IN THE PAST 12 MONTHS? NO . ANY NEW EXTREMITY NUMBNESS OR WEAKNESS? NO . CARDIOLOGY: DO YOU HAVE A PACEMAKER OR DEFIBRILLATOR? NO . RESPIRATORY: HAVE YOU BEEN SICK IN THE PAST WEEK? NO . FEVER NO . FLU LIKE SYMPTOMS? NO . COUGH NO . INTEGUMENTARY: DO YOU HAVE ANY RASHES OR OPEN SORES? NO . ALLERGIC/IMMUNO: ARE YOU ALLERGIC TO IV DYE? NO . ANY NEW ALLERGIES? NO . PSYCHIATRIC: DO YOU HAVE THOUGHTS OF HURTING YOURSELF OR SOMEONE ELSE? NO . ARE YOU ABUSED, NEGLECTED, OR IN AN UNSAFE ENVIRONMENT? NO . ENDOCRINOLOGY: ARE YOU DIABETIC? YES . OTHER: DO YOU NEED ANY PRESCRIPTIONS? YES . IF YES, PLEASE LIST: ____GABAPENTIN . ANY NEW PROBLEMS WITH YOUR MEDICATIONS? NO . WHEN DID YOU LAST EAT? ____ . WHEN DID YOU LAST DRINK? ____ . WHAT DID YOU LAST DRINK? ____ . NAME OF PERSON DRIVING YOU HOME? ____ . DO YOU HAVE ANY OTHER QUESTIONS OR CONCERNS NO . VITAL SIGNS WT 241.8 LBS, HT 70 IN, BMI 34.69 INDEX, BP 156/80 MM HG, HR 73 /MIN, RR 18 /MIN, TEMP 98.1 F, OXYGEN SAT % 95%, SAFE IN ENV? (Y/N) YES, REVIEWED BY: AMRITA. EXAMINATION GENERAL EXAMINATION: GENERALNO ACUTE DISTRESS, WELL NOURISHED AND HYDRATED. PSYCHAPPROPRIATE MOOD AND AFFECT . LUNGS:CLEAR TO AUSCULTATION BILATERALLY, NO WHEEZES, RHONCHI, RALES. HEART:NO MURMURS, REGULAR RATE AND RHYTHM. ASSESSMENTS COCCYDYNIA - M53.3 (PRIMARY) TREATMENT COCCYDYNIA REFILL GABAPENTIN CAPSULE, 300 MG, 1 CAPSULE, ORALLY, TAKES 1 IN AM, 1 IN AFTERNOON, 2 @ NIGHT, 30 DAYS, 120, NOTES: 06/04/2019 1700 CLINICAL NOTES: 65-YEAR-OLD FEMALE IN FOR POST SACROCOCCYGEAL LIGAMENT BLOCK. GIVEN PRESENTING SYMPTOMS AND RESULTS OF PHYSICAL EXAMINATION RECOMMENDED FOLLOW-UP IN 2 MONTHS. PATIENT HAS EXPRESSED UNDERSTANDING OF AND WAS IN AGREEMENT WITH TREATMENT PLAN. GIVEN TIME TO ASK QUESTIONS AND EXPRESS CONCERNS., ISTOP REGISTRY REVIEWED AND DEMONSTRATES COMPLLIANCE. (REF # [id number] ) BRINGS IN MEDICATIONS WHICH IS APPROPRIATE FOR WHAT WAS DISPENSED. RECENT URINE TOXICOLOGY REVIEWED. NO UNAUTHORIZED MEDICATIONS. NO ILLICIT SUBSTANCES AND PRESCRIBED MEDICATIONS WERE PRESENT. PROCEDURE CODES FA211 ESTABILISHED [facility] & COMMUNICATION FOLLOW UP 2 MONTHS (REASON: COCCYDYNIA) ELECTRONICALLY SIGNED BY TRENT GALO ON 06/23/2019 AT 08:21 AM EST DISCLAIMER : THIS IS A VISIT SUMMARY EXTRACTED FROM THE [employer] CHART. IT IS NOT A COPY OF THE [employer] PROGRESS NOTE. FRANK
== END ==
LOC: M PAIN 10:15
PROVIDERS: ATTEND Family Medicine
DX: M53.3 Sacrococcygeal disorders, not elsewhere classified (principal); E78.5 Hyperlipidemia, unspecified; E11.9 Type 2 diabetes mellitus without complications; K21.9 Gastro-esophageal reflux disease without esophagitis; J45.40 Moderate persistent asthma, uncomplicated; I10 Essential (primary) hypertension; M79.7 Fibromyalgia; Z86.59 Personal history of other mental and behavioral disorders; G47.33 Obstructive sleep apnea (adult) (pediatric); Z88.5 Allergy status to narcotic agent; Z88.8 Allergy status to other drugs, medicaments and biological substances; Z79.84 Long term (current) use of oral hypoglycemic drugs; Z79.899 Other long term (current) drug therapy

== ENCOUNTER → 2019-06-27 | Outpatient (CLI) | payer OTHER ==
[2019-06-27 17:29] LABS: BASO % 0.7 % (0.0-1.0); EOS # 0.1 10^3/uL (0.0-0.5); HEMOGLOBIN 12.9 g/dl (12.0-15.5); LYMPH # 2.8 10^3/uL (1.5-5.0); LYMPH % 62.4 % (24.0-44.0); MEAN CORPUSCULAR HEMOGLOBIN 29.9 pg (27.0-33.0); MEAN CORPUSCULAR HGB CONC 32.3 g/dl (32.0-36.5); MEAN CORPUSCULAR VOLUME 92.8 fl (80.0-96.0); MONO # 0.4 10^3/uL (0.0-0.8); NEUTROPHILS # 1.2 10^3/uL (1.5-8.5); NEUTROPHILS % 25.7 % (36.0-66.0); PLATELET COUNT, AUTOMATED 177 10^3/uL (150-450); RED BLOOD COUNT 4.31 10^6/uL (4.00-5.40); WHITE BLOOD COUNT 4.6 10^3/uL (4.0-10.0)
[2019-06-27 17:36] LABS: ALBUMIN 4.1 GM/DL (3.2-5.2); ALT/SGPT 26 U/L (12-78); BILIRUBIN,TOTAL 0.2 MG/DL (0.2-1.0); BLOOD UREA NITROGEN 19 MG/DL (7-18); CALCIUM LEVEL 8.2 MG/DL (8.8-10.2); CARBON DIOXIDE LEVEL 25 MEQ/L (21-32); CHLORIDE LEVEL 112 MEQ/L (98-107); CREATININE FOR GFR 0.82 MG/DL (0.55-1.30); GLOMERULAR FILTRATION RATE > 60.0 (>45); GLUCOSE, FASTING 87 MG/DL (70-100); SODIUM LEVEL 144 MEQ/L (136-145); TOTAL PROTEIN 7.5 GM/DL (6.4-8.2)
[2019-06-27 17:45] LABS: VITAMIN B12 LEVEL 572 PG/ML (247-911)
== END ==
LOC: M PLALAB 13:17
PROVIDERS: ATTEND Family Medicine
DX: K21.9 Gastro-esophageal reflux disease without esophagitis (principal); R73.01 Impaired fasting glucose

== ENCOUNTER → 2019-06-27 | Outpatient (REF) | payer OTHER ==
[~2019-06-27] MED LIST changes: -MONT10TA2; +MONT10TA4
== END ==
LOC: M SFHCPLAZ 13:12
PROVIDERS: ATTEND Family Medicine
DX: K21.9 Gastro-esophageal reflux disease without esophagitis (principal); R73.01 Impaired fasting glucose

== ENCOUNTER → 2019-08-18 | Outpatient (CLI) | payer OTHER ==
--- NOTE | 2019-08-20 03:42 | ECWPNPC ---
PATIENT NAME: MARICARMEN WHEATLEY : 1955 GENDER: FEMALE VISIT DATE: 08/18/2019 DISCHARGE DATE: 08/18/19 1115 VISIT LOCKED DATE TIME: PHYSICIAN: MALAIKA LARES PHYSICIAN PAGER NO: [phone] RESOURCE: MALAIKA LARES REASON FOR APPOINTMENT 1. [facility]-COCCYDYNIA HISTORY OF PRESENT ILLNESS HISTORY OF PRESENT ILLNESS: PAIN THE PATIENT DESCRIBES THE PAINDURING THE LAST MONTH SEVERITY - PAIN SCORE OF7/10 LOCATIONSLOWER BACK QUALITYTENDER DURATIONCONTINUOUS, CONSTANT, ALL DAY PAIN IS INCREASED BY:ACTIVITIES 64-YEAR-OLD FEMALE IN FOR CHRONIC PAIN FOLLOW-UP. SHE RATES HER PAIN CURRENTLY AT A 7 OUT OF 10 AND DESCRIBES IT TENDER. SHE FEELS MEDICATIONS ARE WORKING WELL AND DENIES MED SIDE EFFECTS AT THIS TIME. FALL RISK SCREENING: SCREENING :NO FALLS REPORTED IN THE LAST YEAR CURRENT MEDICATIONS TAKING VENTOLIN HFA 108 (90 BASE) MCG/ACT AEROSOL SOLUTION 2 PUFFS INHALATION EVERY 4 HOURS NEEDED FOR WHEEZING TAKING APRISO 0.375 GM CAPSULE EXTENDED RELEASE 24 HOUR 4 CAPSULES IN THE MORNING ORALLY ONCE A DAY TAKING ERGOCALCIFEROL [id number] UNIT CAPSULE 1 CAPSULE ORALLY EVERY 7 DAYS TAKING VITAMIN C OTC TABLET 1 TABLET ORALLY ONCE A DAY TAKING MULTIVITAMINS OTC TABLET 1 TAB(S) ORALLY ONCE A DAY TAKING CITALOPRAM HYDROBROMIDE 40 MG TABLET 1 TABLET ORALLY DAILY TAKING DIPHENHYDRAMINE HCL 50 MG TABLET 1 TABLET ORALLY AT BEDTIME TAKING MONTELUKAST SODIUM 10 MG TABLET 1 TABLET ORALLY AT BEDTIME TAKING VOLTAREN 1 % GEL 4 GM TRANSDERMAL QID B KNEES TAKING ONETOUCH DELICA LANCETS 33G - MISCELLANEOUS DIRECTED SUBCUTANEOUSLY DAILY TAKING METFORMIN HCL ER 500 MG TABLET EXTENDED RELEASE 24 HOUR 1 TAB ORALLY BEFORE DINNER TAKING CYANOCOBALAMIN 250 MCG TABLET 1 TABLET ORALLY ONCE A DAY TAKING CALCIUM 600 + D 600-400 MG-UNIT TABLET 1 TABLET ORALLY DAILY, NOTES: 06/04/2019 AM TAKING NEBULIZER/TUBING/MOUTHPIECE - KIT PT ONLY NEEDS TUBING AND MASK INH FOUR TIMES A DAY NEEDED DX:J45.22 TAKING ACETAMINOPHEN EXTRA STRENGTH 500 MG TABLET 2 TABLETS NEEDED ORALLY EVERY 6 HRS, NOTES: 06/04/2019 2100 TAKING ELECTRODES 2"X2"/REUSABLE - MISCELLANEOUS DIRECTED NEEDED WITH TENS MACHINE TAKING ALBUTEROL SULFATE (2.5 MG/3ML) 0.083% NEBULIZATION SOLUTION 3 ML INHALATION THREE TIMES A DAY, NOTES: PRN TAKING ONETOUCH VERIO - STRIP DIRECTED SUBCUTANEOUSLY DAILY TAKING HYDROXYZINE PAMOATE 25 MG CAPSULE 1 CAPSULE NEEDED ORALLY EVERY 8 HRS, NOTES: 06/05/2019 0900 TAKING LANSOPRAZOLE 30 MG CAPSULE DELAYED RELEASE 1 CAPSULE ORALLY BID TAKING ASTELIN 137 MCG/SPRAY SOLUTION INSTILL 1 SPRAY INTO EACH NOSTRIL 2 TIMES A DAY _ BID TAKING FAMOTIDINE 40 MG TABLET 1 TAB ORALLY AT BEDTIME TAKING NORCO 5-325 MG TABLET 1 TABLET NEEDED ORALLY EVERY 6 HRS PRN PAIN MDD=4 TAKING CELEXA 40 MG TABLET TAKE ONE TABLET BY MOUTH EVERY DAY TAKING LASIX 40 MG TABLET TAKE ONE TABLET BY MOUTH EVERY MORNING TAKING LORATADINE 10 MG TABLET 1 TABLET ORALLY ONCE A DAY TAKING FLONASE 50 MCG/DOSE INHALER 2 SPRAYS IN EACH NOSTRIL NASALLY ONCE A DAY TAKING LOSARTAN POTASSIUM 50 MG TABLET TAKE ONE TABLET BY MOUTH TWICE A DAY TAKING PREVACID 30 MG CAPSULE DELAYED RELEASE 1 CAPSULE ORALLY BID TAKING ESTRACE 0.1 MG/GM CREAM 0.5 GM VAGINAL WEEKLY NOT-TAKING GABAPENTIN 300 MG CAPSULE 1 CAPSULE ORALLY 2 CAPSULES THREE TIMES ADAY MEDICATION LIST REVIEWED AND RECONCILED WITH THE PATIENT PAST MEDICAL HISTORY HYPERLIPIDEMIA 2B IMPAIRED FASTING GLUCOSE GERD/HIATAL HERNIA- 07/27/16 EGD SMALL HH, MILD BILE GASTRITIS BY BIOPSY, DUODENITIS-BRYNN ASTHMA, MILD PERSISTENT MULTIPLE BILATERAL COMPLEX THYROID CYSTS ACUTE CRYPTITIS OF ALL RANDOM BIOPSIES, SUGGESTIVE OF IDIOPATHIC IBD BY COLONOSCOPY 01/2007-SELAM//RECTAL BIOPSY C MILD DIASSRAY C LP FIBROSIS BY 03/2017 COLON-W LUMBAR DJD-MULTILEVEL WITH DIFFUSE BULGES L1-L3 AND L5/S1 AND SEVERE CENTRAL CANAL STENOSIS L3-L4-BY MRI NOVEMBER 2010 HYPERTENSION, ESSENTIAL FIBROMYALGIA CHRONIC MDD/BLANCA URGE INCONTINENCE ALLERGIC RHINITIS-12/2011 NEGATIVE ZONE 1 ALLERGY PANEL VASOMOTOR SYMPTOMS 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 STOLL/L45 MOD BOROAD HNP C SEVERE L L4 NFN BY 01/2019 MRI GALA, MILD-07/04/07 NPSG AHI 8-UNABLE TO TOLERATE ANY CPAP MASK DIASTOLIC CHF-09/2014 TTE LVEF65%, DIASTOLIC DYSFUNCTION, ELEVATED CVP, MILD LAE 35 MM-ARRIETA B HIP OA, MILD R>L, PARTIAL L SUPERIOR LABRUM TEAR BY 10/2015 MRI CKD 3-08/2017 RENAL US: R KIDNEY ATROPHY (PREVIOUS PARTIAL NEPHRECTOMY 2 HYDRONEPHROSIS) S SIGNS OF UNIQUE KNEE OA, BILATERAL ALLERGIES LYRICA: EDEMA, SWELLING, ITCHING - ALLERGY ULTRACET: RASH - ALLERGY OMEPRAZOLE: RASH - ALLERGY ENVIRONMENTAL: SNEEZING, RUNNY NOSE, ITCHY EYES - ALLERGY SURGICAL HISTORY R HYPDRONEHOSIS SURGERY-[place] 1997 BREAST LEFT CYST 1998 HYSTERECTOMY 1979 TUBAL LIGATION 1977 GALL BLADDER B EYELID SURGERY-ROJAS 09/2012 BACK SURGERY 2013 RIGHT FOOT BUNIONECTOMY, REPAIR OF HAMMERTOES 04/04 EGD 07/18/16 L GSV RFA C STAB PHLEBECTOMY-MILLIE 11/05 L KNEE ARTHROSCOPIC-FISH 09/2018 FAMILY HISTORY FATHER: ALIVE, DDD,ARTHRITIS , EMPHYSEMA MOTHER: , [place],CHF,BLOOD CLOT IN THE LEG,HTN,BASAL CELL CARCINOMA AND VULVAR CARCINOMA, [place]ARKINSON, DIAGNOSED WITH OTHER SPECIFIED CONDITIONS INFLUENCING HEALTH STATUS, DIABETES DAUGHTER(S): SCOLIOSIS--HUMP UPPER BACK SEIZURES CHEST PAIN IRREGULAR HEART BEAT PATERNAL GRAND FATHER: [place] MATERNAL GRAND FATHER: STROKE MATERNAL GRAND MOTHER: BREAST CANCER AT AGE 70, OF CHF 3 BROTHER(S) - HEALTHY. 3 SON(S) , 1 DAUGHTER(S) . BROTHER FROM METASTATIC CANCER\\\\NBROTHER OA,FIBROMYAGIA\\\\NDAUGHTER HAS SEIZURE DISORDER, HEAD ACHES\\\\N\\\\N. SOCIAL HISTORY GENERAL: TOBACCO USE ARE YOU A:NONSMOKER HIV / HEP-C SCREENING HIV TEST OFFERED TO PATIENT:YES DATE OFFERED:08/24/2016 TEST ACCEPTED:NO HEP-C TEST OFFERED TO PATIENT:YES DATE OFFERED:08/24/2016 REASON:PATIENT DECLINED TEST ACCEPTED:NO REASON:PATIENT DECLINED OTHERS AT HOME: S/O. EDUCATION LEVEL OF EDUCATION:FINISHED COLLEGE DIET: REGULAR. LANGUAGE LANGUAGES SPOKEN:[place]TH KOREAN DOMESTIC VIOLENCE DO YOU FEEL SAFE IN YOUR ENVIRONMENT?YES BMI CARE GOAL FOLLOW-UP ABOVE NORMAL BMI FOLLOW-UPGIVING ENCOURAGEMENT TO EXERCISE RECREATIONAL DRUG USE DRUG USE?NO EXERCISE: PHYSICAL THERAPY AT HOME DAILY. LEARNING BARRIERS / SPECIAL NEEDS CHANGE FROM LAST VISIT?NO BARRIERS TO LEARNING?NO HEARING IMPAIRED?NO VISION IMPAIRED?YES COGNITIVELY IMPAIRED?NO :CORRECTIVE LENSES READING ONLY READINESS TO LEARN?YES LEARNING PREFERENCES?NO LEARNING CAPABILITIES PRESENT?YES EMOTIONAL BARRIERS?NO SPECIAL DEVICES?NO DETENTION ATTENDANT NEEDED?NO PAIN CLINIC PFS, CLERGY, PUBLIC HEALTH REFERRALS PFS REFERRAL NEEDED?NO CLERGY REFERRAL NEEDED?NO PUBLIC HEALTH REFERRAL NEEDED?NO WAS THE PROVIDER NOTIFIED OF ANY PERTINENT INFO? N/A HAS THE PATIENT BEEN EDUCATED REGARDING HIS/HER PLAN OF CARE?YES HAS THE PATIENT BEEN EDUCATED REGARDING PAIN, THE RISK FOR PAIN, THE IMPORTANCE OF EFFECTIVE PAIN MANAGEMENT, AND THE PAIN ASSESSMENT PROCESS?YES LATEX QUESTIONNAIRE LATEX ALLERGY : HAVE YOU EVER DEVELOPED ANY TYPE OF REACTION AFTER HANDLING LATEX PRODUCTS SUCH RUBBER GLOVES, CONDOMS, DIAPHRAGMS, BALLOONS, SOCKS, OR UNDERWEAR?NO LATEX ALLERGY : HAVE YOU EVER DEVELOPED ANY TYPE OF REACTION DURING OR AFTER DENTAL APPOINTMENT, VAGINAL/RECTAL EXAMINATION, SURGICAL PROCEDURE, OR ANY OTHER EXPOSURE?NO DATE ASKED : 03/26/2019 LATEX RISK : HAVE YOU EVER HAD ANY DIFFICULTY BREATHING OR HIVES AFTER EATING OR HANDLING ANY FRUITS, OR VEGETABLES; SUCH KIWI, BANANAS, STONE FRUITS, OR CHESTNUTSNO LATEX RISK : DO YOU HAVE A PREVIOUS PERSONAL HISTORY OF MORE THAN NINE SURGERIES, SPINA BIFIDA, OR REPEATED CATHERIZATIONS? YES - PLEASE INDICATE : > 9 SURGERIES LATEX RISK : ARE YOU FREQUENTLY EXPOSED TO LATEX PRODUCTS IN YOUR OCCUPATION?NO CAFFEINE CAFFEINE USE?YES 1-2 BEVERAGES DAILY ADVANCE DIRECTIVE ADVANCE DIRECTIVE DISCUSSED WITH PATIENT:YES HCP: BOYFRIEND - NASIM ALLEN [phone] JEW [id number] RELIGION MARITAL STATUS: .. ALCOHOL SCREENING DID YOU HAVE A DRINK CONTAINING ALCOHOL IN THE PAST YEAR?NO POINTS0 INTERPRETATIONNEGATIVE OCCUPATION: UNEMPLOYED. SEXUAL HX HAD SEX IN THE LAST 12 MONTHS (VAGINAL, ORAL, OR ANAL)?NO HAVE YOU EVER HAD AN STD?NO HOSPITALIZATION/MAJOR DIAGNOSTIC PROCEDURE SURGICAL, ABOVE REVIEW OF SYSTEMS REVIEWED BY: PROVIDER: SEBASTIAN NEWMAN-C . CONSTITUTIONAL: ANY CHANGE IN YOUR MEDICAL CONDITION? NO . CHILLS NO . FEVER NO . INFECTION: DO YOU HAVE NEW INFECTIONS? NO . DO YOU HAVE HISTORY OF MRSA? NO . MUSCULOSKELETAL: ANY NEW PATTERNS OF PAIN OR NUMBNESS? NO . GASTROENTEROLOGY: ANY NEW CHANGE IN BOWEL CONTROL? NO . GENITOURINARY: ANY NEW CHANGE IN BLADDER CONTROL? NO . IS THERE A CHANCE YOU COULD BE ? NO . HEMATOLOGY/LYMPH: DO YOU TAKE ANY BLOOD THINNERS? (FOR EXAMPLE- COUMADIN, PLAVIX, AGGRENOX, PLATEL, PRADAXA, OR XARELTO) NO . WHEN WAS YOUR LAST DOSE? DATE: TIME: . NEUROLOGY: HAVE YOU FALLEN IN THE PAST 12 MONTHS? NO . ANY NEW EXTREMITY NUMBNESS OR WEAKNESS? NO . CARDIOLOGY: DO YOU HAVE A PACEMAKER OR DEFIBRILLATOR? NO . RESPIRATORY: HAVE YOU BEEN SICK IN THE PAST WEEK? NO . FEVER NO . FLU LIKE SYMPTOMS? NO . COUGH NO . INTEGUMENTARY: DO YOU HAVE ANY RASHES OR OPEN SORES? NO . ALLERGIC/IMMUNO: ARE YOU ALLERGIC TO IV DYE? NO . ANY NEW ALLERGIES? NO . PSYCHIATRIC: DO YOU HAVE THOUGHTS OF HURTING YOURSELF OR SOMEONE ELSE? NO . ARE YOU ABUSED, NEGLECTED, OR IN AN UNSAFE ENVIRONMENT? NO . ENDOCRINOLOGY: ARE YOU DIABETIC? YES . OTHER: DO YOU NEED ANY PRESCRIPTIONS? NO . IF YES, PLEASE LIST: ____ . ANY NEW PROBLEMS WITH YOUR MEDICATIONS? NO . WHEN DID YOU LAST EAT? ____ . WHEN DID YOU LAST DRINK? ____ . WHAT DID YOU LAST DRINK? ____ . NAME OF PERSON DRIVING YOU HOME? ____ . DO YOU HAVE ANY OTHER QUESTIONS OR CONCERNS NO . VITAL SIGNS WT 241.8 LBS, HT 70 IN, BMI 34.69 INDEX, BP 142/62 MM HG, HR 84 /MIN, RR 18 /MIN, TEMP 98.0 F, OXYGEN SAT % 96%, SAFE IN ENV? (Y/N) YES, NA INITIALS AW 1029, REVIEWED BY: SYBIL GE LPN. EXAMINATION GENERAL EXAMINATION: GENERALNO ACUTE DISTRESS, WELL NOURISHED AND HYDRATED. PSYCHAPPROPRIATE MOOD AND AFFECT . LUNGS:CLEAR TO AUSCULTATION BILATERALLY, NO WHEEZES, RHONCHI, RALES. HEART:NO MURMURS, REGULAR RATE AND RHYTHM. BACK:POINT TENDER ALONG LUMBAR SPINE, STARTING SKIN SHOWS NO ERYTHEMA, ECCHYMOSIS, INCREASED WARMTH, AND/OR SKIN ERUPTIONS NOTED. . ASSESSMENTS INTERVERTEBRAL DISC DISORDER WITH RADICULOPATHY OF LUMBOSACRAL REGION - M51.17 (PRIMARY) TREATMENT INTERVERTEBRAL DISC DISORDER WITH RADICULOPATHY OF LUMBOSACRAL REGION NOTES: LESI L5-S1. CLINICAL NOTES: 64-YEAR-OLD FEMALE IN FOR CHRONIC PAIN FOLLOW-UP. GIVEN PRESENTING SYMPTOMS AND RESULTS OF PHYSICAL EXAMINATION RECOMMENDED LESI L5-S1 WITH POST PROCEDURAL FOLLOW-UP. PATIENT HAS EXPRESSED UNDERSTANDING OF AND WAS IN AGREEMENT WITH TREATMENT PLAN. GIVEN TIME TO ASK QUESTIONS AND EXPRESS CONCERNS., ISTOP REGISTRY REVIEWED AND DEMONSTRATES COMPLLIANCE. (REF # [id number] ) BRINGS IN MEDICATIONS WHICH IS APPROPRIATE FOR WHAT WAS DISPENSED. RECENT URINE TOXICOLOGY REVIEWED. NO UNAUTHORIZED MEDICATIONS. NO ILLICIT SUBSTANCES AND PRESCRIBED MEDICATIONS WERE PRESENT. PROCEDURE CODES [id number] ESTABILISHED PATIENT [facility] CHARGE DISPOSITION & COMMUNICATION FOLLOW UP POSTPROCEDURE (REASON: LESI L5-S1) ELECTRONICALLY SIGNED BY TRENT GALO ON 08/19/2019 AT 01:16 PM EDT DISCLAIMER : THIS IS A VISIT SUMMARY EXTRACTED FROM THE [employer] CHART. IT IS NOT A COPY OF THE [employer] PROGRESS NOTE. FRANK
== END ==
LOC: M PAIN 10:15
PROVIDERS: ATTEND Family Medicine
DX: M51.17 Intervertebral disc disorders with radiculopathy, lumbosacral region (principal); I11.0 Hypertensive heart disease with heart failure; R73.01 Impaired fasting glucose; I50.30 Unspecified diastolic (congestive) heart failure; Z79.84 Long term (current) use of oral hypoglycemic drugs; Z79.891 Long term (current) use of opiate analgesic; Z79.899 Other long term (current) drug therapy; Z88.8 Allergy status to other drugs, medicaments and biological substances

== ENCOUNTER → 2019-09-16 | Outpatient (CLI) | payer OTHER | LOC: M LABSMTC 12:03 | PROVIDERS: ATTEND Anesthesiology | DX: Z11.59 Encounter for screening for other viral diseases (principal) ==

== ENCOUNTER → 2019-09-18 | Outpatient (CLI) | payer OTHER ==
[~2019-09-18] MED LIST changes: +ISOVUE-M 300 61% 15ML VIAL As Ordered ONE; +LIDOCAINE 1% SDV 30ML VIAL As Ordered ONE; +dexameTHASONE 10MG/1ML VIAL PRES.FREE (J1100 PER 1MG) As Ordered ONE; +diazePAM 5 MG TAB As Ordered ONE; +oxyCODONE 5MG TAB As Ordered ONE
--- NOTE | 2019-09-18 11:12 | REP ---
C-ARM VIEWS LOWER LUMBAR SPINE: CLINICAL HISTORY: Pain . Three C-arm views of the lower lumbar spine performed during epidural injection performed by Dr. Higginbotham. A needle is seen at the L4-5 level. 8 seconds of fluoroscopy time is utilized. Electronically Signed by Ramírez Espino MD 09/18/2019 12:02 P
--- NOTE | 2019-09-24 00:51 | ECWPNPC ---
PATIENT NAME: MARICARMEN WHEATLEY : 1955 GENDER: FEMALE VISIT DATE: 09/18/2019 DISCHARGE DATE: 09/18/19 1020 VISIT LOCKED DATE TIME: PHYSICIAN: ARCADIO GLASS MD PHYSICIAN PAGER NO: [phone] RESOURCE: ARCADIO GLASS MD REASON FOR APPOINTMENT 1. LESI L4-L5 HISTORY OF PRESENT ILLNESS HISTORY OF PRESENT ILLNESS: PAIN THE PATIENT DESCRIBES THE PAIN... FALL RISK SCREENING: SCREENING :NO FALLS REPORTED IN THE LAST YEAR CURRENT MEDICATIONS TAKING VENTOLIN HFA 108 (90 BASE) MCG/ACT AEROSOL SOLUTION 2 PUFFS INHALATION EVERY 4 HOURS NEEDED FOR WHEEZING, NOTES: PRN TAKING APRISO 0.375 GM CAPSULE EXTENDED RELEASE 24 HOUR 4 CAPSULES IN THE MORNING ORALLY ONCE A DAY, NOTES: 09/17/2019 1800 TAKING VITAMIN C OTC TABLET 1 TABLET ORALLY ONCE A DAY, NOTES: 09/17/2019 0900 TAKING MULTIVITAMINS OTC TABLET 1 TAB(S) ORALLY ONCE A DAY, NOTES: 09/17/2019 0900 TAKING CITALOPRAM HYDROBROMIDE 40 MG TABLET 1 TABLET ORALLY DAILY, NOTES: 09/17/2019 1700 TAKING DIPHENHYDRAMINE HCL 50 MG TABLET 1 TABLET ORALLY AT BEDTIME, NOTES: 09/17/2019 HS TAKING MONTELUKAST SODIUM 10 MG TABLET 1 TABLET ORALLY AT BEDTIME, NOTES: 09/17/2019 0900 TAKING VOLTAREN 1 % GEL 4 GM TRANSDERMAL QID B KNEES, NOTES: PRN TAKING ONETOUCH DELICA LANCETS 33G - MISCELLANEOUS DIRECTED SUBCUTANEOUSLY DAILY TAKING METFORMIN HCL ER 500 MG TABLET EXTENDED RELEASE 24 HOUR 1 TAB ORALLY BEFORE DINNER, NOTES: 09/16/2019 1800 TAKING CYANOCOBALAMIN 250 MCG TABLET 1 TABLET ORALLY ONCE A DAY, NOTES: 09/17/2019 0900 TAKING CALCIUM 600 + D 600-400 MG-UNIT TABLET 1 TABLET ORALLY DAILY, NOTES: 09/17/2019 0900 TAKING NEBULIZER/TUBING/MOUTHPIECE - KIT PT ONLY NEEDS TUBING AND MASK INH FOUR TIMES A DAY NEEDED DX:J45.22 TAKING ACETAMINOPHEN EXTRA STRENGTH 500 MG TABLET 2 TABLETS NEEDED ORALLY EVERY 6 HRS, NOTES: PRN TAKING ELECTRODES 2"X2"/REUSABLE - MISCELLANEOUS DIRECTED NEEDED WITH TENS MACHINE TAKING ALBUTEROL SULFATE (2.5 MG/3ML) 0.083% NEBULIZATION SOLUTION 3 ML INHALATION THREE TIMES A DAY, NOTES: PRN TAKING ONETOUCH VERIO - STRIP DIRECTED SUBCUTANEOUSLY DAILY TAKING HYDROXYZINE PAMOATE 25 MG CAPSULE 1 CAPSULE NEEDED ORALLY EVERY 8 HRS, NOTES: 09/17/20192099 TAKING LANSOPRAZOLE 30 MG CAPSULE DELAYED RELEASE 1 CAPSULE ORALLY BID, NOTES: 09/17/2019 1700 TAKING ASTELIN 137 MCG/SPRAY SOLUTION INSTILL 1 SPRAY INTO EACH NOSTRIL 2 TIMES A DAY _ BID, NOTES: 09/17/20192099 TAKING FAMOTIDINE 40 MG TABLET 1 TAB ORALLY AT BEDTIME, NOTES: 09/17/20192099 TAKING CELEXA 40 MG TABLET TAKE ONE TABLET BY MOUTH EVERY DAY , NOTES: 09/17/20192099 TAKING LASIX 40 MG TABLET TAKE ONE TABLET BY MOUTH EVERY MORNING , NOTES: 09/17/2019899 TAKING LORATADINE 10 MG TABLET 1 TABLET ORALLY ONCE A DAY, NOTES: 09/17/2019899 TAKING FLONASE 50 MCG/DOSE INHALER 2 SPRAYS IN EACH NOSTRIL NASALLY ONCE A DAY, NOTES: 09/17/2019899 TAKING PREVACID 30 MG CAPSULE DELAYED RELEASE 1 CAPSULE ORALLY BID, NOTES: 09/17/20192099 TAKING ESTRACE 0.1 MG/GM CREAM 0.5 GM VAGINAL WEEKLY, NOTES: SUNDAY TAKING ERGOCALCIFEROL 80409 UNIT CAPSULE 1 CAPSULE ORALLY EVERY 7 DAYS, NOTES: 09/17/2019799 TAKING LOSARTAN POTASSIUM 50 MG TABLET TAKE ONE TABLET BY MOUTH TWICE A DAY , NOTES: 09/17/20192099 TAKING NORCO 5-325 MG TABLET 1 TABLET NEEDED ORALLY EVERY 6 HRS PRN PAIN MDD=4, NOTES: PRN NOT-TAKING GABAPENTIN 300 MG CAPSULE 1 CAPSULE ORALLY 2 CAPSULES THREE TIMES ADAY MEDICATION LIST REVIEWED AND RECONCILED WITH THE PATIENT PAST MEDICAL HISTORY HYPERLIPIDEMIA 2B IMPAIRED FASTING GLUCOSE GERD/HIATAL HERNIA- 07/27/16 EGD SMALL HH, MILD BILE GASTRITIS BY BIOPSY, DUODENITIS-BRYNN ASTHMA, MILD PERSISTENT MULTIPLE BILATERAL COMPLEX THYROID CYSTS ACUTE CRYPTITIS OF ALL RANDOM BIOPSIES, SUGGESTIVE OF IDIOPATHIC IBD BY COLONOSCOPY 01/2007-SELAM//RECTAL BIOPSY C MILD DIASSRAY C LP FIBROSIS BY 03/2017 COLON-W LUMBAR DJD-MULTILEVEL WITH DIFFUSE BULGES L1-L3 AND L5/S1 AND SEVERE CENTRAL CANAL STENOSIS L3-L4-BY MRI NOVEMBER 2010 HYPERTENSION, ESSENTIAL FIBROMYALGIA CHRONIC MDD/BLANCA URGE INCONTINENCE ALLERGIC RHINITIS-12/2011 NEGATIVE ZONE 1 ALLERGY PANEL VASOMOTOR SYMPTOMS 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 STOLL/L45 MOD BOROAD HNP C SEVERE L L4 NFN BY 01/2019 MRI GALA, MILD-07/04/07 NPSG AHI 8-UNABLE TO TOLERATE ANY CPAP MASK DIASTOLIC CHF-09/2014 TTE LVEF65%, DIASTOLIC DYSFUNCTION, ELEVATED CVP, MILD LAE 35 MM-ARRIETA B HIP OA, MILD R>L, PARTIAL L SUPERIOR LABRUM TEAR BY 10/2015 MRI CKD 3-08/2017 RENAL US: R KIDNEY ATROPHY (PREVIOUS PARTIAL NEPHRECTOMY 2 HYDRONEPHROSIS) S SIGNS OF UNIQUE KNEE OA, BILATERAL ALLERGIES LYRICA: EDEMA, SWELLING, ITCHING - ALLERGY ULTRACET: RASH - ALLERGY OMEPRAZOLE: RASH - ALLERGY ENVIRONMENTAL: SNEEZING, RUNNY NOSE, ITCHY EYES - ALLERGY SURGICAL HISTORY R HYPDRONEHOSIS SURGERY-[place] 1997 BREAST LEFT CYST 1998 HYSTERECTOMY 1979 TUBAL LIGATION 1977 GALL BLADDER B EYELID SURGERY-ROJAS 09/2012 BACK SURGERY 2013 RIGHT FOOT BUNIONECTOMY, REPAIR OF HAMMERTOES 04/04 EGD 07/18/16 L GSV RFA C STAB PHLEBECTOMY-MILLIE 11/05 L KNEE ARTHROSCOPIC-FISH 09/2018 FAMILY HISTORY FATHER: ALIVE, DDD,ARTHRITIS , EMPHYSEMA MOTHER: , [place],CHF,BLOOD CLOT IN THE LEG,HTN,BASAL CELL CARCINOMA AND VULVAR CARCINOMA, [place], DIAGNOSED WITH DIABETES, OTHER SPECIFIED CONDITIONS INFLUENCING HEALTH STATUS DAUGHTER(S): SCOLIOSIS--HUMP UPPER BACK SEIZURES CHEST PAIN IRREGULAR HEART BEAT PATERNAL GRAND FATHER: [place] MATERNAL GRAND FATHER: STROKE MATERNAL GRAND MOTHER: BREAST CANCER AT AGE 70, OF CHF 3 BROTHER(S) - HEALTHY. 3 SON(S) , 1 DAUGHTER(S) . BROTHER FROM METASTATIC CANCER\\\\NBROTHER OA,FIBROMYAGIA\\\\NDAUGHTER HAS SEIZURE DISORDER, HEAD ACHES\\\\N\\\\N. SOCIAL HISTORY GENERAL: TOBACCO USE ARE YOU A:NONSMOKER LATEX QUESTIONNAIRE LATEX ALLERGY : HAVE YOU EVER DEVELOPED ANY TYPE OF REACTION AFTER HANDLING LATEX PRODUCTS SUCH RUBBER GLOVES, CONDOMS, DIAPHRAGMS, BALLOONS, SOCKS, OR UNDERWEAR?NO LATEX ALLERGY : HAVE YOU EVER DEVELOPED ANY TYPE OF REACTION DURING OR AFTER DENTAL APPOINTMENT, VAGINAL/RECTAL EXAMINATION, SURGICAL PROCEDURE, OR ANY OTHER EXPOSURE?NO LATEX RISK : HAVE YOU EVER HAD ANY DIFFICULTY BREATHING OR HIVES AFTER EATING OR HANDLING ANY FRUITS, OR VEGETABLES; SUCH KIWI, BANANAS, STONE FRUITS, OR CHESTNUTSNO LATEX RISK : DO YOU HAVE A PREVIOUS PERSONAL HISTORY OF MORE THAN NINE SURGERIES, SPINA BIFIDA, OR REPEATED CATHERIZATIONS? YES - PLEASE INDICATE : > 9 SURGERIES LATEX RISK : ARE YOU FREQUENTLY EXPOSED TO LATEX PRODUCTS IN YOUR OCCUPATION?NO DATE ASKED : 09/17/2019 BMI CARE GOAL FOLLOW-UP ABOVE NORMAL BMI FOLLOW-UPGIVING ENCOURAGEMENT TO EXERCISE ALCOHOL SCREENING DID YOU HAVE A DRINK CONTAINING ALCOHOL IN THE PAST YEAR?NO POINTS0 INTERPRETATIONNEGATIVE RECREATIONAL DRUG USE DRUG USE?NO CAFFEINE CAFFEINE USE?YES 1-2 BEVERAGES DAILY SEXUAL HX HAD SEX IN THE LAST 12 MONTHS (VAGINAL, ORAL, OR ANAL)?NO HAVE YOU EVER HAD AN STD?NO HIV / HEP-C SCREENING HIV TEST OFFERED TO PATIENT:YES DATE OFFERED:08/24/2016 TEST ACCEPTED:NO HEP-C TEST OFFERED TO PATIENT:YES DATE OFFERED:08/24/2016 REASON:PATIENT DECLINED TEST ACCEPTED:NO REASON:PATIENT DECLINED ANABAPTIST [id number] JAIN LANGUAGE LANGUAGES SPOKEN:DIVEHI EDUCATION LEVEL OF EDUCATION:FINISHED COLLEGE LEARNING BARRIERS / SPECIAL NEEDS CHANGE FROM LAST VISIT?NO BARRIERS TO LEARNING?NO HEARING IMPAIRED?NO VISION IMPAIRED?YES COGNITIVELY IMPAIRED?NO :CORRECTIVE LENSES READING ONLY READINESS TO LEARN?YES LEARNING PREFERENCES?NO LEARNING CAPABILITIES PRESENT?YES EMOTIONAL BARRIERS?NO SPECIAL DEVICES?NO TEACHING MANAGER NEEDED?NO DOMESTIC VIOLENCE DO YOU FEEL SAFE IN YOUR ENVIRONMENT?YES OCCUPATION: UNEMPLOYED. DIET: REGULAR. EXERCISE: PHYSICAL THERAPY AT HOME DAILY. MARITAL STATUS: .. OTHERS AT HOME: S/O. NEW PATIENT PAIN DIARY TODAY'S VISIT 09/18/2019 PATIENT DESCRIBES PAIN :ACHING, IT COMES AND GOES, SHARP, THROBBING, SORE, SHOOTING FROM 0-10, WHAT LEVEL IS YOUR PAIN TODAY?7 PRECIPITATING FACTORS LIFTING AND MOVING PAIN CLINIC PFS, CLERGY, PUBLIC HEALTH REFERRALS PFS REFERRAL NEEDED?NO CLERGY REFERRAL NEEDED?NO PUBLIC HEALTH REFERRAL NEEDED?NO WAS THE PROVIDER NOTIFIED OF ANY PERTINENT INFO? N/A HAS THE PATIENT BEEN EDUCATED REGARDING HIS/HER PLAN OF CARE?YES HAS THE PATIENT BEEN EDUCATED REGARDING PAIN, THE RISK FOR PAIN, THE IMPORTANCE OF EFFECTIVE PAIN MANAGEMENT, AND THE PAIN ASSESSMENT PROCESS?YES ADVANCE DIRECTIVE ADVANCE DIRECTIVE DISCUSSED WITH PATIENT:YES HCP: BOYFRIEND - NASIM ALLEN [phone] HOSPITALIZATION/MAJOR DIAGNOSTIC PROCEDURE SURGICAL, ABOVE REVIEW OF SYSTEMS REVIEWED BY: PROVIDER: ARCADIO GLASS MD . CONSTITUTIONAL: ANY CHANGE IN YOUR MEDICAL CONDITION? NO . CHILLS NO . FEVER NO . INFECTION: DO YOU HAVE NEW INFECTIONS? NO . DO YOU HAVE HISTORY OF MRSA? NO . MUSCULOSKELETAL: ANY NEW PATTERNS OF PAIN OR NUMBNESS? NO . GASTROENTEROLOGY: ANY NEW CHANGE IN BOWEL CONTROL? NO . GENITOURINARY: ANY NEW CHANGE IN BLADDER CONTROL? NO . IS THERE A CHANCE YOU COULD BE ? NO . HEMATOLOGY/LYMPH: DO YOU TAKE ANY BLOOD THINNERS? (FOR EXAMPLE- COUMADIN, PLAVIX, AGGRENOX, PLATEL, PRADAXA, OR XARELTO) NO . WHEN WAS YOUR LAST DOSE? DATE: TIME: . NEUROLOGY: HAVE YOU FALLEN IN THE PAST 12 MONTHS? NO . ANY NEW EXTREMITY NUMBNESS OR WEAKNESS? NO . CARDIOLOGY: DO YOU HAVE A PACEMAKER OR DEFIBRILLATOR? NO . RESPIRATORY: HAVE YOU BEEN SICK IN THE PAST WEEK? NO . FEVER NO . FLU LIKE SYMPTOMS? NO . COUGH NO . INTEGUMENTARY: DO YOU HAVE ANY RASHES OR OPEN SORES? NO . ALLERGIC/IMMUNO: ARE YOU ALLERGIC TO IV DYE? NO . ANY NEW ALLERGIES? NO . PSYCHIATRIC: DO YOU HAVE THOUGHTS OF HURTING YOURSELF OR SOMEONE ELSE? NO . ARE YOU ABUSED, NEGLECTED, OR IN AN UNSAFE ENVIRONMENT? NO . ENDOCRINOLOGY: ARE YOU DIABETIC? YES . OTHER: DO YOU NEED ANY PRESCRIPTIONS? NO . IF YES, PLEASE LIST: ____ . ANY NEW PROBLEMS WITH YOUR MEDICATIONS? NO . WHEN DID YOU LAST EAT? 09/17/2019 1800 . WHEN DID YOU LAST DRINK? 09/18/2019 0700 . WHAT DID YOU LAST DRINK? WATER . NAME OF PERSON DRIVING YOU HOME? [facility] TRANSPORT . DO YOU HAVE ANY OTHER QUESTIONS OR CONCERNS NO . VITAL SIGNS WT 240.0 LBS, HT 70 IN, BMI 34.43 INDEX, BP 122/63 MM HG, HR 82 /MIN, RR 18 /MIN, TEMP 98.0 F, OXYGEN SAT % 94%, NA INITIALS AW 0845. ASSESSMENTS INTERVERTEBRAL DISC DISORDERS WITH RADICULOPATHY, LUMBAR REGION - M51.16 (PRIMARY) LOW BACK PAIN - M54.5 OTHER CHRONIC PAIN - G89.29 LUMBAR POST-LAMINECTOMY SYNDROME - M96.1 PROCEDURES PRE PROCEDURE DIAGNOSIS LUMBAR POST LAMINECTOMY PAIN SYNDROME, LUMBAR DISC DISORDER WITH RADICULOPATHY POST PROCEDURE DIAGNOSIS LUMBAR POST LAMINECTOMY PAIN SYNDROME, LUMBAR DISC DISORDER WITH RADICULOPATHY PROCEDURE LUMBAR EPIDURAL STEROID INJECTION UNDER FLUOROSCOPIC GUIDANCE SURGEON DR. ARCADIO GLASS DIRECTOR SPEECH AND HEARING NONE ANESTHESIA LOCAL PRE PROCEDURE NOTE THE PATIENT HAS A HISTORY OF CHRONIC LOW BACK PAIN. I EVALUATED THE PATIENT AND REVIEWED THE CHART. I WENT OVER THE RISKS, ALTERNATIVES, AND BENEFITS ASSOCIATED WITH THIS PROCEDURE. I DISCUSSED WITH THE PATIENT THAT THE USE OF STEROIDS MAY CONTRIBUTE TO IMMUNOSUPPRESSION OF HER BODY AGAINST INFECTIONS SUCH THE COLES VIRUS, COVID-19. SHE IS AWARE OF THE POTENTIAL COMPLICATIONS ASSOCIATED WITH AN INFECTION OF THIS VIRUS INCLUDING . THE PATIENT WOULD LIKE TO PROCEED AND GIVE CONSENT TO PERFORMED THE PROCEDURE. THE PATIENT DENIES UNEXPLAINABLE WEIGHT LOSS, FEVER, CHILLS, OR NEW CHANGES IN URINARY OR BOWEL CONTROL. THE PATIENT IS COVID-19 NEGATIVE DESCRIPTION OF PROCEDURE THE PATIENT WAS BROUGHT TO THE PROCEDURE ROOM AND PLACED IN THE PRONE POSITION. THE LUMBOSACRAL AREA WAS CLEANED WITH BETADINE SOLUTION AND DRAPED ASEPTICALLY. THE PROCEDURE WAS DONE UNDER STERILE CONDITIONS. I CHECKED LATERALITY AND THE LEVEL WHERE THE PROCEDURE WAS GOING TO BE PERFORMED WITH THE PATIENT AND THE SUPPORTING STAFF AT THE MOMENT OF THE TIME OUT IN THE PROCEDURE ROOM. UNDER FLUOROSCOPIC GUIDANCE, THE TARGET POINT WAS SELECTED AT THE INTERLAMINAR LEVEL OF L4-L5. LIDOCAINE WAS USED TO NUMB THE SKIN AND THE SUBCUTANEOUS TISSUE BELOW IT. EPIDURAL TUOHY NEEDLE, 17-GAUGE, WAS ADVANCED UNDER FLUOROSCOPIC GUIDANCE AND FOLLOWING PATIENT FEEDBACK UNTIL THE EPIDURAL SPACE WAS REACHED, 9 CM DEEP INTO THE SKIN BY THE LOSS OF RESISTANCE TECHNIQUE. ISOVUE M DYE 30%, 0.25 ML, WAS INJECTED SHOWING ADEQUATE SPREAD OF THE DYE. THEN, A SOLUTION OF 3 ML OF NORMAL SALINE WITH DEXAMETHASONE 10 MG WAS INJECTED SLOWLY FOLLOWING PATIENT FEEDBACK. THERE WAS NO EVIDENCE OF BLOOD, PARESTHESIA OR CEREBROSPINAL FLUID DURING THE PROCEDURE. THE PATIENT WAS SENT TO THE RECOVERY ROOM. THE PATIENT WAS MOVING THE EXTREMITIES AND DOING WELL. THERE WAS NO COMPLICATION DURING THE PROCEDURE. FLUOROSCOPY TIME WAS 8 SECONDS. POST PROCEDURE NOTE THE PATIENT WILL BE SEEN IN A FOLLOW UP IN THE NEXT FEW WEEKS. I AM LOOKING FOR LONG LASTING PAIN RELIEF FOR THE PATIENT WITH THIS INJECTION. INSTRUCTIONS WERE GIVEN, QUESTIONS WERE ANSWERED, AND THE PATIENT EXPRESSED UNDERSTANDING AND AGREES WITH THE PLAN. I INSTRUCTED THE PATIENT TO STAY HOME, IF POSSIBLE, FOR A WEEK DUE TO COVID-19. I, RAZA ROBLEDO, DOCUMENTED THE ABOVE INFORMATION ACTING A SCRIBE FOR DR. GLASS. I HAVE REVIEWED THE ABOVE DOCUMENT, WRITTEN BY RAZA ROBLEDO, SHOLAIBE, AND I VERIFY THAT IT IS [facility]UR[facility] DIAGNOSTIC IM[facility] FLUORO GUIDE SPINE INJECTION (PAIN)[id number] PROCEDURE CODES 6045F RADXPS IN END [id number] PXD [id number] LUMBAR/SACRAL W/ IMAGING DISPOSITION & COMMUNICATION FOLLOW UP F/UP [employer] PROFESSOR. 2 WEEKS (REASON: POST-PROCEDURE F/UP) ELECTRONICALLY SIGNED BY ARCADIO GLASS MD, MD ON 09/23/2019 AT 11:15 AM EDT DISCLAIMER : THIS IS A VISIT SUMMARY EXTRACTED FROM THE [employer] CHART. IT IS NOT A COPY OF THE [employer] PROGRESS NOTE. MTDD
== END ==
LOC: M PAIN 09:00
PROVIDERS: ATTEND Anesthesiology
DX: M51.16 Intervertebral disc disorders with radiculopathy, lumbar region (principal); M54.5 Low back pain; G89.29 Other chronic pain; M96.1 Postlaminectomy syndrome, not elsewhere classified; E11.9 Type 2 diabetes mellitus without complications; K21.9 Gastro-esophageal reflux disease without esophagitis; J45.30 Mild persistent asthma, uncomplicated; I10 Essential (primary) hypertension; M79.7 Fibromyalgia; G47.33 Obstructive sleep apnea (adult) (pediatric); Z88.5 Allergy status to narcotic agent; Z88.8 Allergy status to other drugs, medicaments and biological substances; Z79.84 Long term (current) use of oral hypoglycemic drugs; Z79.899 Other long term (current) drug therapy
CPT/HCPCS: 62323; J1100; Q9967

== ENCOUNTER → 2019-10-06 | Outpatient (CLI) | payer OTHER ==
[~2019-10-06] MED LIST changes: -ISOVUE-M 300 61% 15ML VIAL As Ordered ONE; -LIDOCAINE 1% SDV 30ML VIAL As Ordered ONE; -dexameTHASONE 10MG/1ML VIAL PRES.FREE (J1100 PER 1MG) As Ordered ONE; -diazePAM 5 MG TAB As Ordered ONE; -oxyCODONE 5MG TAB As Ordered ONE
--- NOTE | 2019-10-08 02:26 | ECWPNPC ---
PATIENT NAME: MARICARMEN WHEATLEY : 1955 GENDER: FEMALE VISIT DATE: 10/06/2019 DISCHARGE DATE: 10/06/19 1206 VISIT LOCKED DATE TIME: PHYSICIAN: MALAIKA LARES PHYSICIAN PAGER NO: [phone] RESOURCE: MALAIKA LARSE REASON FOR APPOINTMENT 1. POST LESI [phone] PHONE PAT CALL COMPLETED HISTORY OF PRESENT ILLNESS HISTORY OF PRESENT ILLNESS: PAIN THE PATIENT DESCRIBES THE PAIN... PERMISSION REQUESTED AND RECEIVED FROM PATIENT TO PERFORM TELEPHONE VISIT. 64-YEAR-OLD FEMALE IN FOR POST LESI FOLLOW-UP. SHE RATES HER PAIN PREPROCEDURE AT A 7 OUT OF 10 AND POSTPROCEDURE AT A 5 OUT OF 10 FURTHER STATING THAT HER PAIN CONTINUES TO DECREASE AND THAT THE PAIN IN HER RIGHT LEG AND BUTTOCK HAS RESOLVED. SHE FEELS HER MEDICATIONS ARE WORKING WELL AND DENIES MED SIDE EFFECTS AT THIS TIME. FALL RISK SCREENING: SCREENING :NO FALLS REPORTED IN THE LAST YEAR CURRENT MEDICATIONS TAKING VENTOLIN HFA 108 (90 BASE) MCG/ACT AEROSOL SOLUTION 2 PUFFS INHALATION EVERY 4 HOURS NEEDED FOR WHEEZING, NOTES: PRN TAKING VITAMIN C OTC TABLET 1 TABLET ORALLY ONCE A DAY, NOTES: 09/17/2019 0900 TAKING MULTIVITAMINS OTC TABLET 1 TAB(S) ORALLY ONCE A DAY, NOTES: 09/17/2019 09 TAKING CITALOPRAM HYDROBROMIDE 40 MG TABLET 1 TABLET ORALLY DAILY, NOTES: 09/17/2019 1700 TAKING DIPHENHYDRAMINE HCL 50 MG TABLET 1 TABLET ORALLY AT BEDTIME, NOTES: 09/17/2019 HS TAKING MONTELUKAST SODIUM 10 MG TABLET 1 TABLET ORALLY AT BEDTIME, NOTES: 09/17/2019 09 TAKING VOLTAREN 1 % GEL 4 GM TRANSDERMAL QID B KNEES, NOTES: PRN TAKING ONETOUCH DELICA LANCETS 33G - MISCELLANEOUS DIRECTED SUBCUTANEOUSLY DAILY TAKING METFORMIN HCL ER 500 MG TABLET EXTENDED RELEASE 24 HOUR 1 TAB ORALLY BEFORE DINNER, NOTES: 09/16/2019 1800 TAKING CYANOCOBALAMIN 250 MCG TABLET 1 TABLET ORALLY ONCE A DAY, NOTES: 09/17/2019 09 TAKING CALCIUM 600 + D 600-400 MG-UNIT TABLET 1 TABLET ORALLY DAILY, NOTES: 09/17/2019 09 TAKING NEBULIZER/TUBING/MOUTHPIECE - KIT PT ONLY NEEDS TUBING AND MASK INH FOUR TIMES A DAY NEEDED DX:J45.22 TAKING ACETAMINOPHEN EXTRA STRENGTH 500 MG TABLET 2 TABLETS NEEDED ORALLY EVERY 6 HRS, NOTES: PRN TAKING ELECTRODES 2"X2"/REUSABLE - MISCELLANEOUS DIRECTED NEEDED WITH TENS MACHINE TAKING ALBUTEROL SULFATE (2.5 MG/3ML) 0.083% NEBULIZATION SOLUTION 3 ML INHALATION THREE TIMES A DAY, NOTES: PRN TAKING ONETOUCH VERIO - STRIP DIRECTED SUBCUTANEOUSLY DAILY TAKING HYDROXYZINE PAMOATE 25 MG CAPSULE 1 CAPSULE NEEDED ORALLY EVERY 8 HRS, NOTES: 09/17/20192099 TAKING LANSOPRAZOLE 30 MG CAPSULE DELAYED RELEASE 1 CAPSULE ORALLY BID, NOTES: 09/17/20191699 TAKING ASTELIN 137 MCG/SPRAY SOLUTION INSTILL 1 SPRAY INTO EACH NOSTRIL 2 TIMES A DAY _ BID, NOTES: 09/17/20192099 TAKING FAMOTIDINE 40 MG TABLET 1 TAB ORALLY AT BEDTIME, NOTES: 09/17/20192099 TAKING CELEXA 40 MG TABLET TAKE ONE TABLET BY MOUTH EVERY DAY , NOTES: 09/17/20192099 TAKING LORATADINE 10 MG TABLET 1 TABLET ORALLY ONCE A DAY, NOTES: 09/17/2019899 TAKING FLONASE 50 MCG/DOSE INHALER 2 SPRAYS IN EACH NOSTRIL NASALLY ONCE A DAY, NOTES: 09/17/2019899 TAKING PREVACID 30 MG CAPSULE DELAYED RELEASE 1 CAPSULE ORALLY BID, NOTES: 09/17/20192099 TAKING ESTRACE 0.1 MG/GM CREAM 0.5 GM VAGINAL WEEKLY, NOTES: SUNDAY TAKING ERGOCALCIFEROL 71814 UNIT CAPSULE 1 CAPSULE ORALLY EVERY 7 DAYS, NOTES: 09/17/2019 08 TAKING LOSARTAN POTASSIUM 50 MG TABLET TAKE ONE TABLET BY MOUTH TWICE A DAY , NOTES: 09/17/20192099 TAKING NORCO 5-325 MG TABLET 1 TABLET NEEDED ORALLY EVERY 6 HRS PRN PAIN MDD=4, NOTES: PRN TAKING APRISO 0.375 GM CAPSULE EXTENDED RELEASE 24 HOUR 4 CAPSULES IN THE MORNING ORALLY ONCE A DAY TAKING LASIX 40 MG TABLET TAKE ONE TABLET BY MOUTH EVERY MORNING NOT-TAKING GABAPENTIN 300 MG CAPSULE 1 CAPSULE ORALLY 2 CAPSULES THREE TIMES ADAY MEDICATION LIST REVIEWED AND RECONCILED WITH THE PATIENT PAST MEDICAL HISTORY HYPERLIPIDEMIA 2B IMPAIRED FASTING GLUCOSE GERD/HIATAL HERNIA- 07/27/16 EGD SMALL HH, MILD BILE GASTRITIS BY BIOPSY, DUODENITIS-BRYNN ASTHMA, MILD PERSISTENT MULTIPLE BILATERAL COMPLEX THYROID CYSTS ACUTE CRYPTITIS OF ALL RANDOM BIOPSIES, SUGGESTIVE OF IDIOPATHIC IBD BY COLONOSCOPY 01/2007-SELAM//RECTAL BIOPSY C MILD DIASSRAY C LP FIBROSIS BY 03/2017 COLON-W LUMBAR DJD-MULTILEVEL WITH DIFFUSE BULGES L1-L3 AND L5/S1 AND SEVERE CENTRAL CANAL STENOSIS L3-L4-BY MRI NOVEMBER 2010 HYPERTENSION, ESSENTIAL FIBROMYALGIA CHRONIC MDD/BLANCA URGE INCONTINENCE ALLERGIC RHINITIS-12/2011 NEGATIVE ZONE 1 ALLERGY PANEL VASOMOTOR SYMPTOMS 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 STOLL/L45 MOD BOROAD HNP C SEVERE L L4 NFN BY 01/2019 MRI GALA, MILD-07/04/07 NPSG AHI 8-UNABLE TO TOLERATE ANY CPAP MASK DIASTOLIC CHF-09/2014 TTE LVEF65%, DIASTOLIC DYSFUNCTION, ELEVATED CVP, MILD LAE 35 MM-ARRIETA B HIP OA, MILD R>L, PARTIAL L SUPERIOR LABRUM TEAR BY 10/2015 MRI CKD 3-08/2017 RENAL US: R KIDNEY ATROPHY (PREVIOUS PARTIAL NEPHRECTOMY 2 HYDRONEPHROSIS) S SIGNS OF UNIQUE KNEE OA, BILATERAL ALLERGIES LYRICA: EDEMA, SWELLING, ITCHING - ALLERGY ULTRACET: RASH - ALLERGY OMEPRAZOLE: RASH - ALLERGY ENVIRONMENTAL: SNEEZING, RUNNY NOSE, ITCHY EYES - ALLERGY SURGICAL HISTORY R HYPDRONEHOSIS SURGERY-[place] 1997 BREAST LEFT CYST 1998 HYSTERECTOMY 1979 TUBAL LIGATION 1977 GALL BLADDER B EYELID SURGERY-ROJAS 09/2012 BACK SURGERY 2013 RIGHT FOOT BUNIONECTOMY, REPAIR OF HAMMERTOES 04/04 EGD 07/18/16 L GSV RFA C STAB PHLEBECTOMY-MILLIE 11/05 L KNEE ARTHROSCOPIC-FISH 09/2018 FAMILY HISTORY FATHER: ALIVE, DDD,ARTHRITIS , EMPHYSEMA MOTHER: , MO,CHF,BLOOD CLOT IN THE LEG,HTN,BASAL CELL CARCINOMA AND VULVAR CARCINOMA, [place], DIAGNOSED WITH DIABETES, OTHER SPECIFIED CONDITIONS INFLUENCING HEALTH STATUS DAUGHTER(S): SCOLIOSIS--HUMP UPPER BACK SEIZURES CHEST PAIN IRREGULAR HEART BEAT PATERNAL GRAND FATHER: MO MATERNAL GRAND FATHER: STROKE MATERNAL GRAND MOTHER: BREAST CANCER AT AGE 70, OF CHF 3 BROTHER(S) - HEALTHY. 3 SON(S) , 1 DAUGHTER(S) . BROTHER FROM METASTATIC CANCER\\\\NBROTHER OA,FIBROMYAGIA\\\\NDAUGHTER HAS SEIZURE DISORDER, HEAD ACHES\\\\N\\\\N. SOCIAL HISTORY GENERAL: TOBACCO USE ARE YOU A:NONSMOKER LATEX QUESTIONNAIRE LATEX ALLERGY : HAVE YOU EVER DEVELOPED ANY TYPE OF REACTION AFTER HANDLING LATEX PRODUCTS SUCH RUBBER GLOVES, CONDOMS, DIAPHRAGMS, BALLOONS, SOCKS, OR UNDERWEAR?NO LATEX ALLERGY : HAVE YOU EVER DEVELOPED ANY TYPE OF REACTION DURING OR AFTER DENTAL APPOINTMENT, VAGINAL/RECTAL EXAMINATION, SURGICAL PROCEDURE, OR ANY OTHER EXPOSURE?NO DATE ASKED : 09/17/2019 LATEX RISK : HAVE YOU EVER HAD ANY DIFFICULTY BREATHING OR HIVES AFTER EATING OR HANDLING ANY FRUITS, OR VEGETABLES; SUCH KIWI, BANANAS, STONE FRUITS, OR CHESTNUTSNO LATEX RISK : DO YOU HAVE A PREVIOUS PERSONAL HISTORY OF MORE THAN NINE SURGERIES, SPINA BIFIDA, OR REPEATED CATHERIZATIONS? YES - PLEASE INDICATE : > 9 SURGERIES LATEX RISK : ARE YOU FREQUENTLY EXPOSED TO LATEX PRODUCTS IN YOUR OCCUPATION?NO BMI CARE GOAL FOLLOW-UP ABOVE NORMAL BMI FOLLOW-UPGIVING ENCOURAGEMENT TO EXERCISE ALCOHOL SCREENING DID YOU HAVE A DRINK CONTAINING ALCOHOL IN THE PAST YEAR?NO POINTS0 INTERPRETATIONNEGATIVE RECREATIONAL DRUG USE DRUG USE?NO CAFFEINE CAFFEINE USE?YES 1-2 BEVERAGES DAILY SEXUAL HX HAD SEX IN THE LAST 12 MONTHS (VAGINAL, ORAL, OR ANAL)?NO HAVE YOU EVER HAD AN STD?NO HIV / HEP-C SCREENING HIV TEST OFFERED TO PATIENT:YES DATE OFFERED:08/24/2016 TEST ACCEPTED:NO HEP-C TEST OFFERED TO PATIENT:YES DATE OFFERED:08/24/2016 REASON:PATIENT DECLINED TEST ACCEPTED:NO REASON:PATIENT DECLINED [employer] [id number] [employer] LANGUAGE LANGUAGES SPOKEN:KOREAN EDUCATION LEVEL OF EDUCATION:FINISHED COLLEGE LEARNING BARRIERS / SPECIAL NEEDS CHANGE FROM LAST VISIT?NO BARRIERS TO LEARNING?NO HEARING IMPAIRED?NO VISION IMPAIRED?YES COGNITIVELY IMPAIRED?NO :CORRECTIVE LENSES READING ONLY READINESS TO LEARN?YES LEARNING PREFERENCES?NO LEARNING CAPABILITIES PRESENT?YES EMOTIONAL BARRIERS?NO SPECIAL DEVICES?NO COUNTER SALES REPRESENTATIVE NEEDED?NO DOMESTIC VIOLENCE DO YOU FEEL SAFE IN YOUR ENVIRONMENT?YES OCCUPATION: UNEMPLOYED. DIET: REGULAR. EXERCISE: PHYSICAL THERAPY AT HOME DAILY. MARITAL STATUS: .. OTHERS AT HOME: S/O. NEW PATIENT PAIN DIARY TODAY'S VISIT 10/03/19 PATIENT DESCRIBES PAIN :IT COMES AND GOES, TENDER, SORE FROM 0-10, WHAT LEVEL IS YOUR PAIN TODAY?5 PRECIPITATING FACTORS SITTING ON THE AREA TOO LONG OR LAYING ON IT, UNABLE TO LAY ON BACK, WAKES FROM SLEEP ALLEVIATING FACTORS CHANGING POSITION, HEATING PAD PAIN CLINIC PFS, CLERGY, PUBLIC HEALTH REFERRALS PFS REFERRAL NEEDED?NO CLERGY REFERRAL NEEDED?NO PUBLIC HEALTH REFERRAL NEEDED?NO WAS THE PROVIDER NOTIFIED OF ANY PERTINENT INFO? N/A HAS THE PATIENT BEEN EDUCATED REGARDING HIS/HER PLAN OF CARE?YES HAS THE PATIENT BEEN EDUCATED REGARDING PAIN, THE RISK FOR PAIN, THE IMPORTANCE OF EFFECTIVE PAIN MANAGEMENT, AND THE PAIN ASSESSMENT PROCESS?YES ADVANCE DIRECTIVE ADVANCE DIRECTIVE DISCUSSED WITH PATIENT:YES HCP: BOYFRIEND - NASIM ALLEN [phone] HOSPITALIZATION/MAJOR DIAGNOSTIC PROCEDURE SURGICAL, ABOVE REVIEW OF SYSTEMS REVIEWED BY: PROVIDER: SEBASTIAN LARES STONE BANKER-C . CONSTITUTIONAL: ANY CHANGE IN YOUR MEDICAL CONDITION? NO . CHILLS NO . FEVER NO . INFECTION: DO YOU HAVE NEW INFECTIONS? NO . DO YOU HAVE HISTORY OF MRSA? NO . MUSCULOSKELETAL: ANY NEW PATTERNS OF PAIN OR NUMBNESS? NO . GASTROENTEROLOGY: ANY NEW CHANGE IN BOWEL CONTROL? NO . GENITOURINARY: ANY NEW CHANGE IN BLADDER CONTROL? NO . IS THERE A CHANCE YOU COULD BE ? NO . HEMATOLOGY/LYMPH: DO YOU TAKE ANY BLOOD THINNERS? (FOR EXAMPLE- COUMADIN, PLAVIX, AGGRENOX, PLATEL, PRADAXA, OR XARELTO) NO . WHEN WAS YOUR LAST DOSE? DATE: TIME: . NEUROLOGY: HAVE YOU FALLEN IN THE PAST 12 MONTHS? NO . ANY NEW EXTREMITY NUMBNESS OR WEAKNESS? NO . CARDIOLOGY: DO YOU HAVE A PACEMAKER OR DEFIBRILLATOR? NO . RESPIRATORY: HAVE YOU BEEN SICK IN THE PAST WEEK? NO . FEVER NO . FLU LIKE SYMPTOMS? NO . COUGH NO . INTEGUMENTARY: DO YOU HAVE ANY RASHES OR OPEN SORES? NO . ALLERGIC/IMMUNO: ARE YOU ALLERGIC TO IV DYE? NO . ANY NEW ALLERGIES? NO . PSYCHIATRIC: DO YOU HAVE THOUGHTS OF HURTING YOURSELF OR SOMEONE ELSE? NO . ARE YOU ABUSED, NEGLECTED, OR IN AN UNSAFE ENVIRONMENT? NO . ENDOCRINOLOGY: ARE YOU DIABETIC? YES . OTHER: DO YOU NEED ANY PRESCRIPTIONS? NO . IF YES, PLEASE LIST: ____ . ANY NEW PROBLEMS WITH YOUR MEDICATIONS? NO . WHEN DID YOU LAST EAT? ____ . WHEN DID YOU LAST DRINK? ____ . WHAT DID YOU LAST DRINK? ____ . NAME OF PERSON DRIVING YOU HOME? ____ . DO YOU HAVE ANY OTHER QUESTIONS OR CONCERNS PT REPORTS THAT SINCE THE INJECTION, THE PAIN GOING DOWN THE BACK OF HER LEG HAS STOPPED, BUT STILL HAS PAIN IN LOW BACK WHERE INJECTION WAS. . EXAMINATION GENERAL EXAMINATION: PSYCHAPPROPRIATE MOOD AND AFFECT , ORIENTED X 3. ASSESSMENTS INTERVERTEBRAL DISC DISORDER WITH RADICULOPATHY OF LUMBAR REGION - M51.16 (PRIMARY) TREATMENT INTERVERTEBRAL DISC DISORDER WITH RADICULOPATHY OF LUMBAR REGION CLINICAL NOTES: 64-YEAR-OLD FEMALE IN FOR POST LESI FOLLOW-UP. GIVEN PRESENTING SYMPTOMS RECOMMEND FOLLOW-UP IN CLINIC IN 2 MONTHS. PATIENT HAS EXPRESSED UNDERSTANDING OF AND WAS IN AGREEMENT WITH TREATMENT PLAN. GIVEN TIME TO ASK QUESTIONS AND EXPRESS CONCERNS. VISIT TO BE BILLED BASED ON TIME SPENT WITH PATIENT. TIME SPENT WITH PATIENT 11 MINUTES. OTHERS NOTES: NO VITAL SIGNS TAKEN, THIS IS A PHONE VISIT. DISPOSITION & COMMUNICATION FOLLOW UP 2 MONTHS (REASON: BACK PAIN) ELECTRONICALLY SIGNED BY TRENT GALO ON 10/07/2019 AT 08:16 AM EDT DISCLAIMER : THIS IS A VISIT SUMMARY EXTRACTED FROM THE [facility] CHART. IT IS NOT A COPY OF THE [facility] PROGRESS NOTE. FRANK
== END ==
LOC: M PAIN 11:00
PROVIDERS: ATTEND Family Medicine
DX: M51.16 Intervertebral disc disorders with radiculopathy, lumbar region (principal); E11.9 Type 2 diabetes mellitus without complications; K21.9 Gastro-esophageal reflux disease without esophagitis; J45.30 Mild persistent asthma, uncomplicated; I10 Essential (primary) hypertension; M79.7 Fibromyalgia; G47.33 Obstructive sleep apnea (adult) (pediatric); Z88.5 Allergy status to narcotic agent; Z88.8 Allergy status to other drugs, medicaments and biological substances; Z79.84 Long term (current) use of oral hypoglycemic drugs; Z79.899 Other long term (current) drug therapy

== ENCOUNTER → 2019-11-14 | Outpatient (REF) | payer OTHER ==
[2019-11-14 14:55] LABS: BASO % 0.5 % (0.0-1.0); EOS # 0.2 10^3/uL (0.0-0.5); EOS % 2.4 % (0.0-3.0); HEMATOCRIT 36.8 % (36.0-47.0); HEMOGLOBIN 11.9 g/dl (12.0-15.5); LYMPH # 2.8 10^3/uL (1.5-5.0); MEAN CORPUSCULAR HGB CONC 32.3 g/dl (32.0-36.5); MEAN CORPUSCULAR VOLUME 89.5 fl (80.0-96.0); MONO # 0.5 10^3/uL (0.0-0.8); MONO % 7.2 % (0.0-5.0); NEUTROPHILS # 3.1 10^3/uL (1.5-8.5); NEUTROPHILS % 47.3 % (36.0-66.0); PLATELET COUNT, AUTOMATED 198 10^3/uL (150-450); RED BLOOD COUNT 4.11 10^6/uL (4.00-5.40); WHITE BLOOD COUNT 6.6 10^3/uL (4.0-10.0)
[2019-11-14 15:12] LABS: ALBUMIN 3.7 GM/DL (3.2-5.2); ALT/SGPT 20 U/L (12-78); BILIRUBIN,TOTAL 0.4 MG/DL (0.2-1.0); BLOOD UREA NITROGEN 18 MG/DL (7-18); CALCIUM LEVEL 8.9 MG/DL (8.8-10.2); CARBON DIOXIDE LEVEL 28 MEQ/L (21-32); CHLORIDE LEVEL 111 MEQ/L (98-107); CREATININE FOR GFR 0.83 MG/DL (0.55-1.30); GLOMERULAR FILTRATION RATE > 60.0 (>45); GLUCOSE, FASTING 72 MG/DL (70-100); POTASSIUM SERUM 4.4 MEQ/L (3.5-5.1); SODIUM LEVEL 144 MEQ/L (136-145); TOTAL PROTEIN 7.1 GM/DL (6.4-8.2)
[2019-11-14 15:27] LABS: HEMOGLOBIN A1c 5.7 %
== END ==
LOC: M SFHCPLAZ 13:05
PROVIDERS: ATTEND Family Medicine
DX: R73.01 Impaired fasting glucose (principal); I10 Essential (primary) hypertension

== ENCOUNTER → 2019-11-18 | Outpatient (CLI) | payer OTHER ==
--- NOTE | 2019-11-18 15:43 | REPMRS ---
Patient History The patient states she had a clinical breast exam in October 2019.Family history of breast cancer under age 50 in maternal grandmother. Benign lumpectomy of the left breast, 2005. Took estrogen for 7 years. Digital Woman Screen Mammo: November 18, 2019 - Exam #: [id number] Bilateral CC and MLO view(s) were taken. Technologist: Salud Spain, Technologist Prior study comparison: November 15, 2018, bilateral digital woman screen mammo performed at [facility]. November 15, 2017, bilateral digital woman screen mammo performed at [facility]. October 19, 2016, digital woman screen mammo performed at [facility]. FINDINGS: The breast tissue is almost entirely fat. The Volpara volumetric breast density category is: A. There has been no change in the appearance of the mammogram from the prior studies. There is no interval development of dominant mass, architectural distortion, or grouped microcalcification typical of malignancy. 3-D tomosynthesis shows no additional findings. Assessment: BI-RADS/ACR category 1 mammogram. Negative Mammogram. Recommendation Routine screening mammogram of both breasts in 1 year (for women over age 40). This patient's Lifetime Breast Cancer RIsk is estimated at 7.3 %. This mammogram was interpreted with the aid of an FDA-approved computer-aided dectection system. Electronically Signed By: Leland Rocha MD 11/18/19 [id number]
== END ==
LOC: M WHC 13:53
PROVIDERS: ATTEND Family Medicine
DX: Z12.31 Encounter for screening mammogram for malignant neoplasm of breast (principal); Z80.3 Family history of malignant neoplasm of breast

== ENCOUNTER → 2019-12-08 | Outpatient (CLI) | payer OTHER ==
[~2019-12-08] MED LIST changes: +ASCO250T20 PO; -VITA1TAB23 PO
--- NOTE | 2019-12-10 03:52 | ECWPNPC ---
PATIENT NAME: MARICARMEN WHEATLEY : 1955 GENDER: FEMALE VISIT DATE: 12/08/2019 DISCHARGE DATE: 12/08/19939 VISIT LOCKED DATE TIME: PHYSICIAN: MALAIKA LARES PHYSICIAN PAGER NO: [phone] RESOURCE: MALAIKA LARES REASON FOR APPOINTMENT 1. [phone] 2 MO FOLLOW UP BACK PAIN HISTORY OF PRESENT ILLNESS GENERAL: - 64-YEAR-OLD FEMALE IN FOR CHRONIC PAIN FOLLOW-UP. SHE RATES HER PAIN CURRENTLY AT A 6 OUT OF 10 AND DESCRIBES IT ACHING, CONTINUOUS, AND SHARP. SHE FEELS HER MEDICATIONS ARE HELPFUL. PATIENT DOES ADMIT TO INCREASED PAIN SUCH WE WILL DISCUSS REPEAT PROCEDURES TODAY. FALL RISK SCREENING: SCREENING :NO FALLS REPORTED IN THE LAST YEAR PAIN SCREENING: PATIENT HAS A COMPLAINT OF ACUTE OR CHRONIC PAIN :YES LOCATION OF PAIN:LOW BACK INTENSITY OF PAIN (SCALE OF 1 TO 10):6 WHAT DOES YOUR PAIN FEEL LIKE:ACHING, CONTINOUS, SHARP DURATION:CONTINOUS, CONSTANT, ALL DAY PAIN IS INCREASED BY:ACTIVITIES, PROLONGED STANDING, OTHERS PROLONG SITTING PAIN IS DECREASED BY:USE OF PAIN MEDICATIONS EXTRA STRENGTH TYLENOL PAIN HAS INTERFERED WITH THE FOLLOWING:MOOD, HOUSEWORK, RELATIONSHIP WITH OTHERS, ENJOYMENT OF LIFE PLAN/GOALS/TREATMENT/INTERVENTION/FOLLOW UP:SEE PLAN NURSING NOTE: -. PAIN CENTER INTAKE QUESTIONS: DO YOU HAVE A HISTORY OF MRSA? :NO DO YOU TAKE A BLOOD THINNERS? :NO DO YOU HAVE ANY BLEEDING DISORDERS? :NO ANY NEW NUMBNESS OR WEAKNESS IN YOUR LEGS OR ARMS? :NO ANY PACEMAKER,DEFIBRILLATOR, OR DORSAL COLUMN STIMULATOR? :NO DO YOU HAVE ANY RASHES OR OPEN SORES? :NO ARE YOU ALLERGIC TO IV DYE? :NO ARE YOU DIABETIC? :YES BORDER LINE ANY NEW PROBLEMS WITH YOUR MEDICATIONS? :NO HAVE YOU RECEIVED A VACCINE IN THE PAST 30 DAYS? :NO DO YOU PLAN TO RECEIVE A VACCINE IN THE NEXT 21 DAYS? :NO DO YOU NEED ANY PRESCRIPTION? :NO DO YOU TAKE ANY IMMUNOSUPPRESSIVE MEDICATIONS? :NO IS THERE A CHANCE YOU COULD BE ? :NO ARE YOU BREAST FEEDING? :NO CURRENT MEDICATIONS TAKING CALCIUM 600 + D 600-400 MG-UNIT TABLET 1 TABLET ORALLY DAILY, NOTES: 09/17/2019 0900 TAKING NEBULIZER/TUBING/MOUTHPIECE - KIT PT ONLY NEEDS TUBING AND MASK INH FOUR TIMES A DAY NEEDED DX:Barry45.22 TAKING ACETAMINOPHEN EXTRA STRENGTH 500 MG TABLET 2 TABLETS NEEDED ORALLY EVERY 6 HRS, NOTES: PRN TAKING ELECTRODES 2"X2"/REUSABLE - MISCELLANEOUS DIRECTED NEEDED WITH TENS MACHINE TAKING ALBUTEROL SULFATE (2.5 MG/3ML) 0.083% NEBULIZATION SOLUTION 3 ML INHALATION THREE TIMES A DAY, NOTES: PRN TAKING ONETOUCH VERIO - STRIP DIRECTED SUBCUTANEOUSLY DAILY TAKING CELEXA 40 MG TABLET TAKE ONE TABLET BY MOUTH EVERY DAY , NOTES: 09/17/20192099 TAKING FLONASE 50 MCG/DOSE INHALER 2 SPRAYS IN EACH NOSTRIL NASALLY ONCE A DAY, NOTES: 09/17/2019 09 TAKING PREVACID 30 MG CAPSULE DELAYED RELEASE 1 CAPSULE ORALLY BID, NOTES: 09/17/20192099 TAKING ERGOCALCIFEROL 00730 UNIT CAPSULE 1 CAPSULE ORALLY EVERY 7 DAYS, NOTES: 09/17/2019 08 TAKING LASIX 40 MG TABLET TAKE ONE TABLET BY MOUTH EVERY MORNING TAKING LOSARTAN POTASSIUM 50 MG TABLET TAKE ONE TABLET BY MOUTH TWICE A DAY TAKING VENTOLIN HFA 108 (90 BASE) MCG/ACT AEROSOL SOLUTION 2 PUFFS INHALATION EVERY 4 HOURS NEEDED FOR WHEEZING TAKING VITAMIN C OTC TABLET 1 TABLET ORALLY ONCE A DAY TAKING MULTIVITAMINS OTC TABLET 1 TAB(S) ORALLY ONCE A DAY TAKING NORCO 5-325 MG TABLET 1 TABLET NEEDED ORALLY EVERY 6 HRS PRN PAIN MDD=4 TAKING ASTELIN 137 MCG/SPRAY SOLUTION INSTILL 1 SPRAY INTO EACH NOSTRIL 2 TIMES A DAY _ BID TAKING MONTELUKAST SODIUM 10 MG TABLET 1 TABLET ORALLY AT BEDTIME TAKING VOLTAREN 1 % GEL 4 GM TRANSDERMAL QID B KNEES TAKING ONETOUCH DELICA LANCETS 33G - MISCELLANEOUS DIRECTED SUBCUTANEOUSLY DAILY TAKING CYANOCOBALAMIN 250 MCG TABLET 1 TABLET ORALLY ONCE A DAY TAKING HYDROXYZINE PAMOATE 25 MG CAPSULE 1 CAPSULE NEEDED ORALLY EVERY 8 HRS, NOTES: 06/05/2019 09 TAKING LANSOPRAZOLE 30 MG CAPSULE DELAYED RELEASE 1 CAPSULE ORALLY BID TAKING ESTRACE 0.1 MG/GM CREAM 1 GM VAGINAL WEEKLY, NOTES: SUNDAY TAKING NYSTATIN 518894 UNIT/GM CREAM 1 APPLICATION EXTERNALLY ABDOMEN TWICE A DAY TAKING APRISO 0.375 GM CAPSULE EXTENDED RELEASE 24 HOUR 4 CAPSULES IN THE MORNING ORALLY ONCE A DAY TAKING LORATADINE 10 MG TABLET 1 TABLET ORALLY ONCE A DAY TAKING DIPHENHYDRAMINE HCL 50 MG TABLET 1 TABLET ORALLY AT BEDTIME TAKING METFORMIN HCL ER 500 MG TABLET EXTENDED RELEASE 24 HOUR 1 TAB ORALLY BEFORE DINNER TAKING FAMOTIDINE 40 MG TABLET 1 TAB ORALLY AT BEDTIME NOT-TAKING LASIX 40 MG TABLET 1 TAB ORALLY EVERY MORNING NOT-TAKING ERGOCALCIFEROL 86648 UNIT CAPSULE 1 CAPSULE ORALLY EVERY 7 DAYS NOT-TAKING LOSARTAN POTASSIUM 50 MG TABLET 1 TABLET ORALLY TWICE DAILY NOT-TAKING CITALOPRAM HYDROBROMIDE 40 MG TABLET 1 TABLET ORALLY DAILY NOT-TAKING GABAPENTIN 300 MG CAPSULE 1 CAPSULE ORALLY 2 CAPSULES THREE TIMES ADAY MEDICATION LIST REVIEWED AND RECONCILED WITH THE PATIENT PAST MEDICAL HISTORY HYPERLIPIDEMIA 2B IMPAIRED FASTING GLUCOSE GERD/HIATAL HERNIA- 07/27/16 EGD SMALL HH, MILD BILE GASTRITIS BY BIOPSY, DUODENITIS-BRYNN ASTHMA, MILD PERSISTENT MULTIPLE BILATERAL COMPLEX THYROID CYSTS ACUTE CRYPTITIS OF ALL RANDOM BIOPSIES, SUGGESTIVE OF IDIOPATHIC IBD BY COLONOSCOPY 01/2007-SELAM//RECTAL BIOPSY C MILD DIASSRAY C LP FIBROSIS BY 03/2017 COLON-W LUMBAR DJD-MULTILEVEL WITH DIFFUSE BULGES L1-L3 AND L5/S1 AND SEVERE CENTRAL CANAL STENOSIS L3-L4-BY MRI NOVEMBER 2010 HYPERTENSION, ESSENTIAL FIBROMYALGIA CHRONIC MDD/BLANCA URGE INCONTINENCE ALLERGIC RHINITIS-12/2011 NEGATIVE ZONE 1 ALLERGY PANEL VASOMOTOR SYMPTOMS 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 STOLL/L45 MOD BOROAD HNP C SEVERE L L4 NFN BY 01/2019 MRI GALA, MILD-07/04/07 NPSG AHI 8-UNABLE TO TOLERATE ANY CPAP MASK DIASTOLIC CHF-09/2014 TTE LVEF65%, DIASTOLIC DYSFUNCTION, ELEVATED CVP, MILD LAE 35 MM-ARRIETA B HIP OA, MILD R>L, PARTIAL L SUPERIOR LABRUM TEAR BY 10/2015 MRI CKD 3-08/2017 RENAL US: R KIDNEY ATROPHY (PREVIOUS PARTIAL NEPHRECTOMY 2 HYDRONEPHROSIS) S SIGNS OF UNIQUE KNEE OA, BILATERAL ALLERGIES LYRICA: EDEMA, SWELLING, ITCHING - ALLERGY ULTRACET: RASH - ALLERGY OMEPRAZOLE: RASH - ALLERGY ENVIRONMENTAL: SNEEZING, RUNNY NOSE, ITCHY EYES - ALLERGY SURGICAL HISTORY R HYPDRONEHOSIS SURGERY-[place] 1997 BREAST LEFT CYST 1999 HYSTERECTOMY 1979 TUBAL LIGATION 1977 GALL BLADDER B EYELID SURGERY-ROJAS 09/2012 BACK SURGERY 2013 RIGHT FOOT BUNIONECTOMY, REPAIR OF HAMMERTOES 04/04 EGD 07/18/16 L GSV RFA C STAB PHLEBECTOMY-MILLIE 11/05 L KNEE ARTHROSCOPIC-FISH 09/2017 FAMILY HISTORY FATHER: ALIVE, DDD,ARTHRITIS , EMPHYSEMA MOTHER: , [place],CHF,BLOOD CLOT IN THE LEG,HTN,BASAL CELL CARCINOMA AND VULVAR CARCINOMA, [place], DIAGNOSED WITH DIABETES, OTHER SPECIFIED CONDITIONS INFLUENCING HEALTH STATUS SIBLINGS: 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 3 SON(S) , 1 DAUGHTER(S) . BROTHER FROM METASTATIC CANCER\\\\NBROTHER OA,FIBROMYAGIA\\\\NDAUGHTER HAS SEIZURE DISORDER, HEAD ACHES\\\\N\\\\N. SOCIAL HISTORY GENERAL: TOBACCO USE ARE YOU A:NONSMOKER LATEX QUESTIONNAIRE LATEX ALLERGY : HAVE YOU EVER DEVELOPED ANY TYPE OF REACTION AFTER HANDLING LATEX PRODUCTS SUCH RUBBER GLOVES, CONDOMS, DIAPHRAGMS, BALLOONS, SOCKS, OR UNDERWEAR?NO LATEX ALLERGY : HAVE YOU EVER DEVELOPED ANY TYPE OF REACTION DURING OR AFTER DENTAL APPOINTMENT, VAGINAL/RECTAL EXAMINATION, SURGICAL PROCEDURE, OR ANY OTHER EXPOSURE?NO LATEX RISK : HAVE YOU EVER HAD ANY DIFFICULTY BREATHING OR HIVES AFTER EATING OR HANDLING ANY FRUITS, OR VEGETABLES; SUCH KIWI, BANANAS, STONE FRUITS, OR CHESTNUTSNO LATEX RISK : DO YOU HAVE A PREVIOUS PERSONAL HISTORY OF MORE THAN NINE SURGERIES, SPINA BIFIDA, OR REPEATED CATHERIZATIONS? YES - PLEASE INDICATE : > 9 SURGERIES LATEX RISK : ARE YOU FREQUENTLY EXPOSED TO LATEX PRODUCTS IN YOUR OCCUPATION?NO DATE ASKED : 12/08/2019 BMI CARE GOAL FOLLOW-UP ABOVE NORMAL BMI FOLLOW-UPGIVING ENCOURAGEMENT TO EXERCISE ALCOHOL SCREENING DID YOU HAVE A DRINK CONTAINING ALCOHOL IN THE PAST YEAR?NO POINTS0 INTERPRETATIONNEGATIVE RECREATIONAL DRUG USE DRUG USE?NO CAFFEINE CAFFEINE USE?YES 1-2 BEVERAGES DAILY SEXUAL HX HAD SEX IN THE LAST 12 MONTHS (VAGINAL, ORAL, OR ANAL)?NO HAVE YOU EVER HAD AN STD?NO HIV / HEP-C SCREENING HIV TEST OFFERED TO PATIENT:YES DATE OFFERED:08/24/2016 TEST ACCEPTED:NO HEP-C TEST OFFERED TO PATIENT:YES DATE OFFERED:08/24/2016 REASON:PATIENT DECLINED TEST ACCEPTED:NO REASON:PATIENT DECLINED JAINISM WUSDETID50 L[employer] LANGUAGE LANGUAGES SPOKEN:GREEK EDUCATION LEVEL OF EDUCATION:FINISHED COLLEGE LEARNING BARRIERS / SPECIAL NEEDS CHANGE FROM LAST VISIT?NO BARRIERS TO LEARNING?NO HEARING IMPAIRED?NO VISION IMPAIRED?YES COGNITIVELY IMPAIRED?NO :CORRECTIVE LENSES READING ONLY READINESS TO LEARN?YES LEARNING PREFERENCES?NO LEARNING CAPABILITIES PRESENT?YES EMOTIONAL BARRIERS?NO SPECIAL DEVICES?NO GOLF PLAYER ASSISTANT NEEDED?NO DOMESTIC VIOLENCE DO YOU FEEL SAFE IN YOUR ENVIRONMENT?YES OCCUPATION: UNEMPLOYED. DIET: REGULAR. EXERCISE: PHYSICAL THERAPY AT HOME DAILY. MARITAL STATUS: .. OTHERS AT HOME: S/O. NEW PATIENT PAIN DIARY PATIENT DESCRIBES PAIN :IT COMES AND GOES, TENDER, SORE FROM 0-10, WHAT LEVEL IS YOUR PAIN TODAY?5 PRECIPITATING FACTORS SITTING ON THE AREA TOO LONG OR LAYING ON IT, UNABLE TO LAY ON BACK, WAKES FROM SLEEP ALLEVIATING FACTORS CHANGING POSITION, HEATING PAD PAIN CLINIC PFS, CLERGY, PUBLIC HEALTH REFERRALS PFS REFERRAL NEEDED?NO CLERGY REFERRAL NEEDED?NO PUBLIC HEALTH REFERRAL NEEDED?NO WAS THE PROVIDER NOTIFIED OF ANY PERTINENT INFO? N/A HAS THE PATIENT BEEN EDUCATED REGARDING HIS/HER PLAN OF CARE?YES HAS THE PATIENT BEEN EDUCATED REGARDING PAIN, THE RISK FOR PAIN, THE IMPORTANCE OF EFFECTIVE PAIN MANAGEMENT, AND THE PAIN ASSESSMENT PROCESS?YES ADVANCE DIRECTIVE ADVANCE DIRECTIVE DISCUSSED WITH PATIENT:YES HCP: BOYFRIEND - NASIM ALLEN [phone] HOSPITALIZATION/MAJOR DIAGNOSTIC PROCEDURE SURGICAL, ABOVE REVIEW OF SYSTEMS CONSTITUTIONAL: ANY RECENT FEVER NO . CHILLS NO . WEIGHT CHANGE OF UNKNOWN REASONS NO . GASTROENTEROLOGY: NEW UNEXPLAINABLE CHANGES IN BOWEL CONTROL NO . CONSTIPATION NO . GENITOURINARY: ANY NEW CHANGE IN BLADDER CONTROL? NO . NEUROLOGY: NEW ONSET DIZZINESS OR NEUROLOGICAL CHANGES NOT MENTIONED NO . NEW NUMBNESS OR PAIN PATTERNS NOT MENTIONED AND PERTINENT TO TODAY'S VISIT NO . CARDIOLOGY: NEW CHEST PRESSURE NO . NEW CHEST PAIN NO . RESPIRATORY: UNEXPLAINABLE COUGH NO . NEW SHORTNESS OF BREATH NO . VITAL SIGNS WT 239.8 LBS, HT 70 IN, BMI 34.40 INDEX, BP 125/88 MM HG, HR 71 /MIN, RR 18 /MIN, TEMP 98.0 F, OXYGEN SAT % 97%, SAFE IN ENV? 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 EXAMINATION GENERAL EXAMINATION: GENERALNO ACUTE DISTRESS, WELL NOURISHED AND HYDRATED. PSYCHAPPROPRIATE MOOD AND AFFECT . LUNGS:CLEAR TO AUSCULTATION BILATERALLY, NO WHEEZES, RHONCHI, RALES. HEART:NO MURMURS, REGULAR RATE AND RHYTHM. BACK:POINT TENDER LEFT LOWER BACK, SURROUNDING SKIN SHOWS NO ERYTHEMA, ECCHYMOSIS, INCREASED WARMTH, AND/OR SKIN ERUPTIONS NOTED. POSITIVE MODIFIED SLR LEFT SIDE. . MUSCULOSKELETAL:NOTABLE WEAKNESS OF THE LEFT LOWER EXTREMITY, RIGHT LOWER EXTREMITY WITHIN NORMAL LIMITS. . ASSESSMENTS INTERVERTEBRAL DISC DISORDER WITH RADICULOPATHY OF LUMBAR REGION - M51.16 (PRIMARY) USE OF OPIATES FOR THERAPEUTIC PURPOSES - Z79.891 TREATMENT INTERVERTEBRAL DISC DISORDER WITH RADICULOPATHY OF LUMBAR REGION NOTES: LESI L4-L5 EDUCATION GIVEN REGARDING LESI PROCEDURE. CLINICAL NOTES: 64-YEAR-OLD FEMALE IN FOR CHRONIC PAIN FOLLOW-UP. GIVEN PRESENTING SYMPTOMS RECOMMEND LESI L4-L5 WITH POST PROCEDURAL FOLLOW-UP. U TOX AND NARCOTIC AGREEMENT WILL BE COMPLETED TODAY. PATIENT HAS EXPRESSED UNDERSTANDING OF AND WAS IN AGREEMENT WITH TREATMENT PLAN. GIVEN TIME TO ASK QUESTIONS AND EXPRESS CONCERNS. , ISTOP REGISTRY REVIEWED AND DEMONSTRATES COMPLLIANCE. (REF #[id number] ) BRINGS IN MEDICATIONS WHICH IS APPROPRIATE FOR WHAT WAS DISPENSED. RECENT URINE TOXICOLOGY REVIEWED. NO UNAUTHORIZED MEDICATIONS. NO ILLICIT SUBSTANCES AND PRESCRIBED MEDICATIONS WERE PRESENT. PROCEDURE CODES [id number] ESTABILISHED PATIENT [facility] CHARGE DISPOSITION & COMMUNICATION FOLLOW UP POST PROCEDURE (REASON: LESI L4-L5) ELECTRONICALLY SIGNED BY TRENT GALO ON 12/09/2019 AT 01:06 PM EDT DISCLAIMER : THIS IS A VISIT SUMMARY EXTRACTED FROM THE [employer] CHART. IT IS NOT A COPY OF THE [employer] PROGRESS NOTE. FRANK
== END ==
LOC: M PAIN 09:15
PROVIDERS: ATTEND Family Medicine
DX: M51.16 Intervertebral disc disorders with radiculopathy, lumbar region (principal); Z79.891 Long term (current) use of opiate analgesic

== ENCOUNTER → 2019-12-24 | Outpatient (POV) | payer OTHER ==
[~2019-12-24] MED LIST changes: +ISOVUE-M 300 61% 15ML VIAL ONE; +LIDOCAINE 1% SDV 30ML VIAL ONE; +diazePAM 5 MG TAB ONE; +methylPREDNISolone SUSP 40MG/ML 1ML VIAL (DEPO MEDROL) ONE; +oxyCODONE 5MG TAB ONE
--- NOTE | 2020-02-11 10:41 | REP ---
C-ARM VIEW LOWER LUMBAR SPINE: HISTORY: Pain. FINDINGS: Single C-arm view lower lumbar spine performed during injection by Dr. Trevor Panda. The needle was seen at the L4-5 level and a small amount of contrast is seen. 15 seconds of fluoroscopy time is utilized. MTDD
== END ==
LOC: M PAIN 09:30
PROVIDERS: ATTEND Anesthesiology
DX: M51.16 Intervertebral disc disorders with radiculopathy, lumbar region (principal); M48.061 Spinal stenosis, lumbar region without neurogenic claudication; M96.1 Postlaminectomy syndrome, not elsewhere classified

== ENCOUNTER → 2020-05-07 | Outpatient (REF) | payer OTHER ==
[~2020-05-07] MED LIST changes: -ISOVUE-M 300 61% 15ML VIAL ONE; -LIDOCAINE 1% SDV 30ML VIAL ONE; -MONT10TA4; +MONT5TAB2; -diazePAM 5 MG TAB ONE; -methylPREDNISolone SUSP 40MG/ML 1ML VIAL (DEPO MEDROL) ONE; -oxyCODONE 5MG TAB ONE
[2020-05-07 11:03] LABS: BASO % 0.5 % (0.0-1.0); EOS # 0.2 10^3/uL (0.0-0.5); EOS % 2.4 % (0.0-3.0); HEMATOCRIT 41.5 % (36.0-47.0); HEMOGLOBIN 13.2 g/dl (12.0-15.5); LYMPH # 2.4 10^3/uL (1.5-5.0); LYMPH % 37.7 % (24.0-44.0); MEAN CORPUSCULAR HEMOGLOBIN 28.9 pg (27.0-33.0); MEAN CORPUSCULAR HGB CONC 31.8 g/dl (32.0-36.5); MONO # 0.4 10^3/uL (0.0-0.8); MONO % 6.4 % (0.0-5.0); NEUTROPHILS # 3.4 10^3/uL (1.5-8.5); NEUTROPHILS % 52.7 % (36.0-66.0); PLATELET COUNT, AUTOMATED 249 10^3/uL (150-450); RED BLOOD COUNT 4.56 10^6/uL (4.00-5.40); WHITE BLOOD COUNT 6.4 10^3/uL (4.0-10.0)
[2020-05-07 11:29] LABS: ALBUMIN 4.4 GM/DL (3.2-5.2); BILIRUBIN,TOTAL 0.6 MG/DL (0.2-1.0); CALCIUM LEVEL 9.5 MG/DL (8.8-10.2); CREATININE FOR GFR 1.12 MG/DL (0.55-1.30); GLOMERULAR FILTRATION RATE 52.3 (>45)
[2020-05-07 11:30] LABS: TOTAL 25(OH) VITAMIN D 60.1 NG/ML (30.0-100.0)
[2020-05-07 11:31] LABS: PTH INTACT 56.2 PG/ML (18.5-88.0)
[2020-05-07 11:38] LABS: HEMOGLOBIN A1c 5.5 %
== END ==
LOC: M PLALAB 08:35
PROVIDERS: ATTEND Family Medicine
DX: E53.8 Deficiency of other specified B group vitamins (principal); E55.9 Vitamin D deficiency, unspecified; R73.01 Impaired fasting glucose

== ENCOUNTER → 2020-08-19 | Outpatient (CLI) | payer OTHER ==
[~2020-08-19] MED LIST changes: +GABA-282 PO; -GABA-843 PO; +MONT10TA10; -MONT5TAB2
--- NOTE | 2020-08-21 04:06 | ECWPNPC ---
PATIENT NAME: MARICARMEN WHEATLEY : 1955 GENDER: FEMALE VISIT DATE: 08/19/2020 DISCHARGE DATE: 08/19/20 1503 VISIT LOCKED DATE TIME: PHYSICIAN: MALAIKA LARES PHYSICIAN PAGER NO: ACTIVE RESOURCE: MALAIKA LARES REASON FOR APPOINTMENT 1. MEDICATION MANAGEMENT/ASSESS INCREASE IN CYCLOBENZAPRINE/URINE TOXICOLOGY-RUNNING A FEW MINUTES LATE HISTORY OF PRESENT ILLNESS DEPRESSION SCREENING: PHQ-2 (2015 EDITION) LITTLE INTEREST OR PLEASURE IN DOING THINGS?NOT AT ALL FEELING DOWN, DEPRESSED, OR HOPELESS?NOT AT ALL TOTAL SCORE0 65-YEAR-OLD FEMALE IN FOR CHRONIC PAIN FOLLOW-UP. SHE RATES HER PAIN CURRENTLY AT AN 8 OUT OF 10 AND DESCRIBES IT CONTINUOUS, SHOOTING, PRESSURE, PRICKLY, AND BURNING IN HER LEG. GENERAL: -. FALL RISK SCREENING: SCREENING : NO FALLS REPORTED IN THE LAST YEAR. PAIN SCREENING: PATIENT HAS A COMPLAINT OF ACUTE OR CHRONIC PAIN :YES LOCATION OF PAIN:LOW BACK, RIGHT HIP, OTHER: RIGHT BUTTOCK INTENSITY OF PAIN (SCALE OF 1 TO 10):8 WHAT DOES YOUR PAIN FEEL LIKE:CONTINOUS, SHOOTING, OTHER PRESSURE, PRICKLY AND BURNING IN LEG DURATION:CONTINOUS, STEADY PAIN IS INCREASED BY:OTHERS LIFTING, SWEEPING AND MOPPING. ANY ACTIVITIES THAT INVOLVE BENDING AND LIFTING. PAIN IS DECREASED BY:USE OF PAIN MEDICATIONS, SITTING, OTHERS HEAT, TENS UNIT HELPS THE MOST. NURSING NOTE: -. PAIN CENTER INTAKE QUESTIONS: DO YOU HAVE A HISTORY OF MRSA? :NO DO YOU TAKE A BLOOD THINNERS? :NO DO YOU HAVE ANY BLEEDING DISORDERS? :NO ANY NEW NUMBNESS OR WEAKNESS IN YOUR LEGS OR ARMS? :NO ANY PACEMAKER,DEFIBRILLATOR, OR DORSAL COLUMN STIMULATOR? :NO DO YOU HAVE ANY RASHES OR OPEN SORES? :NO ARE YOU ALLERGIC TO IV DYE? :NO ARE YOU DIABETIC? :YES PREDIABETIC ANY NEW PROBLEMS WITH YOUR MEDICATIONS? :NO HAVE YOU RECEIVED A VACCINE IN THE PAST 30 DAYS? :YES IF SO WHAT VACCINE AND WHEN? FIRST COVID VACCINATION RECEIVED ON 08/07/2020 DO YOU PLAN TO RECEIVE A VACCINE IN THE NEXT 21 DAYS? :YES IF SO WHAT VACCINE AND WHEN? SECOND COVID VACCINATION SCHEDULED FOR 09/07/2020 DO YOU NEED ANY PRESCRIPTION? :NO DO YOU TAKE ANY IMMUNOSUPPRESSIVE MEDICATIONS? :NO DO YOU HAVE ANY KIDNEY OR LIVER DISEASE? :YES STAGE 2 KIDNEY DISEASE IS THERE A CHANCE YOU COULD BE ? :NO ARE YOU BREAST FEEDING? :NO CURRENT MEDICATIONS TAKING VENTOLIN HFA 108 (90 BASE) MCG/ACT AEROSOL SOLUTION 2 PUFFS INHALATION EVERY 4 HOURS NEEDED FOR WHEEZING TAKING APRISO 0.375 GM CAPSULE EXTENDED RELEASE 24 HOUR 4 CAPSULES IN THE MORNING ORALLY ONCE A DAY TAKING ERGOCALCIFEROL 91322 UNIT CAPSULE 1 CAPSULE ORALLY EVERY 7 DAYS TAKING VITAMIN C OTC TABLET 1 TABLET ORALLY ONCE A DAY TAKING MULTIVITAMINS OTC TABLET 1 TAB(S) ORALLY ONCE A DAY TAKING NORCO 5-325 MG TABLET 1 TABLET NEEDED ORALLY EVERY 6 HRS PRN PAIN MDD=4 TAKING CITALOPRAM HYDROBROMIDE 40 MG TABLET 1 TABLET ORALLY DAILY TAKING ASTELIN 137 MCG/SPRAY SOLUTION INSTILL 1 SPRAY INTO EACH NOSTRIL 2 TIMES A DAY _ BID TAKING DIPHENHYDRAMINE HCL 50 MG TABLET 1 TABLET ORALLY AT BEDTIME TAKING LORATADINE 10 MG TABLET 1 TABLET ORALLY ONCE A DAY TAKING MONTELUKAST SODIUM 10 MG TABLET 1 TABLET ORALLY AT BEDTIME TAKING VOLTAREN 1 % GEL 4 GM TRANSDERMAL QID B KNEES TAKING GABAPENTIN 300 MG CAPSULE 1 CAPSULE ORALLY 2 CAPSULES THREE TIMES ADAY TAKING ONETOUCH DELICA LANCETS 33G - MISCELLANEOUS DIRECTED SUBCUTANEOUSLY DAILY TAKING METFORMIN HCL ER 500 MG TABLET EXTENDED RELEASE 24 HOUR 1 TAB ORALLY BEFORE DINNER TAKING CYANOCOBALAMIN 250 MCG TABLET 1 TABLET ORALLY ONCE A DAY TAKING FAMOTIDINE 40 MG TABLET 1 TAB ORALLY AT BEDTIME TAKING FUROSEMIDE 40 MG TABLET 1 TABLET ORALLY EVERY MORNING TAKING CALCIUM 600 + D 600-400 MG-UNIT TABLET 1 TABLET ORALLY DAILY, NOTES: 09/17/2019 0900 TAKING NEBULIZER/TUBING/MOUTHPIECE - KIT PT ONLY NEEDS TUBING AND MASK INH FOUR TIMES A DAY NEEDED DX:J45.22 TAKING ACETAMINOPHEN EXTRA STRENGTH 500 MG TABLET 2 TABLETS NEEDED ORALLY EVERY 6 HRS, NOTES: PRN TAKING ELECTRODES 2"X2"/REUSABLE - MISCELLANEOUS DIRECTED NEEDED WITH TENS MACHINE TAKING ALBUTEROL SULFATE (2.5 MG/3ML) 0.083% NEBULIZATION SOLUTION 3 ML INHALATION THREE TIMES A DAY, NOTES: PRN TAKING FLONASE 50 MCG/DOSE INHALER 2 SPRAYS IN EACH NOSTRIL NASALLY ONCE A DAY, NOTES: 09/17/2019 0900 TAKING ERGOCALCIFEROL 98024 UNIT CAPSULE 1 CAPSULE ORALLY EVERY 7 DAYS, NOTES: 09/17/2019 0800 TAKING ESTRACE 0.1 MG/GM CREAM 1 GM VAGINAL WEEKLY, NOTES: SUNDAY TAKING NYSTATIN 148649 UNIT/GM CREAM 1 APPLICATION EXTERNALLY ABDOMEN TWICE A DAY TAKING CARPAL TUNNEL WRIST STABILIZER - MISCELLANEOUS DIRECTED BILATERAL AT BEDTIME, G56 TAKING LOSARTAN POTASSIUM 50 MG TABLET TAKE ONE TABLET BY MOUTH TWICE A DAY ORALLY TWICE DAILY TAKING BANOPHEN 50 MG CAPSULE TAKE ONE CAPSULE BY MOUTH AT BEDTIME TAKING LANSOPRAZOLE 30 MG CAPSULE DELAYED RELEASE 1 CAPSULE ORALLY BID TAKING HYDROXYZINE PAMOATE 25 MG CAPSULE TAKE 1 CAPSULE BY MOUTH EVERY 8 HOURS NEEDED TAKING ONETOUCH VERIO - STRIP USE ONE STRIP PER DAY TAKING VITAMIN D (ERGOCALCIFEROL) 1.25 MG (14528 UT) CAPSULE TAKE ONE CAPSULE BY MOUTH EVERY 7 DAYS MEDICATION LIST REVIEWED AND RECONCILED WITH THE PATIENT PAST MEDICAL HISTORY HYPERLIPIDEMIA 2B IMPAIRED FASTING GLUCOSE GERD/HIATAL HERNIA- 07/27/16 EGD SMALL HH, MILD BILE GASTRITIS BY BIOPSY, DUODENITIS-BRYNN ASTHMA, MILD PERSISTENT MULTIPLE BILATERAL COMPLEX THYROID CYSTS ACUTE CRYPTITIS OF ALL RANDOM BIOPSIES, SUGGESTIVE OF IDIOPATHIC IBD BY COLONOSCOPY 01/2007-SELAM//RECTAL BIOPSY C MILD DIASSRAY C LP FIBROSIS BY 03/2017 COLON-W HYPERTENSION, ESSENTIAL FIBROMYALGIA CHRONIC MDD/BLANCA URGE INCONTINENCE ALLERGIC RHINITIS-12/2011 NEGATIVE ZONE 1 ALLERGY PANEL VASOMOTOR SYMPTOMS 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 STOLL/L45 MOD BOROAD HNP C SEVERE L L4 NFN BY 01/2019 MRI GALA, MILD-07/04/07 NPSG AHI 8-UNABLE TO TOLERATE ANY CPAP MASK DIASTOLIC CHF-09/2014 TTE LVEF65%, DIASTOLIC DYSFUNCTION, ELEVATED CVP, MILD LAE 35 MM-ARRIETA B HIP OA, MILD R>L, PARTIAL L SUPERIOR LABRUM TEAR BY 10/2015 MRI CKD 3-08/2017 RENAL US: R KIDNEY ATROPHY (PREVIOUS PARTIAL NEPHRECTOMY 2 HYDRONEPHROSIS) S SIGNS OF UNIQUE KNEE OA, BILATERAL COVID-19 04/2021 ALLERGIES LYRICA: EDEMA, SWELLING, ITCHING - ALLERGY ULTRACET: RASH - ALLERGY OMEPRAZOLE: RASH - ALLERGY ENVIRONMENTAL: SNEEZING, RUNNY NOSE, ITCHY EYES - ALLERGY SOCIAL HISTORY GENERAL: TOBACCO USE ARE YOU A:NONSMOKER LATEX QUESTIONNAIRE LATEX ALLERGY : HAVE YOU EVER DEVELOPED ANY TYPE OF REACTION AFTER HANDLING LATEX PRODUCTS SUCH RUBBER GLOVES, CONDOMS, DIAPHRAGMS, BALLOONS, SOCKS, OR UNDERWEAR?NO LATEX ALLERGY : HAVE YOU EVER DEVELOPED ANY TYPE OF REACTION DURING OR AFTER DENTAL APPOINTMENT, VAGINAL/RECTAL EXAMINATION, SURGICAL PROCEDURE, OR ANY OTHER EXPOSURE?NO LATEX RISK : HAVE YOU EVER HAD ANY DIFFICULTY BREATHING OR HIVES AFTER EATING OR HANDLING ANY FRUITS, OR VEGETABLES; SUCH KIWI, BANANAS, STONE FRUITS, OR CHESTNUTSNO LATEX RISK : DO YOU HAVE A PREVIOUS PERSONAL HISTORY OF MORE THAN NINE SURGERIES, SPINA BIFIDA, OR REPEATED CATHERIZATIONS? YES - PLEASE INDICATE : > 9 SURGERIES LATEX RISK : ARE YOU FREQUENTLY EXPOSED TO LATEX PRODUCTS IN YOUR OCCUPATION?NO DATE ASKED : 08/19/2020 ALCOHOL USE: NO. BMI CARE GOAL FOLLOW-UP ABOVE NORMAL BMI FOLLOW-UPGIVING ENCOURAGEMENT TO EXERCISE ALCOHOL SCREENING DID YOU HAVE A DRINK CONTAINING ALCOHOL IN THE PAST YEAR?NO POINTS0 INTERPRETATIONNEGATIVE RECREATIONAL DRUG USE DRUG USE?NO CAFFEINE CAFFEINE USE?YES 1-2 BEVERAGES DAILY SEXUAL HX HAD SEX IN THE LAST 12 MONTHS (VAGINAL, ORAL, OR ANAL)?NO HAVE YOU EVER HAD AN STD?NO HIV / HEP-C SCREENING HIV TEST OFFERED TO PATIENT:YES DATE OFFERED:08/24/2016 TEST ACCEPTED:NO HEP-C TEST OFFERED TO PATIENT:YES DATE OFFERED:08/24/2016 REASON:PATIENT DECLINED TEST ACCEPTED:NO REASON:PATIENT DECLINED [employer] [id number] [employer] LANGUAGE LANGUAGES SPOKEN:DIVEHI EDUCATION LEVEL OF EDUCATION:FINISHED COLLEGE LEARNING BARRIERS / SPECIAL NEEDS CHANGE FROM LAST VISIT?NO BARRIERS TO LEARNING?NO HEARING IMPAIRED?NO VISION IMPAIRED?YES :CORRECTIVE LENSES READING ONLY COGNITIVELY IMPAIRED?NO READINESS TO LEARN?YES LEARNING PREFERENCES?NO LEARNING CAPABILITIES PRESENT?YES EMOTIONAL BARRIERS?NO SPECIAL DEVICES?NO EDUCATIONAL PSYCHOLOGY PROFESSOR NEEDED?NO DOMESTIC VIOLENCE DO YOU FEEL SAFE IN YOUR ENVIRONMENT?YES OCCUPATION: UNEMPLOYED. DIET: REGULAR. EXERCISE: PHYSICAL THERAPY AT HOME DAILY. MARITAL STATUS: .. OTHERS AT HOME: S/O. PATIENT DESCRIBES PAIN :IT COMES AND GOES, TENDER, SORE FROM 0-10, WHAT LEVEL IS YOUR PAIN TODAY?5 PRECIPITATING FACTORS SITTING ON THE AREA TOO LONG OR LAYING ON IT, UNABLE TO LAY ON BACK, WAKES FROM SLEEP ALLEVIATING FACTORS CHANGING POSITION, HEATING PAD - PFS REFERRAL NEEDED?NO CLERGY REFERRAL NEEDED?NO PUBLIC HEALTH REFERRAL NEEDED?NO WAS THE PROVIDER NOTIFIED OF ANY PERTINENT INFO? N/A HAS THE PATIENT BEEN EDUCATED REGARDING HIS/HER PLAN OF CARE?YES HAS THE PATIENT BEEN EDUCATED REGARDING PAIN, THE RISK FOR PAIN, THE IMPORTANCE OF EFFECTIVE PAIN MANAGEMENT, AND THE PAIN ASSESSMENT PROCESS?YES ADVANCE DIRECTIVE ADVANCE DIRECTIVE DISCUSSED WITH PATIENT:YES HCP: BOYFRIEND - NASIM ALLEN [phone] REVIEW OF SYSTEMS CONSTITUTIONAL: ANY RECENT FEVER NO . CHILLS NO . WEIGHT CHANGE OF UNKNOWN REASONS NO . GASTROENTEROLOGY: NEW UNEXPLAINABLE CHANGES IN BOWEL CONTROL NO . CONSTIPATION NO . GENITOURINARY: ANY NEW CHANGE IN BLADDER CONTROL? NO . NEUROLOGY: NEW ONSET DIZZINESS OR NEUROLOGICAL CHANGES NOT MENTIONED NO . NEW NUMBNESS OR PAIN PATTERNS NOT MENTIONED AND PERTINENT TO TODAY'S VISIT NO . CARDIOLOGY: NEW CHEST PRESSURE NO . PATIENT DENIES NO . RESPIRATORY: UNEXPLAINABLE COUGH NO . NEW SHORTNESS OF BREATH NO . VITAL SIGNS WT 249 LBS, HT 70 IN, BMI 35.72 INDEX, BP 137/85 MM HG, HR 82 /MIN, RR 18 /MIN, TEMP 98.5 F, OXYGEN SAT % 97%, SAFE IN ENV? (Y/N) YES, REVIEWED BY: CORI SINHA MA. EXAMINATION GENERAL EXAMINATION: GENERALNO ACUTE DISTRESS, WELL NOURISHED AND HYDRATED. PSYCHAPPROPRIATE MOOD AND AFFECT . LUNGS:CLEAR TO AUSCULTATION BILATERALLY, NO WHEEZES, RHONCHI, RALES. HEART:NO MURMURS, REGULAR RATE AND RHYTHM. BACK:POINT TENDER ALONG LUMBAR SPINE, POSITIVE MODIFIED SLR RIGHT SIDE. . MUSCULOSKELETAL:EQUAL STRENGTH OF THE LOWER EXTREMITIES BILATERALLY . 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 GIVEN PRESENTING SYMPTOMS AND RESULTS PHYSICAL EXAMINATION RECOMMENDED LUMBAR EPIDURAL STEROID INJECTIONS WITH POST PROCEDURAL FOLLOW-UP. PATIENT HAS EXPRESSED UNDERSTANDING OF AND WAS IN AGREEMENT WITH TREATMENT PLAN. GIVEN TIME TO ASK QUESTIONS AND EXPRESS CONCERNS. PRINTE AND REVIEWED PRE PROCEDURE INFORMATION WITH PATIENT JCARLOS MONTANO. PROCEDURE CODES FA211 ESTABILISHED PATIENT [facility] CHARGE DISPOSITION & COMMUNICATION FOLLOW UP POST PROCEDURE (REASON: LUMBAR EPIDURAL STEROID INJECTIONS ) ELECTRONICALLY SIGNED BY TRENT GALO ON 08/20/2020 AT 08:57 AM EDT DISCLAIMER : THIS IS A VISIT SUMMARY EXTRACTED FROM THE [employer] CHART. IT IS NOT A COPY OF THE [employer] PROGRESS NOTE. FRANK
== END ==
LOC: M PAIN 13:45
PROVIDERS: ATTEND Family Medicine
DX: M54.17 Radiculopathy, lumbosacral region (principal); G89.29 Other chronic pain; R73.03 Prediabetes; J45.30 Mild persistent asthma, uncomplicated; M79.7 Fibromyalgia; G47.33 Obstructive sleep apnea (adult) (pediatric); Z86.59 Personal history of other mental and behavioral disorders; Z88.8 Allergy status to other drugs, medicaments and biological substances; Z79.84 Long term (current) use of oral hypoglycemic drugs; Z79.899 Other long term (current) drug therapy

== ENCOUNTER → 2020-09-15 | Outpatient (REF) | payer OTHER | LOC: M SFHCPLAZ 12:27 | PROVIDERS: ATTEND Family Medicine | DX: I50.30 Unspecified diastolic (congestive) heart failure (principal); E53.8 Deficiency of other specified B group vitamins; R73.01 Impaired fasting glucose; E78.2 Mixed hyperlipidemia ==

== ENCOUNTER → 2020-09-17 | Outpatient (CLI) | payer OTHER | LOC: M LABSMTC 10:42 | PROVIDERS: ATTEND Anesthesiology | DX: Z01.812 Encounter for preprocedural laboratory examination (principal); Z20.822 Contact with and (suspected) exposure to COVID-19 ==

== ENCOUNTER → 2020-09-17 | Outpatient (CLI) | payer OTHER ==
[2020-09-17 12:44] LABS: BASO % 0.5 % (0.0-1.0); EOS # 0.2 10^3/uL (0.0-0.5); EOS % 2.6 % (0.0-3.0); HEMATOCRIT 40.9 % (36.0-47.0); HEMOGLOBIN 13.1 g/dl (12.0-15.5); LYMPH # 3.3 10^3/uL (1.5-5.0); LYMPH % 41.4 % (24.0-44.0); MEAN CORPUSCULAR HEMOGLOBIN 28.9 pg (27.0-33.0); MEAN CORPUSCULAR VOLUME 90.3 fl (80.0-96.0); MONO # 0.5 10^3/uL (0.0-0.8); MONO % 5.9 % (2.0-8.0); NEUTROPHILS # 3.9 10^3/uL (1.5-8.5); NEUTROPHILS % 49.2 % (36.0-66.0); PLATELET COUNT, AUTOMATED 227 10^3/uL (150-450); RED BLOOD COUNT 4.53 10^6/uL (4.00-5.40)
[2020-09-17 13:24] LABS: HEMOGLOBIN A1c 5.5 %
[2020-09-17 13:29] LABS: ALBUMIN 4.2 GM/DL (3.2-5.2); ALT/SGPT 25 U/L (12-78); BILIRUBIN,TOTAL 0.5 MG/DL (0.2-1.0); BLOOD UREA NITROGEN 27 MG/DL (7-18); CALCIUM LEVEL 9.7 MG/DL (8.8-10.2); CARBON DIOXIDE LEVEL 28 MEQ/L (21-32); CHLORIDE LEVEL 106 MEQ/L (98-107); CHOLESTEROL LEVEL 204 MG/DL (<200); CHOLESTEROL RISK RATIO 3.238 (<5); CREATININE FOR GFR 0.92 MG/DL (0.55-1.30); FERRITIN 26 NG/ML (8-252); FREE T4 0.86 NG/DL (0.76-1.46); GLOMERULAR FILTRATION RATE > 60.0 (>45); GLUCOSE, FASTING 100 MG/DL (70-100); HDL CHOLESTEROL 63 MG/DL (>40); IRON (FE) 98 UG/DL (50-170); LDL CHOLESTEROL 116 MG/DL (<100); MAGNESIUM LEVEL 2.2 MG/DL (1.8-2.4); NON-HDL-C 141 MG/DL; NT-PRO BNP 85 PG/ML (<125); PERCENT SATURATION 24.4 % (13.2-45.0); POTASSIUM SERUM 4.7 MEQ/L (3.5-5.1); SODIUM LEVEL 140 MEQ/L (136-145); THYROID STIMULATING HORMONE 0.329 uIU/ML (0.358-3.740); TOTAL IRON BINDING CAPACITY 402 UG/DL (250-450); TOTAL PROTEIN 7.6 GM/DL (6.4-8.2); TRIGLYCERIDES LEVEL 124 MG/DL (<150); VITAMIN B12 LEVEL 601 PG/ML (247-911)
== END ==
LOC: M PLALAB 09:48
PROVIDERS: ATTEND Family Medicine
DX: I50.30 Unspecified diastolic (congestive) heart failure (principal); E53.8 Deficiency of other specified B group vitamins; R73.01 Impaired fasting glucose; E78.2 Mixed hyperlipidemia

== ENCOUNTER → 2020-09-22 | Outpatient (CLI) | payer OTHER ==
--- NOTE | 2020-09-29 03:49 | ECWPNPC ---
PATIENT NAME: MARICARMEN WHEATLEY : 1955 GENDER: FEMALE VISIT DATE: 09/22/2020 DISCHARGE DATE: 09/22/20938 VISIT LOCKED DATE TIME: PHYSICIAN: ARCADIO GLASS MD PHYSICIAN PAGER NO: ACTIVE RESOURCE: ARCADIO GLASS MD REASON FOR APPOINTMENT 1. LUMBAR EPIDURAL STEROID INJECTION HISTORY OF PRESENT ILLNESS FALL RISK SCREENING: SCREENING : NO FALLS REPORTED IN THE LAST YEAR.. 65-YEAR-OLD FEMALE PATIENT WITH A HISTORY OF CHRONIC LOW BACK AND MAINLY RIGHT LEG PAIN. THE PATIENT DESCRIBES THE PAIN ACHING, TENDER AND SORE WITH A PAIN SCORE RANGING FROM 7-10/10. THE PATIENT HAS HAD EPIDURALS IN THE PAST THAT HAVE HELPED. PAIN SCREENING: PATIENT HAS A COMPLAINT OF ACUTE OR CHRONIC PAIN :YES LOCATION OF PAIN:LOW BACK, LEFT HIP, RIGHT HIP, LEG(S) INTENSITY OF PAIN (SCALE OF 1 TO 10):8 WHAT DOES YOUR PAIN FEEL LIKE:ACHING, TENDER, SORE, OTHER STEADY, STINGING, BURNING DURATION:STEADY, AWAKENS FROM SLEEP PAIN IS INCREASED BY:ACTIVITIES, PROLONGED STANDING PAIN IS DECREASED BY:OTHERS REPOSITIONING, TENS UNIT, HEAT PAIN HAS INTERFERED WITH THE FOLLOWING: INTERFERE WITH ADLS PLAN/GOALS/TREATMENT/INTERVENTION/FOLLOW UP:SEE PLAN GENERAL: -. PAIN CENTER INTAKE QUESTIONS: DO YOU HAVE A HISTORY OF MRSA? :NO DO YOU TAKE A BLOOD THINNERS? :NO DO YOU HAVE ANY BLEEDING DISORDERS? :NO ANY NEW NUMBNESS OR WEAKNESS IN YOUR LEGS OR ARMS? :NO ANY PACEMAKER,DEFIBRILLATOR, OR DORSAL COLUMN STIMULATOR? :NO DO YOU HAVE ANY RASHES OR OPEN SORES? :YES LEFT HAND RASH, DUE TO MEDICATION REACTION FROM SUNLIGHT. ARE YOU ALLERGIC TO IV DYE? :NO ARE YOU DIABETIC? :YES PREDIABETIC, FSBS @ 0700 120 ANY NEW PROBLEMS WITH YOUR MEDICATIONS? :NO HAVE YOU RECEIVED A VACCINE IN THE PAST 30 DAYS? :YES IF SO WHAT VACCINE AND WHEN? SECOND COVID VACCINATION RECEIVED ON 09/17/2020 DO YOU TAKE ANY IMMUNOSUPPRESSIVE MEDICATIONS? :NO ANY HISTORY OF SEIZURES? :NO ANY HISTORY OF CARDIAC ISSUES OR EVENTS? :NO DO YOU HAVE ANY KIDNEY OR LIVER DISEASE? :YES STAGE 2 KIDNEY DISEASE DO YOU HAVE SLEEP APNEA? :YES DO YOU WEAR A CPAP?NO ANY RECENT HEAD INJURY? :NO DO YOU HAVE ANY NEW INFECTIONS? :NO IS THERE A CHANCE YOU COULD BE ? :N/A ARE YOU BREAST FEEDING? :N/A WHEN DID YOU LAST EAT? : 09/21 1800 WHEN DID YOU LAST DRINK? : 09/22 0600 WHAT DID YOU LAST DRINK? : WATER NAME OF PERSON DRIVING YOU HOME? : TRANSPORTATION DO YOU HAVE ANY OTHER QUESTIONS OR CONCERNS? : NO CURRENT MEDICATIONS TAKING VENTOLIN HFA 108 (90 BASE) MCG/ACT AEROSOL SOLUTION 2 PUFFS INHALATION EVERY 4 HOURS NEEDED FOR WHEEZING TAKING APRISO 0.375 GM CAPSULE EXTENDED RELEASE 24 HOUR 4 CAPSULES IN THE MORNING ORALLY ONCE A DAY TAKING ERGOCALCIFEROL 96151 UNIT CAPSULE 1 CAPSULE ORALLY EVERY 7 DAYS TAKING VITAMIN C OTC TABLET 1 TABLET ORALLY ONCE A DAY TAKING MULTIVITAMINS OTC TABLET 1 TAB(S) ORALLY ONCE A DAY TAKING NORCO 5-325 MG TABLET 1 TABLET NEEDED ORALLY EVERY 6 HRS PRN PAIN MDD=4 TAKING LOSARTAN POTASSIUM 50 MG TABLET 1 TABLET ORALLY TWICE DAILY TAKING CITALOPRAM HYDROBROMIDE 40 MG TABLET 1 TABLET ORALLY DAILY TAKING VOLTAREN 1 % GEL 4 GM TRANSDERMAL QID B KNEES TAKING GABAPENTIN 300 MG CAPSULE 1 CAPSULE ORALLY 300MG AM, 300MG NOON, 600MG QHS TAKING [employer] LANCETS 33G - MISCELLANEOUS DIRECTED SUBCUTANEOUSLY DAILY TAKING METFORMIN HCL ER 500 MG TABLET EXTENDED RELEASE 24 HOUR 1 TAB ORALLY BEFORE DINNER TAKING CYANOCOBALAMIN 250 MCG TABLET 1 TABLET ORALLY ONCE A DAY TAKING HYDROXYZINE PAMOATE 25 MG CAPSULE 1 CAPSULE NEEDED ORALLY EVERY 8 HRS TAKING LANSOPRAZOLE 30 MG CAPSULE DELAYED RELEASE 1 CAPSULE ORALLY BID TAKING FAMOTIDINE 40 MG TABLET 1 TAB ORALLY AT BEDTIME TAKING FUROSEMIDE 40 MG TABLET 1 TABLET ORALLY EVERY MORNING TAKING CALCIUM 600 + D 600-400 MG-UNIT TABLET 1 TABLET ORALLY DAILY TAKING NEBULIZER/TUBING/MOUTHPIECE - KIT PT ONLY NEEDS TUBING AND MASK INH FOUR TIMES A DAY NEEDED DX:J45.22 TAKING ACETAMINOPHEN EXTRA STRENGTH 500 MG TABLET 2 TABLETS NEEDED ORALLY EVERY 6 HRS, NOTES: PRN TAKING ALBUTEROL SULFATE (2.5 MG/3ML) 0.083% NEBULIZATION SOLUTION 3 ML INHALATION THREE TIMES A DAY, NOTES: PRN TAKING ERGOCALCIFEROL 52705 UNIT CAPSULE 1 CAPSULE ORALLY EVERY 7 DAYS TAKING ESTRACE 0.1 MG/GM CREAM 1 GM VAGINAL WEEKLY, NOTES: SUNDAY TAKING NYSTATIN [id number] UNIT/GM CREAM 1 APPLICATION EXTERNALLY ABDOMEN TWICE A DAY TAKING LOSARTAN POTASSIUM 50 MG TABLET TAKE ONE TABLET BY MOUTH TWICE A DAY ORALLY TWICE DAILY TAKING ONETOUCH VERIO - STRIP USE ONE STRIP PER DAY TAKING CARPAL TUNNEL WRIST STABILIZER - MISCELLANEOUS DIRECTED BILATERAL AT BEDTIME, G56 TAKING ASTELIN 137 MCG/SPRAY SOLUTION INSTILL 1 SPRAY INTO EACH NOSTRIL 2 TIMES A DAY _ BID TAKING DIPHENHYDRAMINE HCL 50 MG TABLET 1 TABLET ORALLY AT BEDTIME TAKING LORATADINE 10 MG TABLET 1 TABLET ORALLY ONCE A DAY TAKING MONTELUKAST SODIUM 10 MG TABLET 1 TABLET ORALLY AT BEDTIME TAKING FLUTICASONE PROPIONATE 50 MCG/ACT SUSPENSION 2 SPRAYS IN EACH NOSTRIL NASALLY EVERY MORNING NOT-TAKING HYDROXYZINE PAMOATE 25 MG CAPSULE TAKE 1 CAPSULE BY MOUTH EVERY 8 HOURS NEEDED NOT-TAKING VITAMIN D (ERGOCALCIFEROL) 1.25 MG (75021 UT) CAPSULE TAKE ONE CAPSULE BY MOUTH EVERY 7 DAYS MEDICATION LIST REVIEWED AND RECONCILED WITH THE PATIENT PAST MEDICAL HISTORY HYPERLIPIDEMIA 2B IMPAIRED FASTING GLUCOSE GERD/HIATAL HERNIA- 07/27/16 EGD SMALL HH, MILD BILE GASTRITIS BY BIOPSY, DUODENITIS-BRYNN ASTHMA, MILD PERSISTENT MULTIPLE BILATERAL COMPLEX THYROID CYSTS ACUTE CRYPTITIS OF ALL RANDOM BIOPSIES, SUGGESTIVE OF IDIOPATHIC IBD BY COLONOSCOPY 01/2007-SELAM//RECTAL BIOPSY C MILD DIASSRAY C LP FIBROSIS BY 03/2017 COLON-W HYPERTENSION, ESSENTIAL FIBROMYALGIA CHRONIC MDD/BLANCA URGE INCONTINENCE ALLERGIC RHINITIS-12/2011 NEGATIVE ZONE 1 ALLERGY PANEL VASOMOTOR SYMPTOMS 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 STOLL/L45 MOD BOROAD HNP C SEVERE L L4 NFN BY 01/2019 MRI GALA, MILD-07/04/07 NPSG AHI 8-UNABLE TO TOLERATE ANY CPAP MASK DIASTOLIC CHF-09/2014 TTE LVEF65%, DIASTOLIC DYSFUNCTION, ELEVATED CVP, MILD LAE 35 MM-ARRIETA B HIP OA, MILD R>L, PARTIAL L SUPERIOR LABRUM TEAR BY 10/2015 MRI CKD 3-08/2017 RENAL US: R KIDNEY ATROPHY (PREVIOUS PARTIAL NEPHRECTOMY 2 HYDRONEPHROSIS) S SIGNS OF UNIQUE KNEE OA, BILATERAL ALLERGIES LYRICA: EDEMA, SWELLING, ITCHING - ALLERGY ULTRACET: RASH - ALLERGY OMEPRAZOLE: RASH - ALLERGY ENVIRONMENTAL: SNEEZING, RUNNY NOSE, ITCHY EYES - ALLERGY SOCIAL HISTORY GENERAL: TOBACCO USE ARE YOU A:NONSMOKER LATEX QUESTIONNAIRE LATEX ALLERGY : HAVE YOU EVER DEVELOPED ANY TYPE OF REACTION AFTER HANDLING LATEX PRODUCTS SUCH RUBBER GLOVES, CONDOMS, DIAPHRAGMS, BALLOONS, SOCKS, OR UNDERWEAR?NO LATEX ALLERGY : HAVE YOU EVER DEVELOPED ANY TYPE OF REACTION DURING OR AFTER DENTAL APPOINTMENT, VAGINAL/RECTAL EXAMINATION, SURGICAL PROCEDURE, OR ANY OTHER EXPOSURE?NO LATEX RISK : HAVE YOU EVER HAD ANY DIFFICULTY BREATHING OR HIVES AFTER EATING OR HANDLING ANY FRUITS, OR VEGETABLES; SUCH KIWI, BANANAS, STONE FRUITS, OR CHESTNUTSNO LATEX RISK : DO YOU HAVE A PREVIOUS PERSONAL HISTORY OF MORE THAN NINE SURGERIES, SPINA BIFIDA, OR REPEATED CATHERIZATIONS? YES - PLEASE INDICATE : > 9 SURGERIES LATEX RISK : ARE YOU FREQUENTLY EXPOSED TO LATEX PRODUCTS IN YOUR OCCUPATION?NO DATE ASKED : 09/20/2020 ALCOHOL USE: NO. BMI CARE GOAL FOLLOW-UP ABOVE NORMAL BMI FOLLOW-UPGIVING ENCOURAGEMENT TO EXERCISE ALCOHOL SCREENING DID YOU HAVE A DRINK CONTAINING ALCOHOL IN THE PAST YEAR?NO POINTS0 INTERPRETATIONNEGATIVE RECREATIONAL DRUG USE DRUG USE?NO CAFFEINE CAFFEINE USE?YES 1-2 BEVERAGES DAILY SEXUAL HX HAD SEX IN THE LAST 12 MONTHS (VAGINAL, ORAL, OR ANAL)?NO HAVE YOU EVER HAD AN STD?NO HIV / HEP-C SCREENING HIV TEST OFFERED TO PATIENT:YES DATE OFFERED:08/24/2016 TEST ACCEPTED:NO HEP-C TEST OFFERED TO PATIENT:YES DATE OFFERED:08/24/2016 REASON:PATIENT DECLINED TEST ACCEPTED:NO REASON:PATIENT DECLINED ORTHODOX [id number] SPIRITISM LANGUAGE LANGUAGES SPOKEN:YI EDUCATION LEVEL OF EDUCATION:FINISHED COLLEGE LEARNING BARRIERS / SPECIAL NEEDS CHANGE FROM LAST VISIT?NO BARRIERS TO LEARNING?NO HEARING IMPAIRED?NO VISION IMPAIRED?YES :CORRECTIVE LENSES READING ONLY COGNITIVELY IMPAIRED?NO READINESS TO LEARN?YES LEARNING PREFERENCES?NO LEARNING CAPABILITIES PRESENT?YES EMOTIONAL BARRIERS?NO SPECIAL DEVICES?NO CHILD CARE TEACHER NEEDED?NO DOMESTIC VIOLENCE DO YOU FEEL SAFE IN YOUR ENVIRONMENT?YES OCCUPATION: UNEMPLOYED. DIET: REGULAR. EXERCISE: PHYSICAL THERAPY AT HOME DAILY. MARITAL STATUS: .. OTHERS AT HOME: S/O. PATIENT DESCRIBES PAIN :IT COMES AND GOES, TENDER, SORE FROM 0-10, WHAT LEVEL IS YOUR PAIN TODAY?5 PRECIPITATING FACTORS SITTING ON THE AREA TOO LONG OR LAYING ON IT, UNABLE TO LAY ON BACK, WAKES FROM SLEEP ALLEVIATING FACTORS CHANGING POSITION, HEATING PAD - PFS REFERRAL NEEDED?NO CLERGY REFERRAL NEEDED?NO PUBLIC HEALTH REFERRAL NEEDED?NO WAS THE PROVIDER NOTIFIED OF ANY PERTINENT INFO? N/A HAS THE PATIENT BEEN EDUCATED REGARDING HIS/HER PLAN OF CARE?YES HAS THE PATIENT BEEN EDUCATED REGARDING PAIN, THE RISK FOR PAIN, THE IMPORTANCE OF EFFECTIVE PAIN MANAGEMENT, AND THE PAIN ASSESSMENT PROCESS?YES ADVANCE DIRECTIVE ADVANCE DIRECTIVE DISCUSSED WITH PATIENT:YES HCP: BOYFRIEND - NASIM ALLEN [phone] REVIEW OF SYSTEMS CONSTITUTIONAL: ANY RECENT FEVER NO . CHILLS NO . WEIGHT CHANGE OF UNKNOWN REASONS NO . GASTROENTEROLOGY: NEW UNEXPLAINABLE CHANGES IN BOWEL CONTROL NO . CONSTIPATION NO . GENITOURINARY: ANY NEW CHANGE IN BLADDER CONTROL? NO . NEUROLOGY: NEW ONSET DIZZINESS OR NEUROLOGICAL CHANGES NOT MENTIONED NO . NEW NUMBNESS OR PAIN PATTERNS NOT MENTIONED AND PERTINENT TO TODAY'S VISIT NO . CARDIOLOGY: NEW CHEST PRESSURE NO . PATIENT DENIES NO . RESPIRATORY: UNEXPLAINABLE COUGH NO . NEW SHORTNESS OF BREATH NO . VITAL SIGNS WT 247.2 LBS, HT 70 IN, BMI 35.47 INDEX, BP 123/75 MM HG, HR 82 /MIN, RR 18 /MIN, TEMP 97.0 F, OXYGEN SAT % 98%, SAFE IN ENV? (Y/N) Y, NA INITIALS AW [id number], REVIEWED BY: Storm ALFRED RN. EXAMINATION GENERAL: THE PATIENT IS ALERT, ORIENTED TIMES THREE AND COOPERATIVE. LUNGS ARE CLEAR TO AUSCULTATION. HEART SHOWS REGULAR RHYTHM, NO MURMURS AND NO GALLOPS. THE PAIN IS AFFECTING HER ABILITY TO DO ACTIVITIES SUCH CLEANING HER HOUSE AND GROCERY SHOPPING. THE RIGHT LEG IS WEAKER THAN THE LEFT LEG ON FLEXION AND EXTENSION. STRAIGHT LEG RAISE IS POSITIVE FOR RADICULOPATHY AT 60 DEGREES. MRI OF THE LUMBOSACRAL SPINE DATED 01/22/2019 SHOWS DISC PROTRUSION AT L5-S1 AND L4-L5 AND LAMINECTOMY CHANGES. 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 WHEATLEY. WE AGREE ON DOING AN EPIDURAL AT L4-L5 IN THE NEAR FUTURE. THE PATIENT HAD THE COVID-19 VACCINE 6 DAYS AGO. SO THIS PROCEDURE SHOULD BE BOOKED MORE THAN 10 DAYS FROM NOW. THE PATIENT REPORTS UNDERSTANDING AND AGREES WITH THE PLAN. I, RAZA ROBLEDO, DOCUMENTED THE ABOVE INFORMATION ACTING A SCRIBE FOR DR. GLASS. I HAVE REVIEWED THE ABOVE DOCUMENT, WRITTEN BY RAZA ROBLEDO, EMERGENCY MEDICINE SPECIALIST, AND I VERIFY THAT IT IS ACCURATE. OTHERS NOTES: 09/20/20 1214 PAT COMPLETED. PATRIC RN BSN. PROCEDURE CODES FA211 ESTABILISHED PATIENT [facility] CHARGE DISPOSITION & COMMUNICATION FOLLOW UP RESCHEDULE FOR 10 DAYS (REASON: LUMBAR EPIDURAL STEROID INJECTION) ELECTRONICALLY SIGNED BY ARCAIDO GLASS MD, MD ON 09/28/2020 AT 12:31 PM EDT DISCLAIMER : THIS IS A VISIT SUMMARY EXTRACTED FROM THE [employer] CHART. IT IS NOT A COPY OF THE [employer] PROGRESS NOTE. MTDD
== END ==
LOC: M PAIN 08:30
PROVIDERS: ATTEND Anesthesiology
DX: M96.1 Postlaminectomy syndrome, not elsewhere classified (principal); M51.16 Intervertebral disc disorders with radiculopathy, lumbar region; R73.03 Prediabetes; G47.33 Obstructive sleep apnea (adult) (pediatric); J45.30 Mild persistent asthma, uncomplicated; M79.7 Fibromyalgia; Z86.59 Personal history of other mental and behavioral disorders; Z88.8 Allergy status to other drugs, medicaments and biological substances; Z79.84 Long term (current) use of oral hypoglycemic drugs; Z79.899 Other long term (current) drug therapy

== ENCOUNTER → 2020-10-13 | Outpatient (CLI) | payer OTHER ==
--- NOTE | 2020-10-13 14:15 | REP ---
INDICATION: MULTINODULAR GOITER, NONTOXIC COMPARISON: 09/25/2018 TECHNIQUE: Espino scale and color evaluation of the thyroid gland using the linear high frequency transducer. FINDINGS: Thyroid gland is mildly enlarged and heterogeneous. Isthmus measures 5 mm in width. Right lobe measures 4.5 x 2.5 x 2.3 cm and is dominated by a 3.1 x 2.1 x 1.9 cm hypoechoic/isoechoic mass essentially unchanged. Left lobe measures 4.2 x 1.2 x 1.1 cm and includes 8 x 6 x 5 mm hypoechoic midpole nodule and 9 x 9 x 7 mm hypoechoic lower pole nodule which are essentially unchanged. IMPRESSION: Thyroid nodules as described above essentially unchanged. Largest lesion in the right thyroid lobe corresponds to TI-Rads category TR4 and may warrant biopsy if not already performed. <Electronically signed by Matthew Caceres > 10/13/20 1418
== END ==
LOC: M RAD 12:59
PROVIDERS: ATTEND Family Medicine
DX: E04.9 Nontoxic goiter, unspecified (principal)

== ENCOUNTER → 2020-10-14 | Outpatient (CLI) | payer OTHER | LOC: M LABSMTC 10:33 | PROVIDERS: ATTEND Anesthesiology | DX: Z20.822 Contact with and (suspected) exposure to COVID-19 (principal) ==

== ENCOUNTER → 2020-10-19 | Outpatient (CLI) | payer OTHER ==
[~2020-10-19] MED LIST changes: +ISOVUE-M 300 61% 15ML VIAL As Ordered ONE; +LIDOCAINE 1% SDV 30ML VIAL As Ordered ONE; +diazePAM 5MG TABLET As Ordered ONE; +methylPREDNISolone SUSP 40MG/ML 1ML VIAL (DEPO MEDROL) As Ordered ONE; +oxyCODONE 5MG TAB As Ordered ONE
--- NOTE | 2020-10-19 13:00 | REP ---
INDICATION: LESI. COMPARISON: None. TECHNIQUE: Intraoperative fluoroscopic imaging using portable C-arm technique. FINDINGS: Catheter and contrast overlie the lumbar epidural space. Total fluoroscopic time 7 seconds. IMPRESSION: Images consistent with lumbar epidural injection. <Electronically signed by Matthew Caceres > 10/19/20 5104
--- NOTE | 2020-10-20 23:59 | ECWPNPC ---
PATIENT NAME: MARICARMEN WHEATLEY : 1955 GENDER: FEMALE VISIT DATE: 10/19/2020 DISCHARGE DATE: 10/19/20 1158 VISIT LOCKED DATE TIME: PHYSICIAN: ARCADIO GLASS MD PHYSICIAN PAGER NO: ACTIVE RESOURCE: ARCADIO GLASS MD REASON FOR APPOINTMENT 1. LUMBAR EPIDURAL STEROID INJECTION HISTORY OF PRESENT ILLNESS GENERAL: -. FALL RISK SCREENING: SCREENING : NO FALLS REPORTED IN THE LAST YEAR. PAIN SCREENING: PATIENT HAS A COMPLAINT OF ACUTE OR CHRONIC PAIN :YES LOCATION OF PAIN:LOW BACK INTENSITY OF PAIN (SCALE OF 1 TO 10):8 WHAT DOES YOUR PAIN FEEL LIKE:ACHING, CONTINOUS, SHARP, SHOOTING NURSING NOTE: -. PAIN CENTER INTAKE QUESTIONS: DO YOU HAVE A HISTORY OF MRSA? :NO DO YOU TAKE A BLOOD THINNERS? :NO DO YOU HAVE ANY BLEEDING DISORDERS? :NO ANY NEW NUMBNESS OR WEAKNESS IN YOUR LEGS OR ARMS? :NO ANY PACEMAKER,DEFIBRILLATOR, OR DORSAL COLUMN STIMULATOR? :NO DO YOU HAVE ANY RASHES OR OPEN SORES? :NO ARE YOU ALLERGIC TO IV DYE? :NO ARE YOU DIABETIC? :YES TYPE ! ANY NEW PROBLEMS WITH YOUR MEDICATIONS? :NO HAVE YOU RECEIVED A VACCINE IN THE PAST 30 DAYS? :NO DO YOU PLAN TO RECEIVE A VACCINE IN THE NEXT 21 DAYS? :NO DO YOU TAKE ANY IMMUNOSUPPRESSIVE MEDICATIONS? :NO ANY HISTORY OF SEIZURES? :NO ANY HISTORY OF CARDIAC ISSUES OR EVENTS? :NO DO YOU HAVE ANY KIDNEY OR LIVER DISEASE? :YES STAGE 2 CKD DO YOU HAVE SLEEP APNEA? :YES DO YOU WEAR A CPAP?NO ANY RECENT HEAD INJURY? :NO DO YOU HAVE ANY NEW INFECTIONS? :NO IS THERE A CHANCE YOU COULD BE ? :NO ARE YOU BREAST FEEDING? :NO WHEN DID YOU LAST EAT? : 10/18/20 5PM WHEN DID YOU LAST DRINK? : 10/19/20 0840 WHAT DID YOU LAST DRINK? : WATER NAME OF PERSON DRIVING YOU HOME? : -MEDICAID TRANSPORTATION DO YOU HAVE ANY OTHER QUESTIONS OR CONCERNS? : -DENIES CURRENT MEDICATIONS TAKING VENTOLIN HFA 108 (90 BASE) MCG/ACT AEROSOL SOLUTION 2 PUFFS INHALATION EVERY 4 HOURS NEEDED FOR WHEEZING TAKING APRISO 0.375 GM CAPSULE EXTENDED RELEASE 24 HOUR 4 CAPSULES IN THE MORNING ORALLY ONCE A DAY TAKING ERGOCALCIFEROL 72982 UNIT CAPSULE 1 CAPSULE ORALLY EVERY 7 DAYS TAKING VITAMIN C OTC TABLET 1 TABLET ORALLY ONCE A DAY TAKING MULTIVITAMINS OTC TABLET 1 TAB(S) ORALLY ONCE A DAY TAKING CITALOPRAM HYDROBROMIDE 40 MG TABLET 1 TABLET ORALLY DAILY TAKING VOLTAREN 1 % GEL 4 GM TRANSDERMAL QID B KNEES TAKING GABAPENTIN 300 MG CAPSULE 1 CAPSULE ORALLY 300MG AM, 300MG NOON, 600MG QHS TAKING ONETOUCH DELICA LANCETS 33G - MISCELLANEOUS DIRECTED SUBCUTANEOUSLY DAILY TAKING METFORMIN HCL ER 500 MG TABLET EXTENDED RELEASE 24 HOUR 1 TAB ORALLY BEFORE DINNER, NOTES: 10/18/20 TAKING CYANOCOBALAMIN 250 MCG TABLET 1 TABLET ORALLY ONCE A DAY TAKING LANSOPRAZOLE 30 MG CAPSULE DELAYED RELEASE 1 CAPSULE ORALLY BID TAKING FAMOTIDINE 40 MG TABLET 1 TAB ORALLY AT BEDTIME TAKING FUROSEMIDE 40 MG TABLET 1 TABLET ORALLY EVERY MORNING TAKING CALCIUM 600 + D 600-400 MG-UNIT TABLET 1 TABLET ORALLY DAILY TAKING NEBULIZER/TUBING/MOUTHPIECE - KIT PT ONLY NEEDS TUBING AND MASK INH FOUR TIMES A DAY NEEDED DX:J45.22 TAKING ACETAMINOPHEN EXTRA STRENGTH 500 MG TABLET 2 TABLETS NEEDED ORALLY EVERY 6 HRS, NOTES: PRN TAKING ALBUTEROL SULFATE (2.5 MG/3ML) 0.083% NEBULIZATION SOLUTION 3 ML INHALATION THREE TIMES A DAY, NOTES: PRN TAKING ERGOCALCIFEROL 23371 UNIT CAPSULE 1 CAPSULE ORALLY EVERY 7 DAYS TAKING ESTRACE 0.1 MG/GM CREAM 1 GM VAGINAL WEEKLY, NOTES: SUNDAY TAKING NYSTATIN 200790 UNIT/GM CREAM 1 APPLICATION EXTERNALLY ABDOMEN TWICE A DAY TAKING ONETOUCH VERIO - STRIP USE ONE STRIP PER DAY TAKING CARPAL TUNNEL WRIST STABILIZER - MISCELLANEOUS DIRECTED BILATERAL AT BEDTIME, G56 TAKING ASTELIN 137 MCG/SPRAY SOLUTION INSTILL 1 SPRAY INTO EACH NOSTRIL 2 TIMES A DAY _ BID TAKING DIPHENHYDRAMINE HCL 50 MG TABLET 1 TABLET ORALLY AT BEDTIME TAKING LORATADINE 10 MG TABLET 1 TABLET ORALLY ONCE A DAY TAKING MONTELUKAST SODIUM 10 MG TABLET 1 TABLET ORALLY AT BEDTIME TAKING FLUTICASONE PROPIONATE 50 MCG/ACT SUSPENSION 2 SPRAYS IN EACH NOSTRIL NASALLY EVERY MORNING TAKING LOSARTAN POTASSIUM 50 MG TABLET TAKE ONE TABLET BY MOUTH TWICE A DAY ORALLY TWICE DAILY TAKING BANOPHEN 50 MG CAPSULE TAKE ONE CAPSULE BY MOUTH AT BEDTIME TAKING HYDROXYZINE PAMOATE 25 MG CAPSULE TAKE 1 CAPSULE BY MOUTH EVERY 8 HOURS NEEDED , NOTES: 10/18/20 NOT-TAKING VITAMIN D (ERGOCALCIFEROL) 1.25 MG (59170 UT) CAPSULE TAKE ONE CAPSULE BY MOUTH EVERY 7 DAYS DISCONTINUED NORCO 5-325 MG TABLET 1 TABLET NEEDED ORALLY EVERY 6 HRS PRN PAIN MDD=4 MEDICATION LIST REVIEWED AND RECONCILED WITH THE PATIENT PAST MEDICAL HISTORY HYPERLIPIDEMIA 2B IMPAIRED FASTING GLUCOSE GERD/HIATAL HERNIA- 07/27/16 EGD SMALL HH, MILD BILE GASTRITIS BY BIOPSY, DUODENITIS-BRYNN ASTHMA, MILD PERSISTENT MULTIPLE BILATERAL COMPLEX THYROID CYSTS ACUTE CRYPTITIS OF ALL RANDOM BIOPSIES, SUGGESTIVE OF IDIOPATHIC IBD BY COLONOSCOPY 01/2007-SELAM//RECTAL BIOPSY C MILD DIASSRAY C LP FIBROSIS BY 03/2017 COLON-W HYPERTENSION, ESSENTIAL FIBROMYALGIA CHRONIC MDD/BLANCA URGE INCONTINENCE ALLERGIC RHINITIS-12/2011 NEGATIVE ZONE 1 ALLERGY PANEL VASOMOTOR SYMPTOMS 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 STOLL/L45 MOD BOROAD HNP C SEVERE L L4 NFN BY 01/2019 MRI GALA, MILD-07/04/07 NPSG AHI 8-UNABLE TO TOLERATE ANY CPAP MASK DIASTOLIC CHF-09/2014 TTE LVEF65%, DIASTOLIC DYSFUNCTION, ELEVATED CVP, MILD LAE 35 MM-ARRIETA B HIP OA, MILD R>L, PARTIAL L SUPERIOR LABRUM TEAR BY 10/2015 MRI CKD 3-08/2017 RENAL US: R KIDNEY ATROPHY (PREVIOUS PARTIAL NEPHRECTOMY 2 HYDRONEPHROSIS) S SIGNS OF UNIQUE KNEE OA, BILATERAL ALLERGIES LYRICA: EDEMA, SWELLING, ITCHING - ALLERGY ULTRACET: RASH - ALLERGY OMEPRAZOLE: RASH - ALLERGY ENVIRONMENTAL: SNEEZING, RUNNY NOSE, ITCHY EYES - ALLERGY SOCIAL HISTORY GENERAL: TOBACCO USE ARE YOU A:NONSMOKER LATEX QUESTIONNAIRE LATEX ALLERGY : HAVE YOU EVER DEVELOPED ANY TYPE OF REACTION AFTER HANDLING LATEX PRODUCTS SUCH RUBBER GLOVES, CONDOMS, DIAPHRAGMS, BALLOONS, SOCKS, OR UNDERWEAR?NO LATEX ALLERGY : HAVE YOU EVER DEVELOPED ANY TYPE OF REACTION DURING OR AFTER DENTAL APPOINTMENT, VAGINAL/RECTAL EXAMINATION, SURGICAL PROCEDURE, OR ANY OTHER EXPOSURE?NO DATE ASKED : 09/20/2020 LATEX RISK : HAVE YOU EVER HAD ANY DIFFICULTY BREATHING OR HIVES AFTER EATING OR HANDLING ANY FRUITS, OR VEGETABLES; SUCH KIWI, BANANAS, STONE FRUITS, OR CHESTNUTSNO LATEX RISK : DO YOU HAVE A PREVIOUS PERSONAL HISTORY OF MORE THAN NINE SURGERIES, SPINA BIFIDA, OR REPEATED CATHERIZATIONS? YES - PLEASE INDICATE : > 9 SURGERIES LATEX RISK : ARE YOU FREQUENTLY EXPOSED TO LATEX PRODUCTS IN YOUR OCCUPATION?NO ALCOHOL USE: NO. BMI CARE GOAL FOLLOW-UP ABOVE NORMAL BMI FOLLOW-UPGIVING ENCOURAGEMENT TO EXERCISE ALCOHOL SCREENING DID YOU HAVE A DRINK CONTAINING ALCOHOL IN THE PAST YEAR?NO POINTS0 INTERPRETATIONNEGATIVE RECREATIONAL DRUG USE DRUG USE?NO CAFFEINE CAFFEINE USE?YES 1-2 BEVERAGES DAILY SEXUAL HX HAD SEX IN THE LAST 12 MONTHS (VAGINAL, ORAL, OR ANAL)?NO HAVE YOU EVER HAD AN STD?NO HIV / HEP-C SCREENING HIV TEST OFFERED TO PATIENT:YES DATE OFFERED:08/24/2016 TEST ACCEPTED:NO HEP-C TEST OFFERED TO PATIENT:YES DATE OFFERED:08/24/2016 REASON:PATIENT DECLINED TEST ACCEPTED:NO REASON:PATIENT DECLINED SABIANIST [id number] CONGREGATION LANGUAGE LANGUAGES SPOKEN:ZAMBIAN EDUCATION LEVEL OF EDUCATION:FINISHED COLLEGE LEARNING BARRIERS / SPECIAL NEEDS CHANGE FROM LAST VISIT?NO BARRIERS TO LEARNING?NO HEARING IMPAIRED?NO VISION IMPAIRED?YES COGNITIVELY IMPAIRED?NO :CORRECTIVE LENSES READING ONLY READINESS TO LEARN?YES LEARNING PREFERENCES?NO LEARNING CAPABILITIES PRESENT?YES EMOTIONAL BARRIERS?NO SPECIAL DEVICES?NO HEAD MVA REACTOR OPERATOR NEEDED?NO DOMESTIC VIOLENCE DO YOU FEEL SAFE IN YOUR ENVIRONMENT?YES OCCUPATION: UNEMPLOYED. DIET: REGULAR. EXERCISE: PHYSICAL THERAPY AT HOME DAILY. MARITAL STATUS: .. OTHERS AT HOME: S/O. PATIENT DESCRIBES PAIN :IT COMES AND GOES, TENDER, SORE FROM 0-10, WHAT LEVEL IS YOUR PAIN TODAY?5 PRECIPITATING FACTORS SITTING ON THE AREA TOO LONG OR LAYING ON IT, UNABLE TO LAY ON BACK, WAKES FROM SLEEP ALLEVIATING FACTORS CHANGING POSITION, HEATING PAD - PFS REFERRAL NEEDED?NO CLERGY REFERRAL NEEDED?NO PUBLIC HEALTH REFERRAL NEEDED?NO WAS THE PROVIDER NOTIFIED OF ANY PERTINENT INFO? N/A HAS THE PATIENT BEEN EDUCATED REGARDING HIS/HER PLAN OF CARE?YES HAS THE PATIENT BEEN EDUCATED REGARDING PAIN, THE RISK FOR PAIN, THE IMPORTANCE OF EFFECTIVE PAIN MANAGEMENT, AND THE PAIN ASSESSMENT PROCESS?YES ADVANCE DIRECTIVE ADVANCE DIRECTIVE DISCUSSED WITH PATIENT:YES HCP: BOYFRIEND - NASIM ALLEN [phone] VITAL SIGNS WT 254.4 LBS, HT 70 IN, BMI 36.50 INDEX, BP 134/82 MM HG, HR 78 /MIN, RR 18 /MIN, TEMP 98.1 F, OXYGEN SAT % 97%, BLOOD GLUCOSE LEVEL 116, SAFE IN ENV? (Y/N) Y, NA INITIALS AW 1028, REVIEWED BY: EMFS BY PT @ HOME THIS AM. EM. EXAMINATION GENERAL: THE PATIENT IS ALERT, ORIENTED TIMES THREE AND COOPERATIVE. LUNGS ARE CLEAR TO AUSCULTATION. HEART SHOWS REGULAR RHYTHM, NO MURMURS AND NO GALLOPS. ASSESSMENTS LUMBAR POST-LAMINECTOMY SYNDROME - M96.1 (PRIMARY) TREATMENT LUMBAR POST-LAMINECTOMY SYNDROME [facility] FLUORO GUIDE SPINE INJECTION (PAIN)[id number] COMPLETION OF PROCEDURAL VISIT WHEN MEETS CRITERIACRYSTAL HUNT 10/19/2020 11:58:42 AM > CRITERIA MET MEDICATION: VALIUM TAB 5MG ORALLY (DIAZEPAM)LATESHA MATA 10/19/2020 10:57:58 AM > VERIFIED. CRYSTAL HUNT 10/19/2020 11:02:51 AM > ADMINISTERED MEDICATION: OXYCODONE HCL TAB 10MG ORALLYLATESHA MATA 10/19/2020 10:58:14 AM > VERIFIED. CRYSTAL HUNT 10/19/2020 11:03:08 AM > ADMINISTERED OTHERS CLINICAL NOTES: PAT COMPLETED 10/14/20 @ 1445 TBRADLEYRN . PROCEDURES PAIN NURSING RECORD PROCEDURE IN ROOM 1120, PHYSICIAN IN ROOM 1130, START 1135, FINISH 1139, PHYSICIAN OUT OF ROOM 1140, OUT OF ROOM 1150, ECG NORMAL SINUS, PATIENT SHIELDED YES, SAFETY STRAP YES, PREP BETADINE Arlene HUNT RN, DRESSING TEGADERM DR. GLASS LOC: 1. ALERT, ORIENTED, CRYSTAL HUNT 10/19/2020 11:36:15 AM > RESP: 1. REGULAR, NO DYSPNEA, CRYSTAL HUNT 10/19/2020 11:36:19 AM > COLOR: 1. PINKGILBERT ELIZABETH 10/19/2020 11:36:22 AM > SKIN: 1. WARM, DRY, CRYSTAL HUNT 10/19/2020 11:36:25 AM > POSITION: 1. PRONE, CRYSTAL HUNT 10/19/2020 11:27:54 AM > VITALS: 152/77, 74, 16, 96% CRYSTAL HUNT 10/19/2020 11:15:20 AM > , 141/75, 72, 16, 95%, CRYSTAL HUNT 10/19/2020 11:30:11 AM > 131/73, 73, 16, 96%, CRYSTAL HUNT 10/19/2020 11:45:58 AM > 129/81, 78, 16, 96%, CRYSTAL HUNT 10/19/2020 11:58:08 AM > NOTES Arlene HUNT RN COMPLETION OF PROCEDURE APPOINTMENT: POST PAIN 0, DRESSING SITE DRY AND INTACT, IV N/A, GAIT STEADY, TEACHING COMPLETED, PATIENT ACKNOWLEDGES UNDERSTANDING YES, PROCEDURE APPOINTMENT COMPLETED AT 1157 PRE PROCEDURE DIAGNOSIS LUMBAR POST LAMINECTOMY PAIN SYNDROME POST PROCEDURE DIAGNOSIS LUMBAR POST LAMINECTOMY PAIN SYNDROME PROCEDURE LUMBAR EPIDURAL STEROID INJECTION UNDER FLUOROSCOPIC GUIDANCE SURGEON DR. ARCADIO GLASS SHINGLE GRADER NONE ANESTHESIA LOCAL PRE PROCEDURE NOTE THE PATIENT HAS A HISTORY OF CHRONIC LOW BACK PAIN. I EVALUATED THE PATIENT AND REVIEWED THE CHART. I WENT OVER THE RISKS, ALTERNATIVES, AND BENEFITS ASSOCIATED WITH THIS PROCEDURE. THE PATIENT WOULD LIKE TO PROCEED AND GIVE CONSENT TO PERFORMED THE PROCEDURE. THE PATIENT DENIES UNEXPLAINABLE WEIGHT LOSS, FEVER, CHILLS, OR NEW CHANGES IN URINARY OR BOWEL CONTROL. THE PATIENT IS COVID-19 NEGATIVE DESCRIPTION OF PROCEDURE THE PATIENT WAS BROUGHT TO THE PROCEDURE ROOM AND PLACED IN THE PRONE POSITION. THE LUMBOSACRAL AREA WAS CLEANED WITH BETADINE SOLUTION AND DRAPED ASEPTICALLY. THE PROCEDURE WAS DONE UNDER STERILE CONDITIONS. A TIMEOUT WAS PERFORMED WHERE THE CONSENTED SITE WAS VERIFIED WITH EVERYONE IN THE ROOM. UNDER FLUOROSCOPIC GUIDANCE, THE TARGET POINT WAS SELECTED AT THE INTERLAMINAR LEVEL OF L4-L5. I CONFIRMED AGAIN THE SITE OF TARGET. LIDOCAINE WAS USED TO NUMB THE SKIN AND THE SUBCUTANEOUS TISSUE BELOW IT. EPIDURAL TUOHY NEEDLE, 17-GAUGE, WAS ADVANCED UNDER FLUOROSCOPIC GUIDANCE AND FOLLOWING PATIENT FEEDBACK UNTIL THE EPIDURAL SPACE WAS REACHED 7 CM DEEP INTO THE SKIN BY THE LOSS OF RESISTANCE TECHNIQUE. ISOVUE-M DYE 30%, 0.25 ML, WAS INJECTED SHOWING ADEQUATE SPREAD OF THE DYE. THEN, A SOLUTION OF 3 ML OF NORMAL SALINE WITH DEPO-MEDROL 40 MG WAS INJECTED SLOWLY FOLLOWING PATIENT FEEDBACK. THE MEDICATIONS WERE VERIFIED WITH THE NURSE. THERE WAS NO EVIDENCE OF BLOOD, PARESTHESIA OR CEREBROSPINAL FLUID DURING THE PROCEDURE. THE PATIENT WAS SENT TO THE RECOVERY ROOM. THE PATIENT WAS MOVING THE EXTREMITIES AND DOING WELL. THERE WERE NO COMPLICATIONS DURING THE PROCEDURE. ESTIMATED BLOOD LOSS WAS LESS THAN 5 ML. FLUOROSCOPY TIME WAS 7 SECONDS POST PROCEDURE NOTE THE PATIENT WILL BE SEEN IN A FOLLOW UP IN THE NEXT FEW WEEKS. I AM LOOKING FOR LONG LASTING RELIEF FOR THE PATIENT WITH THIS INTERVENTION. INSTRUCTIONS WERE GIVEN, QUESTIONS WERE ANSWERED, AND THE PATIENT EXPRESSED UNDERSTANDING AND AGREES WITH THE PLAN. I, RAZA ROBLEDO, DOCUMENTED THE ABOVE INFORMATION ACTING A SCRIBE FOR DR. GLASS. I HAVE REVIEWED THE ABOVE DOCUMENT, WRITTEN BY RAZA ROBLEDO, CLINICAL INFORMATICS MANAGER, AND I VERIFY THAT IT IS ACCURATE PROCEDURE CODES 41265 LUMBAR/SACRAL W/ IMAGING DISPOSITION & COMMUNICATION FOLLOW UP FOLLOW UP WITH HOUSEKEEPER NANNY (REASON: POST LUMBAR EPIDURAL STEROID INJECTION) ELECTRONICALLY SIGNED BY ARCADIO GLASS MD, MD ON 10/20/2020 AT 02:53 PM EDT DISCLAIMER : THIS IS A VISIT SUMMARY EXTRACTED FROM THE [employer] CHART. IT IS NOT A COPY OF THE [employer] PROGRESS NOTE. FRANK
== END ==
LOC: M PAIN 10:20
PROVIDERS: ATTEND Anesthesiology
DX: M96.1 Postlaminectomy syndrome, not elsewhere classified (principal); E78.5 Hyperlipidemia, unspecified; R73.01 Impaired fasting glucose; K21.9 Gastro-esophageal reflux disease without esophagitis; F44.9 Dissociative and conversion disorder, unspecified; J45.30 Mild persistent asthma, uncomplicated; E04.2 Nontoxic multinodular goiter; I13.0 Hypertensive heart and chronic kidney disease with heart failure and stage 1 through stage 4 chronic kidney disease, or unspecified chronic kidney disease; N18.30 Chronic kidney disease, stage 3 unspecified; F33.9 Major depressive disorder, recurrent, unspecified; F41.1 Generalized anxiety disorder; G47.33 Obstructive sleep apnea (adult) (pediatric); I50.32 Chronic diastolic (congestive) heart failure; M17.0 Bilateral primary osteoarthritis of knee; M16.0 Bilateral primary osteoarthritis of hip; Z79.84 Long term (current) use of oral hypoglycemic drugs; Z79.899 Other long term (current) drug therapy; Z88.8 Allergy status to other drugs, medicaments and biological substances
CPT/HCPCS: 62323; J1030; Q9967

== ENCOUNTER → 2020-11-12 | Outpatient (CLI) | payer OTHER ==
[~2020-11-12] MED LIST changes: -ISOVUE-M 300 61% 15ML VIAL As Ordered ONE; -LIDOCAINE 1% SDV 30ML VIAL As Ordered ONE; -OXYC1TAB15 PO; +OXYC7.5T3 PO; -diazePAM 5MG TABLET As Ordered ONE; -methylPREDNISolone SUSP 40MG/ML 1ML VIAL (DEPO MEDROL) As Ordered ONE; -oxyCODONE 5MG TAB As Ordered ONE
--- NOTE | 2020-11-15 23:19 | ECWPNPC ---
PATIENT NAME: MARICARMEN WHEATLEY : 1955 GENDER: FEMALE VISIT DATE: 11/12/2020 DISCHARGE DATE: 11/12/20 1408 VISIT LOCKED DATE TIME: PHYSICIAN: MALAIKA LARES PHYSICIAN PAGER NO: ACTIVE RESOURCE: MALAIKA LARES REASON FOR APPOINTMENT 1. POST LUMBAR EPIDURAL STEROID INJECTION HISTORY OF PRESENT ILLNESS GENERAL: HPI 65-YEAR-OLD FEMALE IN FOR POST LUMBAR EPIDURAL STEROID INJECTION FOLLOW-UP. PATIENT FEELS HER PROCEDURE WAS UNSUCCESSFUL. SHE RATES HER PAIN CURRENTLY AT A 7 OUT OF 10 AND DESCRIBES IT SHARP, AND STEADY.. -. FALL RISK SCREENING: SCREENING : NO FALLS REPORTED IN THE LAST YEAR. PAIN SCREENING: PATIENT HAS A COMPLAINT OF ACUTE OR CHRONIC PAIN :YES LOCATION OF PAIN:LOW BACK INTENSITY OF PAIN (SCALE OF 1 TO 10):7 WHAT DOES YOUR PAIN FEEL LIKE:SHARP STEADY DURATION:CONTINOUS, STEADY, AWAKENS FROM SLEEP PAIN IS INCREASED BY:ACTIVITIES, PROLONGED STANDING PAIN IS DECREASED BY:USE OF PAIN MEDICATIONS, SITTING NURSING NOTE: -. PAIN CENTER INTAKE QUESTIONS: DO YOU HAVE A HISTORY OF MRSA? :NO DO YOU TAKE A BLOOD THINNERS? :NO DO YOU HAVE ANY BLEEDING DISORDERS? :NO ANY NEW NUMBNESS OR WEAKNESS IN YOUR LEGS OR ARMS? :NO ANY PACEMAKER,DEFIBRILLATOR, OR DORSAL COLUMN STIMULATOR? :NO DO YOU HAVE ANY RASHES OR OPEN SORES? :NO ARE YOU ALLERGIC TO IV DYE? :NO ARE YOU DIABETIC? :YES PREDIABETIC ANY NEW PROBLEMS WITH YOUR MEDICATIONS? :NO HAVE YOU RECEIVED A VACCINE IN THE PAST 30 DAYS? : SECOND COVID VACCINATION 09/07/2020 DO YOU PLAN TO RECEIVE A VACCINE IN THE NEXT 21 DAYS? :NO DO YOU NEED ANY PRESCRIPTION? :NO DO YOU TAKE ANY IMMUNOSUPPRESSIVE MEDICATIONS? :NO DO YOU HAVE ANY KIDNEY OR LIVER DISEASE? :YES STAGE 2 KIDNEY DISEASE IS THERE A CHANCE YOU COULD BE ? :NO ARE YOU BREAST FEEDING? :NO CURRENT MEDICATIONS TAKING VENTOLIN HFA 108 (90 BASE) MCG/ACT AEROSOL SOLUTION 2 PUFFS INHALATION EVERY 4 HOURS NEEDED FOR WHEEZING TAKING APRISO 0.375 GM CAPSULE EXTENDED RELEASE 24 HOUR 4 CAPSULES IN THE MORNING ORALLY ONCE A DAY TAKING ERGOCALCIFEROL 76731 UNIT CAPSULE 1 CAPSULE ORALLY EVERY 7 DAYS TAKING VITAMIN C OTC TABLET 1 TABLET ORALLY ONCE A DAY TAKING MULTIVITAMINS OTC TABLET 1 TAB(S) ORALLY ONCE A DAY TAKING CITALOPRAM HYDROBROMIDE 40 MG TABLET 1 TABLET ORALLY DAILY TAKING VOLTAREN 1 % GEL 4 GM TRANSDERMAL QID B KNEES TAKING GABAPENTIN 300 MG CAPSULE 1 CAPSULE ORALLY 300MG AM, 300MG NOON, 600MG QHS TAKING ONETOUCH DELICA LANCETS 33G - MISCELLANEOUS DIRECTED SUBCUTANEOUSLY DAILY TAKING METFORMIN HCL ER 500 MG TABLET EXTENDED RELEASE 24 HOUR 1 TAB ORALLY BEFORE DINNER, NOTES: 10/18/20 TAKING CYANOCOBALAMIN 250 MCG TABLET 1 TABLET ORALLY ONCE A DAY TAKING FAMOTIDINE 40 MG TABLET 1 TAB ORALLY AT BEDTIME TAKING FUROSEMIDE 40 MG TABLET 1 TABLET ORALLY EVERY MORNING TAKING CALCIUM 600 + D 600-400 MG-UNIT TABLET 1 TABLET ORALLY DAILY TAKING NEBULIZER/TUBING/MOUTHPIECE - KIT PT ONLY NEEDS TUBING AND MASK INH FOUR TIMES A DAY NEEDED DX:J45.22 TAKING ACETAMINOPHEN EXTRA STRENGTH 500 MG TABLET 2 TABLETS NEEDED ORALLY EVERY 6 HRS, NOTES: PRN TAKING ALBUTEROL SULFATE (2.5 MG/3ML) 0.083% NEBULIZATION SOLUTION 3 ML INHALATION THREE TIMES A DAY, NOTES: PRN TAKING ERGOCALCIFEROL 31328 UNIT CAPSULE 1 CAPSULE ORALLY EVERY 7 DAYS TAKING ESTRACE 0.1 MG/GM CREAM 1 GM VAGINAL WEEKLY, NOTES: SUNDAY TAKING NYSTATIN [id number] UNIT/GM CREAM 1 APPLICATION EXTERNALLY ABDOMEN TWICE A DAY TAKING ONETOUCH VERIO - STRIP USE ONE STRIP PER DAY TAKING CARPAL TUNNEL WRIST STABILIZER - MISCELLANEOUS DIRECTED BILATERAL AT BEDTIME, G56 TAKING ASTELIN 137 MCG/SPRAY SOLUTION INSTILL 1 SPRAY INTO EACH NOSTRIL 2 TIMES A DAY _ BID TAKING DIPHENHYDRAMINE HCL 50 MG TABLET 1 TABLET ORALLY AT BEDTIME TAKING LORATADINE 10 MG TABLET 1 TABLET ORALLY ONCE A DAY TAKING MONTELUKAST SODIUM 10 MG TABLET 1 TABLET ORALLY AT BEDTIME TAKING FLUTICASONE PROPIONATE 50 MCG/ACT SUSPENSION 2 SPRAYS IN EACH NOSTRIL NASALLY EVERY MORNING TAKING VITAMIN D (ERGOCALCIFEROL) 1.25 MG (42328 UT) CAPSULE TAKE ONE CAPSULE BY MOUTH EVERY 7 DAYS TAKING LOSARTAN POTASSIUM 50 MG TABLET TAKE ONE TABLET BY MOUTH TWICE A DAY ORALLY TWICE DAILY TAKING BANOPHEN 50 MG CAPSULE TAKE ONE CAPSULE BY MOUTH AT BEDTIME TAKING HYDROXYZINE PAMOATE 25 MG CAPSULE TAKE 1 CAPSULE BY MOUTH EVERY 8 HOURS NEEDED TAKING LANSOPRAZOLE 30 MG CAPSULE DELAYED RELEASE 1 CAPSULE ORALLY BID MEDICATION LIST REVIEWED AND RECONCILED WITH THE PATIENT PAST MEDICAL HISTORY HYPERLIPIDEMIA 2B IMPAIRED FASTING GLUCOSE GERD/HIATAL HERNIA- 07/27/16 EGD SMALL HH, MILD BILE GASTRITIS BY BIOPSY, DUODENITIS-BRYNN ASTHMA, MILD PERSISTENT MULTIPLE BILATERAL COMPLEX THYROID CYSTS ACUTE CRYPTITIS OF ALL RANDOM BIOPSIES, SUGGESTIVE OF IDIOPATHIC IBD BY COLONOSCOPY 01/2007-SELAM//RECTAL BIOPSY C MILD DIASSRAY C LP FIBROSIS BY 03/2017 COLON-W HYPERTENSION, ESSENTIAL FIBROMYALGIA CHRONIC MDD/BLANCA URGE INCONTINENCE ALLERGIC RHINITIS-12/2011 NEGATIVE ZONE 1 ALLERGY PANEL VASOMOTOR SYMPTOMS 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 STOLL/L45 MOD BOROAD HNP C SEVERE L L4 NFN BY 01/2019 MRI GALA, MILD-07/04/07 NPSG AHI 8-UNABLE TO TOLERATE ANY CPAP MASK DIASTOLIC CHF-09/2014 TTE LVEF65%, DIASTOLIC DYSFUNCTION, ELEVATED CVP, MILD LAE 35 MM-ARRIETA B HIP OA, MILD R>L, PARTIAL L SUPERIOR LABRUM TEAR BY 10/2015 MRI CKD 3-08/2017 RENAL US: R KIDNEY ATROPHY (PREVIOUS PARTIAL NEPHRECTOMY 2 HYDRONEPHROSIS) S SIGNS OF UNIQUE KNEE OA, BILATERAL ALLERGIES LYRICA: EDEMA, SWELLING, ITCHING - ALLERGY ULTRACET: RASH - ALLERGY OMEPRAZOLE: RASH - ALLERGY ENVIRONMENTAL: SNEEZING, RUNNY NOSE, ITCHY EYES - ALLERGY SOCIAL HISTORY GENERAL: TOBACCO USE ARE YOU A:NONSMOKER LATEX QUESTIONNAIRE LATEX ALLERGY : HAVE YOU EVER DEVELOPED ANY TYPE OF REACTION AFTER HANDLING LATEX PRODUCTS SUCH RUBBER GLOVES, CONDOMS, DIAPHRAGMS, BALLOONS, SOCKS, OR UNDERWEAR?NO LATEX ALLERGY : HAVE YOU EVER DEVELOPED ANY TYPE OF REACTION DURING OR AFTER DENTAL APPOINTMENT, VAGINAL/RECTAL EXAMINATION, SURGICAL PROCEDURE, OR ANY OTHER EXPOSURE?NO LATEX RISK : HAVE YOU EVER HAD ANY DIFFICULTY BREATHING OR HIVES AFTER EATING OR HANDLING ANY FRUITS, OR VEGETABLES; SUCH KIWI, BANANAS, STONE FRUITS, OR CHESTNUTSNO LATEX RISK : DO YOU HAVE A PREVIOUS PERSONAL HISTORY OF MORE THAN NINE SURGERIES, SPINA BIFIDA, OR REPEATED CATHERIZATIONS? YES - PLEASE INDICATE : > 9 SURGERIES LATEX RISK : ARE YOU FREQUENTLY EXPOSED TO LATEX PRODUCTS IN YOUR OCCUPATION?NO DATE ASKED : 11/12/2020 ALCOHOL USE: NO. BMI CARE GOAL FOLLOW-UP ABOVE NORMAL BMI FOLLOW-UPGIVING ENCOURAGEMENT TO EXERCISE ALCOHOL SCREENING DID YOU HAVE A DRINK CONTAINING ALCOHOL IN THE PAST YEAR?NO POINTS0 INTERPRETATIONNEGATIVE RECREATIONAL DRUG USE DRUG USE?NO CAFFEINE CAFFEINE USE?YES 1-2 BEVERAGES DAILY SEXUAL HX HAD SEX IN THE LAST 12 MONTHS (VAGINAL, ORAL, OR ANAL)?NO HAVE YOU EVER HAD AN STD?NO HIV / HEP-C SCREENING HIV TEST OFFERED TO PATIENT:YES DATE OFFERED:08/24/2016 TEST ACCEPTED:NO HEP-C TEST OFFERED TO PATIENT:YES DATE OFFERED:08/24/2016 REASON:PATIENT DECLINED TEST ACCEPTED:NO REASON:PATIENT DECLINED ORTHODOXY [id number] ANA[employer]AP[employer]IST LANGUAGE LANGUAGES SPOKEN:ST [place] EDUCATION LEVEL OF EDUCATION:FINISHED COLLEGE LEARNING BARRIERS / SPECIAL NEEDS CHANGE FROM LAST VISIT?NO BARRIERS TO LEARNING?NO HEARING IMPAIRED?NO VISION IMPAIRED?YES :CORRECTIVE LENSES READING ONLY COGNITIVELY IMPAIRED?NO READINESS TO LEARN?YES LEARNING PREFERENCES?NO LEARNING CAPABILITIES PRESENT?YES EMOTIONAL BARRIERS?NO SPECIAL DEVICES?NO ENROBING MACHINE OPERATOR NEEDED?NO DOMESTIC VIOLENCE DO YOU FEEL SAFE IN YOUR ENVIRONMENT?YES OCCUPATION: UNEMPLOYED. DIET: REGULAR. EXERCISE: PHYSICAL THERAPY AT HOME DAILY. MARITAL STATUS: .. OTHERS AT HOME: S/O. PATIENT DESCRIBES PAIN :IT COMES AND GOES, TENDER, SORE FROM 0-10, WHAT LEVEL IS YOUR PAIN TODAY?5 PRECIPITATING FACTORS SITTING ON THE AREA TOO LONG OR LAYING ON IT, UNABLE TO LAY ON BACK, WAKES FROM SLEEP ALLEVIATING FACTORS CHANGING POSITION, HEATING PAD - PFS REFERRAL NEEDED?NO CLERGY REFERRAL NEEDED?NO PUBLIC HEALTH REFERRAL NEEDED?NO WAS THE PROVIDER NOTIFIED OF ANY PERTINENT INFO? N/A HAS THE PATIENT BEEN EDUCATED REGARDING HIS/HER PLAN OF CARE?YES HAS THE PATIENT BEEN EDUCATED REGARDING PAIN, THE RISK FOR PAIN, THE IMPORTANCE OF EFFECTIVE PAIN MANAGEMENT, AND THE PAIN ASSESSMENT PROCESS?YES ADVANCE DIRECTIVE ADVANCE DIRECTIVE DISCUSSED WITH PATIENT:YES HCP: BOYFRIEND - OSWALDOANKUR BRUNERERS [phone] REVIEW OF SYSTEMS CONSTITUTIONAL: ANY RECENT FEVER NO . CHILLS NO . WEIGHT CHANGE OF UNKNOWN REASONS NO . GASTROENTEROLOGY: NEW UNEXPLAINABLE CHANGES IN BOWEL CONTROL NO . CONSTIPATION NO . GENITOURINARY: ANY NEW CHANGE IN BLADDER CONTROL? NO . NEUROLOGY: NEW ONSET DIZZINESS OR NEUROLOGICAL CHANGES NOT MENTIONED NO . NEW NUMBNESS OR PAIN PATTERNS NOT MENTIONED AND PERTINENT TO TODAY'S VISIT NO . CARDIOLOGY: NEW CHEST PRESSURE NO . PATIENT DENIES NO . RESPIRATORY: UNEXPLAINABLE COUGH NO . NEW SHORTNESS OF BREATH NO . VITAL SIGNS WT 260.8 LBS, HT 70 IN, BMI 37.42 INDEX, BP 134/68 MM HG, HR 77 /MIN, RR 18 /MIN, TEMP 96.2 F, OXYGEN SAT % 97%, SAFE IN ENV? (Y/N) YES, NA INITIALS MD 13:50, REVIEWED BY: CORI SINHA MA. EXAMINATION GENERAL EXAMINATION: GENERALNO ACUTE DISTRESS, WELL NOURISHED AND HYDRATED. PSYCHAPPROPRIATE MOOD AND AFFECT . LUNGS:CLEAR TO AUSCULTATION BILATERALLY, NO WHEEZES, RHONCHI, RALES. HEART:NO MURMURS, REGULAR RATE AND RHYTHM. ASSESSMENTS OTHER CHRONIC PAIN - G89.29 (PRIMARY) INTERVERTEBRAL DISC DISORDER WITH RADICULOPATHY OF LUMBAR REGION - M51.16, RISK: (NULL) TREATMENT OTHER CHRONIC PAIN PAIN PROCEDURE LOGDATE OF [id number]/01/2021PROCEDURE:LUMBAR EPIDURAL STEROID INJECTIONAMOUNT OF PRE SEDATEVALIUM 5MG; OXYCODONE 10MGRESULT:UNSUCCESSFUL INTERVERTEBRAL DISC DISORDER WITH RADICULOPATHY OF LUMBAR REGION INCREASE GABAPENTIN TABLET, 600 MG, 1 CAPSULE, ORALLY, TID, 90 DAY(S), 270, REFILLS 1 NOTES: 65-YEAR-OLD FEMALE IN FOR CHRONIC PAIN FOLLOW-UP. GIVEN PRESENTING SYMPTOMS RECOMMEND INCREASING GABAPENTIN TO 600 MG 3 TIMES DAILY WITH FOLLOW-UP IN 1 MONTH TO DETERMINE EFFICACY OF TREATMENT. PATIENT HAS EXPRESSED UNDERSTANDING OF AND WAS IN AGREEMENT WITH TREATMENT PLAN. GIVEN TIME TO ASK QUESTIONS AND EXPRESS CONCERNS. PROCEDURE CODES FA211 ESTABILISHED PATIENT [facility] CHARGE DISPOSITION & COMMUNICATION FOLLOW UP 4 WEEKS (REASON: MEDICATION INCREASE ) ELECTRONICALLY SIGNED BY TRENT GALO ON 11/15/2020 AT 12:51 PM EDT DISCLAIMER : THIS IS A VISIT SUMMARY EXTRACTED FROM THE [employer] CHART. IT IS NOT A COPY OF THE [employer] PROGRESS NOTE. MTDJosesito
== END ==
LOC: M PAIN 14:00
PROVIDERS: ATTEND Family Medicine
DX: M51.16 Intervertebral disc disorders with radiculopathy, lumbar region (principal); G89.29 Other chronic pain; R73.03 Prediabetes; K21.9 Gastro-esophageal reflux disease without esophagitis; J45.30 Mild persistent asthma, uncomplicated; M79.7 Fibromyalgia; G47.33 Obstructive sleep apnea (adult) (pediatric); Z86.59 Personal history of other mental and behavioral disorders; Z88.8 Allergy status to other drugs, medicaments and biological substances; Z79.84 Long term (current) use of oral hypoglycemic drugs; Z79.899 Other long term (current) drug therapy

== ENCOUNTER → 2020-12-10 | Outpatient (CLI) | payer OTHER ==
--- NOTE | 2020-12-14 03:02 | ECWPNPC ---
PATIENT NAME: MARICARMEN WHEATLEY : 1955 GENDER: FEMALE VISIT DATE: 12/10/2020 DISCHARGE DATE: 12/10/20 1519 VISIT LOCKED DATE TIME: PHYSICIAN: MALAIKA LARES PHYSICIAN PAGER NO: ACTIVE RESOURCE: MALAIKA LARES REASON FOR APPOINTMENT 1. MEDICATION INCREASE HISTORY OF PRESENT ILLNESS GENERAL: HPI 65-YEAR-OLD FEMALE IN FOR CHRONIC PAIN FOLLOW-UP. SHE RATES HER PAIN CURRENTLY A 7 OUT OF 10 AND DESCRIBES IT CONTINUOUS.. -. FALL RISK SCREENING: SCREENING : NO FALLS REPORTED IN THE LAST YEAR. PAIN SCREENING: PATIENT HAS A COMPLAINT OF ACUTE OR CHRONIC PAIN :YES LOCATION OF PAIN:LOW BACK INTENSITY OF PAIN (SCALE OF 1 TO 10):7 WHAT DOES YOUR PAIN FEEL LIKE:CONTINOUS, OTHER PAIN CHANGES DEPENDING ON ACTIVITY DURATION:CONTINOUS, CONSTANT, AWAKENS FROM SLEEP PAIN IS INCREASED BY:ACTIVITIES, PROLONGED STANDING PAIN IS DECREASED BY:USE OF PAIN MEDICATIONS, SITTING NURSING NOTE: -. PAIN CENTER INTAKE QUESTIONS: DO YOU HAVE A HISTORY OF MRSA? :NO DO YOU TAKE A BLOOD THINNERS? :NO DO YOU HAVE ANY BLEEDING DISORDERS? :NO ANY NEW NUMBNESS OR WEAKNESS IN YOUR LEGS OR ARMS? :NO ANY PACEMAKER,DEFIBRILLATOR, OR DORSAL COLUMN STIMULATOR? :NO DO YOU HAVE ANY RASHES OR OPEN SORES? :NO ARE YOU ALLERGIC TO IV DYE? :NO ARE YOU DIABETIC? :YES PREDIABETIC ANY NEW PROBLEMS WITH YOUR MEDICATIONS? :NO HAVE YOU RECEIVED A VACCINE IN THE PAST 30 DAYS? : SECOND COVID VACCINATION 09/07/2020 DO YOU PLAN TO RECEIVE A VACCINE IN THE NEXT 21 DAYS? :NO DO YOU NEED ANY PRESCRIPTION? :NO DO YOU TAKE ANY IMMUNOSUPPRESSIVE MEDICATIONS? :NO DO YOU HAVE ANY KIDNEY OR LIVER DISEASE? :YES STAGE 2 KIDNEY DISEASE IS THERE A CHANCE YOU COULD BE ? :NO ARE YOU BREAST FEEDING? :NO CURRENT MEDICATIONS TAKING VENTOLIN HFA 108 (90 BASE) MCG/ACT AEROSOL SOLUTION 2 PUFFS INHALATION EVERY 4 HOURS NEEDED FOR WHEEZING TAKING ERGOCALCIFEROL 58866 UNIT CAPSULE 1 CAPSULE ORALLY EVERY 7 DAYS TAKING VITAMIN C OTC TABLET 1 TABLET ORALLY ONCE A DAY TAKING MULTIVITAMINS OTC TABLET 1 TAB(S) ORALLY ONCE A DAY TAKING VOLTAREN 1 % GEL 4 GM TRANSDERMAL QID B KNEES TAKING ONETOUCH DELICA LANCETS 33G - MISCELLANEOUS DIRECTED SUBCUTANEOUSLY DAILY TAKING METFORMIN HCL ER 500 MG TABLET EXTENDED RELEASE 24 HOUR 1 TAB ORALLY BEFORE DINNER, NOTES: 10/18/20 TAKING CYANOCOBALAMIN 250 MCG TABLET 1 TABLET ORALLY ONCE A DAY TAKING FAMOTIDINE 40 MG TABLET 1 TAB ORALLY AT BEDTIME TAKING FUROSEMIDE 40 MG TABLET 1 TABLET ORALLY EVERY MORNING TAKING CALCIUM 600 + D 600-400 MG-UNIT TABLET 1 TABLET ORALLY DAILY TAKING NEBULIZER/TUBING/MOUTHPIECE - KIT PT ONLY NEEDS TUBING AND MASK INH FOUR TIMES A DAY NEEDED DX:J45.22 TAKING ACETAMINOPHEN EXTRA STRENGTH 500 MG TABLET 2 TABLETS NEEDED ORALLY EVERY 6 HRS, NOTES: PRN TAKING ALBUTEROL SULFATE (2.5 MG/3ML) 0.083% NEBULIZATION SOLUTION 3 ML INHALATION THREE TIMES A DAY, NOTES: PRN TAKING ERGOCALCIFEROL 67622 UNIT CAPSULE 1 CAPSULE ORALLY EVERY 7 DAYS TAKING ESTRACE 0.1 MG/GM CREAM 1 GM VAGINAL WEEKLY, NOTES: SUNDAY TAKING NYSTATIN [id number] UNIT/GM CREAM 1 APPLICATION EXTERNALLY ABDOMEN TWICE A DAY TAKING ONETOUCH VERIO - STRIP USE ONE STRIP PER DAY TAKING CARPAL TUNNEL WRIST STABILIZER - MISCELLANEOUS DIRECTED BILATERAL AT BEDTIME, G56 TAKING ASTELIN 137 MCG/SPRAY SOLUTION INSTILL 1 SPRAY INTO EACH NOSTRIL 2 TIMES A DAY _ BID TAKING DIPHENHYDRAMINE HCL 50 MG TABLET 1 TABLET ORALLY AT BEDTIME TAKING LORATADINE 10 MG TABLET 1 TABLET ORALLY ONCE A DAY TAKING MONTELUKAST SODIUM 10 MG TABLET 1 TABLET ORALLY AT BEDTIME TAKING FLUTICASONE PROPIONATE 50 MCG/ACT SUSPENSION 2 SPRAYS IN EACH NOSTRIL NASALLY EVERY MORNING TAKING GABAPENTIN 600 MG TABLET 1 CAPSULE ORALLY TID TAKING LANSOPRAZOLE 30 MG CAPSULE DELAYED RELEASE 1 CAPSULE ORALLY BID TAKING VITAMIN D (ERGOCALCIFEROL) 1.25 MG (91310 UT) CAPSULE TAKE ONE CAPSULE BY MOUTH EVERY 7 DAYS TAKING APRISO 0.375 GM CAPSULE EXTENDED RELEASE 24 HOUR 4 CAPSULES IN THE MORNING ORALLY ONCE A DAY TAKING LOSARTAN POTASSIUM 50 MG TABLET TAKE ONE TABLET BY MOUTH TWICE A DAY ORALLY TWICE DAILY TAKING BANOPHEN 50 MG CAPSULE TAKE ONE CAPSULE BY MOUTH AT BEDTIME TAKING CITALOPRAM HYDROBROMIDE 40 MG TABLET 1 TABLET ORALLY DAILY TAKING HYDROXYZINE PAMOATE 25 MG CAPSULE TAKE 1 CAPSULE BY MOUTH EVERY 8 HOURS NEEDED MEDICATION LIST REVIEWED AND RECONCILED WITH THE PATIENT PAST MEDICAL HISTORY HYPERLIPIDEMIA 2B IMPAIRED FASTING GLUCOSE GERD/HIATAL HERNIA- 07/27/16 EGD SMALL HH, MILD BILE GASTRITIS BY BIOPSY, DUODENITIS-BRYNN ASTHMA, MILD PERSISTENT MULTIPLE BILATERAL COMPLEX THYROID CYSTS ACUTE CRYPTITIS OF ALL RANDOM BIOPSIES, SUGGESTIVE OF IDIOPATHIC IBD BY COLONOSCOPY 01/2007-SELAM//RECTAL BIOPSY C MILD DIASSRAY C LP FIBROSIS BY 03/2017 COLON-W HYPERTENSION, ESSENTIAL FIBROMYALGIA CHRONIC MDD/BLANCA URGE INCONTINENCE ALLERGIC RHINITIS-12/2011 NEGATIVE ZONE 1 ALLERGY PANEL VASOMOTOR SYMPTOMS 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 STOLL/L45 MOD BOROAD HNP C SEVERE L L4 NFN BY 01/2019 MRI GALA, MILD-07/04/07 NPSG AHI 8-UNABLE TO TOLERATE ANY CPAP MASK DIASTOLIC CHF-09/2014 TTE LVEF65%, DIASTOLIC DYSFUNCTION, ELEVATED CVP, MILD LAE 35 MM-ARRIETA B HIP OA, MILD R>L, PARTIAL L SUPERIOR LABRUM TEAR BY 10/2015 MRI CKD 3-08/2017 RENAL US: R KIDNEY ATROPHY (PREVIOUS PARTIAL NEPHRECTOMY 2 HYDRONEPHROSIS) S SIGNS OF UNIQUE KNEE OA, BILATERAL ALLERGIES LYRICA: EDEMA, SWELLING, ITCHING - ALLERGY ULTRACET: RASH - ALLERGY OMEPRAZOLE: RASH - ALLERGY ENVIRONMENTAL: SNEEZING, RUNNY NOSE, ITCHY EYES - ALLERGY FAMILY HISTORY FATHER: , DDD,ARTHRITIS , EMPHYSEMA MOTHER: , DC,CHF,BLOOD CLOT IN THE LEG,HTN,BASAL CELL CARCINOMA AND VULVAR CARCINOMA, [place], DIAGNOSED WITH DIABETES, OTHER SPECIFIED CONDITIONS INFLUENCING HEALTH STATUS SIBLINGS: 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 3 SON(S) , 1 DAUGHTER(S) . BROTHER FROM METASTATIC CANCER\\NBROTHER OA,FIBROMYAGIA\\NDAUGHTER HAS SEIZURE DISORDER, HEAD ACHES\\N\\N FATHER FROM COLON CANCER. SOCIAL HISTORY GENERAL: TOBACCO USE ARE YOU A:NONSMOKER LATEX QUESTIONNAIRE LATEX ALLERGY : HAVE YOU EVER DEVELOPED ANY TYPE OF REACTION AFTER HANDLING LATEX PRODUCTS SUCH RUBBER GLOVES, CONDOMS, DIAPHRAGMS, BALLOONS, SOCKS, OR UNDERWEAR?NO LATEX ALLERGY : HAVE YOU EVER DEVELOPED ANY TYPE OF REACTION DURING OR AFTER DENTAL APPOINTMENT, VAGINAL/RECTAL EXAMINATION, SURGICAL PROCEDURE, OR ANY OTHER EXPOSURE?NO LATEX RISK : HAVE YOU EVER HAD ANY DIFFICULTY BREATHING OR HIVES AFTER EATING OR HANDLING ANY FRUITS, OR VEGETABLES; SUCH KIWI, BANANAS, STONE FRUITS, OR CHESTNUTSNO LATEX RISK : DO YOU HAVE A PREVIOUS PERSONAL HISTORY OF MORE THAN NINE SURGERIES, SPINA BIFIDA, OR REPEATED CATHERIZATIONS? YES - PLEASE INDICATE : > 9 SURGERIES LATEX RISK : ARE YOU FREQUENTLY EXPOSED TO LATEX PRODUCTS IN YOUR OCCUPATION?NO DATE ASKED : 12/10/2020 ALCOHOL USE: NO. BMI CARE GOAL FOLLOW-UP ABOVE NORMAL BMI FOLLOW-UPGIVING ENCOURAGEMENT TO EXERCISE ALCOHOL SCREENING DID YOU HAVE A DRINK CONTAINING ALCOHOL IN THE PAST YEAR?NO POINTS0 INTERPRETATIONNEGATIVE RECREATIONAL DRUG USE DRUG USE?NO CAFFEINE CAFFEINE USE?YES 1-2 BEVERAGES DAILY SEXUAL HX HAD SEX IN THE LAST 12 MONTHS (VAGINAL, ORAL, OR ANAL)?NO HAVE YOU EVER HAD AN STD?NO HIV / HEP-C SCREENING HIV TEST OFFERED TO PATIENT:YES DATE OFFERED:08/24/2016 TEST ACCEPTED:NO HEP-C TEST OFFERED TO PATIENT:YES DATE OFFERED:08/24/2016 REASON:PATIENT DECLINED TEST ACCEPTED:NO REASON:PATIENT DECLINED CONFUCIANISM [id number] RELIGION LANGUAGE LANGUAGES SPOKEN:[place] EDUCATION LEVEL OF EDUCATION:FINISHED COLLEGE LEARNING BARRIERS / SPECIAL NEEDS CHANGE FROM LAST VISIT?NO BARRIERS TO LEARNING?NO HEARING IMPAIRED?NO VISION IMPAIRED?YES :CORRECTIVE LENSES READING ONLY COGNITIVELY IMPAIRED?NO READINESS TO LEARN?YES LEARNING PREFERENCES?NO LEARNING CAPABILITIES PRESENT?YES EMOTIONAL BARRIERS?NO SPECIAL DEVICES?NO HOSPICE ENTRANCE ATTENDANT NEEDED?NO DOMESTIC VIOLENCE DO YOU FEEL SAFE IN YOUR ENVIRONMENT?YES OCCUPATION: UNEMPLOYED. DIET: REGULAR. EXERCISE: PHYSICAL THERAPY AT HOME DAILY. MARITAL STATUS: .. OTHERS AT HOME: S/O. PATIENT DESCRIBES PAIN :IT COMES AND GOES, TENDER, SORE FROM 0-10, WHAT LEVEL IS YOUR PAIN TODAY?5 PRECIPITATING FACTORS SITTING ON THE AREA TOO LONG OR LAYING ON IT, UNABLE TO LAY ON BACK, WAKES FROM SLEEP ALLEVIATING FACTORS CHANGING POSITION, HEATING PAD - PFS REFERRAL NEEDED?NO CLERGY REFERRAL NEEDED?NO PUBLIC HEALTH REFERRAL NEEDED?NO WAS THE PROVIDER NOTIFIED OF ANY PERTINENT INFO? N/A HAS THE PATIENT BEEN EDUCATED REGARDING HIS/HER PLAN OF CARE?YES HAS THE PATIENT BEEN EDUCATED REGARDING PAIN, THE RISK FOR PAIN, THE IMPORTANCE OF EFFECTIVE PAIN MANAGEMENT, AND THE PAIN ASSESSMENT PROCESS?YES ADVANCE DIRECTIVE ADVANCE DIRECTIVE DISCUSSED WITH PATIENT:YES HCP: BOYFRIEND - NASIM ALLEN [phone] REVIEW OF SYSTEMS CONSTITUTIONAL: ANY RECENT FEVER NO . CHILLS NO . WEIGHT CHANGE OF UNKNOWN REASONS NO . GASTROENTEROLOGY: NEW UNEXPLAINABLE CHANGES IN BOWEL CONTROL NO . CONSTIPATION NO . GENITOURINARY: ANY NEW CHANGE IN BLADDER CONTROL? NO . NEUROLOGY: NEW ONSET DIZZINESS OR NEUROLOGICAL CHANGES NOT MENTIONED NO . NEW NUMBNESS OR PAIN PATTERNS NOT MENTIONED AND PERTINENT TO TODAY'S VISIT NO . CARDIOLOGY: NEW CHEST PRESSURE NO . PATIENT DENIES NO . RESPIRATORY: UNEXPLAINABLE COUGH NO . NEW SHORTNESS OF BREATH NO . VITAL SIGNS WT 257.2 LBS, HT 70 IN, BMI 36.90 INDEX, BP 140/72 MM HG, HR 89 /MIN, RR 18 /MIN, TEMP 96.2 F, OXYGEN SAT % 95%, SAFE IN ENV? (Y/N) YES, NA INITIALS AW 1501, REVIEWED BY: CORI SINHA MA. EXAMINATION GENERAL EXAMINATION: GENERALNO ACUTE DISTRESS, WELL NOURISHED AND HYDRATED. PSYCHAPPROPRIATE MOOD AND AFFECT . LUNGS:CLEAR TO AUSCULTATION BILATERALLY, NO WHEEZES, RHONCHI, RALES. HEART:NO MURMURS, REGULAR RATE AND RHYTHM. ASSESSMENTS SPONDYLOSIS OF LUMBOSACRAL REGION WITHOUT MYELOPATHY OR RADICULOPATHY - M47.817 (PRIMARY) TREATMENT SPONDYLOSIS OF LUMBOSACRAL REGION WITHOUT MYELOPATHY OR RADICULOPATHY NOTES: 65-YEAR-OLD FEMALE IN FOR CHRONIC PAIN FOLLOW-UP. GIVEN PRESENTING SYMPTOMS RECOMMEND FOLLOW-UP WITH DR. GLASS TO DISCUSS POTENTIAL PROCEDURES AND/OR MEDICATIONS THAT COULD HELP ALLEVIATE PATIENT'S PAIN SYMPTOMS. PATIENT HAS EXPRESSED UNDERSTANDING OF AND WAS IN AGREEMENT WITH TREATMENT PLAN. GIVEN TIME TO ASK QUESTIONS AND EXPRESS CONCERNS. PROCEDURE CODES FA211 ESTABILISHED PATIENT [facility] CHARGE DISPOSITION & COMMUNICATION FOLLOW UP DR. GLASS (REASON: DISCUSS MEDICATIONS AND/OR PROCEDURES) ELECTRONICALLY SIGNED BY TRENT GALO ON 12/13/2020 AT 08:53 AM EDT DISCLAIMER : THIS IS A VISIT SUMMARY EXTRACTED FROM THE [employer] CHART. IT IS NOT A COPY OF THE [employer] PROGRESS NOTE. FRANK
== END ==
LOC: M PAIN 14:45
PROVIDERS: ATTEND Family Medicine
DX: G89.29 Other chronic pain (principal); M47.817 Spondylosis without myelopathy or radiculopathy, lumbosacral region; E78.5 Hyperlipidemia, unspecified; R73.01 Impaired fasting glucose; K21.9 Gastro-esophageal reflux disease without esophagitis; K44.9 Diaphragmatic hernia without obstruction or gangrene; J45.30 Mild persistent asthma, uncomplicated; E04.2 Nontoxic multinodular goiter; I13.0 Hypertensive heart and chronic kidney disease with heart failure and stage 1 through stage 4 chronic kidney disease, or unspecified chronic kidney disease; M79.7 Fibromyalgia; F32.9 Major depressive disorder, single episode, unspecified; G47.33 Obstructive sleep apnea (adult) (pediatric); I50.32 Chronic diastolic (congestive) heart failure; M16.0 Bilateral primary osteoarthritis of hip; M17.0 Bilateral primary osteoarthritis of knee; N18.4 Chronic kidney disease, stage 4 (severe); R73.03 Prediabetes; Z79.84 Long term (current) use of oral hypoglycemic drugs; Z79.899 Other long term (current) drug therapy; Z88.8 Allergy status to other drugs, medicaments and biological substances

== ENCOUNTER → 2021-01-10 | Outpatient (CLI) | payer OTHER ==
--- NOTE | 2021-01-10 16:26 | REPMRS ---
Patient History The patient states she has not had a clinical breast exam in over a year. Family history of breast cancer under age 50 in maternal grandmother. Benign lumpectomy of the left breast, 2004. Took estrogen for 7 years. Tomosynthesis is performed. Volpara breast density is b. [facility] lifetime risk of breast cancer 7.0%. Moderna vaccine 08/07/20 right arm. 09/08/20 right arm. 20 lb unintentional weight gain due to medication patient is on. Patient states no breast complaints today. Patient has signed MRS History Sheet. Digital Woman Screen Mammo: January 10, 2021 - Exam #: [id number] Bilateral CC and MLO view(s) were taken. Technologist: RT Jourdan Prior study comparison: November 18, 2019, bilateral digital woman screen mammo performed at [facility]. November 15, 2018, bilateral digital woman screen mammo performed at [facility]. FINDINGS: There are scattered fibroglandular densities. There has been no change in the appearance of the mammogram from the prior studies. There is a mild amount of residual fibroglandular tissue which is fairly symmetric. There is no interval development of dominant mass, architectural distortion, or clustered microcalcification suggestive of malignancy. Assessment: BI-RADS/ACR category 1 mammogram. Negative Mammogram. Recommendation Routine screening mammogram in 1 year (for women over age 40). This mammogram was interpreted with the aid of an FDA-approved computer-aided dectection system. Electronically Signed By: Ramírez Espino MD 01/10/21 [id number]
== END ==
LOC: M WHC 15:02
PROVIDERS: ATTEND Family Medicine
DX: Z12.31 Encounter for screening mammogram for malignant neoplasm of breast (principal); Z80.3 Family history of malignant neoplasm of breast

== ENCOUNTER → 2021-01-12 | Outpatient (CLI) | payer OTHER ==
[2021-01-12 11:02] LABS: BASO % 0.7 % (0.0-1.0); EOS # 0.4 10^3/uL (0.0-0.5); EOS % 6.8 % (0.0-3.0); HEMATOCRIT 39.7 % (36.0-47.0); LYMPH # 2.3 10^3/uL (1.5-5.0); LYMPH % 42.2 % (24.0-44.0); MEAN CORPUSCULAR HEMOGLOBIN 28.8 pg (27.0-33.0); MEAN CORPUSCULAR HGB CONC 32.7 g/dl (32.0-36.5); MEAN CORPUSCULAR VOLUME 87.8 fl (80.0-96.0); MONO # 0.6 10^3/uL (0.0-0.8); NEUTROPHILS # 2.2 10^3/uL (1.5-8.5); NEUTROPHILS % 40.1 % (36.0-66.0); PLATELET COUNT, AUTOMATED 217 10^3/uL (150-450); RED BLOOD COUNT 4.52 10^6/uL (4.00-5.40); WHITE BLOOD COUNT 5.5 10^3/uL (4.0-10.0)
--- NOTE | 2021-01-12 11:49 | REP ---
INDICATION: HYPERTENSION *LABS 1ST, XRY 2ND*. COMPARISON: None. TECHNIQUE: AP, lateral, flexion/extension, swimmer's, open mouth and bilateral oblique views of the cervical spine. FINDINGS: Alignment is maintained. Moderate multilevel degenerative changes include endplate sclerosis, osteophytosis and disc space narrowing. No acute fracture/compression injury or subluxation. Open mouth view demonstrates normal C1-C2 articulation and odontoid process. Oblique views demonstrate relatively patent normal neural foramen. IMPRESSION: Moderate multilevel degenerative changes. <Electronically signed by Matthew Caceres > 01/12/21 [id number]
[2021-01-12 12:07] LABS: ALBUMIN 3.7 GM/DL (3.2-5.2); ALT/SGPT 40 U/L (12-78); BILIRUBIN,TOTAL 0.5 MG/DL (0.2-1.0); BLOOD UREA NITROGEN 22 MG/DL (7-18); CALCIUM LEVEL 8.9 MG/DL (8.8-10.2); CARBON DIOXIDE LEVEL 27 MEQ/L (21-32); CHLORIDE LEVEL 109 MEQ/L (98-107); CREATININE FOR GFR 0.95 MG/DL (0.55-1.30); FERRITIN 23 NG/ML (8-252); FREE T4 0.85 NG/DL (0.76-1.46); GLOMERULAR FILTRATION RATE > 60.0 (>45); GLUCOSE, FASTING 101 MG/DL (70-100); NT-PRO BNP 139 PG/ML (<125); POTASSIUM SERUM 4.4 MEQ/L (3.5-5.1); SODIUM LEVEL 140 MEQ/L (136-145); THYROID STIMULATING HORMONE 0.824 uIU/ML (0.358-3.740); TOTAL PROTEIN 7.4 GM/DL (6.4-8.2)
[2021-01-12 12:09] LABS: TOTAL PROTEIN,RANDOM URINE 22.1 MG/DL (0.0-12.0)
[2021-01-12 12:34] LABS: PTH INTACT 43.7 PG/ML (18.5-88.0); THYROID PEROXIDASE ANTIBODY < 28.0 U/ML (<60.0); TOTAL 25(OH) VITAMIN D 54.9 NG/ML (30.0-100.0)
[2021-01-12 12:35] LABS: VITAMIN B12 LEVEL 702 PG/ML (247-911)
== END ==
LOC: M LAB 09:54
PROVIDERS: ATTEND Family Medicine
DX: I10 Essential (primary) hypertension (principal); R73.01 Impaired fasting glucose; E55.9 Vitamin D deficiency, unspecified; E53.8 Deficiency of other specified B group vitamins; L64.9 Androgenic alopecia, unspecified; M47.812 Spondylosis without myelopathy or radiculopathy, cervical region; M50.30 Other cervical disc degeneration, unspecified cervical region

== ENCOUNTER → 2021-02-17 | Outpatient (CLI) | payer OTHER | LOC: M PAIN 14:15 | PROVIDERS: ATTEND Anesthesiology | DX: M51.16 Intervertebral disc disorders with radiculopathy, lumbar region (principal); E78.5 Hyperlipidemia, unspecified; R73.01 Impaired fasting glucose; K21.9 Gastro-esophageal reflux disease without esophagitis; K44.9 Diaphragmatic hernia without obstruction or gangrene; J45.30 Mild persistent asthma, uncomplicated; I10 Essential (primary) hypertension; M79.7 Fibromyalgia; I13.0 Hypertensive heart and chronic kidney disease with heart failure and stage 1 through stage 4 chronic kidney disease, or unspecified chronic kidney disease; I50.32 Chronic diastolic (congestive) heart failure; M18.30 Unilateral post-traumatic osteoarthritis of first carpometacarpal joint, unspecified hand; G47.33 Obstructive sleep apnea (adult) (pediatric); M16.0 Bilateral primary osteoarthritis of hip; M17.0 Bilateral primary osteoarthritis of knee; Z79.899 Other long term (current) drug therapy; Z88.8 Allergy status to other drugs, medicaments and biological substances ==

== ENCOUNTER → 2021-03-03 | Outpatient (CLI) | payer OTHER ==
--- NOTE | 2021-03-04 00:58 | REPVR ---
PROCEDURE INFORMATION: Exam: MR Lumbar Spine Without Contrast Exam date and time: 03/03/2021 9:44 AM Age: 65 years old Clinical indication: Low back pain; Prior surgery; Surgery date: 6+ months; Additional info: Lumbar disc disease with radiculopathy TECHNIQUE: Imaging protocol: Multiplanar magnetic resonance images of the lumbar spine without intravenous contrast. COMPARISON: MRI-LS SPINE W/O FOLL WITH CON 01/22/2019 5:15 PM FINDINGS: Posterior interspinous fusion hardware at L3-L4. Straightening of the lumbar lordosis. Vertebral body heights are maintained. Modic type 2 degenerative endplate change at L4-L5. 0.2 cm grade 1 anterolisthesis of L3 on L4. No cord compression. No abnormal cord signal. Conus medullaris terminates at the L1 level. Paravertebral soft tissues are unremarkable. L1-L2: Broad-based disc bulge causes mild bilateral foraminal narrowing. No significant canal narrowing. L2-L3: No significant canal or foraminal narrowing. L3-L4: Combination of anterolisthesis, broad-based disc bulge, and facet hypertrophy cause mild canal narrowing and mild bilateral foraminal narrowing. L4-L5: Broad-based disc bulge and facet hypertrophy cause mild canal narrowing with mild right and moderate left foraminal narrowing. L5-S1: Broad-based disc bulge and facet hypertrophy cause mild right and [id number] left foraminal narrowing. No significant canal narrowing. IMPRESSION: Multilevel spondylotic changes of the lumbar spine, as detailed above. Electronically signed by: Vipul Fenton On 03/04/2021 00:58:33 AM
== END ==
LOC: M PLAIMG 08:18
PROVIDERS: ATTEND Anesthesiology
DX: M51.16 Intervertebral disc disorders with radiculopathy, lumbar region (principal); M47.26 Other spondylosis with radiculopathy, lumbar region

== ENCOUNTER → 2021-03-03 | Outpatient (CLI) | payer OTHER ==
[2021-03-03 10:40] LABS: C REACTIVE PROTEIN QUANTITATIV 0.54 MG/DL (0.00-0.30); RHEUMATOID FACTOR QUANT < 10.0 IU/ML (<15.0)
== END ==
LOC: M PLALAB 08:17
PROVIDERS: ATTEND Physician Assistant
DX: M47.892 Other spondylosis, cervical region (principal)

== ENCOUNTER → 2021-04-21 | Outpatient (CLI) | payer OTHER | LOC: M PAIN 09:45 | PROVIDERS: ATTEND Anesthesiology | DX: M51.16 Intervertebral disc disorders with radiculopathy, lumbar region (principal); G89.29 Other chronic pain; R73.03 Prediabetes; K21.9 Gastro-esophageal reflux disease without esophagitis; J45.30 Mild persistent asthma, uncomplicated; M79.7 Fibromyalgia; G47.33 Obstructive sleep apnea (adult) (pediatric); Z86.59 Personal history of other mental and behavioral disorders; Z88.8 Allergy status to other drugs, medicaments and biological substances; Z79.84 Long term (current) use of oral hypoglycemic drugs; Z79.899 Other long term (current) drug therapy ==

== ENCOUNTER → 2021-05-24 | Outpatient (CLI) | payer OTHER ==
[2021-05-24 16:45] LABS: ALBUMIN 3.9 GM/DL (3.2-5.2); ALT/SGPT 25 U/L (12-78); BILIRUBIN,TOTAL 0.4 MG/DL (0.2-1.0); BLOOD UREA NITROGEN 18 MG/DL (7-18); CALCIUM LEVEL 8.9 MG/DL (8.8-10.2); CARBON DIOXIDE LEVEL 27 MEQ/L (21-32); CHLORIDE LEVEL 111 MEQ/L (98-107); COMPLEMENT C3 144 MG/DL (90-180); COMPLEMENT C4 31 MG/DL (10-40); CREATININE FOR GFR 0.84 MG/DL (0.55-1.30); GLOMERULAR FILTRATION RATE > 60.0 (>45); GLUCOSE, FASTING 79 MG/DL (70-100); MAGNESIUM LEVEL 2.4 MG/DL (1.8-2.4); NT-PRO BNP 224 PG/ML (<125); POTASSIUM SERUM 4.2 MEQ/L (3.5-5.1); SODIUM LEVEL 143 MEQ/L (136-145); TOTAL PROTEIN 7.5 GM/DL (6.4-8.2)
== END ==
LOC: M PLALAB 13:01
PROVIDERS: ATTEND Family Medicine
DX: I50.30 Unspecified diastolic (congestive) heart failure (principal)

== ENCOUNTER → 2021-06-23 | Outpatient (CLI) | payer OTHER ==
[~2021-06-23] MED LIST changes: -MONT10TA10; +MONT10TA97
== END ==
LOC: M LABSMTC 10:55
PROVIDERS: ATTEND Anesthesiology
DX: Z01.812 Encounter for preprocedural laboratory examination (principal); Z20.822 Contact with and (suspected) exposure to COVID-19

== ENCOUNTER → 2021-06-28 | Outpatient (CLI) | payer OTHER ==
[~2021-06-28] MED LIST changes: +BUPIVACAINE HCL 0.25% 30ML VIAL As Ordered ONE; +ISOVUE-M 300 61% 15ML VIAL As Ordered ONE; +LIDOCAINE 1% SDV 30ML VIAL As Ordered ONE; +dexameTHASONE 10MG/1ML VIAL PRES.FREE (J1100 PER 1MG) As Ordered ONE; +diazePAM 5MG TABLET As Ordered ONE; +oxyCODONE 5MG TAB As Ordered ONE
== END ==
LOC: M PAIN 13:45
PROVIDERS: ATTEND Anesthesiology
DX: M51.16 Intervertebral disc disorders with radiculopathy, lumbar region (principal); M51.17 Intervertebral disc disorders with radiculopathy, lumbosacral region; E11.9 Type 2 diabetes mellitus without complications; G47.33 Obstructive sleep apnea (adult) (pediatric); J45.30 Mild persistent asthma, uncomplicated; M79.7 Fibromyalgia; Z86.59 Personal history of other mental and behavioral disorders; Z88.8 Allergy status to other drugs, medicaments and biological substances
CPT/HCPCS: 64483; 64484; J1100; Q9967

== ENCOUNTER → 2021-07-21 | Outpatient (CLI) | payer MEDICARE, OTHER ==
[~2021-07-21] MED LIST changes: -BUPIVACAINE HCL 0.25% 30ML VIAL As Ordered ONE; -ISOVUE-M 300 61% 15ML VIAL As Ordered ONE; -LIDOCAINE 1% SDV 30ML VIAL As Ordered ONE; -dexameTHASONE 10MG/1ML VIAL PRES.FREE (J1100 PER 1MG) As Ordered ONE; -diazePAM 5MG TABLET As Ordered ONE; -oxyCODONE 5MG TAB As Ordered ONE
== END ==
LOC: M PAIN 14:00
PROVIDERS: ATTEND Nurse Practitioner Family
DX: M47.816 Spondylosis without myelopathy or radiculopathy, lumbar region (principal); G89.29 Other chronic pain; M47.817 Spondylosis without myelopathy or radiculopathy, lumbosacral region; E11.9 Type 2 diabetes mellitus without complications; G47.33 Obstructive sleep apnea (adult) (pediatric); K21.9 Gastro-esophageal reflux disease without esophagitis; J45.30 Mild persistent asthma, uncomplicated; M79.7 Fibromyalgia; Z86.59 Personal history of other mental and behavioral disorders; Z88.8 Allergy status to other drugs, medicaments and biological substances; Z79.84 Long term (current) use of oral hypoglycemic drugs; Z79.899 Other long term (current) drug therapy

== ENCOUNTER → 2021-10-07 | Outpatient (CLI) | payer MEDICARE, OTHER ==
[2021-10-07 15:17] LABS: BASO # 0.1 10^3/uL (0.0-0.2); BASO % 0.5 % (0.0-1.0); EOS # 0.2 10^3/uL (0.0-0.5); EOS % 2.2 % (0.0-3.0); HEMOGLOBIN 13.6 g/dl (12.0-15.5); LYMPH % 39.3 % (24.0-44.0); MEAN CORPUSCULAR HEMOGLOBIN 29.8 pg (27.0-33.0); MEAN CORPUSCULAR HGB CONC 33.2 g/dl (32.0-36.5); MEAN CORPUSCULAR VOLUME 89.7 fl (80.0-96.0); MONO # 0.8 10^3/uL (0.0-0.8); MONO % 7.4 % (2.0-8.0); NEUTROPHILS # 5.2 10^3/uL (1.5-8.5); NEUTROPHILS % 50.4 % (36.0-66.0); PLATELET COUNT, AUTOMATED 238 10^3/uL (150-450); RED BLOOD COUNT 4.57 10^6/uL (4.00-5.40); WHITE BLOOD COUNT 10.3 10^3/uL (4.0-10.0)
[2021-10-07 15:43] LABS: ALBUMIN 4.2 GM/DL (3.2-5.2); BILIRUBIN,TOTAL 0.4 MG/DL (0.2-1.0); CALCIUM LEVEL 9.6 MG/DL (8.8-10.2); CREATININE FOR GFR 1.38 MG/DL (0.55-1.30); GLOMERULAR FILTRATION RATE 40.8 (>45); POTASSIUM SERUM 4.2 MEQ/L (3.5-5.1)
[2021-10-07 19:39] LABS: PTH INTACT 99.6 PG/ML (18.5-88.0)
[2021-10-07 20:15] LABS: TOTAL 25(OH) VITAMIN D 36.2 NG/ML (30.0-100.0)
== END ==
LOC: M RAD 14:37
PROVIDERS: ATTEND Family Medicine
DX: E55.9 Vitamin D deficiency, unspecified (principal); I50.30 Unspecified diastolic (congestive) heart failure; M47.814 Spondylosis without myelopathy or radiculopathy, thoracic region; M19.079 Primary osteoarthritis, unspecified ankle and foot; M77.32 Calcaneal spur, left foot; M25.78 Osteophyte, vertebrae

== ENCOUNTER → 2021-10-14 | Outpatient (CLI) | payer MEDICARE, OTHER ==
[2021-10-14 16:22] LABS: APPEARANCE, URINE CLEAR (CLEAR); BACTERIA, URINE AUTO NEGATIVE (NEGATIVE); BILIRUBIN, URINE AUTO NEGATIVE (NEGATIVE); BLOOD, URINE BLOOD NEGATIVE (NEGATIVE); COLOR, URINE YELLOW (YELLOW); GLUCOSE, URINE (UA) AUTO NEGATIVE (NEGATIVE); KETONE, URINE AUTO NEGATIVE (NEGATIVE); LEUKOCYTE ESTERASE, URINE AUTO NEGATIVE (NEGATIVE); MUCUS, URINE SMALL (NEGATIVE); NITRITE, URINE AUTO NEGATIVE (NEGATIVE); PROTEIN, URINE AUTO NEGATIVE (NEGATIVE); RBC, URINE AUTO 0 /HPF (0-3); SPECIFIC GRAVITY URINE AUTO 1.011 (1.002-1.035); SQUAMOUS EPITHELIAL CELL UR AU 0 /HPF (0-6); UROBILINOGEN, URINE AUTO 0.2 mg/dL (0.0-2.0); WBC, URINE AUTO 1 /HPF (0-3)
[2021-10-14 16:46] LABS: ALBUMIN 4.1 GM/DL (3.2-5.2); CALCIUM LEVEL 9.8 MG/DL (8.8-10.2); CREATININE FOR GFR 1.08 MG/DL (0.55-1.30); GLOMERULAR FILTRATION RATE 54.2 (>45); PHOSPHORUS LEVEL 4.5 MG/DL (2.5-4.9); POTASSIUM SERUM 4.1 MEQ/L (3.5-5.1)
== END ==
LOC: M PLALAB 12:07
PROVIDERS: ATTEND Family Medicine
DX: I10 Essential (primary) hypertension (principal)

== ENCOUNTER → 2021-11-09 | Outpatient (CLI) | payer MEDICARE, OTHER | LOC: M RAD 07:33 | PROVIDERS: ATTEND Family Medicine | DX: I10 Essential (primary) hypertension (principal) ==

== ENCOUNTER 2021-11-14 14:13 | Outpatient (RCR) | payer MEDICARE, OTHER | END 2021-11-17 | LOC: M PT 14:13 | PROVIDERS: ATTEND Family Medicine | DX: M47.814 Spondylosis without myelopathy or radiculopathy, thoracic region (principal); M19.079 Primary osteoarthritis, unspecified ankle and foot ==

== ENCOUNTER 2021-11-30 11:45 | Outpatient (RCR) | payer MEDICARE, OTHER | END 2021-12-18 | LOC: M PT 11:45 | PROVIDERS: ATTEND Family Medicine | DX: M47.814 Spondylosis without myelopathy or radiculopathy, thoracic region (principal); M19.079 Primary osteoarthritis, unspecified ankle and foot ==

== ENCOUNTER → 2022-01-05 | Outpatient (CLI) | payer MEDICARE, OTHER, MEDICAID | LOC: M PAIN 11:45 | PROVIDERS: ATTEND Nurse Practitioner Family | DX: M47.816 Spondylosis without myelopathy or radiculopathy, lumbar region (principal); E78.2 Mixed hyperlipidemia; R73.01 Impaired fasting glucose; K21.9 Gastro-esophageal reflux disease without esophagitis; K44.9 Diaphragmatic hernia without obstruction or gangrene; J45.30 Mild persistent asthma, uncomplicated; I13.0 Hypertensive heart and chronic kidney disease with heart failure and stage 1 through stage 4 chronic kidney disease, or unspecified chronic kidney disease; M17.0 Bilateral primary osteoarthritis of knee; F33.9 Major depressive disorder, recurrent, unspecified; F41.1 Generalized anxiety disorder; N39.41 Urge incontinence; M50.30 Other cervical disc degeneration, unspecified cervical region; M51.36 Other intervertebral disc degeneration, lumbar region; Z98.1 Arthrodesis status; G47.33 Obstructive sleep apnea (adult) (pediatric); I50.30 Unspecified diastolic (congestive) heart failure; M16.0 Bilateral primary osteoarthritis of hip; N18.30 Chronic kidney disease, stage 3 unspecified; Z79.84 Long term (current) use of oral hypoglycemic drugs; Z79.899 Other long term (current) drug therapy; Z88.8 Allergy status to other drugs, medicaments and biological substances ==

== ENCOUNTER → 2022-02-21 | Outpatient (CLI) | payer MEDICARE, OTHER | LOC: M WHC 15:23 | PROVIDERS: ATTEND Family Medicine | DX: Z12.31 Encounter for screening mammogram for malignant neoplasm of breast (principal) ==

== ENCOUNTER → 2022-04-06 | Outpatient (CLI) | payer MEDICARE, OTHER, MEDICAID ==
[2022-04-06 13:35] LABS: BASO % 0.5 % (0.0-1.0); EOS # 0.1 10^3/uL (0.0-0.5); EOS % 1.6 % (0.0-3.0); HEMATOCRIT 41.4 % (36.0-47.0); HEMOGLOBIN 13.3 g/dl (12.0-15.5); LYMPH % 46.6 % (24.0-44.0); MEAN CORPUSCULAR HEMOGLOBIN 29.6 pg (27.0-33.0); MEAN CORPUSCULAR HGB CONC 32.1 g/dl (32.0-36.5); MONO # 0.5 10^3/uL (0.0-0.8); MONO % 6.3 % (2.0-8.0); NEUTROPHILS # 3.9 10^3/uL (1.5-8.5); NEUTROPHILS % 44.9 % (36.0-66.0); PLATELET COUNT, AUTOMATED 199 10^3/uL (150-450); WHITE BLOOD COUNT 8.6 10^3/uL (4.0-10.0)
[2022-04-06 16:23] LABS: ALBUMIN 4.3 G/DL (3.2-5.2); CALCIUM LEVEL 9.2 MG/DL (8.3-10.6); CREATININE FOR GFR 1.27 MG/DL (0.55-1.30); FERRITIN 22.2 NG/ML (7.3-270.7); MAGNESIUM LEVEL 2.1 MG/DL (1.8-2.4); PHOSPHORUS LEVEL 4.7 MG/DL (2.4-5.1); POTASSIUM SERUM 4.2 MMOL/L (3.5-5.1); PTH INTACT 88.1 PG/ML (18.5-88.0); TOTAL 25(OH) VITAMIN D 70.7 NG/ML (20.0-100.0)
== END ==
LOC: M PLALAB 10:07
PROVIDERS: ATTEND Family Medicine
DX: I50.30 Unspecified diastolic (congestive) heart failure (principal); E55.9 Vitamin D deficiency, unspecified

== ENCOUNTER → 2022-05-09 | Outpatient (CLI) | payer MEDICARE, MEDICAID | LOC: M PAIN 09:15 | PROVIDERS: ATTEND Nurse Practitioner Family | DX: M47.817 Spondylosis without myelopathy or radiculopathy, lumbosacral region (principal); G89.29 Other chronic pain; E11.9 Type 2 diabetes mellitus without complications; K21.9 Gastro-esophageal reflux disease without esophagitis; J45.30 Mild persistent asthma, uncomplicated; I10 Essential (primary) hypertension; M79.7 Fibromyalgia; G47.33 Obstructive sleep apnea (adult) (pediatric); Z86.59 Personal history of other mental and behavioral disorders; Z88.8 Allergy status to other drugs, medicaments and biological substances; Z79.84 Long term (current) use of oral hypoglycemic drugs; Z79.899 Other long term (current) drug therapy ==

== ENCOUNTER → 2022-07-05 | Outpatient (REF) | payer MEDICARE, MEDICAID ==
[~2022-07-05] MED LIST changes: -AZEL1SPR3; +AZEL1SPR3 NS; +FESO8TAB PO; -LORA-243; +LORA-243 PO; +LOSA50TA28 PO; +METF-838 PO; +MULT-90 PO; +PANT40TA29 PO
== END ==
LOC: M SFHCWAGY 10:17
PROVIDERS: ATTEND Nurse Practitioner Family
DX: Z12.4 Encounter for screening for malignant neoplasm of cervix (principal)

== ENCOUNTER → 2022-07-21 | Outpatient (CLI) | payer MEDICARE | LOC: M LABSMTC 10:04 | PROVIDERS: ATTEND Anesthesiology | DX: Z01.812 Encounter for preprocedural laboratory examination (principal); Z20.822 Contact with and (suspected) exposure to COVID-19 ==

== ENCOUNTER 2022-07-26 11:40 | Day surgery (SDC) | payer MEDICAID, MEDICARE ==
[~2022-07-26] VITALS: Ht 177.8 cm; Wt 113.4 kg
[~2022-07-26 11:40] MED LIST changes: +BSS IRRIG/VANCO(10MG)/TOBRA(5MG)/EPINEPH(1:1000-0.5CC)500ML BAG-ORONLY IR ONE; +CEFUROXIME 1MG/0.1ML INTRACAMERAL INJ As Ordered ONE; +CYCLOPENTOLATE 1% OPHTH SOLN 2ML BTL OS SCH; +LIDOCAINE 1% SDV 5ML VIAL As Ordered ONE; +LIDOCAINE 3.5 % 1ML OPHTH TOPICAL GEL OU ONE; +OFLOXACIN 0.3 % (OCUFLOX) OPTH SOL 5ML OS ONE; +PHENYLEPHRINE 10% OPHTH SOL 5ML OS PRN; +PHENYLEPHRINE 2.5% OPHTH SOL 2ML OS SCH; +TROPICAMIDE 1% OPHTH SOLN 15ML OS SCH
[2022-07-26] MEDS ORDERED: fentaNYL 100 MCG/2 ML INJECTION As Ordered ONE (13:24)
[2022-07-26] MEDS ORDERED: MIDAZOLAM INJ 2MG/2ML VIAL As Ordered ONE (13:24)
[2022-07-26 13:44] VITALS: BP 105/55
== END 2022-07-26 13:43 | disposition home or self-care (01) ==
LOC: M SDC 11:40
PROVIDERS: ATTEND Ophthalmology
DX: H25.12 Age-related nuclear cataract, left eye (principal); I10 Essential (primary) hypertension; I73.9 Peripheral vascular disease, unspecified; E11.9 Type 2 diabetes mellitus without complications; E04.1 Nontoxic single thyroid nodule; J45.909 Unspecified asthma, uncomplicated; K21.9 Gastro-esophageal reflux disease without esophagitis; M79.7 Fibromyalgia; F41.9 Anxiety disorder, unspecified; Z88.8 Allergy status to other drugs, medicaments and biological substances; Z79.899 Other long term (current) drug therapy; Z79.84 Long term (current) use of oral hypoglycemic drugs; Z79.51 Long term (current) use of inhaled steroids
CPT/HCPCS: 66984; J0697; J2250; J3010; V2632

== ENCOUNTER → 2022-08-03 | Outpatient (CLI) | payer MEDICARE ==
[~2022-08-03] MED LIST changes: -BSS IRRIG/VANCO(10MG)/TOBRA(5MG)/EPINEPH(1:1000-0.5CC)500ML BAG-ORONLY IR ONE; -CEFUROXIME 1MG/0.1ML INTRACAMERAL INJ As Ordered ONE; -CYCLOPENTOLATE 1% OPHTH SOLN 2ML BTL OS SCH; -LIDOCAINE 1% SDV 5ML VIAL As Ordered ONE; -LIDOCAINE 3.5 % 1ML OPHTH TOPICAL GEL OU ONE; -OFLOXACIN 0.3 % (OCUFLOX) OPTH SOL 5ML OS ONE; -PHENYLEPHRINE 10% OPHTH SOL 5ML OS PRN; -PHENYLEPHRINE 2.5% OPHTH SOL 2ML OS SCH; -TROPICAMIDE 1% OPHTH SOLN 15ML OS SCH
== END ==
LOC: M PLAIMG 07:51
PROVIDERS: ATTEND Nurse Practitioner Family
DX: M47.814 Spondylosis without myelopathy or radiculopathy, thoracic region (principal)

== ENCOUNTER → 2022-08-24 | Outpatient (CLI) | payer MEDICAID, MEDICARE ==
[2022-08-24 11:02] LABS: BASO % 0.5 % (0.0-1.0); EOS # 0.3 10^3/uL (0.0-0.5); EOS % 4.8 % (0.0-3.0); HEMATOCRIT 38.8 % (36.0-47.0); HEMOGLOBIN 12.2 g/dl (12.0-15.5); LYMPH # 2.6 10^3/uL (1.5-5.0); LYMPH % 40.7 % (24.0-44.0); MEAN CORPUSCULAR HEMOGLOBIN 28.8 pg (27.0-33.0); MEAN CORPUSCULAR HGB CONC 31.4 g/dl (32.0-36.5); MEAN CORPUSCULAR VOLUME 91.5 fl (80.0-96.0); MONO # 0.4 10^3/uL (0.0-0.8); MONO % 5.9 % (2.0-8.0); NEUTROPHILS # 3.1 10^3/uL (1.5-8.5); NEUTROPHILS % 47.9 % (36.0-66.0); PLATELET COUNT, AUTOMATED 203 10^3/uL (150-450); RED BLOOD COUNT 4.24 10^6/uL (4.00-5.40); WHITE BLOOD COUNT 6.4 10^3/uL (4.0-10.0)
[2022-08-24 11:09] LABS: FERRITIN 22.8 NG/ML (7.3-270.7); THYROID STIMULATING HORMONE 1.388 uIU/ML (0.55-4.78)
[2022-08-24 11:10] LABS: ALKALINE PHOSPHATASE 74 U/L (46-116); ALT/SGPT 16 U/L (7.0-40); AST/SGOT 15 U/L (<34); BILIRUBIN,TOTAL 0.5 MG/DL (0.3-1.2); BLOOD UREA NITROGEN 22 MG/DL (9-23); CALCIUM LEVEL 8.8 MG/DL (8.3-10.6); CARBON DIOXIDE LEVEL 31 MMOL/L (20-31); CHLORIDE LEVEL 107 MMOL/L (98-107); CREATININE FOR GFR 0.95 MG/DL (0.55-1.30); GLOMERULAR FILTRATION RATE > 60.0 (>45); GLUCOSE, FASTING 96 MG/DL (74-106); POTASSIUM SERUM 4.3 MMOL/L (3.5-5.1); SODIUM LEVEL 144 MMOL/L (136-145); TOTAL PROTEIN 7.1 G/DL (5.7-8.2)
[2022-08-24 11:12] LABS: VITAMIN B12 LEVEL 690 PG/ML (211-911)
[2022-08-24 11:13] LABS: FREE T4 0.87 NG/DL (0.89-1.76)
[2022-08-24 12:06] LABS: HEMOGLOBIN A1c 5.5 % (4.0-6.0)
[2022-08-25 08:10] LABS: H PYLORI SERUM QUANT IgG ABY 0.24 (0.00-0.79); INSULIN LEVEL 15.1 uIU/mL (2.6-24.9)
== END ==
LOC: M PLALAB 07:42
PROVIDERS: ATTEND Family Medicine
DX: R73.01 Impaired fasting glucose (principal); D50.9 Iron deficiency anemia, unspecified; I50.30 Unspecified diastolic (congestive) heart failure; K21.9 Gastro-esophageal reflux disease without esophagitis; E04.2 Nontoxic multinodular goiter

== ENCOUNTER → 2022-09-13 | Outpatient (CLI) | payer MEDICAID, MEDICARE | LOC: M RAD 15:52 | PROVIDERS: ATTEND Family Medicine | DX: E04.1 Nontoxic single thyroid nodule (principal) ==

== ENCOUNTER → 2022-09-20 | Outpatient (CLI) | payer MEDICARE, OTHER | LOC: M WHC 08:53 | PROVIDERS: ATTEND Family Medicine | DX: M85.89 Other specified disorders of bone density and structure, multiple sites (principal) ==

== ENCOUNTER → 2022-11-17 | Outpatient (CLI) | payer MEDICAID, MEDICARE | LOC: M LAB 10:51 | PROVIDERS: ATTEND Nurse Practitioner Family | DX: M16.0 Bilateral primary osteoarthritis of hip (principal); M46.1 Sacroiliitis, not elsewhere classified; G89.29 Other chronic pain; E11.9 Type 2 diabetes mellitus without complications; K21.9 Gastro-esophageal reflux disease without esophagitis; J45.30 Mild persistent asthma, uncomplicated; I10 Essential (primary) hypertension; M79.7 Fibromyalgia; G47.33 Obstructive sleep apnea (adult) (pediatric); Z86.59 Personal history of other mental and behavioral disorders; Z88.8 Allergy status to other drugs, medicaments and biological substances; Z79.84 Long term (current) use of oral hypoglycemic drugs; Z79.899 Other long term (current) drug therapy | CPT/HCPCS: 72190; G0463 ==

== ENCOUNTER → 2022-11-17 | Outpatient (CLI) | payer MEDICARE, MEDICAID | LOC: M PAIN 09:30 | PROVIDERS: ATTEND Nurse Practitioner Family | DX: M46.1 Sacroiliitis, not elsewhere classified (principal); G89.29 Other chronic pain; E11.9 Type 2 diabetes mellitus without complications; K21.9 Gastro-esophageal reflux disease without esophagitis; J45.30 Mild persistent asthma, uncomplicated; I10 Essential (primary) hypertension; M79.7 Fibromyalgia; G47.33 Obstructive sleep apnea (adult) (pediatric); Z86.59 Personal history of other mental and behavioral disorders; Z88.8 Allergy status to other drugs, medicaments and biological substances; Z79.84 Long term (current) use of oral hypoglycemic drugs; Z79.899 Other long term (current) drug therapy ==

== ENCOUNTER → 2022-12-29 | Outpatient (CLI) | payer MEDICARE, MEDICAID | LOC: M PAIN 09:30 | PROVIDERS: ATTEND Nurse Practitioner Family | DX: M96.1 Postlaminectomy syndrome, not elsewhere classified (principal); G89.29 Other chronic pain; E11.9 Type 2 diabetes mellitus without complications; G47.33 Obstructive sleep apnea (adult) (pediatric); K21.9 Gastro-esophageal reflux disease without esophagitis; J45.30 Mild persistent asthma, uncomplicated; I10 Essential (primary) hypertension; M79.7 Fibromyalgia; Z88.8 Allergy status to other drugs, medicaments and biological substances; Z79.84 Long term (current) use of oral hypoglycemic drugs; Z79.899 Other long term (current) drug therapy ==

== ENCOUNTER → 2023-01-15 | Outpatient (REF) | payer MEDICARE, MEDICAID | LOC: M SFHCPLAZ 19:32 | PROVIDERS: ATTEND Family Medicine | DX: D50.9 Iron deficiency anemia, unspecified (principal); R73.01 Impaired fasting glucose; I50.30 Unspecified diastolic (congestive) heart failure ==

== ENCOUNTER → 2023-01-19 | Outpatient (CLI) | payer MEDICARE, MEDICAID ==
[2023-01-19 14:00] LABS: BASO % 0.3 % (0.0-1.0); EOS # 0.2 10^3/uL (0.0-0.5); EOS % 3.1 % (0.0-3.0); HEMATOCRIT 36.8 % (36.0-47.0); LYMPH # 2.6 10^3/uL (1.5-5.0); LYMPH % 43.5 % (24.0-44.0); MEAN CORPUSCULAR HEMOGLOBIN 29.6 pg (27.0-33.0); MEAN CORPUSCULAR HGB CONC 32.6 g/dl (32.0-36.5); MEAN CORPUSCULAR VOLUME 90.9 fl (80.0-96.0); MONO # 0.4 10^3/uL (0.0-0.8); MONO % 6.1 % (2.0-8.0); NEUTROPHILS # 2.8 10^3/uL (1.5-8.5); NEUTROPHILS % 46.8 % (36.0-66.0); PLATELET COUNT, AUTOMATED 177 10^3/uL (150-450); RED BLOOD COUNT 4.05 10^6/uL (4.00-5.40); WHITE BLOOD COUNT 6.1 10^3/uL (4.0-10.0)
[2023-01-19 14:25] LABS: ALKALINE PHOSPHATASE 64 U/L (46-116); ALT/SGPT 18 U/L (7.0-40); AST/SGOT 12 U/L (<34); BILIRUBIN,TOTAL 0.6 MG/DL (0.3-1.2); BLOOD UREA NITROGEN 17 MG/DL (9-23); CALCIUM LEVEL 8.8 MG/DL (8.3-10.6); CARBON DIOXIDE LEVEL 28 MMOL/L (20-31); CHLORIDE LEVEL 108 MMOL/L (98-107); CREATININE FOR GFR 0.92 MG/DL (0.55-1.30); GLOMERULAR FILTRATION RATE > 60.0 (>45); GLUCOSE, FASTING 80 MG/DL (74-106); POTASSIUM SERUM 4.4 MMOL/L (3.5-5.1); SODIUM LEVEL 143 MMOL/L (136-145); TOTAL PROTEIN 6.9 G/DL (5.7-8.2)
[2023-01-19 14:26] LABS: FERRITIN 25.6 NG/ML (7.3-270.7)
[2023-01-19 14:36] LABS: HEMOGLOBIN A1c 5.6 % (4.0-6.0)
== END ==
LOC: M PLALAB 11:16
PROVIDERS: ATTEND Family Medicine
DX: D50.9 Iron deficiency anemia, unspecified (principal); R73.01 Impaired fasting glucose; I50.30 Unspecified diastolic (congestive) heart failure

== ENCOUNTER → 2023-03-13 | Outpatient (CLI) | payer MEDICARE, MEDICAID ==
[~2023-03-13] MED LIST changes: +PROHANCE 279.3MG/ML 15ML VIAL ONE; +PROHANCE 279.3MG/ML 5ML VIAL ONE
== END ==
LOC: M PLAIMG 08:45
PROVIDERS: ATTEND Family Medicine
DX: M89.9 Disorder of bone, unspecified (principal); M51.26 Other intervertebral disc displacement, lumbar region; M47.816 Spondylosis without myelopathy or radiculopathy, lumbar region; M48.061 Spinal stenosis, lumbar region without neurogenic claudication; M51.27 Other intervertebral disc displacement, lumbosacral region; M47.817 Spondylosis without myelopathy or radiculopathy, lumbosacral region
CPT/HCPCS: 72158; A9576

== ENCOUNTER → 2023-03-15 | Outpatient (CLI) | payer MEDICARE, MEDICAID ==
[~2023-03-15] MED LIST changes: -PROHANCE 279.3MG/ML 15ML VIAL ONE; -PROHANCE 279.3MG/ML 5ML VIAL ONE
== END ==
LOC: M WHC 17:26
PROVIDERS: ATTEND Family Medicine
DX: Z12.39 Encounter for other screening for malignant neoplasm of breast (principal)

== ENCOUNTER → 2023-03-21 | Outpatient (CLI) | payer MEDICARE, MEDICAID ==
[~2023-03-21] MED LIST changes: +LIDOCAINE 1% MDV 20ML VIAL As Ordered ONE
[2023-03-21 13:15] VITALS: TEMP 98.4
[2023-03-21 14:07] VITALS: BP 157/72; O2SAT 96
== END ==
LOC: M IRPRO 13:06
PROVIDERS: ATTEND Family Medicine
DX: E04.2 Nontoxic multinodular goiter (principal)

== ENCOUNTER → 2023-04-05 | Outpatient (CLI) | payer MEDICARE, MEDICAID ==
[~2023-04-05] MED LIST changes: -LIDOCAINE 1% MDV 20ML VIAL As Ordered ONE
== END ==
LOC: M WHC 13:27
PROVIDERS: ATTEND Family Medicine
DX: Z12.31 Encounter for screening mammogram for malignant neoplasm of breast (principal)

== ENCOUNTER → 2023-06-11 | Outpatient (CLI) | payer MEDICARE, MEDICAID | LOC: M PAIN 11:15 | PROVIDERS: ATTEND Nurse Practitioner Family | DX: M51.16 Intervertebral disc disorders with radiculopathy, lumbar region (principal); M96.1 Postlaminectomy syndrome, not elsewhere classified; G89.29 Other chronic pain; E78.5 Hyperlipidemia, unspecified; R73.01 Impaired fasting glucose; K21.9 Gastro-esophageal reflux disease without esophagitis; J45.30 Mild persistent asthma, uncomplicated; I12.9 Hypertensive chronic kidney disease with stage 1 through stage 4 chronic kidney disease, or unspecified chronic kidney disease; M79.7 Fibromyalgia; F41.1 Generalized anxiety disorder; F33.9 Major depressive disorder, recurrent, unspecified; G47.33 Obstructive sleep apnea (adult) (pediatric); M16.0 Bilateral primary osteoarthritis of hip; N18.31 Chronic kidney disease, stage 3a; Z79.84 Long term (current) use of oral hypoglycemic drugs; Z79.899 Other long term (current) drug therapy; Z88.8 Allergy status to other drugs, medicaments and biological substances ==

== ENCOUNTER → 2023-08-09 | Outpatient (CLI) | payer MEDICARE, MEDICAID | LOC: M PAIN 14:30 | PROVIDERS: ATTEND Anesthesiology | DX: M96.1 Postlaminectomy syndrome, not elsewhere classified (principal); M51.16 Intervertebral disc disorders with radiculopathy, lumbar region; R23.3 Spontaneous ecchymoses; E78.5 Hyperlipidemia, unspecified; R73.01 Impaired fasting glucose; K21.9 Gastro-esophageal reflux disease without esophagitis; K44.9 Diaphragmatic hernia without obstruction or gangrene; J45.30 Mild persistent asthma, uncomplicated; I13.0 Hypertensive heart and chronic kidney disease with heart failure and stage 1 through stage 4 chronic kidney disease, or unspecified chronic kidney disease; M79.7 Fibromyalgia; G47.33 Obstructive sleep apnea (adult) (pediatric); N18.31 Chronic kidney disease, stage 3a; I50.32 Chronic diastolic (congestive) heart failure; M17.0 Bilateral primary osteoarthritis of knee; M47.812 Spondylosis without myelopathy or radiculopathy, cervical region; M47.816 Spondylosis without myelopathy or radiculopathy, lumbar region; Z79.84 Long term (current) use of oral hypoglycemic drugs; Z79.899 Other long term (current) drug therapy; Z88.8 Allergy status to other drugs, medicaments and biological substances ==

== ENCOUNTER → 2023-10-01 | Outpatient (REF) | payer MEDICARE, MEDICAID | LOC: M SFHCPLAZ 17:12 | PROVIDERS: ATTEND Family Medicine | DX: I50.32 Chronic diastolic (congestive) heart failure (principal); R73.01 Impaired fasting glucose; E78.2 Mixed hyperlipidemia; E55.9 Vitamin D deficiency, unspecified ==

== ENCOUNTER → 2023-10-04 | Outpatient (CLI) | payer MEDICARE, MEDICAID ==
[2023-10-04 14:20] LABS: BASO % 0.6 % (0.0-1.0); EOS # 0.5 10^3/uL (0.0-0.5); EOS % 7.9 % (0.0-3.0); HEMATOCRIT 36.9 % (36.0-47.0); HEMOGLOBIN 12.1 g/dl (12.0-15.5); LYMPH # 2.3 10^3/uL (1.5-5.0); LYMPH % 34.9 % (24.0-44.0); MEAN CORPUSCULAR HEMOGLOBIN 29.4 pg (27.0-33.0); MEAN CORPUSCULAR HGB CONC 32.8 g/dl (32.0-36.5); MEAN CORPUSCULAR VOLUME 89.8 fl (80.0-96.0); MONO # 0.4 10^3/uL (0.0-0.8); MONO % 6.7 % (2.0-8.0); NEUTROPHILS # 3.3 10^3/uL (1.5-8.5); NEUTROPHILS % 49.6 % (36.0-66.0); PLATELET COUNT, AUTOMATED 193 10^3/uL (150-450); RED BLOOD COUNT 4.11 10^6/uL (4.00-5.40); WHITE BLOOD COUNT 6.6 10^3/uL (4.0-10.0)
[2023-10-04 14:32] LABS: ALBUMIN 3.7 G/DL (3.2-5.2); ALKALINE PHOSPHATASE 79 U/L (46-116); ALT/SGPT 15 U/L (7.0-40); AST/SGOT 17 U/L (<34); BILIRUBIN,TOTAL 0.6 MG/DL (0.3-1.2); BLOOD UREA NITROGEN 19 MG/DL (9-23); CALCIUM LEVEL 8.8 MG/DL (8.3-10.6); CARBON DIOXIDE LEVEL 29 MMOL/L (20-31); CHLORIDE LEVEL 106 MMOL/L (98-107); CHOLESTEROL LEVEL 147 MG/DL (<200); CHOLESTEROL RISK RATIO 3.12 (<5); CREATININE FOR GFR 0.86 MG/DL (0.55-1.30); GLOMERULAR FILTRATION RATE > 60.0 (>45); GLUCOSE, FASTING 93 MG/DL (74-106); HDL CHOLESTEROL 47.1 MG/DL (>40); LDL CHOLESTEROL 76.1 MG/DL (<100); MAGNESIUM LEVEL 2.1 MG/DL (1.8-2.4); NON-HDL-C 99.9 MG/DL; POTASSIUM SERUM 4.6 MMOL/L (3.5-5.1); PTH INTACT 33.4 PG/ML (18.5-88.0); SODIUM LEVEL 141 MMOL/L (136-145); TOTAL PROTEIN 7.1 G/DL (5.7-8.2); TRIGLYCERIDES LEVEL 119 MG/DL (<150)
[2023-10-04 14:34] LABS: TOTAL 25(OH) VITAMIN D 62.4 NG/ML (20.0-100.0)
[2023-10-04 15:02] LABS: HEMOGLOBIN A1c 5.3 % (4.0-6.0)
== END ==
LOC: M PLALAB 09:13
PROVIDERS: ATTEND Family Medicine
DX: E55.9 Vitamin D deficiency, unspecified (principal); E78.2 Mixed hyperlipidemia; I50.32 Chronic diastolic (congestive) heart failure; R73.01 Impaired fasting glucose

== ENCOUNTER → 2023-10-09 | Outpatient (CLI) | payer MEDICARE, MEDICAID ==
[2023-10-09 17:20] LABS: BASO # 0.1 10^3/uL (0.0-0.2); BASO % 0.6 % (0.0-1.0); EOS # 0.4 10^3/uL (0.0-0.5); EOS % 3.4 % (0.0-3.0); HEMATOCRIT 41.7 % (36.0-47.0); HEMOGLOBIN 13.8 g/dl (12.0-15.5); LYMPH # 4.7 10^3/uL (1.5-5.0); LYMPH % 44.8 % (24.0-44.0); MEAN CORPUSCULAR HEMOGLOBIN 29.6 pg (27.0-33.0); MEAN CORPUSCULAR HGB CONC 33.1 g/dl (32.0-36.5); MEAN CORPUSCULAR VOLUME 89.5 fl (80.0-96.0); MONO # 0.8 10^3/uL (0.0-0.8); MONO % 7.4 % (2.0-8.0); NEUTROPHILS # 4.6 10^3/uL (1.5-8.5); NEUTROPHILS % 43.4 % (36.0-66.0); PLATELET COUNT, AUTOMATED 250 10^3/uL (150-450); RED BLOOD COUNT 4.66 10^6/uL (4.00-5.40); WHITE BLOOD COUNT 10.6 10^3/uL (4.0-10.0)
[2023-10-09 17:32] LABS: INR 1.02; PARTIAL THROMBOPLASTIN TIME 24.4 SECONDS (24.8-34.2); PROTHROMBIN TIME 13.1 SECONDS (12.5-14.5)
[2023-10-09 17:33] LABS: COLLAGEN EPINEPHRINE 81 SECONDS (74-162)
[2023-10-12 05:07] LABS: F8 ACTIVITY FOR F8 PANEL 206 % (56-140); F8 ACTIVITY vWB FOR F8 PANEL 320 % (50-200); F8 ANTIGEN FOR F8 PANEL 354 % (50-200)
== END ==
LOC: M PLALAB 16:23
PROVIDERS: ATTEND Internal Medicine Hematology
DX: R58 Hemorrhage, not elsewhere classified (principal); Z79.01 Long term (current) use of anticoagulants

== ENCOUNTER → 2023-10-17 | Outpatient (CLI) | payer MEDICARE, MEDICAID | LOC: M PAIN 14:30 | PROVIDERS: ATTEND Anesthesiology | DX: M79.18 Myalgia, other site (principal); M54.50 Low back pain, unspecified; M96.1 Postlaminectomy syndrome, not elsewhere classified; G89.29 Other chronic pain; E78.2 Mixed hyperlipidemia; K21.9 Gastro-esophageal reflux disease without esophagitis; K44.9 Diaphragmatic hernia without obstruction or gangrene; J45.30 Mild persistent asthma, uncomplicated; I13.0 Hypertensive heart and chronic kidney disease with heart failure and stage 1 through stage 4 chronic kidney disease, or unspecified chronic kidney disease; F33.9 Major depressive disorder, recurrent, unspecified; F41.1 Generalized anxiety disorder; N39.41 Urge incontinence; M47.812 Spondylosis without myelopathy or radiculopathy, cervical region; M47.816 Spondylosis without myelopathy or radiculopathy, lumbar region; G47.33 Obstructive sleep apnea (adult) (pediatric); E11.22 Type 2 diabetes mellitus with diabetic chronic kidney disease; I50.32 Chronic diastolic (congestive) heart failure; M16.0 Bilateral primary osteoarthritis of hip; N18.31 Chronic kidney disease, stage 3a; M17.0 Bilateral primary osteoarthritis of knee; Z79.84 Long term (current) use of oral hypoglycemic drugs; Z79.899 Other long term (current) drug therapy; Z88.8 Allergy status to other drugs, medicaments and biological substances ==

== ENCOUNTER → 2023-11-27 | Outpatient (CLI) | payer MEDICARE, MEDICAID | LOC: M PAIN 10:15 | PROVIDERS: ATTEND Nurse Practitioner Family | DX: M50.10 Cervical disc disorder with radiculopathy, unspecified cervical region (principal); G89.29 Other chronic pain; E78.2 Mixed hyperlipidemia; R73.01 Impaired fasting glucose; K21.9 Gastro-esophageal reflux disease without esophagitis; J45.30 Mild persistent asthma, uncomplicated; I13.0 Hypertensive heart and chronic kidney disease with heart failure and stage 1 through stage 4 chronic kidney disease, or unspecified chronic kidney disease; M79.7 Fibromyalgia; F33.9 Major depressive disorder, recurrent, unspecified; F41.1 Generalized anxiety disorder; M51.36 Other intervertebral disc degeneration, lumbar region; G47.33 Obstructive sleep apnea (adult) (pediatric); I50.32 Chronic diastolic (congestive) heart failure; N18.31 Chronic kidney disease, stage 3a; M17.0 Bilateral primary osteoarthritis of knee; Z79.84 Long term (current) use of oral hypoglycemic drugs; Z79.899 Other long term (current) drug therapy; Z88.8 Allergy status to other drugs, medicaments and biological substances ==

== ENCOUNTER → 2023-12-27 | Outpatient (CLI) | payer MEDICARE, MEDICAID ==
[~2023-12-27] MED LIST changes: +NORCO, ANEXSIA 5/325MG TABLET (HYDROcodone/ACETAMINOPHEN) As Ordered ONE; +ONDANSETRON 4MG ORAL DISINTEGRATING TAB As Ordered ONE; +TRIAMCINOLONE ACETONIDE SUSP 40MG/ML 1ML VIAL As Ordered ONE; +diazePAM 5MG TABLET As Ordered ONE
== END ==
LOC: M PAIN 10:00
PROVIDERS: ATTEND Anesthesiology
DX: M79.18 Myalgia, other site (principal); M54.50 Low back pain, unspecified; I10 Essential (primary) hypertension; E11.9 Type 2 diabetes mellitus without complications; J45.909 Unspecified asthma, uncomplicated; Z79.51 Long term (current) use of inhaled steroids; Z79.891 Long term (current) use of opiate analgesic; Z79.899 Other long term (current) drug therapy
CPT/HCPCS: 20552; J0665; J3301

== ENCOUNTER → 2024-01-07 | Outpatient (CLI) | payer MEDICARE, MEDICAID ==
[~2024-01-07] MED LIST changes: -NORCO, ANEXSIA 5/325MG TABLET (HYDROcodone/ACETAMINOPHEN) As Ordered ONE; -ONDANSETRON 4MG ORAL DISINTEGRATING TAB As Ordered ONE; -TRIAMCINOLONE ACETONIDE SUSP 40MG/ML 1ML VIAL As Ordered ONE; -diazePAM 5MG TABLET As Ordered ONE
== END ==
LOC: M RAD 10:56
PROVIDERS: ATTEND Physician Assistant Medical
DX: M79.672 Pain in left foot (principal); M25.572 Pain in left ankle and joints of left foot

== ENCOUNTER → 2024-01-25 | Outpatient (CLI) | payer MEDICARE, MEDICAID ==
[2024-01-25 09:55] LABS: INR 1.06; PARTIAL THROMBOPLASTIN TIME 26.4 SECONDS (24.8-34.2); PROTHROMBIN TIME 13.5 SECONDS (12.5-14.5)
[2024-01-25 10:46] LABS: BASO % 0.4 % (0.0-1.0); EOS # 0.3 10^3/uL (0.0-0.5); EOS % 5.2 % (0.0-3.0); HEMATOCRIT 38.6 % (36.0-47.0); HEMOGLOBIN 12.8 g/dl (12.0-15.5); LYMPH # 1.9 10^3/uL (1.5-5.0); LYMPH % 36.6 % (24.0-44.0); MEAN CORPUSCULAR HEMOGLOBIN 29.6 pg (27.0-33.0); MEAN CORPUSCULAR HGB CONC 33.2 g/dl (32.0-36.5); MEAN CORPUSCULAR VOLUME 89.4 fl (80.0-96.0); MONO # 0.5 10^3/uL (0.0-0.8); MONO % 8.8 % (2.0-8.0); NEUTROPHILS # 2.6 10^3/uL (1.5-8.5); NEUTROPHILS % 48.8 % (36.0-66.0); PLATELET COUNT, AUTOMATED 164 10^3/uL (150-450); RED BLOOD COUNT 4.32 10^6/uL (4.00-5.40); WHITE BLOOD COUNT 5.2 10^3/uL (4.0-10.0)
[2024-01-25 10:48] LABS: HEMOGLOBIN A1c 5.4 % (4.0-6.0)
[2024-01-25 11:06] LABS: ALBUMIN 3.9 G/DL (3.2-5.2); ALKALINE PHOSPHATASE 78 U/L (46-116); ALT/SGPT 18 U/L (7.0-40); AST/SGOT 14 U/L (<34); BILIRUBIN,TOTAL 0.5 MG/DL (0.3-1.2); BLOOD UREA NITROGEN 21 MG/DL (9-23); CALCIUM LEVEL 9.4 MG/DL (8.3-10.6); CARBON DIOXIDE LEVEL 29 MMOL/L (20-31); CHLORIDE LEVEL 108 MMOL/L (98-107); CHOLESTEROL LEVEL 179 MG/DL (<200); CHOLESTEROL RISK RATIO 3.15 (<5); CREATININE FOR GFR 0.98 MG/DL (0.55-1.30); GLOMERULAR FILTRATION RATE > 60.0 (>45); GLUCOSE, FASTING 96 MG/DL (74-106); HDL CHOLESTEROL 56.8 MG/DL (>40); LDL CHOLESTEROL 100.2 MG/DL (<100); MAGNESIUM LEVEL 2.1 MG/DL (1.8-2.4); NON-HDL-C 122.2 MG/DL; POTASSIUM SERUM 4.2 MMOL/L (3.5-5.1); PTH INTACT 52.4 PG/ML (18.5-88.0); SODIUM LEVEL 142 MMOL/L (136-145); TOTAL PROTEIN 7.1 G/DL (5.7-8.2); TRIGLYCERIDES LEVEL 110 MG/DL (<150)
[2024-01-25 11:08] LABS: TOTAL 25(OH) VITAMIN D 57.4 NG/ML (20.0-100.0)
[2024-01-25 11:09] LABS: FERRITIN 35.9 NG/ML (7.3-270.7)
[2024-02-01 17:17] LABS: ALPHA 2-MACROGLOBULINS,QN 167 mg/dL (106-279); ALT (SGPT) P5P 12 U/L (6-29); APOLIPOPROTEIN A-1 162 mg/dL (101-198); BILIRUBIN, TOTAL 0.4 mg/dL (0.2-1.2); FIBROSIS SCORE 0.17; FIBROSIS STAGE NO FIBROSIS (F0); GGT 11 U/L (3-65); HAPTOGLOBIN 46 mg/dL (43-212); NECROINFLAM ACT GRADE NO ACTIVITY (A0); NECROINFLAM ACT SCORE 0.03
== END ==
LOC: M PLALAB 07:56
PROVIDERS: ATTEND Family Medicine
DX: K76.0 Fatty (change of) liver, not elsewhere classified (principal); I50.32 Chronic diastolic (congestive) heart failure; R73.01 Impaired fasting glucose; E78.2 Mixed hyperlipidemia; E55.9 Vitamin D deficiency, unspecified

== ENCOUNTER → 2024-03-05 | Outpatient (CLI) | payer MEDICARE, MEDICAID ==
[~2024-03-05] MED LIST changes: +GABA-1172 PO; -GABA-282 PO
== END ==
LOC: M PAIN 13:00
PROVIDERS: ATTEND Anesthesiology
DX: M47.816 Spondylosis without myelopathy or radiculopathy, lumbar region (principal); G89.29 Other chronic pain; M54.50 Low back pain, unspecified; E78.2 Mixed hyperlipidemia; R73.01 Impaired fasting glucose; K21.9 Gastro-esophageal reflux disease without esophagitis; J45.30 Mild persistent asthma, uncomplicated; I13.0 Hypertensive heart and chronic kidney disease with heart failure and stage 1 through stage 4 chronic kidney disease, or unspecified chronic kidney disease; M79.7 Fibromyalgia; F33.9 Major depressive disorder, recurrent, unspecified; F41.1 Generalized anxiety disorder; M47.812 Spondylosis without myelopathy or radiculopathy, cervical region; G47.33 Obstructive sleep apnea (adult) (pediatric); I50.32 Chronic diastolic (congestive) heart failure; M16.0 Bilateral primary osteoarthritis of hip; N18.30 Chronic kidney disease, stage 3 unspecified; M17.0 Bilateral primary osteoarthritis of knee; Z79.84 Long term (current) use of oral hypoglycemic drugs; Z79.899 Other long term (current) drug therapy; Z88.8 Allergy status to other drugs, medicaments and biological substances
CPT/HCPCS: 76000; G0463

== ENCOUNTER → 2024-04-01 | Outpatient (CLI) | payer MEDICARE, MEDICAID ==
[~2024-04-01] MED LIST changes: +E-Z-GAS II EFFERVESCENT PACKET (SODIUM BICARB./CITRIC ACID/SIMETHICONE) As Ordered ONE; +E-Z-HD 98% w/w 340GM SUSP BTL As Ordered ONE; +E-Z-PAQUE 96% w/w SUSP 176GM BTL As Ordered ONE
== END ==
LOC: M RAD 09:10
PROVIDERS: ATTEND Family Medicine
DX: K21.9 Gastro-esophageal reflux disease without esophagitis (principal); K44.9 Diaphragmatic hernia without obstruction or gangrene

== ENCOUNTER → 2024-06-06 | Outpatient (CLI) | payer MEDICARE, MEDICAID ==
[~2024-06-06] MED LIST changes: -E-Z-GAS II EFFERVESCENT PACKET (SODIUM BICARB./CITRIC ACID/SIMETHICONE) As Ordered ONE; -E-Z-HD 98% w/w 340GM SUSP BTL As Ordered ONE; -E-Z-PAQUE 96% w/w SUSP 176GM BTL As Ordered ONE; +ERGO500029 PO; +ESTR0.1C5 VG; +FAMO40TA3 PO; +FLUTISP; +HYDR-3363 PO; -MONT10TA97; +MONT10TA97 PO; +SUCR1TAB56 PO; +TRIAMCINOLONE ACETONIDE SUSP 40MG/ML 1ML VIAL As Ordered ONE
== END ==
LOC: M PAIN 12:30
PROVIDERS: ATTEND Anesthesiology
DX: M79.18 Myalgia, other site (principal); M79.10 Myalgia, unspecified site; G89.29 Other chronic pain; E78.2 Mixed hyperlipidemia; R73.01 Impaired fasting glucose; K21.9 Gastro-esophageal reflux disease without esophagitis; J45.20 Mild intermittent asthma, uncomplicated; N18.31 Chronic kidney disease, stage 3a; M16.0 Bilateral primary osteoarthritis of hip; M17.0 Bilateral primary osteoarthritis of knee; I12.9 Hypertensive chronic kidney disease with stage 1 through stage 4 chronic kidney disease, or unspecified chronic kidney disease; Z79.84 Long term (current) use of oral hypoglycemic drugs; Z79.899 Other long term (current) drug therapy; Z88.8 Allergy status to other drugs, medicaments and biological substances
CPT/HCPCS: 20552; J0665; J3301

== ENCOUNTER 2024-06-16 10:28 | Day surgery (SDC) | payer MEDICARE, MEDICAID ==
[~2024-06-16] VITALS: Ht 177.8 cm; Wt 103.6 kg
[~2024-06-16 10:28] MED LIST changes: -TRIAMCINOLONE ACETONIDE SUSP 40MG/ML 1ML VIAL As Ordered ONE
[2024-06-16] MEDS ORDERED: propofoL 200 MG/20 ML VIAL As Ordered ONE (12:31)
[2024-06-16] MEDS ORDERED: GLYCOPYRROLATE INJ 0.2 MG/ML 2 ML VIAL As Ordered ONE (12:45)
[2024-06-16] MEDS ORDERED: LIDOCAINE 2% 100MG/5ML SDV (FOR ANES.) As Ordered ONE (12:45)
[2024-06-16 13:25] VITALS: BP 138/86; O2SAT 98
== END 2024-06-16 13:29 | disposition home or self-care (01) ==
LOC: M OPP 10:28
PROVIDERS: ATTEND Internal Medicine Gastroenterology
DX: K51.90 Ulcerative colitis, unspecified, without complications (principal); K64.0 First degree hemorrhoids; R19.4 Change in bowel habit; K57.30 Diverticulosis of large intestine without perforation or abscess without bleeding; K22.70 Barrett's esophagus without dysplasia; R12 Heartburn; R07.89 Other chest pain; G47.30 Sleep apnea, unspecified; Z88.5 Allergy status to narcotic agent; Z88.8 Allergy status to other drugs, medicaments and biological substances; Z79.899 Other long term (current) drug therapy; Z79.84 Long term (current) use of oral hypoglycemic drugs; J45.909 Unspecified asthma, uncomplicated
CPT/HCPCS: 43239; 45378; 88305; J1596

== ENCOUNTER → 2024-07-02 | Outpatient (CLI) | payer MEDICARE, MEDICAID ==
[2024-07-02 12:04] LABS: BASO % 0.4 % (0.0-1.0); EOS # 0.3 10^3/uL (0.0-0.5); EOS % 5.4 % (0.0-3.0); HEMATOCRIT 37.1 % (36.0-47.0); LYMPH # 2.2 10^3/uL (1.5-5.0); LYMPH % 40.7 % (24.0-44.0); MEAN CORPUSCULAR HEMOGLOBIN 29.7 pg (27.0-33.0); MEAN CORPUSCULAR HGB CONC 32.3 g/dl (32.0-36.5); MEAN CORPUSCULAR VOLUME 91.8 fl (80.0-96.0); MONO # 0.3 10^3/uL (0.0-0.8); NEUTROPHILS # 2.5 10^3/uL (1.5-8.5); NEUTROPHILS % 47.3 % (36.0-66.0); PLATELET COUNT, AUTOMATED 164 10^3/uL (150-450); RED BLOOD COUNT 4.04 10^6/uL (4.00-5.40); WHITE BLOOD COUNT 5.3 10^3/uL (4.0-10.0)
[2024-07-02 12:48] LABS: ALBUMIN 3.8 G/DL (3.2-5.2); BILIRUBIN,TOTAL 0.4 MG/DL (0.3-1.2); CALCIUM LEVEL 8.5 MG/DL (8.3-10.6); CREATININE FOR GFR 0.99 MG/DL (0.55-1.30); GLOMERULAR FILTRATION RATE 59.6 (>45); MAGNESIUM LEVEL 2.1 MG/DL (1.8-2.4); POTASSIUM SERUM 4.5 MMOL/L (3.5-5.1); TOTAL PROTEIN 6.8 G/DL (5.7-8.2)
[2024-07-02 12:50] LABS: FERRITIN 33.9 NG/ML (7.3-270.7)
== END ==
LOC: M PLALAB 08:27
PROVIDERS: ATTEND Family Medicine
DX: I50.32 Chronic diastolic (congestive) heart failure (principal); D50.9 Iron deficiency anemia, unspecified

== ENCOUNTER → 2024-08-12 | Outpatient (CLI) | payer MEDICARE, MEDICAID | LOC: M WHC 15:02 | PROVIDERS: ATTEND Family Medicine | DX: Z12.31 Encounter for screening mammogram for malignant neoplasm of breast (principal); R92.313 Mammographic fatty tissue density, bilateral breasts ==

== ENCOUNTER → 2024-12-19 | Outpatient (REF) | payer MEDICARE, MEDICAID ==
[2024-12-19 12:10] LABS: APPEARANCE, URINE CLOUDY (CLEAR); BACTERIA, URINE AUTO 2+ (NEGATIVE); BILIRUBIN, URINE AUTO NEGATIVE (NEGATIVE); BLOOD, URINE BLOOD 1+ (NEGATIVE); GLUCOSE, URINE (UA) AUTO NEGATIVE (NEGATIVE); KETONE, URINE AUTO NEGATIVE (NEGATIVE); LEUKOCYTE ESTERASE, URINE AUTO 3+ (NEGATIVE); MUCUS, URINE SMALL (NEGATIVE); NITRITE, URINE AUTO POSITIVE (NEGATIVE); PROTEIN, URINE AUTO 1+ mg/dL (NEGATIVE); RBC, URINE AUTO 9 /HPF (0-3); SPECIFIC GRAVITY URINE AUTO 1.020 (1.002-1.035); SQUAMOUS EPITHELIAL CELL UR AU 8 /HPF (0-6); UROBILINOGEN, URINE AUTO 0.2 mg/dL (0.0-2.0); WBC, URINE AUTO TNTC /HPF (0-3)
== END ==
LOC: M LAB REF 11:42
DX: N39.0 Urinary tract infection, site not specified (principal)

== ENCOUNTER → 2025-03-17 | Outpatient (CLI) | payer MEDICARE, MEDICAID | LOC: M WHC 11:17 | PROVIDERS: ATTEND Nurse Practitioner Family | DX: Z12.31 Encounter for screening mammogram for malignant neoplasm of breast (principal); Z53.9 Procedure and treatment not carried out, unspecified reason ==

== ENCOUNTER → 2025-03-23 | Outpatient (CLI) | payer MEDICARE, MEDICAID ==
[2025-03-23 17:20] LABS: BASO # 0.0 10^3/uL (0.0-0.2); BASO % 0.4 % (0.0-1.0); EOS # 0.4 10^3/uL (0.0-0.5); EOS % 4.9 % (0.0-3.0); LYMPH # 3.9 10^3/uL (1.5-5.0); LYMPH % 49.7 % (24.0-44.0); MONO # 0.5 10^3/uL (0.0-0.8); MONO % 6.5 % (2.0-8.0); NEUTROPHILS # 3.0 10^3/uL (1.5-8.5); NEUTROPHILS % 38.4 % (36.0-66.0); PLATELET COUNT, AUTOMATED 191 10^3/uL (150-450)
[2025-03-23 17:24] LABS: ALT/SGPT 14.0 U/L (7.0-40); AST/SGOT 21.0 U/L (<34); CALCIUM LEVEL 9.1 MG/DL (8.3-10.6); CARBON DIOXIDE LEVEL 29.0 MMOL/L (20-31); CHLORIDE LEVEL 107.0 MMOL/L (98-107); CREATININE FOR GFR 0.89 MG/DL (0.55-1.30); GLOMERULAR FILTRATION RATE 70.6 (>45); MAGNESIUM LEVEL 2.1 MG/DL (1.8-2.4); POTASSIUM SERUM 4.3 MMOL/L (3.5-5.1); SODIUM LEVEL 144.0 MMOL/L (136-145)
[2025-03-23 17:54] LABS: ESTIMATED AVERAGE GLUCOSE 108.0 MG/DL (60-110)
== END ==
LOC: M PLALAB 14:11
PROVIDERS: ATTEND Family Medicine
DX: M17.0 Bilateral primary osteoarthritis of knee (principal); I50.32 Chronic diastolic (congestive) heart failure; R73.01 Impaired fasting glucose; K75.81 Nonalcoholic steatohepatitis (NASH)

== ENCOUNTER 2025-04-23 09:45 | Outpatient (CLI) | payer MEDICARE, MEDICAID ==
[~2025-04-23 09:45] MED LIST changes: +ALBUTEROL SULFATE 2.5 MG/0.5 ML INH CONCENTRATE NEB SOLN INH PRN; +EPINEPHrine INJ 1 MG/ML 1ML AMP IM PRN; +diphenhydrAMINE 50 MG/ML VIAL IV PRN
[2025-04-23 09:50] VITALS: BP 178/90; O2SAT 99
[2025-04-23] MEDS: diphenhydrAMINE 25MG PO PRIOR TO INFUSION PO ONE (10:13)
[2025-04-23] MEDS: NS 250 ML IV ONE (10:20)
[2025-04-23] MEDS: ACETAMINOPHEN 650MG PO PRIOR TO INFUSION PO ONE (10:20)
[2025-04-23] MEDS: IRON SUCROSE 500 MG in NS 250 ML IV ONE (10:38)
[2025-04-23 11:30] VITALS: BP 150/74; O2SAT 100
[2025-04-23 12:30] VITALS: BP 130/70; O2SAT 100
[2025-04-23 13:30] VITALS: BP 136/80; O2SAT 100
[2025-04-23 14:45] VITALS: BP 146/74; O2SAT 98
[2025-04-23 15:15] VITALS: BP 145/72; O2SAT 99
== END 2025-04-23 15:15 ==
LOC: M INFU 09:45
PROVIDERS: ATTEND Family Medicine
DX: D50.9 Iron deficiency anemia, unspecified (principal); Z88.8 Allergy status to other drugs, medicaments and biological substances; Z88.5 Allergy status to narcotic agent
CPT/HCPCS: 96365; 96366; J1756

== ENCOUNTER 2025-05-12 07:15 | Outpatient (CLI) | payer MEDICARE, MEDICAID ==
[~2025-05-12] VITALS: Ht 177.8 cm; Wt 106.8 kg
[~2025-05-12 07:15] MED LIST changes: +ACETAMINOPHEN 650MG PO PRIOR TO INFUSION PO ONE; +IRON SUCROSE 500 MG in NS 250 ML IV ONE; +NS (Normal Saline) 0.9% 250 ML IV SCH; +diphenhydrAMINE 25MG PO PRIOR TO INFUSION PO ONE
[2025-05-12 07:50] VITALS: BP 133/77; O2SAT 95
[2025-05-12] MEDS: diphenhydrAMINE 25MG PO PRIOR TO INFUSION PO ONE (08:08)
[2025-05-12] MEDS: NS (Normal Saline) 0.9% 250 ML IV SCH (08:08)
[2025-05-12] MEDS: IRON SUCROSE 500 MG in NS 250 ML IV ONE (08:42)
[2025-05-12] MEDS: ACETAMINOPHEN 650MG PO PRIOR TO INFUSION PO ONE (08:56)
[2025-05-12 09:30] VITALS: BP 111/66; O2SAT 98
[2025-05-12 10:30] VITALS: BP 109/54; O2SAT 96
[2025-05-12 11:30] VITALS: BP 112/70; O2SAT 99
[2025-05-12 12:40] VITALS: BP 125/67; O2SAT 100
== END 2025-05-12 13:00 | disposition home or self-care (01) ==
LOC: M INFU 07:15
PROVIDERS: ATTEND Family Medicine
DX: D50.9 Iron deficiency anemia, unspecified (principal); Z88.5 Allergy status to narcotic agent; Z88.8 Allergy status to other drugs, medicaments and biological substances
CPT/HCPCS: 96361; 96365; 96366; J1756